=== PATIENT | female | born 1935 | race Caucasian/White ===

== ENCOUNTER → 2016-11-15 | Outpatient (CLI) | payer MEDICARE | END | disposition home or self-care (01) | LOC: LABWHC1 11:00 | PROVIDERS: ATTEND Family Medicine | DX: R19.4 Change in bowel habit (principal) | CPT/HCPCS: 36415; 82272 ==

== ENCOUNTER → 2016-11-16 | Outpatient (CLI) | payer MEDICARE | END | disposition home or self-care (01) | LOC: LABWHC1 11:00 | PROVIDERS: ATTEND Family Medicine | DX: R19.4 Change in bowel habit (principal) | CPT/HCPCS: 36415; 82272 ==

== ENCOUNTER → 2017-01-02 | Outpatient (CLI) | payer MEDICARE ==
--- NOTE | 2017-01-02 11:55 | MM ---
Reason for exam: additional evaluation requested from prior study. Last mammogram was performed 8 months ago. History: Patient is postmenopausal, has history of breast cancer at age 79, has history of colon cancer at age 48, and history of other cancer. Family history of breast cancer in 2 maternal cousins and breast cancer in sister at age 79. Malignant US breast localization RT of the right breast, July 21, 2015. Malignant US biopsy breast VAD RT of the right breast, June 22, 2015. Took estrogen for 20 years beginning at age 48. Taking antineoplastic beginning at age 79. Physical Findings: Nurse did not find any significant physical abnormalities on exam. MG 3D Diag Mammo W/Cad SILVA Bilateral CC and MLO view(s) were taken. Prior study comparison: May 06, 2016, bilateral MG 3d diag mammo w/cad SILVA. June 22, 2015, right breast MG diagnostic mammo RT wo CAD. There are scattered fibroglandular densities. No significant new findings when compared with previous films. These results were verbally communicated with the patient and result sheet given to the patient on 01/02/17. ASSESSMENT: Benign, BI-RAD 2 RECOMMENDATION: Follow-up diagnostic mammogram of both breasts in 1 year.
== END | disposition home or self-care (01) ==
LOC: RADMAMWWP 10:52
PROVIDERS: ATTEND Internal Medicine Hematology & Oncology
DX: R92.8 Other abnormal and inconclusive findings on diagnostic imaging of breast (principal); Z85.3 Personal history of malignant neoplasm of breast
CPT/HCPCS: G0204; G0279

== ENCOUNTER → 2017-02-17 | Outpatient (CLI) | payer MEDICARE ==
[2017-02-17 13:09] LABS: Basophils # (A) 0.1 k/uL (0-0.2); Basophils % (A) 1 %; CH 33.1; CHCM 34.2; Eosinophils # (A) 0.1 k/uL (0-0.7); Eosinophils % (A) 2 %; HCT 42.2 % (34.0-46.0); HDW 2.94; Luc # (Auto) 0.27; Luc % (Auto) 3; Lymphocytes # (A) 1.4 k/uL (1.0-4.8); Lymphocytes % (A) 18 %; MCH 32.3 pg (25.0-35.0); MCHC 33.2 g/dL (31.0-37.0); MCV 97.3 fL (80.0-100.0); Mean Platelet Volume 6.7; Monocytes # (A) 0.5 k/uL (0-1.0); Monocytes % (A) 6 %; Neutrophils # (A) 5.7 k/uL (1.3-7.7); Neutrophils % (A) 71 %; RBC 4.33 m/uL (3.80-5.40); RDW 13.5 % (11.5-15.5); WBC 8.1 k/uL (3.8-10.6); WBC (Perox) 8.04
[2017-02-17 15:18] LABS: Calcium 10.1 mg/dL (8.4-10.2); Magnesium 1.5 mg/dL (1.6-2.3); Potassium 3.9 mmol/L (3.5-5.1); Total Bilirubin 1.1 mg/dL (0.2-1.3); Total Protein 6.6 g/dL (6.3-8.2); Uric Acid 8.9 mg/dL (3.7-7.4)
[2017-02-18 01:08] LABS: Hemoglobin A1C 5.5 % (4.2-6.1)
== END | disposition home or self-care (01) ==
LOC: LABWHC1 11:53
PROVIDERS: ATTEND Family Medicine
DX: N18.3 Chronic kidney disease, stage 3 (moderate) (principal); E55.9 Vitamin D deficiency, unspecified; E53.8 Deficiency of other specified B group vitamins; E78.5 Hyperlipidemia, unspecified; E04.1 Nontoxic single thyroid nodule; Z86.39 Personal history of other endocrine, nutritional and metabolic disease
CPT/HCPCS: 36415; 80053; 80061; 82043; 82306; 82607; 83036; 83735; 83970; 84439; 84443; 84550; 85025

== ENCOUNTER → 2017-03-06 | Outpatient (CLI) | payer MEDICARE ==
--- NOTE | 2017-03-06 22:12 | US ---
EXAMINATION TYPE: US thyroid st tissue head/neck DATE OF EXAM: 03/06/2017 2:14 PM COMPARISON: 02/22/2014 CLINICAL HISTORY: 81-year-old female E04.1 Thyroid Nodule. TECHNIQUE: Multiple sonographic images of the thyroid gland are obtained. FINDINGS: GLAND SIZE: Right Lobe: 3.8 X 1.7 X 1.6 cm Overall Parenchyma: homogenous Left Lobe: 3.3 X 1.5 X 1.3 cm Overall Parenchyma: homogeneous Isthmus Thickness: 0.2 cm NODULES RIGHT: # of nodules measured on right: 2 1. 1.0 X 1.1 x 0.7 cm solid, mixed echogenicity nodule at the lower pole with well-defined margins; . This nodule is taller than wide and shows no intranodular vascularity. Prior size: 0.6 x 0.6 x 0.5 cm 2. 0.2 X 0.2 x 0.2 cm tiny cyst at the mid pole with well-defined margins; . This nodule shows no i ntranodular vascularity. Prior size: NO PRIOR 3. Nodule seen medially on 2013 study is not seen today. LEFT: # of nodules measured on left: 2 1. 0.9 X 0.8 x 0.7 cm echogenic solid nodule at the lower pole with well-defined margins; . This n odule is taller than wide and shows no intranodular vascularity. Prior size: 0.9 x 0.7 x 0.9 cm 2. 0.7 X 0.8 x 0.4 cm echogenic solid nodule at the upper pole with well-defined margins; . This no dule is taller than wide and shows no intranodular vascularity. Prior size: 0.8 x 0.7 x 0.9 cm ISTHMUS: # of nodules measured in the isthmus: 0 Bilateral neck scanned, no evidence of lymphadenopathy. IMPRESSION: 1. There are 2 nodules within each lobe. A solid nodule in the right lower pole has increased in size , now measuring 10 x 11 mm versus 6 x 6 mm, previously. The decision to biopsy should be made on a cl inical basis. 2. Additional nodules are largely stable.
== END | disposition home or self-care (01) ==
LOC: RADUSWWP 13:37
PROVIDERS: ATTEND Family Medicine
DX: E04.2 Nontoxic multinodular goiter (principal)
CPT/HCPCS: 76536

== ENCOUNTER → 2017-06-25 | Outpatient (CLI) | payer MEDICARE ==
[2017-06-25 10:40] LABS: CH 32.9; CHCM 34.5; HCT 39.8 % (34.0-46.0); HDW 2.93; HGB 13.7 gm/dL (11.4-16.0); MCH 32.9 pg (25.0-35.0); MCHC 34.3 g/dL (31.0-37.0); MCV 95.7 fL (80.0-100.0); Mean Platelet Volume 6.9; RBC 4.16 m/uL (3.80-5.40); RDW 13.6 % (11.5-15.5); WBC 7.1 k/uL (3.8-10.6)
[2017-06-25 10:53] LABS: Anion Gap 11 mmol/L; Blood Urea Nitrogen 20 mg/dL (7-17); Calcium 9.4 mg/dL (8.4-10.2); Carbon Dioxide 25 mmol/L (22-30); Chloride 102 mmol/L (98-107); Glucose 120 mg/dL (74-99); Non-African American GFR(MDRD) 50 (>60 ml/min/1.73 sqM); Potassium 3.5 mmol/L (3.5-5.1); Sodium 138 mmol/L (137-145)
== END | disposition home or self-care (01) ==
LOC: LABWHC1 09:47
PROVIDERS: ATTEND Internal Medicine Interventional Cardiology
DX: I10 Essential (primary) hypertension (principal); E11.9 Type 2 diabetes mellitus without complications
CPT/HCPCS: 36415; 80048; 85027

== ENCOUNTER → 2017-07-11 | Outpatient (CLI) | payer MEDICARE ==
--- NOTE | 2017-07-15 12:13 | BD ---
EXAMINATION TYPE: MG DEXA axial skeleton. DATE OF EXAM: 07/11/2017 COMPARISON: 09.27.2015 CLINICAL HISTORY: C50.111 BREAST CANCER, M85.8 OSTEOPENIA Height: 60.5 Weight: 193 FRAX RISK QUESTIONS: Alcohol (3 or more units per day): NO Family History (Parent hip fracture): YES, NO FX'S KNOWN Glucocorticoids (More than 3mos): YES (Ex: prednisone, prednisolone, methylprednisolone, dexamethasone, and hydrocortisone). History of Fracture in Adulthood: NO Secondary Osteoporosis: NO 1. Type 1 Diabetes: UNSURE WHERE SHE IS AT AT THIS TIME 2. Hyperthyroidism: NO 3. Menopause before 45: NO 4. Malnutrition: NO 5. Chronic liver disease: NO Rheumatoid Arthritis: NO Current Tobacco Use: NO RISK FACTORS HISTORY OF: Family History of Osteoporosis: YES SOME, BUT UNKNOWN WHO Active: NOT TOO MUCH Diet low in dairy products/other sources of calcium: NO Postmenopausal woman: 45 YRS OLD, HYST AT 49 YRS OLD Take estrogen and/or progesterone medications: TOOK HORMONES IN PAST FOR APROX 25 YRS OR MORE How lon+ YRS Lost more than 2 inches in height since high school: YES Hyperparathyroidism: NO Adrenal Insufficiency: NO MEDICATIONS: Prednisone or other steroids: FLOVENT, ASTHMA STEROIDS How Long: MANY YRS Thyroid Medications: YES, SYNTHROID How Long: MANY YRS...20 + Additional Medications: MAGNESIUM, VIT D, HX OF RADIATION THERAPY, BP MEDS, STATINS FOR CHOLESTEROL, REFLUX MEDS, POT. CHLORIDE , FUROSEMIDE Additional History: RENAL FAILURE, STAGE 3, RT BREAST CANCER, SPINAL STENOSIS, SCOLIOSIS, DIABETIC... DIET CONTROLLED EXAM MEASUREMENTS: Bone mineral densitometry was performed using the [employer] System. Bone mineral density as measured about the Lumbar spine is: ----- L1-L4(G/cm2): 1.143 T Score Values are as follows: ----- L1: -0.7 ----- L2: -0.9 ----- L3: 0.9 ----- L4: -0.8 ----- L1-L4: -0.3 Bone mineral density has: Decreased -4.3% since study of: 09.27.2015 Bone mineral density about the R hip (g/cm2): 0.781 Bone mineral density about the L hip (g/cm2): 0.746 T Score values are as follows: -----R Neck: -2.3 -----L Neck: -2.5 -----R Total: -1.8 -----L Total: -2.1 Bone mineral density has: Decreased -2.6% since study of: 09.27.2015 FRAX%'S: THERE IS A 25.6% CHANCE OF A MAJOR OSTEOPOROTIC FX AND 10.2% CHANCE FOR HIP FX.....PROBAB ILITY IN 10 YRS TIME IMPRESSION: Osteopenia NOTE: T-SCORE=SD OF THE YOUNG ADULT MEAN.
== END ==
LOC: RADBDWWP 10:34
PROVIDERS: ATTEND Internal Medicine Hematology & Oncology
DX: M85.80 Other specified disorders of bone density and structure, unspecified site (principal); C50.111 Malignant neoplasm of central portion of right female breast
CPT/HCPCS: 77080

== ENCOUNTER 2017-11-16 16:59 | Inpatient (IN) | payer MEDICARE ==
[2017-11-16] MEDS ORDERED: SODIUM CHLORIDE 0.9% 1,000 ML IV STA (17:33)
[2017-11-16] MEDS ORDERED: DILTIAZEM 125 MG in SODIUM CHLORIDE 0.9% 100 ML IV STA (17:40)
[2017-11-16] MEDS ORDERED: HEPARIN SODIUM,PORCINE 5,000 UNIT/ML 1 ML VIAL IV ONE (17:45)
[2017-11-16] MEDS ORDERED: HEPARIN SOD,PORK IN 0.45% NACL 25,000 UNIT in 0.45% NACL 1 500ML.BAG IV SCH (17:45)
--- NOTE | 2017-11-16 17:46 | ED ---
SOB HPI - General Chief Complaint: Shortness of Breath Stated Complaint: SOB Time Seen by Provider: 11/16/17 17:23 Source: patient, RN notes reviewed Mode of arrival: wheelchair Limitations: no limitations - History of Present Illness Initial Comments: This is a 82-year-old female presents with complaints of shortness of breath and some hot feeling anterior chest pain after but last 1 and days. No fevers chills or sweats just is very short of breath when she gets up walked he feels like she may pass out. She does state she has a hole in the top of her heart has no history of irregular heartbeats. She denies any palpitations fevers chills nausea vomiting sweats or other symptoms MD Complaint: shortness of breath - Related Data Home Medications Medication Instructions Recorded Confirmed Aspirin 81 mg PO DAILY 07/19/15 11/16/17 Ergocalciferol [Vitamin D2 50,000 unit PO [id number] 07/19/15 11/16/17 (DRISDOL)] Fluticasone Propionate [Flovent 2 puff INHALATION RT-BID 07/19/15 11/16/17 Hfa 110mcg] Furosemide [Furosemide] 20 mg PO Q48H 07/19/15 11/16/17 Levothyroxine Sodium [Synthroid] 50 mcg PO MOTUTHFRSA 07/19/15 11/16/17 Loratadine [Loratadine] 10 mg PO DAILY 07/19/15 11/16/17 Losartan Potassium [Losartan 50 mg PO DAILY 07/19/15 11/16/17 Potassium] Potassium Chloride [Klor-Con 10] 10 meq PO TID 07/19/15 11/16/17 Simvastatin [Simvastatin] 20 mg PO HS 07/19/15 11/16/17 Ubidecarenone [Co Q-10] 200 mg PO DAILY 07/19/15 11/16/17 Allopurinol [Zyloprim] 100 mg PO DAILY 11/16/17 11/16/17 Anastrozole [Arimidex] 1 mg PO DAILY 11/16/17 11/16/17 Atenolol [Tenormin] 25 mg PO DAILY 11/16/17 11/16/17 Levothyroxine Sodium [Synthroid] 75 mcg PO SUWE 11/16/17 11/16/17 Magnesium Oxide [Mag-Ox] 800 mg PO DAILY 11/16/17 11/16/17 Allergies Allergy/AdvReac Type Severity Reaction Status Date / Time iodine Allergy Unknown VERY LOW Verified 11/16/17 17:47 BLOOD PRESSURE,SHORTNESS OF BREATH adhesive tape Allergy Rash/Hives Verified 11/16/17 17:54 clarithromycin Allergy Unknown Verified 11/16/17 17:47 diphenhydramine Allergy Unknown Verified 11/16/17 17:47 metaxalone [From Skelaxin] Allergy Rash/Hives Verified 11/16/17 17:47 niacin Allergy Unknown Verified 11/16/17 17:47 [From Niaspan Extended-Release] pantoprazole Allergy ITCHING Verified 11/16/17 17:47 ,REDNESS OF SKIN Review of Systems ROS Statement: Those systems with pertinent positive or pertinent negative responses have been documented in the HPI. ROS Other: All systems not noted in ROS Statement are negative. Past Medical History Past Medical History: Asthma, Cancer, Diabetes Mellitus, GERD/Reflux, Hearing Disorder / Deafness, Hyperlipidemia, Hypertension, Osteoarthritis (OA), Renal Disease Additional Past Medical History / Comment(s): RENAL DISEASE STAGE 3, SPINAL STENOSIS,DIET CONTROLLED DIABETIC History of Any Multi-Drug Resistant Organisms: None Reported Past Surgical History: Breast Surgery, Cholecystectomy, Heart Catheterization, Hysterectomy, Orthopedic Surgery Additional Past Surgical History / Comment(s): RIGHT BREAST BIOPSY RIGHT . RIGHT SHOULDER X 3. Past Anesthesia/Blood Transfusion Reactions: Postoperative Nausea & Vomiting ( PONV) Additional Past Anesthesia/Blood Transfusion Reaction / Comment(s): DUE TO REFLUX /POST ANESTHESIA PNEUMONIA. Past Psychological History: No Psychological Hx Reported Smoking Status: Never smoker Past Alcohol Use History: None Reported Past Drug Use History: None Reported - Past Family History Mother Family Medical History: Pulmonary Embolus Sister(s) Family Medical History: Cancer General Exam - General Exam Comments Initial Comments: This is a well developed well-nourished awake alert oriented 3 female Limitations: no limitations General appearance: alert, in no apparent distress Head exam: Present: atraumatic, normocephalic, normal inspection Eye exam: Present: normal appearance, PERRL, EOMI. Absent: scleral icterus, conjunctival injection, periorbital swelling ENT exam: Present: normal exam, mucous membranes moist Neck exam: Present: normal inspection. Absent: tenderness, meningismus, lymphadenopathy Respiratory exam: Present: normal lung sounds bilaterally. Absent: respiratory distress, wheezes, rales, rhonchi, stridor Cardiovascular Exam: Present: tachycardia, irregular rhythm. Absent: systolic murmur, diastolic murmur, rubs, gallop, clicks GI/Abdominal exam: Present: soft, normal bowel sounds. Absent: distended, tenderness, guarding, rebound, rigid Extremities exam: Present: normal inspection, full ROM, normal capillary refill. Absent: tenderness, pedal edema, joint swelling, calf tenderness Back exam: Present: normal inspection Neurological exam: Present: alert, oriented X3, CN II-XII intact Psychiatric exam: Present: normal affect, normal mood Skin exam: Present: warm, dry, intact, normal color. Absent: rash Course Vital Signs 11/16/17 11/16/17 11/16/17 17:04 17:45 18:15 Temperature 97.2 F L Pulse Rate 153 H 154 H 102 H Respiratory 20 20 20 Rate Blood Pressure 120/57 119/58 97/58 O2 Sat by Pulse 100 99 98 Oximetry - Reevaluation(s) Reevaluation #1: 11/16/17 19:14 Reevaluation the patient status therapy reveals patient still somewhat improved no chest pain or shortness of breath at this time. Reevaluation #2: 11/16/17 19:16 Repeat EKG shows a rate of 77 atrial flutter with a 41 conduction noted. QRS 104 QT since QTC of 348/391 red bundle-branch block nonspecific T-wave configuration Medical Decision Making - Medical Decision Making Reevaluation patient reveals that she has improved heart rate no chest pain at this time shortness of breath is improved I did discuss the findings of her and her family members as well as with Dr. Christopher patient will be admitted for evaluation - Lab Data Result diagrams: 11/16/17 17:34 11/16/17 17:34 Lab Results 11/16/17 11/16/17 11/16/17 Range/Units 17:34 17:34 17:34 WBC 8.4 (3.8-10.6) k/uL RBC 4.75 (3.80-5.40) m/uL Hgb 15.0 (11.4-16.0) gm/dL Hct 46.1 H (34.0-46.0) % MCV 97.0 (80.0-100.0) fL MCH 31.5 (25.0-35.0) pg MCHC 32.5 (31.0-37.0) g/dL RDW 14.8 (11.5-15.5) % Plt Count 304 (150-450) k/uL Neutrophils % 58 % Lymphocytes % 25 % Monocytes % 8 % Eosinophils % 3 % Basophils % 1 % Neutrophils # 4.9 (1.3-7.7) k/uL Lymphocytes # 2.1 (1.0-4.8) k/uL Monocytes # 0.7 (0-1.0) k/uL Eosinophils # 0.3 (0-0.7) k/uL Basophils # 0.1 (0-0.2) k/uL PT (9.0-12.0) sec INR (<1.2) APTT (22.0-30.0) sec D-Dimer (<0.60) mg/L FEU Sodium 138 (137-145) mmol/L Potassium 4.4 (3.5-5.1) mmol/L Chloride 102 (98-107) mmol/L Carbon Dioxide 24 (22-30) mmol/L Anion Gap 12 mmol/L BUN 26 H (7-17) mg/dL Creatinine 1.38 H (0.52-1.04) mg/dL Est GFR (MDRD) Af Amer 44 (>60 ml/min/1.73 sqM) Est GFR (MDRD) Non-Af 36 (>60 ml/min/1.73 sqM) Glucose 102 H (74-99) mg/dL Calcium 10.2 (8.4-10.2) mg/dL Magnesium 1.8 (1.6-2.3) mg/dL Total Bilirubin 1.0 (0.2-1.3) mg/dL AST 22 (14-36) U/L ALT 28 (9-52) U/L Alkaline Phosphatase 87 (38-126) U/L Total Creatine Kinase 38 (30-135) U/L CK-MB (CK-2) 0.8 (0.0-2.4) ng/mL CK-MB (CK-2) Rel Index 2.1 Troponin I <0.012 (0.000-0.034) ng/mL Total Protein 6.5 (6.3-8.2) g/dL Albumin 3.8 (3.5-5.0) g/dL TSH 1.370 (0.465-4.680) mIU/L 11/16/17 Range/Units 17:34 WBC (3.8-10.6) k/uL RBC (3.80-5.40) m/uL Hgb (11.4-16.0) gm/dL Hct (34.0-46.0) % MCV (80.0-100.0) fL MCH (25.0-35.0) pg MCHC (31.0-37.0) g/dL RDW (11.5-15.5) % Plt Count (150-450) k/uL Neutrophils % % Lymphocytes % % Monocytes % % Eosinophils % % Basophils % % Neutrophils # (1.3-7.7) k/uL Lymphocytes # (1.0-4.8) k/uL Monocytes # (0-1.0) k/uL Eosinophils # (0-0.7) k/uL Basophils # (0-0.2) k/uL PT 10.7 (9.0-12.0) sec INR 1.1 (<1.2) APTT 22.7 (22.0-30.0) sec D-Dimer 0.61 H (<0.60) mg/L FEU Sodium (137-145) mmol/L Potassium (3.5-5.1) mmol/L Chloride (98-107) mmol/L Carbon Dioxide (22-30) mmol/L Anion Gap mmol/L BUN (7-17) mg/dL Creatinine (0.52-1.04) mg/dL Est GFR (MDRD) Af Amer (>60 ml/min/1.73 sqM) Est GFR (MDRD) Non-Af (>60 ml/min/1.73 sqM) Glucose (74-99) mg/dL Calcium (8.4-10.2) mg/dL Magnesium (1.6-2.3) mg/dL Total Bilirubin (0.2-1.3) mg/dL AST (14-36) U/L ALT (9-52) U/L Alkaline Phosphatase (38-126) U/L Total Creatine Kinase (30-135) U/L CK-MB (CK-2) (0.0-2.4) ng/mL CK-MB (CK-2) Rel Index Troponin I (0.000-0.034) ng/mL Total Protein (6.3-8.2) g/dL Albumin (3.5-5.0) g/dL TSH (0.465-4.680) mIU/L - EKG Data -: EKG Interpreted by Me (Rapid atrial flutter with an apparent 2-1 conduction rate was 156 QRS 82 QT) - Radiology Data Radiology results: report reviewed (X-ray showed no acute findings.), image reviewed Critical Care Time Critical Care Time: Yes Critical Care Time: 31 minutes of critical care time which includes initial presentation with history physical labs x-rays several reevaluation the patient discussed with the patient family members regarding findings discussed with the admitting physician initial orders and documentation of the above. Disposition Clinical Impression: Atrial flutter with rapid ventricular response, Renal insufficiency, Atypical chest pain Disposition: ADMITTED IP TO THIS [facility] Condition: Stable Referrals: Caron Orellana MD [Primary Care Provider] - 1-2 days
[2017-11-16 17:57] LABS: Basophils # (A) 0.1 k/uL (0-0.2); Basophils % (A) 1 %; Eosinophils # (A) 0.3 k/uL (0-0.7); Eosinophils % (A) 3 %; HCT 46.1 % (34.0-46.0); Lymphocytes # (A) 2.1 k/uL (1.0-4.8); Lymphocytes % (A) 25 %; MCH 31.5 pg (25.0-35.0); MCHC 32.5 g/dL (31.0-37.0); Mean Platelet Volume 7.6; Monocytes # (A) 0.7 k/uL (0-1.0); Monocytes % (A) 8 %; Neutrophils # (A) 4.9 k/uL (1.3-7.7); Neutrophils % (A) 58 %; Platelet Count 304 k/uL (150-450); RBC 4.75 m/uL (3.80-5.40); RDW 14.8 % (11.5-15.5); WBC 8.4 k/uL (3.8-10.6)
[2017-11-16 18:13] LABS: Albumin 3.8 g/dL (3.5-5.0); Calcium 10.2 mg/dL (8.4-10.2); Magnesium 1.8 mg/dL (1.6-2.3); Potassium 4.4 mmol/L (3.5-5.1); Total Protein 6.5 g/dL (6.3-8.2)
[2017-11-16 18:16] LABS: Creatine Kinase 38 U/L (30-135); D-Dimer 0.61 mg/L FEU (<0.60); INR 1.1 (<1.2); Partial Thromboplastin Time 22.7 sec (22.0-30.0); Prothrombin Time 10.7 sec (9.0-12.0)
--- NOTE | 2017-11-16 18:20 | XR ---
EXAMINATION TYPE: XR chest 2V DATE OF EXAM: 11/16/2017 COMPARISON: Chest x-ray 03/04/2014. Chest CT August 30, 2014. HISTORY: Dysrhythmia per order. Shortness of breath and chest burning per patient. TECHNIQUE: Frontal and lateral views of the chest are obtained. FINDINGS: There is chronic parenchymal change without suspicious focal air space opacity, pleural ef fusion, or pneumothorax seen. The cardiac silhouette size is enlarged. Bilateral hilar prominence is consistent with underlying pulmonary artery hypertension. The osseous structures remain demineraliz ed. Cholecystectomy clips are noted on lateral view. IMPRESSION: Chronic emphysematous change and cardiomegaly with underlying pulmonary artery hypertens ion but no acute pulmonary process.
[2017-11-16 18:28] LABS: Creatine Kinase MB 0.8 ng/mL (0.0-2.4); Troponin I <0.012 ng/mL (0.000-0.034)
[2017-11-16] MEDS ORDERED: NALOXONE 0.4 MG/ML 1 ML VIAL IV PRN (19:18)
[2017-11-16 20:17] LABS: Glucose,Whole Blood 108 mg/dL (75-99)
[2017-11-16 20:29] VITALS: BMI 35.5
[2017-11-16] MEDS: BUDESONIDE 0.5 MG/2 ML NEBU INHALATION SCH (20:59)
[2017-11-16] MEDS: ATORVASTATIN 10 MG TAB PO SCH (21:52)
[2017-11-16] MEDS: POTASSIUM CHLORIDE ER 10 MEQ TAB.ER.PRT PO SCH (21:52)
[2017-11-16] MEDS: SODIUM CHLORIDE 0.9% 1,000 ML IV SCH (21:52)
--- NOTE | 2017-11-16 22:20 | P.HPIM ---
History of Present Illness H&P Date: 11/16/17 Chief Complaint: shortness of breath 82 year old female presenting to the ER with 3 day history of shortness of breath. Patient describes having episodes of palpitations. Pounding headache that she couldn't feel her heart rate. And a burning sensation in her chest. Palpitations in the per her chest got better but patient was still short of breath. Denies any dizziness or loss of consciousness. Denies any fever, no chills, no congestion. Denies having any previous history of irregular rhythm in the past.but she was told that she has a hole in her heart for which she follows up with cardiology Dr. Askew. In the ER, patient was found to have atrial flutter with rapid ventricular response. Heart rate was over 150. Patient was disconnected patient was given Cardizem heart rate did improve. Now patient seems to be in atrial flutter with controlled rhythm. Review of Systems Constitutional: Denies fever, Denies sweats Eyes: denies blurred vision, denies pain Ears, nose, mouth and throat: Reports headache, Denies sore throat Cardiovascular: Reports chest pain, Denies shortness of breath Respiratory: Reports as per HPI, Denies cough, Denies hemoptysis Gastrointestinal: Denies abdominal pain, Denies diarrhea, Denies nausea, Denies vomiting Genitourinary: Denies dysuria, Denies hematuria Musculoskeletal: Denies myalgias Integumentary: Denies pruritus, Denies rash Neurological: Denies numbness, Denies weakness Psychiatric: Denies anxiety, Denies depression Past Medical History Past Medical History: Asthma, Cancer, Diabetes Mellitus, GERD/Reflux, Hearing Disorder / Deafness, Hyperlipidemia, Hypertension, Osteoarthritis (OA), Renal Disease, Thyroid Disorder Additional Past Medical History / Comment(s): RENAL DISEASE STAGE 3, SPINAL STENOSIS,DIET CONTROLLED DIABETIC; New onset Afib 11/16/16; diverticulosis; Colon cancer polyp removal,hole in the heart History of Any Multi-Drug Resistant Organisms: None Reported Past Surgical History: Breast Surgery, Cholecystectomy, Heart Catheterization, Hysterectomy, Orthopedic Surgery Additional Past Surgical History / Comment(s): RIGHT BREAST BIOPSY RIGHT . RIGHT SHOULDER X 3. Hx of colonoscopy Past Anesthesia/Blood Transfusion Reactions: Postoperative Nausea & Vomiting ( PONV) Additional Past Anesthesia/Blood Transfusion Reaction / Comment(s): DUE TO REFLUX /POST ANESTHESIA PNEUMONIA. Past Psychological History: No Psychological Hx Reported Smoking Status: Never smoker Past Alcohol Use History: None Reported Past Drug Use History: None Reported - Past Family History Mother Family Medical History: Pulmonary Embolus Additional Family Medical History / Comment(s): at 59 from PE Sister(s) Family Medical History: Cancer Additional Family Medical History / Comment(s): Breast Caancer Medications and Allergies Home Medications Medication Instructions Recorded Confirmed Type Aspirin 81 mg PO DAILY 07/19/15 11/16/17 History Ergocalciferol [Vitamin D2 50,000 unit PO [id number] 07/19/15 11/16/17 History (DRISDOL)] Fluticasone Propionate [Flovent 2 puff INHALATION RT-BID 07/19/15 11/16/17 History Hfa 110mcg] Furosemide [Furosemide] 20 mg PO Q48H 07/19/15 11/16/17 History Levothyroxine Sodium [Synthroid] 50 mcg PO MOTUTHFRSA 07/19/15 11/16/17 History Loratadine [Loratadine] 10 mg PO DAILY 07/19/15 11/16/17 History Losartan Potassium [Losartan 50 mg PO DAILY 07/19/15 11/16/17 History Potassium] Potassium Chloride [Klor-Con 10] 10 meq PO TID 07/19/15 11/16/17 History Simvastatin [Simvastatin] 20 mg PO HS 07/19/15 11/16/17 History Ubidecarenone [Co Q-10] 200 mg PO DAILY 07/19/15 11/16/17 History Allopurinol [Zyloprim] 100 mg PO DAILY 11/16/17 11/16/17 History Anastrozole [Arimidex] 1 mg PO DAILY 11/16/17 11/16/17 History Atenolol [Tenormin] 25 mg PO DAILY 11/16/17 11/16/17 History Levothyroxine Sodium [Synthroid] 75 mcg PO SUWE 11/16/17 11/16/17 History Magnesium Oxide [Mag-Ox] 800 mg PO DAILY 11/16/17 11/16/17 History Allergies Allergy/AdvReac Type Severity Reaction Status Date / Time iodine Allergy Unknown VERY LOW Verified 11/16/17 17:47 BLOOD PRESSURE,SHORTNESS OF BREATH adhesive tape Allergy Rash/Hives Verified 11/16/17 17:54 clarithromycin Allergy Unknown Verified 11/16/17 17:47 diphenhydramine Allergy Unknown Verified 11/16/17 17:47 Iodinated Contrast- Oral and Allergy Anaphylaxis Verified 11/16/17 20:44 IV Dye metaxalone [From Skelaxin] Allergy Rash/Hives Verified 11/16/17 17:47 niacin Allergy Unknown Verified 11/16/17 17:47 [From Niaspan Extended-Release] pantoprazole Allergy ITCHING Verified 11/16/17 17:47 ,REDNESS OF SKIN Physical Exam Vitals: Vital Signs Temp Pulse Pulse Resp BP BP Pulse Ox 11/16/17 21:00 76 11/16/17 20:00 97 F L 77 17 115/66 98 11/16/17 19:47 76 18 96/60 100 11/16/17 18:15 102 H 20 97/58 98 11/16/17 17:45 154 H 20 119/58 99 11/16/17 17:04 97.2 F L 153 H 20 120/57 100 Intake and Output 11/16/17 11/16/17 11/16/17 06:59 14:59 22:59 Other: Weight 88.1 kg Patient Weight 11/17/17 06:59 Weight 88.1 kg - Constitutional General appearance: no acute distress - EENT Eyes: EOMI, PERRLA - Neck Neck: no lymphadenopathy, no stridor - Respiratory Respiratory: bilateral: CTA, negative: rhonchi, wheezing - Cardiovascular Heart sounds: normal: S1, S2 Abnormal Heart Sounds: systolic murmur - Gastrointestinal General gastrointestinal: normal bowel sounds - Integumentary Integumentary: no pale, no rash - Neurologic Neurologic: CNII-XII intact - Musculoskeletal Musculoskeletal: strength equal bilaterally - Psychiatric Psychiatric: A&O x's 3, appropriate affect Results CBC & Chem 7: 11/16/17 17:34 11/16/17 17:34 Labs: Abnormal Lab Results - Last 24 Hours (Table) 11/16/17 11/16/17 11/16/17 Range/Units 17:34 17:34 17:34 Hct 46.1 H (34.0-46.0) % D-Dimer 0.61 H (<0.60) mg/L FEU BUN 26 H (7-17) mg/dL Creatinine 1.38 H (0.52-1.04) mg/dL Glucose 102 H (74-99) mg/dL POC Glucose (mg/dL) (75-99) mg/dL 11/16/17 Range/Units 20:15 Hct (34.0-46.0) % D-Dimer (<0.60) mg/L FEU BUN (7-17) mg/dL Creatinine (0.52-1.04) mg/dL Glucose (74-99) mg/dL POC Glucose (mg/dL) 108 H (75-99) mg/dL Thrombosis Risk Factor Assmnt - Choose All That Apply Any of the Below Risk Factors Present?: Yes Each Factor Represents 1 point: Swollen legs (current) Other Risk Factors: Yes Each Risk Factor Represents 3 Points: Age 75 years or older, Family history of DVT/PE Thrombosis Risk Factor Assessment Total Risk Factor Score: 7 Thrombosis Risk Factor Assessment Level: High Risk Assessment and Plan (1) Atrial flutter with rapid ventricular response Narrative/Plan: Currently on heparin drip Cardizem drip Rate controlled still in atrial flutter We'll check echo serial troponins Consult Dr. Askew Current Visit: Yes Status: Acute Code(s): I48.92 - UNSPECIFIED ATRIAL FLUTTER SNOMED Code(s): 1907294 (2) Hypothyroid Narrative/Plan: TSH normal Continue Synthroid Current Visit: Yes Status: Acute Code(s): E03.9 - HYPOTHYROIDISM, UNSPECIFIED SNOMED Code(s): 81718155 (3) Diabetes mellitus Narrative/Plan: Diet-controlled We'll monitor Accu-Cheks Current Visit: Yes Status: Acute Code(s): E11.9 - TYPE 2 DIABETES MELLITUS WITHOUT COMPLICATIONS SNOMED Code(s): 04890536 (4) Renal insufficiency Narrative/Plan: Stage III Current Visit: Yes Status: Acute Code(s): N28.9 - DISORDER OF KIDNEY AND URETER, UNSPECIFIED SNOMED Code(s): 769641771 (5) Hyperlipemia Narrative/Plan: Continue Lipitor Current Visit: Yes Status: Acute Code(s): E78.5 - HYPERLIPIDEMIA, UNSPECIFIED SNOMED Code(s): 33822695 (6) Hypertension Narrative/Plan: Continue atenolol and losartan Current Visit: Yes Status: Acute Code(s): I10 - ESSENTIAL (PRIMARY) HYPERTENSION SNOMED Code(s): 59923443
[2017-11-17 06:22] LABS: HCT 40.4 % (34.0-46.0); HGB 13.3 gm/dL (11.4-16.0); MCH 31.3 pg (25.0-35.0); MCHC 32.8 g/dL (31.0-37.0); MCV 95.3 fL (80.0-100.0); Mean Platelet Volume 7.5; Platelet Count 239 k/uL (150-450); RBC 4.23 m/uL (3.80-5.40); RDW 14.7 % (11.5-15.5); WBC 8.4 k/uL (3.8-10.6)
[2017-11-17] MEDS: LEVOTHYROXINE 50 MCG TAB PO SCH (06:27)
[2017-11-17 07:24] LABS: Calcium 9.3 mg/dL (8.4-10.2); Magnesium 1.8 mg/dL (1.6-2.3); Potassium 4.3 mmol/L (3.5-5.1)
[2017-11-17] MEDS ORDERED: LOSARTAN 50 MG TAB PO SCH (09:00)
[2017-11-17] MEDS ORDERED: NON-FORMULARY DRUG (Ubidecarenone [Co Q-10] 200 MG) PO SCH (09:00)
[2017-11-17] MEDS ORDERED: ASPIRIN 81 MG PO SCH (09:00)
[2017-11-17] MEDS: BUDESONIDE 0.5 MG/2 ML NEBU INHALATION SCH ×2 (09:00→20:23)
[2017-11-17] MEDS: ANASTROZOLE 1 MG TAB PO SCH (09:30)
[2017-11-17] MEDS: ALLOPURINOL 100 MG TAB PO SCH (09:30)
[2017-11-17] MEDS: MAGNESIUM OXIDE 400 MG TAB PO SCH (09:31)
[2017-11-17] MEDS: POTASSIUM CHLORIDE ER 10 MEQ TAB.ER.PRT PO SCH ×3 (09:31→20:41)
[2017-11-17] MEDS: ATENOLOL 25 MG TAB PO SCH (09:32)
[2017-11-17] MEDS: LORATADINE 10 MG TAB PO SCH (09:32)
--- NOTE | 2017-11-17 09:46 | P.PN ---
Subjective Progress Note Date: 11/17/17 Principal diagnosis: shortness of breath Patient is an 82-year-old female with a past medical history of diabetes mellitus, hypertension, dyslipidemia, chronic kidney disease stage III , and morbid obesity who presented to the ER with complaints of shortness of breath. In the ER she underwent an extensive evaluation. She was found to be in atrial flutter with rapid ventricular response. She was given IV Cardizem and started on a Cardizem drip with improvement in her rate. She was also started on heparin drip. Initial laboratory analysis was essentially unremarkable. She was admitted to the selective care unit for further monitoring and cardiology evaluation. Overnight on 11/16 her heart rate was controlled in the 70s on 5 of Cardizem. Patient seen and examined at bedside. She states she had some shortness of breath last night but it was resolved this morning. She has not had any more palpitations. Her chest heaviness has resolved as well. She follows with Dr. Orellana who she last saw several months ago. She follows with Dr. Askew for her heart but is unsure exactly why. She denies any history of atrial fibrillation in the past. A long discussion was had with her and her daughter regarding her fall risk. She has no history of falls. She does have intermittent episodes of lightheadedness which resolved quickly. She has not had any blood in her stools or dark tarry looking stools. She is familiar with Coumadin and would like to avoid this as her has taken it past, however she would be amenable to a newer anticoagulant. Objective - Vital Signs Vital signs: Vital Signs Temp 97 F L 11/17/17 04:00 Pulse 76 11/17/17 09:10 Resp 17 11/17/17 04:00 BP 102/58 11/17/17 04:00 Pulse Ox 95 11/17/17 04:00 Intake & Output 11/16/17 11/17/17 11/17/17 18:59 06:59 18:59 Intake Total 442.39 120 Balance 442.39 120 Weight 89.358 kg 88.1 kg Intake: Intake, IV Titration 322.39 Amount Heparin Sod,Pork in 0.45% 112.39 NaCl 25,000 unit In 0.45 % NaCl 1 500ml.bag @ 11.2 UNITS/KG/HR 20.01 mls/hr IV .Q24H NASIR Rx#: [id number] Sodium Chloride 0.9% 1, 160 000 ml @ 20 mls/hr IV . Q24H NASIR Rx#:[id number] Sodium Chloride 0.9% 1, 50 000 ml @ 50 mls/hr IV . Q20H STA Rx#:[id number] Oral 120 120 Other: # Voids 1 0 - Exam General: non toxic, no distress, appears at stated age, obesity Derm: warm, dry Head: atraumatic, normocephalic, symmetric Eyes: EOMI, no lid lag, anicteric sclera Mouth: no lip lesion, mucus membranes moist Cardiovascular: S1S2 irregular, no murmur, positive posterior tibial pulse bilateral, Lungs: CTA bilateral, no rhonchi, no rales , no accessory muscle use Abdominal: soft, nontender to palpation, no guarding, no appreciable organomegaly Ext: no gross muscle atrophy, no edema, no contractures Neuro: CN II-XI grossly intact, no focal neuro deficits Psych: Alert, oriented, appropriate affect - Labs CBC & Chem 7: 11/17/17 05:48 11/17/17 05:48 Labs: Abnormal Lab Results - Last 24 Hours (Table) 11/16/17 11/16/17 11/16/17 Range/Units 17:34 17:34 17:34 Hct 46.1 H (34.0-46.0) % APTT (22.0-30.0) sec D-Dimer 0.61 H (<0.60) mg/L FEU BUN 26 H (7-17) mg/dL Creatinine 1.38 H (0.52-1.04) mg/dL Glucose 102 H (74-99) mg/dL POC Glucose (mg/dL) (75-99) mg/dL 11/16/17 11/16/17 11/17/17 Range/Units 20:15 23:17 05:48 Hct (34.0-46.0) % APTT 73.5 H (22.0-30.0) sec D-Dimer (<0.60) mg/L FEU BUN 25 H (7-17) mg/dL Creatinine 1.30 H (0.52-1.04) mg/dL Glucose (74-99) mg/dL POC Glucose (mg/dL) 108 H (75-99) mg/dL 11/17/17 Range/Units 05:48 Hct (34.0-46.0) % APTT 68.8 H (22.0-30.0) sec D-Dimer (<0.60) mg/L FEU BUN (7-17) mg/dL Creatinine (0.52-1.04) mg/dL Glucose (74-99) mg/dL POC Glucose (mg/dL) (75-99) mg/dL Assessment and Plan Assessment: Atrial flutter with rapid ventricular response -Now rate controlled -Continue telemetry -Await echocardiogram -Attempt to discontinue Cardizem drip as she is currently rate controlled initiate oral Cardizem therapy. Could also consider coming off atenolol and starting metoprolol. - Await cardiology recommendations Hypertension, controlled - atenolol - hols cozaar - follow BP Hypothyroidism -TSH is normal -Continue Synthroid Diabetes mellitus type 2 -Diet controlled -Check hemoglobin A1c -Continue with echo Accu-Cheks Chronic kidney disease stage III Baseline creatinine of 1.1 - avoid additioabnl nephrotoxic agents - hold cozaar - follow BMP Dyslipidemia -Continue statin therapy Morbid obesity with BMI 35.5 -Structured outpatient weight loss DVT prophylaxis: Heparin gtt Discussed with: Patient, nursing, daughter Anticipated discharge: 24-[address]: home A total of 65 minutes was spent on the care of this complex patient more than 50 % of the time was spent in counseling and care coordination.
--- NOTE | 2017-11-17 10:25 | ECHOF ---
Referral Reason:new onset atrial flutter MEASUREMENTS -------- HEIGHT: 157.5 cm WEIGHT: 88.0 kg BP: 102/58 RVIDd: 2.4 cm (< 3.3) IVSd: 1.0 cm (0.6 - 1.1) LVIDd: 5.0 cm (3.9 - 5.3) LVPWd: 1.0 cm (0.6 - 1.1) IVSs: 1.5 cm LVIDs: 3.4 cm LVPWs: 1.2 cm LA Diam: 3.3 cm (2.7 - 3.8) LAESV Index (A-L): 26.28 ml/m Ao Diam: 3.3 cm (2.0 - 3.7) AV Cusp: 2.1 cm (1.5 - 2.6) MV EXCURSION: 10.629 mm (> 18.000) MV EF SLOPE: 58 mm/s (70 - 150) EPSS: 0.9 cm RAP: 5.00 mmHg RVSP: 28.84 mmHg FINDINGS -------- Atrial fibrillation. This was a technically difficult study with suboptimal apical views. The left ventricular size is normal. Left ventricular wall thickness is normal. Overall left vent ricular systolic function is normal with, an EF between 55 - 60 %. The right ventricle is normal in size and function. Normal LA size by volume 22+/-6 ml/m2. The right atrium is normal in size. 1.5mg of Definity was utilized for enhancement of images There is mild aortic valve sclerosis. There is mild aortic regurgitation. Mild mitral annular calcification present. Mild tricuspid regurgitation present. Right ventricular systolic pressure is normal at < 35 mmHg. Trace/mild (physiologic) pulmonic regurgitation. The aortic root size is normal. Normal inferior vena cava with normal inspiratory collapse consistent with estimated right atrial pre ssure of 5 mmHg. There is no pericardial effusion. CONCLUSIONS -------- 1. Atrial fibrillation. 2. This was a technically difficult study with suboptimal apical views. 3. The left ventricular size is normal. 4. Left ventricular wall thickness is normal. 5. Overall left ventricular systolic function is normal with, an EF between 55 - 60 %. 6. The right ventricle is normal in size and function. 7. Normal LA size by volume 22+/-6 ml/m2. 8. The right atrium is normal in size. 9. 1.5mg of Definity was utilized for enhancement of images 10. There is mild aortic valve sclerosis. 11. There is mild aortic regurgitation. 12. Mild mitral annular calcification present. 13. Mild tricuspid regurgitation present. 14. Right ventricular systolic pressure is normal at < 35 mmHg. 15. Trace/mild (physiologic) pulmonic regurgitation. 16. The aortic root size is normal. 17. Normal inferior vena cava with normal inspiratory collapse consistent with estimated right atrial pressure of 5 mmHg. 18. There is no pericardial effusion. HUSKER OPERATOR: Sujata Armando RDCS
[2017-11-17] MEDS: DILTIAZEM ORAL 30 MG TAB PO SCH ×3 (11:31→20:41)
[2017-11-17 12:10] LABS: Glucose,Whole Blood 148 mg/dL (75-99)
--- NOTE | 2017-11-17 12:12 | P.PN ---
Progress Note - Text this is an addendum to the dictated cardiology consultation. The patient has a history of hypertension, hyperlipidemia, stage III chronic kidney disease who presents with a 3 days symptoms of progressive dyspnea, dizziness and progressive fatigue. She has chronic dyspnea on exertion but much worse recently. On presentation she was noted to be in atrial flutter with a rapid ventricular rate, better now. She denies any significant chest discomfort. She has no clear PND nor orthopnea. She has mild chronic peripheral edema. She had a stress test in July 2016 that showed no evidence of inducible ischemia. In the past her systolic function was normal with [id number] pulmonary hypertension and mild mitral and aortic regurgitation. According to the patient she has what appears to be an ASD although I do not have documentations available to me at this time. She has been followed in the past by Dr. Askew. Her physical examination showed clear lungs and no significant edema. She has a systolic murmur but no S3. The patient presents with atrial flutter of unknown duration. Her ventricle response is stable at this time. I have discussed with her coagulation and she will be started on Eliquis 2.5 milligrams twice a day.she was started on oral Cardizem. Her activity level will be increased and depending on her ventricle response further adjustments will be made. If she stable she may be able to be discharged home tomorrow and if she continues to be in atrial flutter as an outpatient attempts to restore sinus mechanism can be made. Thank you for this consult we will follow with you.
--- NOTE | 2017-11-17 12:19 | P.CRDCN ---
History of Present Illness Consult date: 11/17/17 Requesting physician: Yolanda Christopher Consult reason: atrial fibrillation Chief complaint: Shortness of breath and near syncope History of present illness: This is a pleasant 82-year-old female who follows regularly with Dr. Solitario Askew in the office. She has a known history of hypertension, hyperlipidemia, diabetes, renal insufficiency, she presents to the hospital with symptoms of shortness of breath with associated feeling like she may pass out. She states that she did not feel dizzy, but felt as though if she didn't sit down that she may pass out. She does state that over the past week or so she has intermittent times where she feels her heart racing in her ears, she states that she notices some flip-flopping in her chest. Yesterday however she did not notice this. She has been complaining of some tachycardia cough as well as exertional dyspnea recently. EKG on admission here shows atrial flutter with rapid ventricular response. Chest x-ray reveals chronic emphysema change in cardiomegaly with underlying pulmonary hypertension. No acute pulmonary process. Laboratory data was reviewed, white blood cell count normal , hemoglobin 13.3, platelet count 239. D-dimer 0.61. Potassium 4.3, BUN 25, creatinine 1.3. Troponins are negative 3, TSH 1.3. At the time of my examination this morning, patient continues to be in atrial fibrillation/ flutter heart rate in the 80s, asymptomatic. 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 RIGHT SHOULDER X 3. Hx of colonoscopy Past Anesthesia/Blood Transfusion Reactions: Postoperative Nausea & Vomiting ( PONV) Additional Past Anesthesia/Blood Transfusion Reaction / Comment(s): DUE TO REFLUX /POST ANESTHESIA PNEUMONIA. Past Psychological History: No Psychological Hx Reported Smoking Status: Never smoker Past Alcohol Use History: None Reported Past Drug Use History: None Reported - Past Family History Mother Family Medical History: Pulmonary Embolus Additional Family Medical History / Comment(s): at 59 from PE Sister(s) Family Medical History: Cancer Additional Family Medical History / Comment(s): Breast Caancer Medications and Allergies Home Medications Medication Instructions Recorded Confirmed Type Aspirin 81 mg PO DAILY 07/19/15 11/16/17 History Ergocalciferol [Vitamin D2 50,000 unit PO [id number] 07/19/15 11/16/17 History (DRISDOL)] Fluticasone Propionate [Flovent 2 puff INHALATION RT-BID 07/19/15 11/16/17 History Hfa 110mcg] Furosemide [Furosemide] 20 mg PO Q48H 07/19/15 11/16/17 History Levothyroxine Sodium [Synthroid] 50 mcg PO MOTUTHFRSA 07/19/15 11/16/17 History Loratadine [Loratadine] 10 mg PO DAILY 07/19/15 11/16/17 History Losartan Potassium [Losartan 50 mg PO DAILY 07/19/15 11/16/17 History Potassium] Potassium Chloride [Klor-Con 10] 10 meq PO TID 07/19/15 11/16/17 History Simvastatin [Simvastatin] 20 mg PO HS 07/19/15 11/16/17 History Ubidecarenone [Co Q-10] 200 mg PO DAILY 07/19/15 11/16/17 History Allopurinol [Zyloprim] 100 mg PO DAILY 11/16/17 11/16/17 History Anastrozole [Arimidex] 1 mg PO DAILY 11/16/17 11/16/17 History Atenolol [Tenormin] 25 mg PO DAILY 11/16/17 11/16/17 History Levothyroxine Sodium [Synthroid] 75 mcg PO SUWE 11/16/17 11/16/17 History Magnesium Oxide [Mag-Ox] 800 mg PO DAILY 11/16/17 11/16/17 History Allergies Allergy/AdvReac Type Severity Reaction Status Date / Time iodine Allergy Unknown VERY LOW Verified 11/16/17 17:47 BLOOD PRESSURE,SHORTNESS OF BREATH adhesive tape Allergy Rash/Hives Verified 11/16/17 17:54 clarithromycin Allergy Unknown Verified 11/16/17 17:47 diphenhydramine Allergy Unknown Verified 11/16/17 17:47 Iodinated Contrast- Oral and Allergy Anaphylaxis Verified 11/16/17 20:44 IV Dye metaxalone [From Skelaxin] Allergy Rash/Hives Verified 11/16/17 17:47 niacin Allergy Unknown Verified 11/16/17 17:47 [From Niaspan Extended-Release] pantoprazole Allergy ITCHING Verified 11/16/17 17:47 ,REDNESS OF SKIN Physical Exam Vitals: Vital Signs Temp Pulse Pulse Resp BP BP Pulse Ox 11/17/17 09:10 76 11/17/17 09:01 76 11/17/17 09:00 98.1 F 79 18 116/62 95 11/17/17 04:00 97 F L 77 17 102/58 95 11/17/17 00:00 97 F L 77 17 100/59 97 11/16/17 21:00 76 11/16/17 20:00 97 F L 77 17 115/66 98 11/16/17 19:47 76 18 96/60 100 11/16/17 18:15 102 H 20 97/58 98 11/16/17 17:45 154 H 20 119/58 99 11/16/17 17:04 97.2 F L 153 H 20 120/57 100 Intake and Output 11/16/17 11/17/17 11/17/17 22:59 06:59 14:59 Intake Total 170 272.39 120 Balance 170 272.39 120 Intake: Intake, IV Titration 50 272.39 Amount Heparin Sod,Pork in 0.45% 112.39 NaCl 25,000 unit In 0.45 % NaCl 1 500ml.bag @ 11.2 UNITS/KG/HR 20.01 mls/hr IV .Q24H NASIR Rx#: [id number] Sodium Chloride 0.9% 1, 160 000 ml @ 20 mls/hr IV . Q24H NASIR Rx#:[id number] Sodium Chloride 0.9% 1, 50 000 ml @ 50 mls/hr IV . Q20H STA Rx#:[id number] Oral 120 120 Other: # Voids 1 1 1 # Bowel Movements 0 Weight 88.1 kg PHYSICAL EXAMINATION: HEENT: Head is atraumatic, normocephalic. Pupils equal, round. Neck is supple. There is no elevated jugular venous pressure. HEART EXAMINATION: Heart S1 and S2 irregularly irregular a systolic ejection murmur is heard. CHEST EXAMINATION: Lungs are clear to auscultation and precussion. No chest wall tenderness is noted on palpation or with deep breathing. ABDOMEN: Soft, nontender. Bowel sounds are heard. No organomegaly noted. EXTREMITIES: 2+ peripheral pulses with no evidence of peripheral edema and no calf tenderness noted. NEUROLOGIC patient is awake, alert and oriented -3. . Results 11/17/17 05:48 11/17/17 05:48 Cardiac Enzymes 11/16/17 11/16/17 11/16/17 Range/Units 17:34 17:34 23:17 AST 22 (14-36) U/L CK-MB (CK-2) 0.8 (0.0-2.4) ng/mL Troponin I <0.012 <0.012 (0.000-0.034) ng/mL 11/17/17 Range/Units 05:48 AST (14-36) U/L CK-MB (CK-2) (0.0-2.4) ng/mL Troponin I <0.012 (0.000-0.034) ng/mL Coagulation 11/16/17 11/16/17 11/17/17 Range/Units 17:34 23:17 05:48 PT 10.7 (9.0-12.0) sec APTT 22.7 73.5 H 68.8 H (22.0-30.0) sec CBC 11/16/17 11/17/17 Range/Units 17:34 05:48 WBC 8.4 8.4 (3.8-10.6) k/uL RBC 4.75 4.23 (3.80-5.40) m/uL Hgb 15.0 13.3 (11.4-16.0) gm/dL Hct 46.1 H 40.4 (34.0-46.0) % Plt Count 304 239 (150-450) k/uL Comprehensive Metabolic Panel 11/16/17 11/17/17 Range/Units 17:34 05:48 Sodium 138 139 (137-145) mmol/L Potassium 4.4 4.3 (3.5-5.1) mmol/L Chloride 102 106 (98-107) mmol/L Carbon Dioxide 24 23 (22-30) mmol/L BUN 26 H 25 H (7-17) mg/dL Creatinine 1.38 H 1.30 H (0.52-1.04) mg/dL Glucose 102 H 99 (74-99) mg/dL Calcium 10.2 9.3 (8.4-10.2) mg/dL AST 22 (14-36) U/L ALT 28 (9-52) U/L Alkaline Phosphatase 87 (38-126) U/L Total Protein 6.5 (6.3-8.2) g/dL Albumin 3.8 (3.5-5.0) g/dL Current Medications Generic Name Dose Route Start Last Admin Trade Name Freq PRN Reason Stop Dose Admin Allopurinol 100 mg 11/17/17 09:00 11/17/17 09:30 Zyloprim PO 100 mg DAILY NASIR Administration Anastrozole 1 mg 11/17/17 09:00 11/17/17 09:30 Arimidex PO 1 mg DAILY NASIR Administration Aspirin 81 mg 11/17/17 09:00 Aspirin PO DAILY NASIR Atenolol 25 mg 11/17/17 09:00 11/17/17 09:32 Tenormin PO 25 mg DAILY NASIR Administration Atorvastatin Calcium 10 mg 11/16/17 21:00 11/16/17 21:52 Lipitor PO 10 mg HS NASIR Administration Budesonide 0.5 mg 11/16/17 20:00 11/17/17 09:00 Pulmicort INHALATION 0.5 mg RT-BID NASIR Administration Diltiazem HCl 30 mg 11/17/17 10:00 11/17/17 11:31 Cardizem Oral PO 30 mg TID NASIR Administration Ergocalciferol 50,000 unit 11/24/17 12:00 Vitamin D2 PO Q14D NASIR Furosemide 20 mg 11/18/17 09:00 Lasix PO Q48H NASIR Sodium Chloride 1,000 mls @ 50 mls/hr 11/16/17 17:33 11/16/17 17:46 Saline 0.9% IV 11/17/17 13:32 50 mls/hr .Q20H STA Administration Heparin Sodium/Sodium Chloride 500 mls @ 20.01 mls/hr 11/16/17 17:45 23:41 25,000 unit/ Sodium Chloride IV 11.2 units/kg/hr .Q24H NASIR 20.01 mls/hr Protocol Titration 11.2 UNITS/KG/HR Sodium Chloride 1,000 mls @ 20 mls/hr 11/16/17 19:30 11/16/17 21:52 Saline 0.9% IV 20 mls/hr .Q24H NASIR Administration Levothyroxine Sodium 50 mcg 11/17/17 06:30 11/17/17 06:27 Synthroid PO 50 mcg MOTUTHFRSA NASIR Administration Levothyroxine Sodium 75 mcg 11/19/17 06:30 Synthroid PO SUWE NASIR Loratadine 10 mg 11/17/17 09:00 11/17/17 09:32 Claritin PO 10 mg DAILY NASIR Administration Magnesium Oxide 800 mg 11/17/17 09:00 11/17/17 09:31 Mag-Ox PO 800 mg DAILY NASIR Administration Naloxone HCl 0.2 mg 11/16/17 19:18 Narcan IV Q2M PRN Opioid Reversal Potassium Chloride 10 meq 11/16/17 22:00 11/17/17 09:34 K-Dur 10 PO 10 meq TID NASIR Administration Intake and Output 11/16/17 11/17/17 11/17/17 22:59 06:59 14:59 Intake Total 170 272.39 120 Balance 170 272.39 120 Intake: Intake, IV Titration 50 272.39 Amount Heparin Sod,Pork in 0.45% 112.39 NaCl 25,000 unit In 0.45 % NaCl 1 500ml.bag @ 11.2 UNITS/KG/HR 20.01 mls/hr IV .Q24H NASIR Rx#: [id number] Sodium Chloride 0.9% 1, 160 000 ml @ 20 mls/hr IV . Q24H NASIR Rx#:[id number] Sodium Chloride 0.9% 1, 50 000 ml @ 50 mls/hr IV . Q20H STA Rx#:[id number] Oral 120 120 Other: # Voids 1 1 1 # Bowel Movements 0 Weight 88.1 kg 11/17/17 05:48 11/17/17 05:48 EKG Interpretations (text) EKG shows atrial flutter with a rapid ventricular response. Assessment and Plan Plan: Assessment and plan #1 atrial flutter rapid ventricular response, new onset for the patient. Unsure of duration. Paroxysmal. #2 hypertension #3 hyperlipidemia #4 diabetes #5 hypothyroidism, TSH is normal Plan Echocardiogram with Doppler study was performed which revealed a normal left ventricular systolic function, normal RVSP. Did have a discussion with the patient regarding anticoagulation, she is traveling of the newer anticoagulants. We will check to see if the patient has coverage for Eliquis and start her on that. Discontinue IV heparin. Continue Cardizem and atenolol. DNP note has been reviewed, I agree with a documented findings and plan of care. Patient was seen and examined.
[2017-11-17] MEDS: APIXABAN 2.5 MG TABLET PO SCH ×2 (13:07→20:41)
[2017-11-17 15:36] LABS: Hemoglobin A1C 5.7 % (4.0-6.0)
[2017-11-17] MEDS: SODIUM CHLORIDE 0.9% 1,000 ML IV SCH (17:23)
[2017-11-17 17:24] LABS: Glucose,Whole Blood 143 mg/dL (75-99)
[2017-11-17] MEDS: ATORVASTATIN 10 MG TAB PO SCH (20:41)
[2017-11-17 21:03] LABS: Glucose,Whole Blood 138 mg/dL (75-99)
[2017-11-18 02:00] VITALS: TEMP 97.5
[2017-11-18] MEDS: LEVOTHYROXINE 50 MCG TAB PO SCH (06:23)
[2017-11-18 06:30] LABS: Glucose,Whole Blood 112 mg/dL (75-99)
[2017-11-18 06:38] LABS: HCT 36.5 % (34.0-46.0); HGB 12.1 gm/dL (11.4-16.0); MCHC 33.1 g/dL (31.0-37.0); MCV 96.7 fL (80.0-100.0); Mean Platelet Volume 7.5; Platelet Count 239 k/uL (150-450); RBC 3.78 m/uL (3.80-5.40); RDW 14.4 % (11.5-15.5); WBC 7.6 k/uL (3.8-10.6)
[2017-11-18 06:53] LABS: Albumin 2.9 g/dL (3.5-5.0); Calcium 9.5 mg/dL (8.4-10.2); Potassium 4.7 mmol/L (3.5-5.1); Total Bilirubin 0.4 mg/dL (0.2-1.3); Total Protein 5.3 g/dL (6.3-8.2)
[2017-11-18] MEDS: APIXABAN 2.5 MG TABLET PO SCH (08:02)
[2017-11-18] MEDS: ALLOPURINOL 100 MG TAB PO SCH (08:02)
[2017-11-18] MEDS: ATENOLOL 25 MG TAB PO SCH (08:02)
[2017-11-18] MEDS: DILTIAZEM ORAL 30 MG TAB PO SCH (08:02)
[2017-11-18] MEDS: ANASTROZOLE 1 MG TAB PO SCH (08:02)
[2017-11-18] MEDS: LORATADINE 10 MG TAB PO SCH (08:03)
[2017-11-18] MEDS: MAGNESIUM OXIDE 400 MG TAB PO SCH (08:03)
[2017-11-18] MEDS: POTASSIUM CHLORIDE ER 10 MEQ TAB.ER.PRT PO SCH (08:03)
--- NOTE | 2017-11-18 08:04 | P.PN ---
Progress Note - Text Progress Note Date: 11/18/17 Hospitalist interval note: Patient converted to normal sinus rhythm yesterday. Pt s/e at bedside. No chest pain, palpitations, or SOB. Feeling much better. After thinking back she has had the same symptoms that brought her in multiple times, but they didn't last as long. She thinks that she may have been going into this rhythm at home for some time. 1. A flutter with RVR- converted to SNR. Plan to sent home today on cardizem CR 120mg daily and eliquis. Will have nursing walk patient prior to ensure that she is stable and HR does not increase. Will d/c cardiology Piper Jacobo, DO
[2017-11-18 08:11] VITALS: BP 124/58; PULSE 62; RESP 16
[2017-11-18] MEDS ORDERED: FUROSEMIDE 20 MG TAB PO SCH (09:00)
--- NOTE | 2017-11-18 09:43 | P.DS ---
Providers Date of admission: 11/16/17 19:18 Expected date of discharge: 11/18/17 Attending physician: Yolanda Christopher MD Consults: 11/16/17 22:22 Consult Physician Routine Consulting Provider: Justo Askew Consult Reason/Comments: atrial flutter Do you want consulting provider notified?: Yes Primary care physician: Caron Orellana MD - Discharge Diagnosis(es) (1) Atrial flutter with rapid ventricular response Status: Acute (2) AF (paroxysmal atrial fibrillation) Status: Acute (3) Diabetes mellitus Status: Acute (4) CKD (chronic kidney disease), stage III Status: Acute (5) Hyperlipemia Status: Acute (6) Hypertension Status: Acute (7) Hypothyroid Status: Acute (8) Obesity (BMI 35.0-39.9 without comorbidity) Status: Acute Hospital Course: Patient is an 82-year-old female with a past medical history of diabetes mellitus, hypertension, dyslipidemia, chronic kidney disease stage III , and morbid obesity who presented to the ER with complaints of shortness of breath. In the ER she underwent an extensive evaluation. She was found to be in atrial flutter with rapid ventricular response. She was given IV Cardizem and started on a Cardizem drip with improvement in her rate. She was also started on heparin drip. Initial laboratory analysis was essentially unremarkable. She was admitted to the selective care unit for further monitoring and cardiology evaluation. Overnight on 11/16 her heart rate was controlled in the 70s but still in [place] flutter on a Cardizem drip at 5 mg. She underwent an echocardiogram which was unremarkable. On the afternoon of 11/16 she converted to normal sinus rhythm. She maintained this up until discharge. Both myself and cardiology had a long discussion with her about risks versus benefits of anticoagulation. She was started on eliquis. With maintenance of normal sinus rhythm was determined that she was stable for discharge home. Her hemoglobin A1c was checked here which was 5.7. She had a negative initial troponin. She had been having intermittent episodes of this odd feeling for several months and it was determined she would benefit from stay on Cardizem 120 mg oral daily. She was given prescriptions for 30 days worth of all of this and Cardizem. She will also follow with Dr. Askew in the cardiology office on 11/25. She will follow with Dr. Orellana on 11/24. Of note patient had a improvement faster than expected and she converted to normal sinus rhythm. Patient seen and examined at bedside. Vital signs reviewed and stable. General: non toxic, no distress, appears at stated age Derm: warm, dry Head: atraumatic, normocephalic, symmetric Eyes: EOMI, no lid lag, anicteric sclera Mouth: no lip lesion, mucus membranes moist Cardiovascular: S1S2 reg, no murmur, positive posterior tibial pulse bilateral, Lungs: CTA bilateral, no rhonchi, no rales , no accessory muscle use Abdominal: soft, nontender to palpation, no guarding, no appreciable organomegaly Ext: no gross muscle atrophy, no edema, no contractures Neuro: CN II-XI grossly intact, no focal neuro deficits Psych: Alert, oriented, appropriate affect A total of 40 minutes of time were spent preparing this complex discharge summary . Pertinent Studies: echocardiogram: Ejection fraction 55-60% Procedures: None Patient Condition at Discharge: Stable Plan - Discharge Summary New Discharge Prescriptions: New Apixaban [Eliquis] 2.5 mg PO BID #60 tablet Diltiazem Cd [Cardizem Cd] 120 mg PO Q24HR #30 cap Losartan [Cozaar] 25 mg PO DAILY #30 tab Continue Fluticasone Propionate [Flovent Hfa 110mcg] 2 puff INHALATION RT-BID Potassium Chloride [Klor-Con 10] 20 meq PO BID Furosemide 60 mg PO DAILY Loratadine 10 mg PO DAILY Levothyroxine Sodium [Synthroid] 50 mcg PO MOTUTHFRSA Simvastatin 20 mg PO HS Ubidecarenone [Co Q-10] 200 mg PO DAILY Ergocalciferol [Vitamin D2 (DRISDOL)] 50,000 unit PO [id number] Magnesium Oxide [Mag-Ox] 800 mg PO DAILY Levothyroxine Sodium [Synthroid] 75 mcg PO SUWE Atenolol [Tenormin] 25 mg PO DAILY Anastrozole [Arimidex] 1 mg PO DAILY Allopurinol [Zyloprim] 100 mg PO DAILY Discontinued Aspirin 81 mg PO DAILY Losartan Potassium [Losartan Potassium] 50 mg PO DAILY Discharge Medication List Ergocalciferol [Vitamin D2 (DRISDOL)] 50,000 unit PO [id number] 07/19/15 [History] Fluticasone Propionate [Flovent Hfa 110mcg] 2 puff INHALATION RT-BID 07/19/15 [ History] Furosemide 60 mg PO DAILY 07/19/15 [History] Levothyroxine Sodium [Synthroid] 50 mcg PO MOTUTHFRSA 07/19/15 [History] Loratadine 10 mg PO DAILY 07/19/15 [History] Potassium Chloride [Klor-Con 10] 20 meq PO BID 07/19/15 [History] Simvastatin 20 mg PO HS 07/19/15 [History] Ubidecarenone [Co Q-10] 200 mg PO DAILY 07/19/15 [History] Allopurinol [Zyloprim] 100 mg PO DAILY 11/16/17 [History] Anastrozole [Arimidex] 1 mg PO DAILY 11/16/17 [History] Atenolol [Tenormin] 25 mg PO DAILY 11/16/17 [History] Levothyroxine Sodium [Synthroid] 75 mcg PO SUWE 11/16/17 [History] Magnesium Oxide [Mag-Ox] 800 mg PO DAILY 11/16/17 [History] Apixaban [Eliquis] 2.5 mg PO BID #60 tablet 11/18/17 [Rx] Diltiazem Cd [Cardizem Cd] 120 mg PO Q24HR #30 cap 11/18/17 [Rx] Losartan [Cozaar] 25 mg PO DAILY #30 tab 11/18/17 [Rx] Follow up Appointment(s)/Referral(s): Justo Askew MD [STAFF PHYSICIAN] - 11/25/17 9:00 am Caron Orellana MD [Primary Care Provider] - 11/24/17 6:00 pm [facility], [NON-STAFF] - Patient Instructions/Handouts: A-fib (Atrial Fibrillation) (DC), Heart Healthy Diet (DC), Safe Use of Anticoagulants (DC) Activity/Diet/Wound Care/Special Instructions: pt has a 30 day free supply of Eliquis filled in [facility] pharmacy, copay is $30 for following refills. Your cozaar dose has been decreased by 1/2. I have sent in a new prescription for the correct dose. You could also use the pills you already have but break them in 1/2. Start first dose of diltiazem (cardizem) on November 19, 2017. heart health carb consistent diet Activity as tolerated. Discharge Disposition: HOME WITH HOME HEALTH SERVICES
--- NOTE | 2017-11-18 10:18 | CDI ---
Last Revision, October 2017 Documentation Clarification Form Date: 11/18/2017 10:11:00 AM From: Susan KelleyPERICO, CCDS Admit Date: 11/16/2017 7:18:00 PM Patient Name: Farnaz Ziegler Visit Number: [id number] Discharge Date: ATTENTION: The Clinical Documentation Specialists (CDI) and [facility] Coding Staff appreciate your assistance in clarifying documentation. Please respond to the clarification below the line at the bottom and electronically sign. The CDI & [facility] Coding staff will review the response and follow-up if needed. Please note: Queries are made part of the Legal Health Record. If you have any questions, please contact the author of this message via ITS. Dr. Chino Caldwell: Atrial Flutter is documented in the ED note, the H/P, Cardiology Consult and progress note. History/Risk factors: Atrial Fibrillation nos, Asthma, Breast CA, DM diet controlled, GERD, Hyperlipidemia & Hypertension Clinical Indicators: Per the ED note, the patient presented with palpitations. EKG #1: R 156 Atrial flutter w/2:1 AV conduction. EKG #2: R 77 Atrial flutter w/ 4:1 AV conduction, Inc RBBB. Treatment: IV Heparin, IV Cardizem, Pulmicort INH, IV fl rate 50. Telemetry. Discharging home on new med: Eliquis. In your professional opinion, in order to capture the severity of condition; can you please clarify the type of atrial flutter if known? Typical/Type I X Atypical/Type II Other, please specify Unable to determine Please continue to document in your progress notes and discharge summary in order to capture severity of illness and risk of mortality. Include clinical findings that support your diagnosis. MTDD
--- NOTE | 2017-11-18 10:40 | CDI ---
Last Revision, October 2017 Documentation Clarification Form Date: 11/18/2017 10:11:00 AM From: Susan KelleyPERICO, CCDS Admit Date: 11/16/2017 7:18:00 PM Patient Name: Farnaz Ziegler Visit Number: [id number] Discharge Date: ATTENTION: The Clinical Documentation Specialists (CDI) and [facility] Coding Staff appreciate your assistance in clarifying documentation. Please respond to the clarification below the line at the bottom and electronically sign. The CDI & [facility] Coding staff will review the response and follow-up if needed. Please note: Queries are made part of the Legal Health Record. If you have any questions, please contact the author of this message via ITS. Dr. Chino Caldwell: Cardiology was consulted for patient's atrial fibrillation/atrial flutter. ECHO: Atrial Fibrillation History/Risk factors: Atrial Fibrillation nos, Asthma, Breast CA, DM diet controlled, GERD, Hyperlipidemia & Hypertension Clinical Indicators: Per the ED note, the patient presented with palpitations. Heart rates: 77 - 52 - 62 EKG #1: R 156 Atrial flutter w/2:1 AV conduction. EKG #2: R 77 Atrial flutter w/ 4:1 AV conduction, Inc RBBB. Treatment: IV Heparin, IV Cardizem, Pulmicort INH, IV fl rate 50. Telemetry. Discharging home on new med: Eliquis. In your professional opinion, can you please clarify the type of atrial fibrillation, if known? Chronic/Permanent Paroxysmal Persistent Other, please specify Unable to determine Please continue to document in your progress notes and discharge summary in order to capture severity of illness and risk of mortality. Include clinical findings that support your diagnosis. MTDD
[2017-11-18] MEDS: BUDESONIDE 0.5 MG/2 ML NEBU INHALATION SCH (12:13)
--- NOTE | 2017-11-18 12:30 | P.PN ---
Subjective Progress Note Date: 11/11/17 Principal diagnosis: Atrial fibrillation This is a pleasant 82-year-old female who follows regularly with Dr. Solitario Askew in the office. She has a known history of hypertension, hyperlipidemia, diabetes, renal insufficiency, she presents to the hospital with symptoms of shortness of breath with associated feeling like she may pass out. She states that she did not feel dizzy, but felt as though if she didn't sit down that she may pass out. She does state that over the past week or so she has intermittent times where she feels her heart racing in her ears, she states that she notices some flip-flopping in her chest. Yesterday however she did not notice this. She has been complaining of some tachycardia cough as well as exertional dyspnea recently. EKG on admission here shows atrial flutter with rapid ventricular response. Chest x-ray reveals chronic emphysema change in cardiomegaly with underlying pulmonary hypertension. No acute pulmonary process. Laboratory data was reviewed, white blood cell count normal , hemoglobin 13.3, platelet count 239. D-dimer 0.61. Potassium 4.3, BUN 25, creatinine 1.3. Troponins are negative 3, TSH 1.3. At the time of my examination this morning, patient continues to be in atrial fibrillation/ flutter heart rate in the 80s, asymptomatic. 11/18/2017 Patient seen and examined this morning, currently in a normal sinus rhythm on Eliquis for anticoagulation. Echocardiogram with Doppler study was performed which revealed an ejection fraction of 55-60%. Blood pressure 124/58, heart rate in the 60s. Objective - Vital Signs Vital signs: Vital Signs Temp 97.5 F L 11/18/17 08:00 Pulse 62 11/18/17 08:00 Resp 16 11/18/17 08:00 BP 124/58 11/18/17 08:00 Pulse Ox 97 11/18/17 08:00 Intake & Output 11/17/17 11/18/17 11/18/17 18:59 06:59 18:59 Intake Total 600 Output Total 300 Balance 300 Weight 89.7 kg Intake: Oral 600 Output: Urine 300 Other: Voiding Method Toilet # Voids 1 1 # Bowel Movements 0 - Exam PHYSICAL EXAMINATION: HEENT: Head is atraumatic, normocephalic. Pupils equal, round. Neck is supple. There is no elevated jugular venous pressure. HEART EXAMINATION: Heart S1 S2 1 systolic ejection murmur is heard. CHEST EXAMINATION: Lungs are clear to auscultation and precussion. No chest wall tenderness is noted on palpation or with deep breathing. ABDOMEN: Soft, nontender. Bowel sounds are heard. No organomegaly noted. EXTREMITIES: 2+ peripheral pulses with no evidence of peripheral edema and no calf tenderness noted. NEUROLOGIC patient is awake, alert and oriented -3. . - Labs CBC & Chem 7: 11/18/17 06:18 11/18/17 06:18 Labs: Abnormal Lab Results - Last 24 Hours (Table) 11/17/17 11/17/17 11/18/17 Range/Units 16:55 21:01 06:18 RBC 3.78 L (3.80-5.40) m/uL BUN (7-17) mg/dL Creatinine (0.52-1.04) mg/dL Glucose (74-99) mg/dL POC Glucose (mg/dL) 143 H 138 H (75-99) mg/dL Total Protein (6.3-8.2) g/dL Albumin (3.5-5.0) g/dL 11/18/17 11/18/17 Range/Units 06:18 06:28 RBC (3.80-5.40) m/uL BUN 26 H (7-17) mg/dL Creatinine 1.30 H (0.52-1.04) mg/dL Glucose 110 H (74-99) mg/dL POC Glucose (mg/dL) 112 H (75-99) mg/dL Total Protein 5.3 L (6.3-8.2) g/dL Albumin 2.9 L (3.5-5.0) g/dL Assessment and Plan Plan: Assessment and plan #1 Typical atrial flutter w rapid ventricular response, new onset for the patient. Unsure of duration. Paroxysmal. #2 hypertension #3 hyperlipidemia #4 diabetes #5 hypothyroidism, TSH is normal Plan Echocardiogram with Doppler study was performed which revealed a normal left ventricular systolic function, normal RVSP. She has been initiated on Eliquis milligrams one tablet by mouth twice a day which we will continue. May be able to be discharged home from cardiology standpoint and follow-up with Dr. Solitario Askew in the office post discharge. DNP note has been reviewed, I agree with a documented findings and plan of care. Patient was seen and examined.
[2017-11-19] MEDS ORDERED: LEVOTHYROXINE 75 MCG TAB PO SCH (06:30)
[2017-11-24] MEDS ORDERED: ERGOCALCIFEROL 50,000 UNIT CAP PO SCH (12:00)
== END 2017-11-18 12:12 | disposition home health service (06) | DRG 310 ==
LOC: EC 16:59 → 6SEL 19:18
PROVIDERS: ADMIT Internal Medicine; ATTEND Internal Medicine
DX: I48.3 Typical atrial flutter (principal); E11.22 Type 2 diabetes mellitus with diabetic chronic kidney disease; I27.20 Pulmonary hypertension, unspecified; E66.01 Morbid (severe) obesity due to excess calories; J43.9 Emphysema, unspecified; E03.9 Hypothyroidism, unspecified; E78.5 Hyperlipidemia, unspecified; H91.90 Unspecified hearing loss, unspecified ear; I08.0 Rheumatic disorders of both mitral and aortic valves; I12.9 Hypertensive chronic kidney disease with stage 1 through stage 4 chronic kidney disease, or unspecified chronic kidney disease; I48.0 Paroxysmal atrial fibrillation; J45.909 Unspecified asthma, uncomplicated; K21.9 Gastro-esophageal reflux disease without esophagitis; N18.3 Chronic kidney disease, stage 3 (moderate); K57.90 Diverticulosis of intestine, part unspecified, without perforation or abscess without bleeding; M19.90 Unspecified osteoarthritis, unspecified site; M48.00 Spinal stenosis, site unspecified; R01.1 Cardiac murmur, unspecified; Z68.35 Body mass index [BMI] 35.0-35.9, adult; Z79.51 Long term (current) use of inhaled steroids; Z79.811 Long term (current) use of aromatase inhibitors; Z79.82 Long term (current) use of aspirin; Z79.899 Other long term (current) drug therapy; Z85.038 Personal history of other malignant neoplasm of large intestine; Z90.710 Acquired absence of both cervix and uterus; Z88.1 Allergy status to other antibiotic agents; Z91.041 Radiographic dye allergy status; Z88.8 Allergy status to other drugs, medicaments and biological substances; Z91.048 Other nonmedicinal substance allergy status
CPT/HCPCS: 36415; 71046; 80048; 80053; 82550; 82553; 83036; 83735; 84443; 84484; 85025; 85027; 85379; 85610; 85730; 93005; 93306; 94640; 94760; 96365; 96366; 96368; 96376; 99291

== ENCOUNTER → 2017-12-22 | Outpatient (CLI) | payer MEDICARE ==
[2017-12-22 11:09] LABS: Basophils # (A) 0.1 k/uL (0-0.2); Basophils % (A) 1 %; Eosinophils # (A) 0.3 k/uL (0-0.7); Eosinophils % (A) 4 %; HGB 13.7 gm/dL (11.4-16.0); Lymphocytes # (A) 1.3 k/uL (1.0-4.8); Lymphocytes % (A) 19 %; MCH 31.8 pg (25.0-35.0); MCHC 32.6 g/dL (31.0-37.0); MCV 97.4 fL (80.0-100.0); Mean Platelet Volume 7.1; Monocytes # (A) 0.5 k/uL (0-1.0); Monocytes % (A) 6 %; Neutrophils # (A) 4.9 k/uL (1.3-7.7); Neutrophils % (A) 68 %; Platelet Count 259 k/uL (150-450); RBC 4.31 m/uL (3.80-5.40); RDW 13.7 % (11.5-15.5); WBC 7.2 k/uL (3.8-10.6)
[2017-12-22 11:10] LABS: Albumin 3.4 g/dL (3.5-5.0); Calcium 9.7 mg/dL (8.4-10.2); Magnesium 1.9 mg/dL (1.6-2.3); Phosphorus 3.6 mg/dL (2.5-4.5); Total Bilirubin 0.6 mg/dL (0.2-1.3); Total Protein 6.2 g/dL (6.3-8.2); Uric Acid 7.6 mg/dL (3.7-7.4)
[2017-12-22 15:25] LABS: Vitamin D 25 Hydroxy 46.8 ng/mL (30.0-100.0)
[2017-12-22 17:55] LABS: Parathyroid Hormone Intact 49.2 pg/mL (14.0-72.0)
== END | disposition home or self-care (01) ==
LOC: LABWHC1 10:10
PROVIDERS: ATTEND Family Medicine
DX: N25.81 Secondary hyperparathyroidism of renal origin (principal); E55.9 Vitamin D deficiency, unspecified; N18.3 Chronic kidney disease, stage 3 (moderate); E79.0 Hyperuricemia without signs of inflammatory arthritis and tophaceous disease; E78.5 Hyperlipidemia, unspecified; E11.9 Type 2 diabetes mellitus without complications
CPT/HCPCS: 36415; 80053; 80061; 82306; 83735; 83970; 84100; 84550; 85025

== ENCOUNTER → 2018-01-05 | Outpatient (CLI) | payer MEDICARE ==
--- NOTE | 2018-01-05 10:24 | MM ---
Reason for exam: additional evaluation requested from prior study. Last mammogram was performed 1 year ago. History: Patient is postmenopausal, has history of breast cancer at age 79, has history of colon cancer at age 48, and history of other cancer. Family history of breast cancer in 2 maternal cousins and breast cancer in sister at age 79. Malignant US breast localization RT of the right breast, July 21, 2015. Malignant US biopsy breast VAD RT of the right breast, June 22, 2015. Took estrogen for 20 years beginning at age 48. Taking antineoplastic beginning at age 79. Physical Findings: Nurse did not find any significant physical abnormalities on exam. MG 3D Diag Mammo W/Cad SILVA Bilateral CC and MLO view(s) were taken. Prior study comparison: January 02, 2017, bilateral MG 3d diag mammo w/cad SILVA. May 06, 2016, bilateral MG 3d diag mammo w/cad SILVA. There are scattered fibroglandular densities. Finding: There are typically benign diffuse/scattered calcifications in both breasts. Post therapy change on the right breast. These results were verbally communicated with the patient and result sheet given to the patient on 01/05/18. ASSESSMENT: Benign, BI-RAD 2 RECOMMENDATION: Follow-up diagnostic mammogram of both breasts in 1 year.
== END | disposition home or self-care (01) ==
LOC: RADMAMWWP 09:38
PROVIDERS: ATTEND Internal Medicine Hematology & Oncology
DX: Z08 Encounter for follow-up examination after completed treatment for malignant neoplasm (principal); Z85.3 Personal history of malignant neoplasm of breast
CPT/HCPCS: 77066; G0279

== ENCOUNTER 2018-01-23 10:42 | Observation (INO) | payer MEDICARE ==
[2018-01-23] MEDS ORDERED: SODIUM CHLORIDE 0.9% 1,000 ML IV STA (11:23)
[2018-01-23] MEDS ORDERED: ESMOLOL IN SODIUM CHLORIDE PMX 2.5 GM in SALINE 1 250ML.BAG IV ONE (11:24)
--- NOTE | 2018-01-23 11:29 | ED ---
General Adult HPI - General Chief complaint: Arrhythmia/Palpitations Stated complaint: AFIB Time Seen by Provider: 01/23/18 11:01 Source: patient, family, RN notes reviewed Mode of arrival: wheelchair Limitations: no limitations - History of Present Illness Initial comments: Patient is a pleasant 82-year-old female presenting to the emergency department complaining of palpitations. Onset was this morning. Symptoms are similar to previous atrial fibrillation. Patient has had some mild associated ache in her chest today. Patient has exertional dyspnea however that has been present for close to one year. Heart rate at home was around 120. - Related Data Home Medications Medication Instructions Recorded Confirmed Ergocalciferol [Vitamin D2 50,000 unit PO [id number] 07/19/15 01/23/18 (DRISDOL)] Fluticasone Propionate [Flovent 2 puff INHALATION RT-BID 07/19/15 01/23/18 Hfa 110mcg] Furosemide 60 mg PO Q48H 07/19/15 01/23/18 Levothyroxine Sodium [Synthroid] 50 mcg PO MOTUTHFRSA 07/19/15 01/23/18 Potassium Chloride [Klor-Con 10] 10 meq PO QID 07/19/15 01/23/18 Ubidecarenone [Co Q-10] 200 mg PO DAILY 07/19/15 01/23/18 Allopurinol [Zyloprim] 100 mg PO DAILY 11/16/17 01/23/18 Anastrozole [Arimidex] 1 mg PO DAILY 11/16/17 01/23/18 Atenolol [Tenormin] 25 mg PO DAILY 11/16/17 01/23/18 Levothyroxine Sodium [Synthroid] 75 mcg PO SUWE 11/16/17 01/23/18 Magnesium Oxide [Mag-Ox] 800 mg PO DAILY 11/16/17 01/23/18 Docusate Sodium [Dok] 100 mg PO DAILY PRN 01/23/18 01/23/18 Rosuvastatin [Crestor] 10 mg PO HS 01/23/18 01/23/18 Previous Rx's Medication Instructions Recorded Apixaban [Eliquis] 2.5 mg PO BID #60 tablet 11/18/17 Diltiazem Cd [Cardizem Cd] 120 mg PO Q24HR #30 cap 01/09/18 Losartan [Cozaar] 25 mg PO DAILY #30 tab 11/18/17 Allergies Allergy/AdvReac Type Severity Reaction Status Date / Time iodine Allergy Unknown VERY LOW Verified 01/23/18 11:34 BLOOD PRESSURE,SHORTNESS OF BREATH adhesive tape Allergy Rash/Hives Verified 01/23/18 11:34 clarithromycin Allergy Unknown Verified 01/23/18 11:34 diphenhydramine Allergy Unknown Verified 01/23/18 11:34 Iodinated Contrast- Oral and Allergy Anaphylaxis Verified 01/23/18 11:34 IV Dye metaxalone [From Skelaxin] Allergy Rash/Hives Verified 01/23/18 11:34 niacin Allergy Unknown Verified 01/23/18 11:34 [From Niaspan Extended-Release] pantoprazole Allergy ITCHING Verified 01/23/18 11:34 ,REDNESS OF SKIN Review of Systems ROS Statement: Those systems with pertinent positive or pertinent negative responses have been documented in the HPI. ROS Other: All systems not noted in ROS Statement are negative. Constitutional: Denies: fever Eyes: Denies: eye pain ENT: Denies: ear pain Respiratory: Reports: dyspnea. Denies: cough Cardiovascular: Reports: chest pain, palpitations Endocrine: Denies: fatigue Gastrointestinal: Denies: abdominal pain Genitourinary: Denies: dysuria Musculoskeletal: Denies: back pain Skin: Denies: rash Neurological: Denies: weakness Past Medical History Past Medical History: Atrial Fibrillation, Asthma, Cancer, Diabetes Mellitus, GERD/Reflux, Hearing Disorder / Deafness, Hyperlipidemia, Hypertension, Osteoarthritis (OA), Renal Disease, Thyroid Disorder Additional Past Medical History / Comment(s): RENAL DISEASE STAGE 3, SPINAL STENOSIS,DIET CONTROLLED DIABETIC; New onset Afib 11/16/16; diverticulosis; Colon cancer polyp removal,hole in the heart History of Any Multi-Drug Resistant Organisms: None Reported Past Surgical History: Breast Surgery, Cholecystectomy, Heart Catheterization, Hysterectomy, Orthopedic Surgery Additional Past Surgical History / Comment(s): RIGHT BREAST BIOPSY RIGHT . RIGHT SHOULDER X 3. Hx of colonoscopy Past Anesthesia/Blood Transfusion Reactions: Postoperative Nausea & Vomiting ( PONV) Additional Past Anesthesia/Blood Transfusion Reaction / Comment(s): DUE TO REFLUX /POST ANESTHESIA PNEUMONIA. Past Psychological History: No Psychological Hx Reported Smoking Status: Never smoker Past Alcohol Use History: None Reported Past Drug Use History: None Reported - Past Family History Mother Family Medical History: Pulmonary Embolus Additional Family Medical History / Comment(s): at 59 from PE Sister(s) Family Medical History: Cancer Additional Family Medical History / Comment(s): Breast Caancer General Exam Limitations: no limitations General appearance: alert, in no apparent distress Head exam: Present: atraumatic Eye exam: Present: normal appearance, PERRL ENT exam: Present: normal oropharynx Neck exam: Present: normal inspection Respiratory exam: Present: normal lung sounds bilaterally Cardiovascular Exam: Present: tachycardia, irregular rhythm GI/Abdominal exam: Present: soft. Absent: tenderness Extremities exam: Present: normal inspection Neurological exam: Present: alert Psychiatric exam: Present: normal affect, normal mood Skin exam: Present: normal color Course Vital Signs 01/23/18 01/23/18 10:44 11:58 Temperature 97.8 F Pulse Rate 120 H 123 H Respiratory 18 18 Rate Blood Pressure 132/70 134/81 O2 Sat by Pulse 97 98 Oximetry EKG Findings - EKG Comments: EKG Findings:: A flutter with a rate of 103. QRS 84. QT 362. QTC 474. Left axis. Normal QRS. Nonspecific T waves. Medical Decision Making - Medical Decision Making Patient reevaluated and resting comfortably in bed. Heart rate remains varied between 80 and 125. Patient and family updated on results and plan. Case was discussed with Dr. Sebastian, who will admit for Dr. Orellana. Patient is currently on eliquis. - Lab Data Result diagrams: 01/23/18 11:06 01/23/18 11:06 Lab Results 01/23/18 01/23/18 01/23/18 Range/Units 11:06 11:06 11:06 WBC 7.0 (3.8-10.6) k/uL RBC 4.40 (3.80-5.40) m/uL Hgb 14.3 (11.4-16.0) gm/dL Hct 41.6 (34.0-46.0) % MCV 94.6 (80.0-100.0) fL MCH 32.4 (25.0-35.0) pg MCHC 34.3 (31.0-37.0) g/dL RDW 13.8 (11.5-15.5) % Plt Count 234 (150-450) k/uL Neutrophils % 66 % Lymphocytes % 21 % Monocytes % 7 % Eosinophils % 2 % Basophils % 1 % Neutrophils # 4.7 (1.3-7.7) k/uL Lymphocytes # 1.4 (1.0-4.8) k/uL Monocytes # 0.5 (0-1.0) k/uL Eosinophils # 0.2 (0-0.7) k/uL Basophils # 0.1 (0-0.2) k/uL PT (9.0-12.0) sec INR (<1.2) APTT (22.0-30.0) sec Sodium 141 (137-145) mmol/L Potassium 4.0 (3.5-5.1) mmol/L Chloride 106 (98-107) mmol/L Carbon Dioxide 24 (22-30) mmol/L Anion Gap 11 mmol/L BUN 15 (7-17) mg/dL Creatinine 1.00 (0.52-1.04) mg/dL Est GFR (CKD-EPI)AfAm 60 (>60 ml/min/1.73 sqM) Est GFR (CKD-EPI)NonAf 52 (>60 ml/min/1.73 sqM) Glucose 123 H (74-99) mg/dL Calcium 9.6 (8.4-10.2) mg/dL Magnesium 2.0 (1.6-2.3) mg/dL Total Bilirubin 0.8 (0.2-1.3) mg/dL AST 24 (14-36) U/L ALT 17 (9-52) U/L Alkaline Phosphatase 100 (38-126) U/L Total Creatine Kinase 59 (30-135) U/L CK-MB (CK-2) 0.9 (0.0-2.4) ng/mL CK-MB (CK-2) Rel Index 1.5 Troponin I <0.012 (0.000-0.034) ng/mL Total Protein 6.4 (6.3-8.2) g/dL Albumin 3.5 (3.5-5.0) g/dL TSH 1.140 (0.465-4.680) mIU/L Free T4 1.45 (0.78-2.19) ng/dL Free T3 pg/mL 3.9 (2.8-5.3) pg/ml 01/23/18 Range/Units 11:06 WBC (3.8-10.6) k/uL RBC (3.80-5.40) m/uL Hgb (11.4-16.0) gm/dL Hct (34.0-46.0) % MCV (80.0-100.0) fL MCH (25.0-35.0) pg MCHC (31.0-37.0) g/dL RDW (11.5-15.5) % Plt Count (150-450) k/uL Neutrophils % % Lymphocytes % % Monocytes % % Eosinophils % % Basophils % % Neutrophils # (1.3-7.7) k/uL Lymphocytes # (1.0-4.8) k/uL Monocytes # (0-1.0) k/uL Eosinophils # (0-0.7) k/uL Basophils # (0-0.2) k/uL PT 10.5 (9.0-12.0) sec INR 1.1 (<1.2) APTT 24.8 (22.0-30.0) sec Sodium (137-145) mmol/L Potassium (3.5-5.1) mmol/L Chloride (98-107) mmol/L Carbon Dioxide (22-30) mmol/L Anion Gap mmol/L BUN (7-17) mg/dL Creatinine (0.52-1.04) mg/dL Est GFR (CKD-EPI)AfAm (>60 ml/min/1.73 sqM) Est GFR (CKD-EPI)NonAf (>60 ml/min/1.73 sqM) Glucose (74-99) mg/dL Calcium (8.4-10.2) mg/dL Magnesium (1.6-2.3) mg/dL Total Bilirubin (0.2-1.3) mg/dL AST (14-36) U/L ALT (9-52) U/L Alkaline Phosphatase (38-126) U/L Total Creatine Kinase (30-135) U/L CK-MB (CK-2) (0.0-2.4) ng/mL CK-MB (CK-2) Rel Index Troponin I (0.000-0.034) ng/mL Total Protein (6.3-8.2) g/dL Albumin (3.5-5.0) g/dL TSH (0.465-4.680) mIU/L Free T4 (0.78-2.19) ng/dL Free T3 pg/mL (2.8-5.3) pg/ml - Radiology Data Radiology results: image reviewed (Chest x-ray reveals no acute process) Critical Care Time Critical Care Time: Yes Total Critical Care Time: 32 Disposition Clinical Impression: Atrial flutter with rapid ventricular response Disposition: ADMITTED IP TO THIS [facility] Referrals: Caron Orellana MD [Primary Care Provider] - 1-2 days Decision Time: 12:59
[2018-01-23 11:33] LABS: Basophils # (A) 0.1 k/uL (0-0.2); Basophils % (A) 1 %; Eosinophils # (A) 0.2 k/uL (0-0.7); Eosinophils % (A) 2 %; HCT 41.6 % (34.0-46.0); HGB 14.3 gm/dL (11.4-16.0); Lymphocytes # (A) 1.4 k/uL (1.0-4.8); Lymphocytes % (A) 21 %; MCH 32.4 pg (25.0-35.0); MCHC 34.3 g/dL (31.0-37.0); MCV 94.6 fL (80.0-100.0); Mean Platelet Volume 7.3; Monocytes # (A) 0.5 k/uL (0-1.0); Monocytes % (A) 7 %; Neutrophils # (A) 4.7 k/uL (1.3-7.7); Neutrophils % (A) 66 %; Platelet Count 234 k/uL (150-450); RDW 13.8 % (11.5-15.5)
[2018-01-23 11:40] LABS: INR 1.1 (<1.2); Partial Thromboplastin Time 24.8 sec (22.0-30.0); Prothrombin Time 10.5 sec (9.0-12.0)
[2018-01-23 11:41] LABS: Albumin 3.5 g/dL (3.5-5.0); Calcium 9.6 mg/dL (8.4-10.2); Total Bilirubin 0.8 mg/dL (0.2-1.3); Total Protein 6.4 g/dL (6.3-8.2)
[2018-01-23 11:52] LABS: Creatine Kinase 59 U/L (30-135)
[2018-01-23 11:58] LABS: T4, Free (Free Thyroxine) 1.45 ng/dL (0.78-2.19)
[2018-01-23 12:05] LABS: Creatine Kinase MB 0.9 ng/mL (0.0-2.4); Troponin I <0.012 ng/mL (0.000-0.034)
--- NOTE | 2018-01-23 12:15 | XR ---
EXAMINATION TYPE: XR chest 2V DATE OF EXAM: 01/23/2018 COMPARISON: 11/16/2017 HISTORY: Shortness of breath TECHNIQUE: Frontal and lateral views of the chest are obtained. FINDINGS: Scattered senescent parenchymal changes noted. Hyperinflation compatible with COPD. No evidence for infiltrate. No evidence for atelectasis. Heart size is stable. Mediastinal structures are stable and grossly unremarkable. No evidence for hilar prominence. Degenerative changes dorsal spine. IMPRESSION: 1. No evidence for acute pulmonary disease.
[2018-01-23] MEDS ORDERED: ACETAMINOPHEN TAB 325 MG TAB PO PRN (12:52)
[2018-01-23] MEDS ORDERED: NALOXONE 0.4 MG/ML 1 ML VIAL IV PRN (13:00)
--- NOTE | 2018-01-23 15:27 | P.HPIM ---
History of Present Illness H&P Date: 01/23/18 Chief Complaint: Palpitations 82-year-old female presenting to the emergency department complaining of palpitations. Associated symptoms include exertional dyspnea and some left- sided chest aching below her left breast. When she is at rest she is okay but when she gets up and move around she usually starts having trouble. She also has dizziness and weakness on exertion. These symptoms have been ongoing for months, last November she was admitted to the hospital for new onset atrial fibrillation, was started on Cardizem, atenolol as well as eliquis. She has been compliant with all of these medications and did not skip any doses. She denied any recent flulike symptoms, cough, nausea or vomiting, abdominal pain, urinary symptoms, focal weakness or numbness, slurred speech, blurry or double vision. Review of Systems 12 point review of system was performed, negative except for HPI Past Medical History Past Medical History: Atrial Fibrillation, Atrial Flutter, Asthma, Cancer, Diabetes Mellitus, GERD/Reflux, Hearing Disorder / Deafness, Hyperlipidemia, Hypertension, Osteoarthritis (OA), Pneumonia, Renal Disease, Skin Disorder, Thyroid Disorder, Vascular Disorder Additional Past Medical History / Comment(s): Pt admitted to [facility] 11/16/17 with Aflutter with RVR, Afib. Other hx: Mitral valve prolapse, "hole in my heart" , exertional dyspnea, chronic renal disease stage III, NIDDM type II-diet controlled, numbness and tingling bilateral hands, carpal tunnel bilaterally, osteoporosis, chronic low back pain, spinal stenosis, scoliosis, DJD, gout, varicose veins, R breast cancer with surgery/radiation, skin cancer removals, cancerous colon polyp removal, diverticular dx, hiatal hernia, IBS, ulcerative colitis, UTIs, R renal cyst, rosacia, shingelles bilateral groins and legs with difficulty urinating d/t swelling in the past. History of Any Multi-Drug Resistant Organisms: None Reported Past Surgical History: Breast Surgery, Cholecystectomy, Heart Catheterization, Hysterectomy, Orthopedic Surgery Additional Past Surgical History / Comment(s): R breast lumpectomy x 2, R breast bx, skin cancer removals, total hysterectomy, open cholecystectomy, R arm spur removals 3 times, R shoulder rotator cuff repair, R foot 2nd toe surgery, pilonidal cystectomy, colonoscopy with cancerous polypectomy, bilateral cataract removal/lens implants and surgery for astigmatism. Past Anesthesia/Blood Transfusion Reactions: Postoperative Nausea & Vomiting ( PONV) Additional Past Anesthesia/Blood Transfusion Reaction / Comment(s): DUE TO REFLUX /POST ANESTHESIA PNEUMONIA. Smoking Status: Never smoker - Past Family History Father Additional Family Medical History / Comment(s): Father was an alcoholic and pt thinks he from complications of that. Mother Family Medical History: Pulmonary Embolus Additional Family Medical History / Comment(s): at 59 from PE Sister(s) Family Medical History: Cancer Additional Family Medical History / Comment(s): Breast Cancer Medications and Allergies Home Medications Medication Instructions Recorded Confirmed Type Ergocalciferol [Vitamin D2 50,000 unit PO [id number] 07/19/15 01/23/18 History (DRISDOL)] Fluticasone Propionate [Flovent 2 puff INHALATION RT-BID 07/19/15 01/23/18 History Hfa 110mcg] Furosemide 60 mg PO Q48H 07/19/15 01/23/18 History Levothyroxine Sodium [Synthroid] 50 mcg PO MOTUTHFRSA 07/19/15 01/23/18 History Potassium Chloride [Klor-Con 10] 10 meq PO QID 07/19/15 01/23/18 History Ubidecarenone [Co Q-10] 200 mg PO DAILY 07/19/15 01/23/18 History Allopurinol [Zyloprim] 100 mg PO DAILY 11/16/17 01/23/18 History Anastrozole [Arimidex] 1 mg PO DAILY 11/16/17 01/23/18 History Atenolol [Tenormin] 25 mg PO DAILY 11/16/17 01/23/18 History Levothyroxine Sodium [Synthroid] 75 mcg PO SUWE 11/16/17 01/23/18 History Magnesium Oxide [Mag-Ox] 800 mg PO DAILY 11/16/17 01/23/18 History Apixaban [Eliquis] 2.5 mg PO BID #60 tablet 11/18/17 01/23/18 Rx Diltiazem Cd [Cardizem Cd] 120 mg PO Q24HR #30 cap 11/18/17 01/23/18 Rx Losartan [Cozaar] 25 mg PO DAILY #30 tab 11/18/17 01/23/18 Rx Docusate Sodium [Dok] 100 mg PO DAILY PRN 01/23/18 01/23/18 History Rosuvastatin [Crestor] 10 mg PO HS 01/23/18 01/23/18 History Allergies Allergy/AdvReac Type Severity Reaction Status Date / Time iodine Allergy Unknown VERY LOW Verified 01/23/18 11:34 BLOOD PRESSURE,SHORTNESS OF BREATH adhesive tape Allergy Rash/Hives Verified 01/23/18 11:34 clarithromycin Allergy Unknown Verified 01/23/18 11:34 diphenhydramine Allergy Unknown Verified 01/23/18 11:34 Iodinated Contrast- Oral and Allergy Anaphylaxis Verified 01/23/18 11:34 IV Dye metaxalone [From Skelaxin] Allergy Rash/Hives Verified 01/23/18 11:34 niacin Allergy Unknown Verified 01/23/18 11:34 [From Niaspan Extended-Release] pantoprazole Allergy ITCHING Verified 01/23/18 11:34 ,REDNESS OF SKIN Physical Exam Vitals: Vital Signs Temp Pulse Resp BP Pulse Ox 01/23/18 14:00 79 16 113/72 98 01/23/18 11:58 123 H 18 134/81 98 01/23/18 10:44 97.8 F 120 H 18 132/70 97 Intake and Output 01/23/18 01/23/18 01/23/18 06:59 14:59 22:59 Other: Weight 89.358 kg Constitutional: No acute distress, conversant, pleasant Eyes:Anicteric sclerae, moist conjunctiva, no lid-lag, PERRLA, ENMT: Oropharynx clear, no erythema, exudates Neck: Supple, FROM, no masses, or JVD, No carotid bruits, No thyromegaly Lungs: Clear to auscultation, Clear to percussion, Normal respiratory effort, no accessory muscle use Cardiovascular: Irregularly irregular, tachycardic, No murmurs, gallops, or rubs , 1+ peripheral edema Abdominal: Soft, Nontender, no guarding, rebound or rigidity, Normoactive bowel sounds, No hepatomegaly, No splenomegaly, No palpable mass Skin: Normal temperature, tone, texture, turgor, no induration, No subcutaneous nodules, No rash, lesions, No ulcers Extremities: No digital cyanosis, No clubbing, Pedal pulses intact and symmetrical, Radial pulses intact and symmetrical, No calf tenderness Psychiatric: Alert and oriented to person, place and time, appropriate affect, intact judgement Neuro: Muscles Strength 5/5 in all 4 extremities, Sensation to light touch grossly present throughout, Cranial nerves II-XII grossly intact, no focal sensory deficits Results CBC & Chem 7: 01/23/18 11:06 01/23/18 11:06 Labs: Abnormal Lab Results - Last 24 Hours (Table) 01/23/18 Range/Units 11:06 Glucose 123 H (74-99) mg/dL Thrombosis Risk Factor Assmnt - Choose All That Apply Any of the Below Risk Factors Present?: Yes Each Factor Represents 1 point: Obesity (BMI >25), Varicose veins Other Risk Factors: Yes Each Risk Factor Represents 2 Points: Malignancy Each Risk Factor Represents 3 Points: Age 75 years or older, Family history of DVT/PE Other congenital or acquired thrombophilia - If yes, enter type in comment: No Thrombosis Risk Factor Assessment Total Risk Factor Score: 10 Thrombosis Risk Factor Assessment Level: High Risk Assessment and Plan Plan: #1 Atrial flutter: Patient has recurrent symptoms of atrial flutter despite being on Cardizem and atenolol. Started on esmolol drip in the emergency department, will continue Admit to selective care on telemetry Cardiology consult Echocardiogram done last admission, 2 months ago, reviewed Labs, EKG and chest x-ray reviewed Increase Cardizem dose from 120 to 240 mg daily and increase atenolol to from 25 to 50 mg daily. Continue eliquis #2 Hypothyroidism: TSH checked, within normal limits Continue levothyroxine #3 Asthma, type II Diabetes Mellitus, GERD/Reflux, Hearing Disorder / Deafness, Hyperlipidemia, essential hypertension, Osteoarthritis (OA), Pneumonia, chronic kidney disease stage III, STABLE, continue home medications
[2018-01-23 17:12] LABS: Creatine Kinase 52 U/L (30-135)
[2018-01-23 17:17] VITALS: RESP 18
[2018-01-23 17:26] LABS: Creatine Kinase MB 1.1 ng/mL (0.0-2.4); Troponin I <0.012 ng/mL (0.000-0.034)
[2018-01-23] MEDS: DILTIAZEM CD 240 MG CAP.ER.24H PO SCH (18:15)
[2018-01-23] MEDS: ATENOLOL 50 MG TAB PO SCH (18:15)
[2018-01-23] MEDS: POTASSIUM CHLORIDE ER 10 MEQ TAB.ER.PRT PO SCH ×2 (18:15→21:11)
[2018-01-23] MEDS ORDERED: ATORVASTATIN 20 MG TAB PO SCH (21:00)
[2018-01-23] MEDS: APIXABAN 2.5 MG TABLET PO SCH (21:11)
[2018-01-23] MEDS: BUDESONIDE 0.5 MG/2 ML NEBU INHALATION SCH (21:50)
[2018-01-24 00:14] LABS: Creatine Kinase 50 U/L (30-135)
[2018-01-24 00:27] LABS: Creatine Kinase MB 0.9 ng/mL (0.0-2.4); Troponin I <0.012 ng/mL (0.000-0.034)
[2018-01-24] MEDS ORDERED: TEMAZEPAM 7.5 MG CAP PO PRN (01:57)
[2018-01-24] MEDS ORDERED: LEVOTHYROXINE 50 MCG TAB PO SCH (06:30)
[2018-01-24 06:41] LABS: Basophils % (A) 1 %; Eosinophils # (A) 0.2 k/uL (0-0.7); Eosinophils % (A) 3 %; HCT 36.6 % (34.0-46.0); HGB 12.5 gm/dL (11.4-16.0); Lymphocytes # (A) 1.7 k/uL (1.0-4.8); Lymphocytes % (A) 23 %; MCH 32.5 pg (25.0-35.0); MCHC 34.1 g/dL (31.0-37.0); MCV 95.3 fL (80.0-100.0); Mean Platelet Volume 6.7; Monocytes # (A) 0.5 k/uL (0-1.0); Monocytes % (A) 7 %; Neutrophils # (A) 4.6 k/uL (1.3-7.7); Neutrophils % (A) 63 %; Platelet Count 216 k/uL (150-450); RBC 3.84 m/uL (3.80-5.40); RDW 13.8 % (11.5-15.5); WBC 7.2 k/uL (3.8-10.6)
[2018-01-24 06:49] LABS: Albumin 2.8 g/dL (3.5-5.0); Calcium 8.6 mg/dL (8.4-10.2); Phosphorus 3.1 mg/dL (2.5-4.5); Potassium 4.3 mmol/L (3.5-5.1); Total Bilirubin 0.7 mg/dL (0.2-1.3); Total Protein 5.2 g/dL (6.3-8.2)
[2018-01-24] MEDS: BUDESONIDE 0.5 MG/2 ML NEBU INHALATION SCH (07:54)
--- NOTE | 2018-01-24 08:25 | P.PN ---
Progress Note - Text Progress Note Date: 11/16/17 To the cardiology consultation of 11/16/2017. Patient has atypical atrial flutter, paroxysmal. DNP note has been reviewed, I agree with a documented findings and plan of care. Patient was seen and examined.
[2018-01-24] MEDS: POTASSIUM CHLORIDE ER 10 MEQ TAB.ER.PRT PO SCH (08:55)
[2018-01-24] MEDS: DILTIAZEM CD 240 MG CAP.ER.24H PO SCH (08:55)
[2018-01-24] MEDS: ATENOLOL 50 MG TAB PO SCH (08:56)
[2018-01-24] MEDS: APIXABAN 2.5 MG TABLET PO SCH (08:56)
[2018-01-24] MEDS ORDERED: ATENOLOL 25 MG TAB PO SCH (09:00)
[2018-01-24] MEDS ORDERED: DILTIAZEM CD 120 MG CAP.ER.24H PO SCH (09:00)
[2018-01-24] MEDS ORDERED: ALLOPURINOL 100 MG TAB PO SCH (09:00)
[2018-01-24] MEDS ORDERED: FUROSEMIDE 20 MG TAB PO SCH (09:00)
[2018-01-24] MEDS ORDERED: ANASTROZOLE 1 MG TAB PO SCH (09:00)
[2018-01-24] MEDS ORDERED: LOSARTAN 25 MG TAB PO SCH (09:00)
[2018-01-24] MEDS ORDERED: AMIODARONE 200 MG TAB PO SCH (10:30)
--- NOTE | 2018-01-24 11:11 | CONS ---
CONSULTATION CHIEF COMPLAINT: Sustained palpitations. Farnaz is an 82-year-old lady with history of paroxysmal atrial fibrillation, hypertension, diabetes, dyslipidemia, chronic renal failure, who presented to hospital with sustained palpitations and not feeling well. She was found to be in atrial fibrillation with rapid ventricular rate and subsequently converted back to sinus rhythm and she is doing well since. She actually came in with symptoms of atrial fibrillation back in November of 2017 also. She has history of chronic emphysema and pulmonary hypertension. She has chronic shortness of breath that has been going on for more than 1-1/2 years and seems somewhat frustrated that she does not have any answers as to why she is short of breath. There is a daughter at bedside who also said that she really likes to know what is causing her shortness of breath. I looked at her recent testing. She had an echo on that admission and that showed normal LV function. We do not have a recent stress test on her. The ejection fraction was 55% to 60%. RV systolic pressure was normal. Did not have any significant valvular heart disease other than mild aortic regurgitation. The patient wishes to go home. I am going to start her on amiodarone so that we can prevent her from going into atrial fibrillation. She is already anticoagulated with Eliquis. We may be able to discharge her home and arrange outpatient followup with Dr. Venus Askew where we may consider doing a stress test to look into her shortness of breath further. PAST MEDICAL HISTORY: Past medical history is significant for asthma, diabetes, hypertension, dyslipidemia, chronic renal insufficiency, and paroxysmal atrial fibrillation. PAST SURGICAL HISTORY: Past surgical history is significant for cholecystectomy, hysterectomy, breast surgery, history of colon polyp removal. MEDICATIONS: Medications at home include aspirin, Flovent, Lasix, Synthroid, losartan, K-Dur, simvastatin, Zyloprim, Tenormin. ALLERGIES: Allergic to IV DYE, CLARITHROMYCIN, DIPHENHYDRAMINE, and PROTONIX. FAMILY HISTORY: Family history is negative for premature coronary artery. SOCIAL HISTORY: Negative for smoking, EtOH abuse, or drug abuse. REVIEW OF SYSTEMS: HEENT is unremarkable. CARDIAC: As described above. RESPIRATORY: As described above. GI: Negative. GENITOURINARY: Negative: ALLERGIES/IMMUNOLOGY: Negative. SKIN: Negative. MUSCULOSKELETAL: Significant for arthritis. PSYCHOSOCIAL: Negative, ENDOCRINE: Negative. HEMATOLOGICAL: Negative. DERM: Negative. CONSTITUTIONAL: Negative. ONCOLOGICAL: Negative. Rest of the system review is not relevant. PHYSICAL EXAMINATION: On exam, the patient appears comfortable at rest. Afebrile. Vital signs are stable. There is no jugular venous distention. Carotid upstroke is diminished. There is no bruit. Chest exam reveals diminished air entry bilaterally. Heart exam reveals first and second heart sounds. Has a systolic murmur over the left lower sternal border. Abdomen is soft. Exam of the extremities did not reveal edema. Peripheral pulses are felt. LABS: Labs show a hemoglobin of 12.5, platelet count is 216. Potassium is 4.3. Three sets of troponins are negative. ASSESSMENT: 1. Paroxysmal atrial fibrillation with poorly controlled ventricular rate. 2. Hypertension. 3. Hypothyroidism. 4. Dyslipidemia. 5. Chronic shortness of breath. PLAN: I will start the patient on amiodarone with the expectation that she may remain in sinus rhythm. The patient will undergo an outpatient stress test and follow up with Dr. Askew. MMERINL / CINTHIAN: [id number] /
[2018-01-24 11:36] VITALS: BP 116/58; PULSE 60; TEMP 98.1
[2018-01-24] MEDS ORDERED: MAGNESIUM OXIDE 400 MG TAB PO SCH (12:00)
--- NOTE | 2018-01-24 14:30 | P.DS ---
Providers Date of admission: 01/23/18 12:52 Expected date of discharge: 01/24/18 Attending physician: Yolanda Christopher MD Consults: 01/23/18 13:26 Consult Physician Urgent Consulting Provider: Chino Caldwell Consult Reason/Comments: a fib Do you want consulting provider notified?: Yes Primary care physician: Caron Orellana MD Hospital Course: 82-year-old female presenting to the emergency department complaining of palpitations. Associated symptoms include exertional dyspnea and some left- sided chest aching below her left breast. When she is at rest she is okay but when she gets up and move around she usually starts having trouble. She also has dizziness and weakness on exertion. These symptoms have been ongoing for months, last November she was admitted to the hospital for new onset atrial fibrillation, was started on Cardizem, atenolol as well as eliquis. She has been compliant with all of these medications and did not skip any doses. She denied any recent flulike symptoms, cough, nausea or vomiting, abdominal pain, urinary symptoms, focal weakness or numbness, slurred speech, blurry or double vision. In the emergency department patient was found to be in atrial flutter, with a heart rate of 120-130. She was started on esmolol drip and admitted to [facility] care for evaluation and cardiology consultation. Upon admission I doubled the dosages of the atenolol and Cardizem that she was taking at home. Subsequently patient was seen by Dr. Caldwell who advised starting amiodarone by mouth. After the amiodarone was started patient converted back to normal sinus rhythm. Her heart rate dropped down to the 40s and 50s. Amiodarone was subsequently discontinued by cardiology. Because of the slow heart rate I will only keep her on the double dose of Cardizem 240 mg daily and cut the atenolol back to her usual dose of [address] Caldwell recommended doing a stress test in the outpatient setting. 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 Patient is currently feeling better but she still has some shortness of breath with ambulation. I encouraged her to exercise and lose weight in order to feel better overall. She was discharged in stable condition. Time for discharge 35 minutes. Plan - Discharge Summary Discharge Rx Participant: No New Discharge Prescriptions: New Acetaminophen Tab [Tylenol] 650 mg PO Q6HR PRN tab PRN Reason: Mild Pain Or Fever > 100.5 Diltiazem Cd [Cardizem CD] 240 mg PO DAILY 30 Days #30 cap.er.24h Continue Fluticasone Propionate [Flovent Hfa 110mcg] 2 puff INHALATION RT-BID Potassium Chloride [Klor-Con 10] 10 meq PO QID Furosemide 60 mg PO Q48H Levothyroxine Sodium [Synthroid] 50 mcg PO MOTUTHFRSA Ubidecarenone [Co Q-10] 200 mg PO DAILY Ergocalciferol [Vitamin D2 (DRISDOL)] 50,000 unit PO [id number] Magnesium Oxide [Mag-Ox] 800 mg PO DAILY Levothyroxine Sodium [Synthroid] 75 mcg PO SUWE Atenolol [Tenormin] 25 mg PO DAILY Anastrozole [Arimidex] 1 mg PO DAILY Allopurinol [Zyloprim] 100 mg PO DAILY Apixaban [Eliquis] 2.5 mg PO BID #60 tablet Losartan [Cozaar] 25 mg PO DAILY #30 tab Rosuvastatin [Crestor] 10 mg PO HS Docusate Sodium [Dok] 100 mg PO DAILY PRN PRN Reason: Constipation Discontinued Diltiazem Cd [Cardizem Cd] 120 mg PO Q24HR #30 cap Discharge Medication List Ergocalciferol [Vitamin D2 (DRISDOL)] 50,000 unit PO [id number] 07/19/15 [History] Fluticasone Propionate [Flovent Hfa 110mcg] 2 puff INHALATION RT-BID 07/19/15 [ History] Furosemide 60 mg PO Q48H 07/19/15 [History] Levothyroxine Sodium [Synthroid] 50 mcg PO MOTUTHFRSA 07/19/15 [History] Potassium Chloride [Klor-Con 10] 10 meq PO QID 07/19/15 [History] Ubidecarenone [Co Q-10] 200 mg PO DAILY 07/19/15 [History] Allopurinol [Zyloprim] 100 mg PO DAILY 11/16/17 [History] Anastrozole [Arimidex] 1 mg PO DAILY 11/16/17 [History] Atenolol [Tenormin] 25 mg PO DAILY 11/16/17 [History] Levothyroxine Sodium [Synthroid] 75 mcg PO SUWE 11/16/17 [History] Magnesium Oxide [Mag-Ox] 800 mg PO DAILY 11/16/17 [History] Apixaban [Eliquis] 2.5 mg PO BID #60 tablet 11/18/17 [Rx] Losartan [Cozaar] 25 mg PO DAILY #30 tab 11/18/17 [Rx] Docusate Sodium [Dok] 100 mg PO DAILY PRN 01/23/18 [History] Rosuvastatin [Crestor] 10 mg PO HS 01/23/18 [History] Acetaminophen Tab [Tylenol] 650 mg PO Q6HR PRN tab 01/24/18 [Rx] Diltiazem Cd [Cardizem CD] 240 mg PO DAILY 30 Days #30 cap.er.24h 01/24/18 [Rx] Follow up Appointment(s)/Referral(s): Justo Askew MD [STAFF PHYSICIAN] - 1 Week Caron Orellana MD [Primary Care Provider] - 1-2 days
[2018-01-25] MEDS ORDERED: LEVOTHYROXINE 75 MCG TAB PO SCH (06:30)
== END 2018-01-24 15:15 | disposition home or self-care (01) ==
LOC: EC 10:42 → 6SEL 12:52
PROVIDERS: ADMIT Internal Medicine; ATTEND Internal Medicine
DX: I48.4 Atypical atrial flutter (principal); I48.0 Paroxysmal atrial fibrillation; J45.909 Unspecified asthma, uncomplicated; K21.9 Gastro-esophageal reflux disease without esophagitis; E78.5 Hyperlipidemia, unspecified; M19.90 Unspecified osteoarthritis, unspecified site; H91.90 Unspecified hearing loss, unspecified ear; Z87.01 Personal history of pneumonia (recurrent); I34.1 Nonrheumatic mitral (valve) prolapse; E11.22 Type 2 diabetes mellitus with diabetic chronic kidney disease; I12.9 Hypertensive chronic kidney disease with stage 1 through stage 4 chronic kidney disease, or unspecified chronic kidney disease; N18.3 Chronic kidney disease, stage 3 (moderate); M81.0 Age-related osteoporosis without current pathological fracture; M54.5 Low back pain; G89.29 Other chronic pain; M10.9 Gout, unspecified; M48.00 Spinal stenosis, site unspecified; K57.90 Diverticulosis of intestine, part unspecified, without perforation or abscess without bleeding; E66.9 Obesity, unspecified; Z68.37 Body mass index [BMI] 37.0-37.9, adult; E03.9 Hypothyroidism, unspecified; J43.9 Emphysema, unspecified; I83.90 Asymptomatic varicose veins of unspecified lower extremity; I27.20 Pulmonary hypertension, unspecified; Z79.51 Long term (current) use of inhaled steroids; Z79.01 Long term (current) use of anticoagulants; Z79.811 Long term (current) use of aromatase inhibitors; Z79.899 Other long term (current) drug therapy; Z88.1 Allergy status to other antibiotic agents; Z91.041 Radiographic dye allergy status; Z88.8 Allergy status to other drugs, medicaments and biological substances; Z91.048 Other nonmedicinal substance allergy status; Z85.3 Personal history of malignant neoplasm of breast; Z85.038 Personal history of other malignant neoplasm of large intestine; Z84.89 Family history of other specified conditions; Z80.3 Family history of malignant neoplasm of breast; Z81.1 Family history of alcohol abuse and dependence
CPT/HCPCS: 99291 ×2; 96365 ×2; 96366 ×5; 96361 ×2; 36415; 94640 ×2; 94760; 93005; 84439; 84481; 80053 ×2; 82550; 82553; 83735 ×2; 84100; 84443; 84484; 85025 ×2; 85610; 85730; 71046; G0378 ×2; S0170

== ENCOUNTER → 2018-06-09 | Outpatient (CLI) | payer MEDICARE ==
[2018-06-09 11:32] LABS: Albumin 3.5 g/dL (3.5-5.0); Total Bilirubin 0.6 mg/dL (0.2-1.3)
== END | disposition home or self-care (01) ==
LOC: LABWHC1 10:09
PROVIDERS: ATTEND Internal Medicine Interventional Cardiology
DX: E11.22 Type 2 diabetes mellitus with diabetic chronic kidney disease (principal); N18.3 Chronic kidney disease, stage 3 (moderate); E53.8 Deficiency of other specified B group vitamins; E55.9 Vitamin D deficiency, unspecified; E78.5 Hyperlipidemia, unspecified; N25.81 Secondary hyperparathyroidism of renal origin; E78.2 Mixed hyperlipidemia
CPT/HCPCS: 36415; 80053; 80061; 83970

== ENCOUNTER 2018-07-16 18:22 | Inpatient (IN) | payer MEDICARE ==
[2018-07-16] MEDS ORDERED: ASPIRIN 81 MG PO STA (18:56)
[2018-07-16] MEDS ORDERED: DILTIAZEM DRIP BOLUS FROM BAG 1 MG SOLN IV ONE (18:56)
--- NOTE | 2018-07-16 18:56 | ED ---
General Adult HPI - General Chief complaint: Arrhythmia/Palpitations Stated complaint: AFIB Source: patient Mode of arrival: ambulatory Limitations: no limitations - History of Present Illness Initial comments: Dictation was produced using [employer] dictation software. please excuse any grammatical, word or spelling errors. Chief Complaint: 83-year-old female past medical history of atrial fibrillation , atrial flutter, asthma presents with palpitations. History of Present Illness: Patient states she's been having palpitations for the past 2 or 3 days. She called her sample stitcher today and was instructed to take a repeat dose of atenolol. They called the sample stitcher again saying that patient's persistent palpitations. she does however have a mild ache to her left chest that she reports she gets every time she has palpitations. She is on a request for anticoagulation secondary to A. fib. The ROS documented in this emergency department record has been reviewed and confirmed by me. Those systems with pertinent positive or negative responses have been documented in the HPI. All other systems are other negative and/or noncontributory. - Related Data Home Medications Medication Instructions Recorded Confirmed Ergocalciferol [Vitamin D2 50,000 unit PO [id number] 07/19/15 07/16/18 (DRISDOL)] Fluticasone Propionate [Flovent 2 puff INHALATION RT-BID 07/19/15 07/16/18 Hfa 110mcg] Furosemide 20 mg PO DAILY 07/19/15 07/16/18 Levothyroxine Sodium [Synthroid] 50 mcg PO MOTUTHFRSA 07/19/15 07/16/18 Potassium Chloride [Klor-Con 10] 10 meq PO DAILY 07/19/15 07/16/18 Ubidecarenone [Co Q-10] 200 mg PO DAILY 07/19/15 07/16/18 Allopurinol [Zyloprim] 100 mg PO DAILY 11/16/17 07/16/18 Anastrozole [Arimidex] 1 mg PO DAILY 11/16/17 07/16/18 Atenolol [Tenormin] 25 mg PO DAILY 11/16/17 07/16/18 Levothyroxine Sodium [Synthroid] 75 mcg PO SUWE 11/16/17 07/16/18 Magnesium Oxide [Mag-Ox] 800 mg PO DAILY 11/16/17 07/16/18 Docusate Sodium [Dok] 100 mg PO DAILY PRN 01/23/18 07/16/18 Rosuvastatin [Crestor] 5 mg PO HS 01/23/18 07/16/18 Diltiazem Cd [Cardizem Cd] 120 mg PO DAILY 07/16/18 07/16/18 Furosemide [Lasix] 40 mg PO HS 07/16/18 07/16/18 Potassium Chloride ER [K-Dur 10] 30 meq PO HS 07/16/18 07/16/18 Previous Rx's Medication Instructions Recorded Apixaban [Eliquis] 2.5 mg PO BID #60 tablet 11/18/17 Losartan [Cozaar] 25 mg PO DAILY #30 tab 11/18/17 Acetaminophen Tab [Tylenol] 650 mg PO Q6HR PRN tab 01/24/18 Allergies Allergy/AdvReac Type Severity Reaction Status Date / Time iodine Allergy Unknown VERY LOW Verified 07/16/18 19:19 BLOOD PRESSURE,SHORTNESS OF BREATH adhesive tape Allergy Rash/Hives Verified 07/16/18 19:19 clarithromycin Allergy Unknown Verified 07/16/18 19:19 diphenhydramine Allergy Unknown Verified 07/16/18 19:19 Iodinated Contrast- Oral and Allergy Anaphylaxis Verified 07/16/18 19:19 IV Dye metaxalone [From Skelaxin] Allergy Rash/Hives Verified 07/16/18 19:19 niacin Allergy Unknown Verified 07/16/18 19:19 [From Niaspan Extended-Release] pantoprazole Allergy ITCHING Verified 07/16/18 19:19 ,REDNESS OF SKIN Review of Systems ROS Statement: Those systems with pertinent positive or pertinent negative responses have been documented in the HPI. ROS Other: All systems not noted in ROS Statement are negative. Past Medical History Past Medical History: Atrial Fibrillation, Atrial Flutter, Asthma, Cancer, Diabetes Mellitus, GERD/Reflux, Hearing Disorder / Deafness, Hyperlipidemia, Hypertension, Osteoarthritis (OA), Pneumonia, Renal Disease, Skin Disorder, Thyroid Disorder, Vascular Disorder Additional Past Medical History / Comment(s): Pt admitted to [facility] 11/16/17 with Aflutter with RVR, Afib. Other hx: Mitral valve prolapse, "hole in my heart" , exertional dyspnea, chronic renal disease stage III, NIDDM type II-diet controlled, numbness and tingling bilateral hands, carpal tunnel bilaterally, osteoporosis, chronic low back pain, spinal stenosis, scoliosis, DJD, gout, varicose veins, R breast cancer with surgery/radiation, skin cancer removals, cancerous colon polyp removal, diverticular dx, hiatal hernia, IBS, ulcerative colitis, UTIs, R renal cyst, rosacia, shingelles bilateral groins and legs with difficulty urinating d/t swelling in the past. History of Any Multi-Drug Resistant Organisms: None Reported Past Surgical History: Breast Surgery, Cholecystectomy, Heart Catheterization, Hysterectomy, Orthopedic Surgery Additional Past Surgical History / Comment(s): R breast lumpectomy x 2, R breast bx, skin cancer removals, total hysterectomy, open cholecystectomy, R arm spur removals 3 times, R shoulder rotator cuff repair, R foot 2nd toe surgery, pilonidal cystectomy, colonoscopy with cancerous polypectomy, bilateral cataract removal/lens implants and surgery for astigmatism. Past Anesthesia/Blood Transfusion Reactions: Postoperative Nausea & Vomiting ( PONV) Additional Past Anesthesia/Blood Transfusion Reaction / Comment(s): DUE TO REFLUX /POST ANESTHESIA PNEUMONIA. Past Psychological History: No Psychological Hx Reported Smoking Status: Never smoker Past Alcohol Use History: None Reported Past Drug Use History: None Reported - Past Family History Father Additional Family Medical History / Comment(s): Father was an alcoholic and pt thinks he from complications of that. Mother Family Medical History: Pulmonary Embolus Additional Family Medical History / Comment(s): at 59 from PE Sister(s) Family Medical History: Cancer Additional Family Medical History / Comment(s): Breast Cancer General Exam - General Exam Comments Initial Comments: PHYSICAL EXAM: General Impression: Alert and oriented x3, not in acute distress HEENT: Normocephalic atraumatic, extra-ocular movements intact, pupils equal and reactive to light bilaterally, mucous membranes moist. Cardiovascular: Irregularly irregular rhythm Chest: Lungs clear to auscultation bilaterally, no rhonchi, no wheeze, no rales Abdomen: Bowel sounds present, abdomen soft, non-tender, non-distended, no organomegaly Musculoskeletal: Pulses present and equal in all extremities, no peripheral edema Motor: Power 5/5 bilaterally, no focal deficits noted Neurological: CN II-XII grossly intact, no focal motor or sensory deficits noted Skin: Intact with no visualized rashes Psych: Normal affect and mood Limitations: no limitations Course Vital Signs 07/16/18 18:24 Temperature 97.9 F Pulse Rate 125 H Respiratory 18 Rate Blood Pressure 119/79 O2 Sat by Pulse 96 Oximetry Medical Decision Making - Medical Decision Making ED course: 83-year-old female clinical presentation consistent with atrial flutter with rapid ventricular rate. Vital signs upon arrival shows heart rate of 125. At bedside patient's rate will jump between 120s to 140s. Patient does not have any other complaints. At this point I believe it safe to proceed with a rate controlling medications.Laboratory evaluation obtained CBC unremarkable. Coag panel unremarkable. Metabolic panel is negative. Cardiac enzymes are negative. Chest x-ray shows no acute processes. Patient was on Cardizem drip. She is reevaluated after several minutes and found to be rate controlled. Patient be admitted to internal medicine. Cardiology to be on consult. EKG Interpretation: A 12 lead EKG was obtained. It was interpreted by myself and attending physician. There is a P wave before every QRS complex. Rate is 120. Rhythm is atrial flutter, QRS 82, QTC 480. QT is not prolonged. No ST segment depression or elevation. - Lab Data Result diagrams: 07/16/18 19:12 07/16/18 19:12 Lab Results 07/16/18 07/16/18 07/16/18 Range/Units 19:12 19:12 19:12 WBC 9.6 (3.8-10.6) k/uL RBC 4.36 (3.80-5.40) m/uL Hgb 13.8 (11.4-16.0) gm/dL Hct 41.5 (34.0-46.0) % MCV 95.0 (80.0-100.0) fL MCH 31.5 (25.0-35.0) pg MCHC 33.2 (31.0-37.0) g/dL RDW 14.0 (11.5-15.5) % Plt Count 307 (150-450) k/uL Neutrophils % 67 % Lymphocytes % 21 % Monocytes % 6 % Eosinophils % 3 % Basophils % 1 % Neutrophils # 6.4 (1.3-7.7) k/uL Lymphocytes # 2.0 (1.0-4.8) k/uL Monocytes # 0.6 (0-1.0) k/uL Eosinophils # 0.3 (0-0.7) k/uL Basophils # 0.0 (0-0.2) k/uL PT (9.0-12.0) sec INR (<1.2) APTT (22.0-30.0) sec Sodium 136 L (137-145) mmol/L Potassium 3.9 (3.5-5.1) mmol/L Chloride 105 (98-107) mmol/L Carbon Dioxide 19 L (22-30) mmol/L Anion Gap 12 mmol/L BUN 19 H (7-17) mg/dL Creatinine 1.10 H (0.52-1.04) mg/dL Est GFR (CKD-EPI)AfAm 53 (>60 ml/min/1.73 sqM) Est GFR (CKD-EPI)NonAf 46 (>60 ml/min/1.73 sqM) Glucose 99 (74-99) mg/dL Calcium 9.3 (8.4-10.2) mg/dL Magnesium 1.7 (1.6-2.3) mg/dL Total Bilirubin 0.8 (0.2-1.3) mg/dL AST 22 (14-36) U/L ALT 24 (9-52) U/L Alkaline Phosphatase 84 (38-126) U/L Total Creatine Kinase 77 (30-135) U/L CK-MB (CK-2) 1.2 (0.0-2.4) ng/mL CK-MB (CK-2) Rel Index 1.6 Troponin I <0.012 (0.000-0.034) ng/mL Total Protein 6.5 (6.3-8.2) g/dL Albumin 3.6 (3.5-5.0) g/dL 07/16/18 Range/Units 19:12 WBC (3.8-10.6) k/uL RBC (3.80-5.40) m/uL Hgb (11.4-16.0) gm/dL Hct (34.0-46.0) % MCV (80.0-100.0) fL MCH (25.0-35.0) pg MCHC (31.0-37.0) g/dL RDW (11.5-15.5) % Plt Count (150-450) k/uL Neutrophils % % Lymphocytes % % Monocytes % % Eosinophils % % Basophils % % Neutrophils # (1.3-7.7) k/uL Lymphocytes # (1.0-4.8) k/uL Monocytes # (0-1.0) k/uL Eosinophils # (0-0.7) k/uL Basophils # (0-0.2) k/uL PT 10.9 (9.0-12.0) sec INR 1.1 (<1.2) APTT 25.2 (22.0-30.0) sec Sodium (137-145) mmol/L Potassium (3.5-5.1) mmol/L Chloride (98-107) mmol/L Carbon Dioxide (22-30) mmol/L Anion Gap mmol/L BUN (7-17) mg/dL Creatinine (0.52-1.04) mg/dL Est GFR (CKD-EPI)AfAm (>60 ml/min/1.73 sqM) Est GFR (CKD-EPI)NonAf (>60 ml/min/1.73 sqM) Glucose (74-99) mg/dL Calcium (8.4-10.2) mg/dL Magnesium (1.6-2.3) mg/dL Total Bilirubin (0.2-1.3) mg/dL AST (14-36) U/L ALT (9-52) U/L Alkaline Phosphatase (38-126) U/L Total Creatine Kinase (30-135) U/L CK-MB (CK-2) (0.0-2.4) ng/mL CK-MB (CK-2) Rel Index Troponin I (0.000-0.034) ng/mL Total Protein (6.3-8.2) g/dL Albumin (3.5-5.0) g/dL Disposition Clinical Impression: Atrial flutter Disposition: ADMITTED IP TO THIS HOSP Condition: Good Referrals: Caron Orellana MD [Primary Care Provider] - 1-2 days Decision Time: 19:52
[2018-07-16] MEDS: DILTIAZEM 50 MG in SODIUM CHLORIDE 0.9% 40 ML IV SCH (19:15)
[2018-07-16 19:20] LABS: Basophils % (A) 1 %; Eosinophils # (A) 0.3 k/uL (0-0.7); Eosinophils % (A) 3 %; HCT 41.5 % (34.0-46.0); HGB 13.8 gm/dL (11.4-16.0); Lymphocytes % (A) 21 %; MCH 31.5 pg (25.0-35.0); MCHC 33.2 g/dL (31.0-37.0); Mean Platelet Volume 6.6; Monocytes # (A) 0.6 k/uL (0-1.0); Monocytes % (A) 6 %; Neutrophils # (A) 6.4 k/uL (1.3-7.7); Neutrophils % (A) 67 %; Platelet Count 307 k/uL (150-450); RBC 4.36 m/uL (3.80-5.40); WBC 9.6 k/uL (3.8-10.6)
[2018-07-16 19:32] LABS: Albumin 3.6 g/dL (3.5-5.0); Calcium 9.3 mg/dL (8.4-10.2); Magnesium 1.7 mg/dL (1.6-2.3); Potassium 3.9 mmol/L (3.5-5.1); Total Bilirubin 0.8 mg/dL (0.2-1.3); Total Protein 6.5 g/dL (6.3-8.2)
[2018-07-16 19:36] LABS: INR 1.1 (<1.2); Partial Thromboplastin Time 25.2 sec (22.0-30.0); Prothrombin Time 10.9 sec (9.0-12.0)
[2018-07-16 19:37] LABS: Creatine Kinase 77 U/L (30-135)
--- NOTE | 2018-07-16 19:44 | XR ---
EXAMINATION: XR chest 2V DATE AND TIME: 07/16/2018 7:25 PM CLINICAL INDICATION: dysrhythmia. History right breast carcinoma and asthma. TECHNIQUE: PA and lateral COMPARISON: 01/23/2018 FINDINGS: The lungs are clear. The pleural spaces are negative. The cardiac silhouette is moderately enlarged, unchanged. The remainder of the mediastinal silhouette is unremarkable. The skeletal structures and soft tissues are negative for acute findings. Right breast surgical clips are noted. IMPRESSION: NO ACUTE PROCESS.
[2018-07-16 19:49] LABS: Creatine Kinase MB 1.2 ng/mL (0.0-2.4); Troponin I <0.012 ng/mL (0.000-0.034)
[2018-07-16] MEDS ORDERED: SODIUM CHLORIDE 0.9% 500 ML IV STA (19:49)
[2018-07-16] MEDS ORDERED: NALOXONE 0.4 MG/ML 1 ML VIAL IV PRN (19:52)
[2018-07-16] MEDS ORDERED: DOCUSATE 100 MG CAP PO PRN (21:30)
[2018-07-16] MEDS ORDERED: ATORVASTATIN 10 MG TAB PO ONE (22:00)
[2018-07-16] MEDS ORDERED: APIXABAN 2.5 MG TABLET PO ONE (22:00)
--- NOTE | 2018-07-16 22:56 | P.HPIM ---
History of Present Illness H&P Date: 07/16/18 Chief Complaint: Palpitations 83-year-old female with history of a flutter and hypothyroidism. Patient presents to the hospital with a complaint of palpitations. She reports that since the diagnosis back in November of this year she always had these attacks of palpitations sometimes they are short-lived however over the past 2 days she was limited in her daily activity due to palpitations and some chest discomfort. She claims to be compliant with her medications. Last admission was around 5 months ago for the same problem, she followed up outpatient with cardiology who was suggesting left heart cath but was never done. Currently patient seen on the medical floor she feels comfortable again however she's worried that once she starts moving again she will get another attack of palpitations. In the emergency department she was found to have a flutter with rapid ventricular response cardiac enzymes were unremarkable she was started on Cardizem drip and heartrate was controlled. Patient otherwise denies any trouble breathing dizziness lightheadedness fevers or chills. However she is complaining of feeling generalized fatigue and limited with her daily activity due to palpitations. Patient also reports some possible dark stools but never seen fresh blood with bowel movements. Patient also reported that she called her horse exerciser today who suggested taking extra dose of atenolol without any benefit Review of Systems Pertinent positives as noted in HPI. All other systems were reviewed and are negative Past Medical History Past Medical History: Atrial Fibrillation, Atrial Flutter, Asthma, Cancer, Diabetes Mellitus, GERD/Reflux, Hearing Disorder / Deafness, Hyperlipidemia, Hypertension, Osteoarthritis (OA), Pneumonia, Renal Disease, Skin Disorder, Thyroid Disorder, Vascular Disorder Additional Past Medical History / Comment(s): Pt admitted to [facility] 11/16/17 with Aflutter with RVR, Afib. Other hx: Mitral valve prolapse, "hole in my heart" , exertional dyspnea, chronic renal disease stage III, NIDDM type II-diet controlled, numbness and tingling bilateral hands, carpal tunnel bilaterally, osteoporosis, chronic low back pain, spinal stenosis, scoliosis, DJD, gout, varicose veins, R breast cancer with surgery/radiation, skin cancer removals, cancerous colon polyp removal, diverticular dx, hiatal hernia, IBS, ulcerative colitis, UTIs, R renal cyst, rosacia, shingelles bilateral groins and legs with difficulty urinating d/t swelling in the past. History of Any Multi-Drug Resistant Organisms: None Reported Past Surgical History: Breast Surgery, Cholecystectomy, Heart Catheterization, Hysterectomy, Orthopedic Surgery Additional Past Surgical History / Comment(s): R breast lumpectomy x 2, R breast bx, skin cancer removals, total hysterectomy, open cholecystectomy, R arm spur removals 3 times, R shoulder rotator cuff repair, R foot 2nd toe surgery, pilonidal cystectomy, colonoscopy with cancerous polypectomy, bilateral cataract removal/lens implants and surgery for astigmatism. Past Anesthesia/Blood Transfusion Reactions: Postoperative Nausea & Vomiting ( PONV) Additional Past Anesthesia/Blood Transfusion Reaction / Comment(s): DUE TO REFLUX /POST ANESTHESIA PNEUMONIA. Smoking Status: Never smoker - Past Family History Father Additional Family Medical History / Comment(s): Father was an alcoholic and pt thinks he from complications of that. Mother Family Medical History: Pulmonary Embolus Additional Family Medical History / Comment(s): at 59 from PE Sister(s) Family Medical History: Cancer Additional Family Medical History / Comment(s): Breast Cancer Medications and Allergies Home Medications Medication Instructions Recorded Confirmed Type Ergocalciferol [Vitamin D2 50,000 unit PO [id number] 07/19/15 07/16/18 History (DRISDOL)] Fluticasone Propionate [Flovent 2 puff INHALATION RT-BID 07/19/15 07/16/18 History Hfa 110mcg] Furosemide 20 mg PO DAILY 07/19/15 07/16/18 History Levothyroxine Sodium [Synthroid] 50 mcg PO MOTUTHFRSA 07/19/15 07/16/18 History Potassium Chloride [Klor-Con 10] 10 meq PO DAILY 07/19/15 07/16/18 History Ubidecarenone [Co Q-10] 200 mg PO DAILY 07/19/15 07/16/18 History Allopurinol [Zyloprim] 100 mg PO DAILY 11/16/17 07/16/18 History Anastrozole [Arimidex] 1 mg PO DAILY 11/16/17 07/16/18 History Atenolol [Tenormin] 25 mg PO DAILY 11/16/17 07/16/18 History Levothyroxine Sodium [Synthroid] 75 mcg PO SUWE 11/16/17 07/16/18 History Magnesium Oxide [Mag-Ox] 800 mg PO DAILY 11/16/17 07/16/18 History Apixaban [Eliquis] 2.5 mg PO BID #60 tablet 11/18/17 07/16/18 Rx Losartan [Cozaar] 25 mg PO DAILY #30 tab 11/18/17 07/16/18 Rx Docusate Sodium [Dok] 100 mg PO DAILY PRN 01/23/18 07/16/18 History Rosuvastatin [Crestor] 5 mg PO HS 01/23/18 07/16/18 History Acetaminophen Tab [Tylenol] 650 mg PO Q6HR PRN tab 01/24/18 07/16/18 Rx Diltiazem Cd [Cardizem Cd] 120 mg PO DAILY 07/16/18 07/16/18 History Furosemide [Lasix] 40 mg PO DAILY 07/16/18 07/16/18 History Potassium Chloride ER [K-Dur 10] 30 meq PO HS 07/16/18 07/16/18 History Allergies Allergy/AdvReac Type Severity Reaction Status Date / Time iodine Allergy Unknown VERY LOW Verified 07/16/18 19:19 BLOOD PRESSURE,SHORTNESS OF BREATH adhesive tape Allergy Rash/Hives Verified 07/16/18 19:19 clarithromycin Allergy Unknown Verified 07/16/18 19:19 diphenhydramine Allergy Unknown Verified 07/16/18 19:19 Iodinated Contrast- Oral and Allergy Anaphylaxis Verified 07/16/18 19:19 IV Dye metaxalone [From Skelaxin] Allergy Rash/Hives Verified 07/16/18 19:19 niacin Allergy Unknown Verified 07/16/18 19:19 [From Niaspan Extended-Release] pantoprazole Allergy ITCHING Verified 07/16/18 19:19 ,REDNESS OF SKIN Physical Exam Vitals: Vital Signs Temp Pulse Resp BP Pulse Ox 07/16/18 20:40 77 16 117/59 100 07/16/18 19:35 76 15 113/57 95 07/16/18 19:15 140 H 16 118/80 96 07/16/18 18:24 97.9 F 125 H 18 119/79 96 Intake and Output 07/16/18 07/16/18 07/16/18 06:59 14:59 22:59 Other: Weight 88.451 kg Constitutional: No acute distress, conversant, pleasant, well-developed Eyes: Anicteric sclerae, moist conjunctiva, no lid-lag Pupils equal round reactive to light ENMT: NC/AT Oropharynx clear, no erythema, exudates Neck: Supple, FROM, no masses, or JVD No carotid bruits No thyromegaly Lungs: Clear to auscultation Clear to percussion Normal respiratory effort, no accessory muscle use Cardiovascular: Heart regular in rate and rhythm, Systolic murmur, no gallops, or rubs No peripheral edema Abdominal: Soft Nontender, no guarding, rebound or rigidity Abdomen moving with respiration Normoactive bowel sounds No hepatomegaly, No splenomegaly No palpable mass No abdominal wall hernia noted Skin: Normal temperature, tone, texture, turgor No induration No subcutaneous nodules No rash, lesions No ulcers Extremities: No digital cyanosis No clubbing Pedal pulses intact and symmetrical Radial pulses intact and symmetrical No calf tenderness Psychiatric: Alert and oriented to person, place and time Appropriate affect fair judgment Neuro Muscles Strength 5/5 in all 4 extremities Sensation to light touch grossly present throughout Cranial nerves II-XII grossly intact No focal sensory deficits Lymphatics: no palpable cervical or supraclavicular , or inguinal lymph nodes Results CBC & Chem 7: 07/16/18 19:12 07/16/18 19:12 Labs: Abnormal Lab Results - Last 24 Hours (Table) 07/16/18 Range/Units 19:12 Sodium 136 L (137-145) mmol/L Carbon Dioxide 19 L (22-30) mmol/L BUN 19 H (7-17) mg/dL Creatinine 1.10 H (0.52-1.04) mg/dL Assessment and Plan Assessment: 83-year-old female with history of a flutter. Patient admitted to the hospital as an inpatient with anticipated length same more than 2 days due to atrial flutter with rapid ventricular response, patient also claims that her daily activity is limited by palpitations and chest discomfort. She was started on Cardizem drip for heart rate control and cardiology was consulted, patient will be continued on cardiac monitoring and trending her cardiac profile. Patient with possibly benefit from maybe ablation and pacemaker insertion this will be discussed with cardiology Plan: A flutter with RVR Rate control with Cardizem Continue with Eliquis Continue with home medications Cardiac monitoring Trend cardiac enzymes Cardiology consult Discussed with cardiology possible option of ablation and pacemaker insertion due to recurrent palpitations at home Follow-up electrolytes magnesium and potassium Chronic conditions currently stable asthma, hypothyroid, GERD, hyperlipidemia, hypertension, CK D3 DVT prophylaxis currently on Eliquis Preformed a thorough record review from recent hospitalization over the past 6 months as summarized in HPI were patient was diagnosed with a flutter November 2017 and then had presented with palpitations couple times. Surrogate decision-maker: Patient daughter Erin CODE STATUS: Full code* Discussed with: Patient, ER, RN Anticipated discharge: 48-[address]: Home A total of 60 minutes was spent on the care of this complex patient more than 50 % of the time was spent in counseling and care coordination.
[2018-07-17] MEDS: LEVOTHYROXINE 50 MCG TAB PO SCH (06:01)
[2018-07-17] MEDS: DILTIAZEM 50 MG in SODIUM CHLORIDE 0.9% 40 ML IV SCH (06:01)
[2018-07-17 06:47] LABS: Basophils % (A) 1 %; Eosinophils # (A) 0.2 k/uL (0-0.7); Eosinophils % (A) 2 %; HCT 38.3 % (34.0-46.0); HGB 12.5 gm/dL (11.4-16.0); Lymphocytes # (A) 1.7 k/uL (1.0-4.8); Lymphocytes % (A) 24 %; MCH 31.1 pg (25.0-35.0); MCHC 32.8 g/dL (31.0-37.0); Mean Platelet Volume 6.7; Monocytes # (A) 0.5 k/uL (0-1.0); Monocytes % (A) 7 %; Neutrophils # (A) 4.6 k/uL (1.3-7.7); Neutrophils % (A) 64 %; Platelet Count 224 k/uL (150-450); RBC 4.03 m/uL (3.80-5.40); RDW 13.7 % (11.5-15.5); WBC 7.2 k/uL (3.8-10.6)
[2018-07-17 07:10] LABS: Calcium 9.2 mg/dL (8.4-10.2); Magnesium 1.7 mg/dL (1.6-2.3); Potassium 3.6 mmol/L (3.5-5.1)
[2018-07-17] MEDS: FLUTICASONE 110 MCG INHALER INHALATION SCH ×2 (07:50→21:30)
[2018-07-17] MEDS ORDERED: ATENOLOL 25 MG TAB PO SCH (09:00)
[2018-07-17] MEDS ORDERED: NON-FORMULARY DRUG (Ubidecarenone [Co Q-10] 200 MG) PO SCH (09:00)
[2018-07-17] MEDS: ALLOPURINOL 100 MG TAB PO SCH (09:36)
[2018-07-17] MEDS: ANASTROZOLE 1 MG TAB PO SCH (09:36)
[2018-07-17] MEDS: APIXABAN 2.5 MG TABLET PO SCH ×2 (09:37→22:10)
[2018-07-17] MEDS: MAGNESIUM OXIDE 400 MG TAB PO SCH (09:38)
[2018-07-17] MEDS: LOSARTAN 25 MG TAB PO SCH (09:38)
[2018-07-17] MEDS: DILTIAZEM CD 120 MG CAP.ER.24H PO SCH (09:38)
[2018-07-17] MEDS: POTASSIUM CHLORIDE ER 10 MEQ TAB.ER.PRT PO SCH (09:38)
[2018-07-17] MEDS: METOPROLOL TARTRATE 50 MG TAB PO SCH ×2 (11:03→22:12)
--- NOTE | 2018-07-17 14:49 | P.PN ---
Subjective Progress Note Date: 07/17/18 Principal diagnosis: chest pain Patient is an 83-year-old female with a past medical history of atrial flutter, diabetes, CKD 3, GERD, hypertension, and dyslipidemia who presented with heart trouble with complaints of palpitations and chest discomfort. In the ER she was found have atrial flutter with rapid ventricular response. Her heart rate was 140. Her lab analysis was at her baseline. EKG showed A fib with RVR at a rate of 120. CXR with unremarkable. She was started on a cardizem gtt and cardio was consulted. Her heart rate became controlled on Cardizem drip and she was converted to oral Cardizem. Patient seen and examined at bedside. Chest discomfort and shortness of breath resolved. Not having any palpitations. No nausea, vomiting, diarrhea, or constipation. Reports frequent palpitations with exertion at home. Objective - Vital Signs Vital signs: Vital Signs Temp 98.2 F 07/17/18 12:33 Pulse 73 07/17/18 12:33 Resp 18 07/17/18 12:33 BP 123/67 07/17/18 12:33 Pulse Ox 99 07/17/18 12:33 Intake & Output 07/16/18 07/17/18 07/17/18 18:59 06:59 18:59 Intake Total 60 222 Balance 60 222 Weight 88.451 kg 87.5 kg Intake: IV 10 Diltiazem 50 mg In Sodium 10 Chloride 0.9% 40 ml @ 5 MG/HR 5 mls/hr IV .Q10H NASIR Rx#:[id number] Intake, IV Titration 50 Amount Diltiazem 50 mg In Sodium 50 Chloride 0.9% 40 ml @ 5 MG/HR 5 mls/hr IV .Q10H NASIR Rx#:[id number] Oral 222 Other: Voiding Method Toilet Toilet # Voids 2 0 # Bowel Movements 0 - Exam General: non toxic, no distress, obese Derm: warm, dry Head: atraumatic, normocephalic, symmetric Eyes: EOMI, no lid lag, anicteric sclera Mouth: no lip lesion, mucus membranes moist Cardiovascular: S1-S2 irregular, no murmur, positive posterior tibial pulse bilateral, Lungs: CTA bilateral, no rhonchi, no rales , no accessory muscle use Abdominal: soft, nontender to palpation, no guarding, no appreciable organomegaly Ext: no gross muscle atrophy, no edema, no contractures Neuro: CN II-XI grossly intact, no focal neuro deficits Psych: Alert, oriented, appropriate affect - Labs CBC & Chem 7: 07/17/18 06:17 07/17/18 06:17 Labs: Abnormal Lab Results - Last 24 Hours (Table) 07/16/18 07/17/18 Range/Units 19:12 06:17 Sodium 136 L (137-145) mmol/L Carbon Dioxide 19 L (22-30) mmol/L BUN 19 H 18 H (7-17) mg/dL Creatinine 1.10 H 1.05 H (0.52-1.04) mg/dL Glucose 106 H (74-99) mg/dL Assessment and Plan Assessment: Chronic atrial flutter with rapid ventricular response -DC IV Cardizem -Oral metoprolol ordered per cardiology -Continue home eloquent -Continue home Cardizem -Check TSH Hypertension, controlled -Continue with Cozaar, Cardizem, and now metoprolol -Follow blood pressures Diabetes mellitus type 2 -Adequately controlled at home with A1c 5.7 in May -No indication for sliding scale -Repeat fasting blood sugar with morning blood work Hypothyroidism -Check TSH -Levothyroxine Dyslipidemia -Statin CKD stage III -Creatinine at baseline -Renal dose medications DVT prophylaxis: On eliquis Discussed with: Patient, nursing Anticipated discharge: 24-[address]: home A total of 35 minutes was spent on the care of this complex patient more than 50 % of the time was spent in counseling and care coordination.
--- NOTE | 2018-07-17 15:52 | CONS ---
CONSULTATION This is an 83-year-old lady with a known history of paroxysmal atrial fibrillation, type 2 diabetes, hypercholesterolemia and mild renal dysfunction. She came into the hospital with complaints of having palpitations for 2-3 hours, called, and after arrival she was found to be in atrial flutter with a rapid rate. Subsequently the rate has slowed down. She also complained of feeling short-winded and also had some discomfort in the left lateral chest. At the time of my evaluation, her heart rate is better. She feels better but still remains in atrial flutter. The rate has improved. PAST MEDICAL HISTORY: 1. Type 2 diabetes mellitus with mild renal dysfunction, probably stage I or stage II CKD. 2. History of paroxysmal atrial flutter, symptomatic; presented with the same problem at this time. 3. Hypercholesterolemia. 4. History of paroxysmal atrial fibrillation as well. 5. Hypertension. 6. Hyperlipidemia. MEDICATIONS AT HOME: 1. Losartan 50 mg daily. 2. Rosuvastatin 5 mg daily. 3. Synthroid 50 mcg daily. 4. Potassium supplements 10 mEq daily. 5. Lasix 40 mg daily. 6. Eliquis 2.5 mg b.i.d. 7. Cardizem CD 120 mg daily. 8. Atenolol 25 mg daily. 9. Allopurinol 100 mg daily. ALLERGIES: 1. IODINE DYE. 2. BENADRYL. 3. ZITHROMAX. 4. NIASPAN. She is status post breast cancer surgery and has had a history of irritable bowel syndrome as well. She is status post cholecystectomy and hysterectomy as well. Her last stress test was in 2018. This was a Lexiscan stress test which revealed mostly soft tissue attenuation, but no ischemia. Ejection fraction was normal. EKG revealed atrial flutter with a moderate ventricular rate and variable block. PHYSICAL EXAMINATION: Blood pressure is 128/70. Pulse rate is about 80 per minute. HEENT: Unremarkable. Fundus was not examined by me. NECK: Supple. There is JVD of 1 cm. No carotid bruit. Heart exam reveals S1, S2 with a short systolic murmur. Lungs reveal decent air entry. Abdomen is soft, nontender. Lower extremities reveal palpable pulses. No edema. Central nervous system is normal. IMPRESSION: 1. Paroxysmal symptomatic atrial flutter in a patient who is known to have this condition and is well anticoagulated. 2. History of diet-controlled diabetes with renal failure of a mild degree with mild chronic kidney disease of stage I or so. 3. Hypertension. 4. Hyperlipidemia. 5. History of breast cancer, status post surgery. RECOMMENDATIONS: I am recommending that we will switch her to metoprolol 50 mg b.i.d. and discontinue atenolol, continue Cardizem. I will seek input from Dr. Higgins to see if he can perform a flutter ablation for this lady who seems to be symptomatic from this condition. Discussed my thoughts in detail with the patient and daughter. Thank you very much for the consult. MMODL / IJN: [id number] /
[2018-07-17] MEDS: ATORVASTATIN 10 MG TAB PO SCH (22:10)
[2018-07-18 06:19] LABS: HCT 38.5 % (34.0-46.0); HGB 12.4 gm/dL (11.4-16.0); MCH 30.3 pg (25.0-35.0); MCHC 32.1 g/dL (31.0-37.0); MCV 94.4 fL (80.0-100.0); Mean Platelet Volume 6.9; Platelet Count 238 k/uL (150-450); RBC 4.08 m/uL (3.80-5.40); RDW 13.6 % (11.5-15.5); WBC 6.5 k/uL (3.8-10.6)
[2018-07-18] MEDS: LEVOTHYROXINE 75 MCG TAB PO SCH (06:20)
[2018-07-18 06:31] LABS: Calcium 9.5 mg/dL (8.4-10.2); Potassium 4.1 mmol/L (3.5-5.1)
[2018-07-18] MEDS: LEVOTHYROXINE 50 MCG TAB PO SCH (06:47)
[2018-07-18] MEDS: FLUTICASONE 110 MCG INHALER INHALATION SCH ×2 (08:44→20:26)
[2018-07-18] MEDS: APIXABAN 2.5 MG TABLET PO SCH (08:49)
[2018-07-18] MEDS: ALLOPURINOL 100 MG TAB PO SCH (08:49)
[2018-07-18] MEDS: ANASTROZOLE 1 MG TAB PO SCH (08:49)
[2018-07-18] MEDS: METOPROLOL TARTRATE 50 MG TAB PO SCH ×2 (08:50→20:02)
[2018-07-18] MEDS: LOSARTAN 25 MG TAB PO SCH (08:50)
[2018-07-18] MEDS: MAGNESIUM OXIDE 400 MG TAB PO SCH (08:50)
[2018-07-18] MEDS: DILTIAZEM CD 120 MG CAP.ER.24H PO SCH (08:50)
[2018-07-18] MEDS: POTASSIUM CHLORIDE ER 10 MEQ TAB.ER.PRT PO SCH (08:51)
--- NOTE | 2018-07-18 10:37 | P.PN ---
Subjective Progress Note Date: 07/18/18 Principal diagnosis: chest pain Patient is an 83-year-old female with a past medical history of atrial flutter, diabetes, CKD 3, GERD, hypertension, and dyslipidemia who presented with heart trouble with complaints of palpitations and chest discomfort. In the ER she was found have atrial flutter with rapid ventricular response. Her heart rate was 140. Her lab analysis was at her baseline. EKG showed A fib with RVR at a rate of 120. CXR with unremarkable. She was started on a cardizem gtt and cardio was consulted. Her heart rate became controlled on Cardizem drip and she was converted to oral Cardizem and metorpolol. She continued to have elevated HR on standing and walking. EP was consulted and is recommending ablation. Patient seen and examined at bedside. Still with presyncrope, chest tightness, and SOB when ambulating. HR is also increased with standing. Symptoms resolve at rest. Objective - Vital Signs Vital signs: Vital Signs Temp 98 F 07/18/18 04:00 Pulse 75 07/18/18 04:00 Resp 17 07/18/18 04:00 BP 120/60 07/18/18 04:00 Pulse Ox 98 07/18/18 04:00 Intake & Output 07/17/18 07/18/18 07/18/18 18:59 06:59 18:59 Intake Total 462 500 Balance 462 500 Weight 88.1 kg Intake: Oral 462 500 Other: Voiding Method Toilet Toilet # Voids 3 2 # Bowel Movements 3 - Exam General: non toxic, no distress, obese Derm: warm, dry Head: atraumatic, normocephalic, symmetric Eyes: EOMI, no lid lag, anicteric sclera Mouth: no lip lesion, mucus membranes moist Cardiovascular: S1-S2 irregular, no murmur, positive posterior tibial pulse bilateral, Lungs: Decreased bs b/l bases, no rhonchi, no rales , no accessory muscle use Abdominal: soft, nontender to palpation, no guarding, no appreciable organomegaly Ext: no gross muscle atrophy, no edema, no contractures Neuro: CN II-XI grossly intact, no focal neuro deficits Psych: Alert, oriented, appropriate affect - Labs CBC & Chem 7: 07/18/18 05:41 07/18/18 05:41 Labs: Abnormal Lab Results - Last 24 Hours (Table) 07/18/18 Range/Units 05:41 Sodium 136 L (137-145) mmol/L Glucose 105 H (74-99) mg/dL Assessment and Plan Assessment: Chronic atrial flutter with rapid ventricular response, hx of atrial fib -s/p IV Cardizem -Oral metoprolol ordered per cardiology -Continue home eliquest -Continue home Cardizem -TSH normal - EP recs appreciated: in patient vs outpatient ablation. Hypertension, controlled -Continue with Cozaar, Cardizem, metoprolol -Follow blood pressures Diabetes mellitus type 2 -Adequately controlled at home with A1c 5.7 in May -No indication for sliding scale -Repeat fasting blood sugar with morning blood work Hypothyroidism -TSH normal -Levothyroxine Dyslipidemia -Statin CKD stage III -Creatinine at baseline -Renal dose medications DVT prophylaxis: On eliquis Discussed with: Patient, nursing Anticipated discharge: 24-[address]: home A total of 35 minutes was spent on the care of this complex patient more than 50 % of the time was spent in counseling and care coordination.
[2018-07-18] MEDS ORDERED: APIXABAN 2.5 MG TABLET PO STA (11:05)
--- NOTE | 2018-07-18 12:38 | PN ---
PROGRESS NOTE Mrs Ziegler came in with what seems to be in atrial flutter and also has evidence of atrial fibrillation. I believe she has both paroxysmal atrial flutter from which she is symptomatic and also atrial fibrillation. I am recommending radiofrequency ablation. I requested Dr. Higgins to see the patient. He has evaluated the patient and will probably try and do this on Friday and I will in the meantime, increase the Eliquis to 5 mg b.i.d. Rate is fairly well controlled. She is hemodynamically stable. Vital signs are stable. S1-S2 heard normally. Irregularity noted, short systolic murmur noted. Lungs are clear. Abdomen and lower extremity exam unchanged. Same medical regimen, increase Eliquis. Going for an ablation on Friday for atrial flutter and if necessary down the road for atrial fibrillation, pulmonary vein isolation as well. MMODL / IJN: [id number] /
[2018-07-18] MEDS: SODIUM CHLORIDE 0.9% 1,000 ML IV SCH (13:09)
[2018-07-18] MEDS: ATORVASTATIN 10 MG TAB PO SCH (20:03)
[2018-07-18] MEDS: APIXABAN 5 MG TAB PO SCH (20:04)
[2018-07-19] MEDS: LEVOTHYROXINE 75 MCG TAB PO SCH (06:30)
[2018-07-19 07:57] LABS: Basophils % (A) 0 %; Eosinophils # (A) 0.1 k/uL (0-0.7); Eosinophils % (A) 2 %; HCT 36.9 % (34.0-46.0); HGB 12.7 gm/dL (11.4-16.0); Lymphocytes # (A) 1.4 k/uL (1.0-4.8); Lymphocytes % (A) 24 %; MCH 32.3 pg (25.0-35.0); MCHC 34.4 g/dL (31.0-37.0); MCV 93.7 fL (80.0-100.0); Mean Platelet Volume 6.7; Monocytes # (A) 0.4 k/uL (0-1.0); Monocytes % (A) 6 %; Neutrophils # (A) 3.9 k/uL (1.3-7.7); Neutrophils % (A) 65 %; Platelet Count 221 k/uL (150-450); RBC 3.93 m/uL (3.80-5.40); RDW 13.6 % (11.5-15.5)
[2018-07-19 08:08] LABS: Calcium 9.4 mg/dL (8.4-10.2); Potassium 4.3 mmol/L (3.5-5.1)
--- NOTE | 2018-07-19 08:53 | P.PN ---
Subjective Progress Note Date: 07/19/18 Principal diagnosis: chest pain Patient is an 83-year-old female with a past medical history of atrial flutter, diabetes, CKD 3, GERD, hypertension, and dyslipidemia who presented with heart trouble with complaints of palpitations and chest discomfort. In the ER she was found have atrial flutter with rapid ventricular response. Her heart rate was 140. Her lab analysis was at her baseline. EKG showed A fib with RVR at a rate of 120. CXR with unremarkable. She was started on a cardizem gtt and cardio was consulted. Her heart rate became controlled on Cardizem drip and she was converted to oral Cardizem and metorpolol. She continued to have elevated HR on standing and walking. EP was consulted and is recommending ablation likely in AM. Patient seen and examined at bedside. She complains of shortness of breath yesterday when laying flat due to herbeing blocked. She reports postnasal drip. She also has been having increased urination. She denies dysuria, malodorous urine, but does have darker urine than normal. She denies any diarrhea. No chest tightness or palpitations last night. No presyncopal episodes. Objective - Vital Signs Vital signs: Vital Signs Temp 98.2 F 07/19/18 03:36 Pulse 74 07/19/18 03:38 Resp 17 07/19/18 03:38 BP 118/58 07/19/18 03:36 Pulse Ox 94 L 07/19/18 03:36 Intake & Output 07/18/18 07/19/18 07/19/18 18:59 06:59 18:59 Intake Total 502 450 Balance 502 450 Weight 89.1 kg Intake: Oral 502 450 Other: Voiding Method Toilet Toilet # Voids 3 2 - Exam General: non toxic, no distress, obese Derm: warm, dry Head: atraumatic, normocephalic, symmetric Eyes: EOMI, no lid lag, anicteric sclera Mouth: no lip lesion, mucus membranes moist Cardiovascular: S1-S2 irregular, no murmur, positive posterior tibial pulse bilateral, Lungs: Clear auscultation bilaterally, no rhonchi, no rales , no accessory muscle use Abdominal: soft, nontender to palpation, no guarding, no appreciable organomegaly Ext: no gross muscle atrophy, no edema, no contractures Neuro: CN II-XI grossly intact, no focal neuro deficits Psych: Alert, oriented, appropriate affect - Labs CBC & Chem 7: 07/19/18 07:29 07/19/18 07:29 Labs: Abnormal Lab Results - Last 24 Hours (Table) 07/19/18 Range/Units 07:29 Sodium 135 L (137-145) mmol/L Glucose 103 H (74-99) mg/dL Assessment and Plan Assessment: Chronic atrial flutter with rapid ventricular response, hx of atrial fib -s/p IV Cardizem -On metoprolol, Cardizem by mouth, and eliquis -Plan is for atrial flutter ablation in a.m. -TSH normal allergic rhinitis -Flonase -Claritin Frequent urination -Check urinalysis Hypertension, controlled -Continue with Cozaar, Cardizem, metoprolol -Follow blood pressures Diabetes mellitus type 2 -Adequately controlled at home with A1c 5.7 in May -No indication for sliding scale -Repeat fasting blood sugar in AM Hypothyroidism -TSH normal -Levothyroxine Dyslipidemia -Statin CKD stage III -Creatinine at baseline -Renal dose medications DVT prophylaxis: On eliquis Discussed with: Patient, nursing Anticipated discharge: 24-[address]: home A total of 35 minutes was spent on the care of this complex patient more than 50 % of the time was spent in counseling and care coordination.
[2018-07-19] MEDS: FLUTICASONE 110 MCG INHALER INHALATION SCH ×2 (09:19→20:24)
[2018-07-19] MEDS: POTASSIUM CHLORIDE ER 10 MEQ TAB.ER.PRT PO SCH (10:21)
[2018-07-19] MEDS: MAGNESIUM OXIDE 400 MG TAB PO SCH (10:21)
[2018-07-19] MEDS: DILTIAZEM CD 120 MG CAP.ER.24H PO SCH (10:21)
[2018-07-19] MEDS: ALLOPURINOL 100 MG TAB PO SCH (10:22)
[2018-07-19] MEDS: METOPROLOL TARTRATE 50 MG TAB PO SCH ×2 (10:22→21:42)
[2018-07-19] MEDS: ANASTROZOLE 1 MG TAB PO SCH (10:23)
[2018-07-19] MEDS: APIXABAN 5 MG TAB PO SCH ×2 (10:23→21:42)
[2018-07-19] MEDS: LOSARTAN 25 MG TAB PO SCH (10:23)
[2018-07-19] MEDS: LEVOTHYROXINE 50 MCG TAB PO SCH (10:24)
[2018-07-19 12:13] LABS: Appearance,Urine Cloudy (Clear); Bacteria,Urine Rare /hpf; Bilirubin,Urine Negative (Negative); Blood,Urine Small (Negative); Color,Urine Light Yellow; Glucose,Urine (UA) Negative (Negative); Ketones,Urine Negative (Negative); Leukocyte Esterase,Urine Large (Negative); Mucus,Urine Rare /hpf; Nitrite,Urine Negative (Negative); Protein,Urine Negative (Negative); RBC,Urine 5 /hpf (0-5); Specific Gravity,Urine 1.004 (1.001-1.035); Squamous Epithelial Cell,Urine <1 /hpf (0-4); Urobilinogen,Urine <2.0 mg/dL (<2.0)
[2018-07-19] MEDS: LORATADINE 10 MG TAB PO SCH (12:49)
[2018-07-19] MEDS: FLUTICASONE 50MCG/SPRAY NASAL 16GM EA NOSTRIL SCH (12:49)
[2018-07-19] MEDS ORDERED: LEVOTHYROXINE 25 MCG TAB PO ONE (13:00)
[2018-07-19] MEDS ORDERED: LEVOTHYROXINE 50 MCG TAB PO ONE (13:00)
--- NOTE | 2018-07-19 17:52 | PN ---
PROGRESS NOTE Mrs. Ziegler is in atrial flutter, controlled rate. Doing better today. Denies chest pain. S1-S2 heard normally, short systolic murmur noted. Lungs are clear. Abdomen and lower extremities unchanged. She is going to have a flutter ablation tomorrow by Dr. Higgins and she is on Eliquis 5 mg b.i.d. MMODL / IJN: [id number] /
[2018-07-19] MEDS ORDERED: MELATONIN 5 MG TABLET PO PRN (21:00)
[2018-07-19] MEDS: ATORVASTATIN 10 MG TAB PO SCH (21:42)
[2018-07-20] MEDS: LORATADINE 10 MG TAB PO SCH (06:25)
[2018-07-20] MEDS: SODIUM CHLORIDE 0.9% 1,000 ML IV SCH (06:25)
[2018-07-20] MEDS: POTASSIUM CHLORIDE ER 10 MEQ TAB.ER.PRT PO SCH (06:26)
[2018-07-20] MEDS: APIXABAN 5 MG TAB PO SCH ×2 (06:26→21:13)
[2018-07-20] MEDS: MAGNESIUM OXIDE 400 MG TAB PO SCH (06:26)
[2018-07-20] MEDS: DILTIAZEM CD 120 MG CAP.ER.24H PO SCH (06:26)
[2018-07-20] MEDS: ALLOPURINOL 100 MG TAB PO SCH (06:26)
[2018-07-20] MEDS: LOSARTAN 25 MG TAB PO SCH (06:27)
[2018-07-20] MEDS: ANASTROZOLE 1 MG TAB PO SCH (06:27)
[2018-07-20] MEDS: FLUTICASONE 110 MCG INHALER INHALATION SCH ×2 (06:54→21:11)
[2018-07-20] MEDS: FLUTICASONE 50MCG/SPRAY NASAL 16GM EA NOSTRIL SCH (07:57)
--- NOTE | 2018-07-20 08:23 | P.PN ---
Subjective Progress Note Date: 07/20/18 Principal diagnosis: chest pain Patient is an 83-year-old female with a past medical history of atrial flutter, diabetes, CKD 3, GERD, hypertension, and dyslipidemia who presented with heart trouble with complaints of palpitations and chest discomfort. In the ER she was found have atrial flutter with rapid ventricular response. Her heart rate was 140. Her lab analysis was at her baseline. EKG showed A fib with RVR at a rate of 120. CXR with unremarkable. She was started on a cardizem gtt and cardio was consulted. Her heart rate became controlled on Cardizem drip and she was converted to oral Cardizem and metorpolol. She continued to have elevated HR on standing and walking. EP was consulted and is recommending ablation for A flutter on 07/20 and may need to have further otupatient procedure for A fib. Patient seen and examined at bedside. No chest pain, shortness of breath, nausea, or vomiting. Still with frequent urination. Stools are not dark and tarry. Objective - Vital Signs Vital signs: Vital Signs Temp 97.2 F L 07/20/18 06:15 Pulse 71 07/20/18 07:58 Resp 16 07/20/18 07:58 BP 146/70 07/20/18 07:58 Pulse Ox 93 L 07/20/18 07:58 Intake & Output 07/19/18 07/20/18 07/20/18 18:59 06:59 18:59 Weight 88.4 kg Other: Voiding Method Toilet # Voids 1 - Exam General: non toxic, no distress, obese Derm: warm, dry Head: atraumatic, normocephalic, symmetric Eyes: EOMI, no lid lag, anicteric sclera Mouth: no lip lesion, mucus membranes moist Cardiovascular: S1-S2 irregular, positive posterior tibial pulse bilateral, Lungs: Clear auscultation bilaterally, no rhonchi, no rales , no accessory muscle use Abdominal: soft, nontender to palpation, no guarding, no appreciable organomegaly Ext: no gross muscle atrophy, no edema, no contractures Neuro: CN II-XI grossly intact, no focal neuro deficits Psych: Alert, oriented, appropriate affect - Labs CBC & Chem 7: 07/19/18 07:29 07/19/18 07:29 Labs: Abnormal Lab Results - Last 24 Hours (Table) 07/19/18 Range/Units 11:48 Urine Appearance Cloudy H (Clear) Urine Blood Small H (Negative) Ur Leukocyte Esterase Large H (Negative) Urine WBC 100 H (0-5) /hpf Urine WBC Clumps Few H (None) /hpf Urine Bacteria Rare H (None) /hpf Urine Mucus Rare H (None) /hpf Microbiology - Last 24 Hours (Table) 07/19/18 11:48 Urine Culture - Preliminary Urine,Voided Assessment and Plan Assessment: Chronic atrial flutter with rapid ventricular response, hx of atrial fib -s/p IV Cardizem -On metoprolol, Cardizem by mouth, and eliquis -Plan is for atrial flutter ablation today. -TSH normal allergic rhinitis -Flonase (RX sent for home use) -Claritin Probable UTI - await culture - Rocephin IVP Intermittent Melena - Occult blood this admission negative but not currently having dark stools, recommended repeat testing with Dr. Orellana as an outpatient. (Will call ovidio today) - HgB normal Hypertension, controlled -Continue with Cozaar, Cardizem, metoprolol -Follow blood pressures Diabetes mellitus type 2 -Adequately controlled at home with A1c 5.7 in May -No indication for sliding scale -Repeat fasting blood sugar in AM Hypothyroidism -TSH normal -Levothyroxine Dyslipidemia -Statin CKD stage III -Creatinine at baseline -Renal dose medications DVT prophylaxis: On eliquis Discussed with: Patient, nursing Anticipated discharge: [address]: home A total of 25 minutes was spent on the care of this complex patient more than 50 % of the time was spent in counseling and care coordination.
[2018-07-20] MEDS: cefTRIAXone IN SWFI 1,000 MG/10 ML SYRINGE IVP SCH (12:19)
[2018-07-20] MEDS ORDERED: HEPARIN SODIUM,PORCINE 5,000 UNIT/ML 1 ML VIAL ONE (14:33)
[2018-07-20] MEDS ORDERED: ROCURONIUM BROMIDE 10 MG/ML 10 ML VIAL IV ONE (14:33)
[2018-07-20] MEDS ORDERED: PROTAMINE SULFATE 10 MG/ML 5 ML VIAL IV ONE (14:33)
[2018-07-20] MEDS ORDERED: IV FLUID CONTINUATION 600 ML IV ONE (14:33)
[2018-07-20] MEDS ORDERED: NEOSTIGMINE 1 MG/ML 10 ML VIAL ONE (14:33)
[2018-07-20] MEDS ORDERED: PROPOFOL 10 MG/ML 20 ML VIAL IV ONE (14:33)
[2018-07-20] MEDS ORDERED: SUCCINYLCHOLINE CHLORIDE 100 MG/5 ML SYR IV ONE (14:33)
[2018-07-20] MEDS ORDERED: fentaNYL (PF) 50 MCG/ML 2 ML AMP ONE (14:33)
[2018-07-20] MEDS ORDERED: LIDOCAINE 1% INJ 10MG/ML (20 ML MDV) ONE ×2 (14:33→14:50)
[2018-07-20] MEDS ORDERED: PHENYLEPHRINE-0.9% NACL SYG 1 MG/10 ML SYRINGE ONE (14:33)
[2018-07-20] MEDS ORDERED: GLYCOPYRROLATE 0.2 MG/ML 2 ML VIAL ONE (14:33)
[2018-07-20] MEDS ORDERED: HEPARIN SODIUM,PORCINE 30 ML 30 ML ONE (14:50)
[2018-07-20] MEDS ORDERED: LIDOCAINE 1% INJ 10MG/ML (20 ML MDV) SQ ONE (15:14)
[2018-07-20] MEDS ORDERED: HEPARIN SODIUM (1,000 UNIT/ML) 1,000 UNIT in SODIUM CHLORIDE 0.9% 1,000 ML IRRIGATION ONE (15:29)
--- NOTE | 2018-07-20 15:44 | PN ---
PROGRESS NOTE Mrs. Ziegler is in atrial flutter, controlled rate. She is going for a flutter ablation to be performed by Dr. Higgins today. She has hypertension and diet-controlled diabetes with mild CKD. S1, S2 heard normally. Short systolic murmur noted. Lungs are clear. Abdomen and lower extremity exam unchanged. Plan is to continue current medications. Her Eliquis is at 5 mg b.i.d. MMODL / IJN: [id number] /
[2018-07-20] MEDS ORDERED: HEPARIN SOD,PORK IN 0.45% NACL 25,000 UNIT in 0.45% NACL 1 500ML.BAG IV ONE (15:49)
[2018-07-20] MEDS ORDERED: DEXTROSE 5% IN WATER 100 ML with AMIODARONE 150 MG IV ONE ×2 (16:37→16:44)
[2018-07-20] MEDS ORDERED: DEXTROSE 5% IN WATER 100 ML BAG IV ONE (16:44)
[2018-07-20] MEDS ORDERED: AMIODARONE 50 MG/ML 3 ML VIAL IV ONE (16:44)
--- NOTE | 2018-07-20 16:47 | P.PN ---
Progress Note - Text Diagnosis Atrial fibrillation, paroxysmal symptomatic, refractory to therapy with flecainide Result Successful pulmonary vein isolation of all veins using cryo-ablation Complete entrance block as well as exit block in all 4 veins confirmed Time to effect in the left superior, left inferior and right superior veins less than 40-50 seconds No evidence for phrenic nerve injury Right-sided esophagus Esophageal deflection NO. Esophageal temperature monitoring performed Procedure details Patient was brought to the EP lab in a fasting state. Written informed consent was obtained prior to the procedure. Procedure performed under general anesthesia After initial muscle relaxant use, muscle relaxants were not given thereafter in order to assess phrenic nerve during procedure Dual-chamber pacemaker interrogated and reprogrammed the for the procedure. Pacemaker interrogated and reprogrammed once again at the very end of the procedure Patient prepped and draped as per protocol Full cryo-set up with standard preparation of the cryoablation tools done Femoral Venous access obtained on the right and left groins Venous and arterial Sheaths placed Diagnostic catheters for the high right atrium, phrenic nerve stimulation and pacing, His bundle, RV and coronary sinus placed Intracardiac echo catheter placed Long sheath placed in the right atrium Left and right transseptal catheterization performed under intracardiac echo guidance Intravenous heparin with aCT above 300 Later, catheter positioning and balloon positioning in the left atrium, under intracardiac echo guidance Comprehensive diagnostic EP study Drug infusion Coronary sinus pacing and recording Baseline measurements Sinus cycle length 691 ms, WI 131, QRS 88, QT 384 AH 75, HV 54 Sinus node recovery times at 600 ms were 899 ms. AV node Wenckebach block from the high right atrium 430 ms VA Wenckebach block greater than 600 ms at baseline On Isuprel infusion, AV node Wenckebach block improved to 260 ms when pacing from the coronary sinus Atrial pacing performed from the high right atrium and the coronary sinus RV pacing performed Transseptal catheterization performed RA pressure 16/6/11 LA pressure 19/8/14 Transseptal catheterization performed with standard sheath. The cryoablation sheath was then placed with an over the wire exchange without any acute complications. All 4 pulmonary veins were isolated in the following sequence: Left superior followed by left inferior followed by right superior followed by right inferior The cryo-ablation balloon was placed at the os of each vein 1.5 mL of IV dye was injected to confirm an occluded vein Goal during cryoablation was to achieve complete occlusion of the pulmonary vein , achieve -30C at 30 seconds and achieve -40C at 60 seconds and a time to affect of less than 60-90 seconds, . If not the balloon was repositioned to obtain this result After completion of Cryoblation with durations from 180-240 seconds, entrance block was confirmed with the Attain circular catheter in a roving fashion around the antrum of the pulmonary veins Phrenic nerve pacing was performed from the SVC, right innominate vein area and diaphragm voltage was monitored. Diaphragmatic contractions were also monitored manually for strength of contraction. Parameter goals for each cryo freeze -30C by 30 seconds -40C by 60 seconds Mediated between minus 40-55C Thaw time greater than 10 seconds Balloon visualized by intracardiac echo to ensure that the proximal one third was within the left atrium/antrum The esophagus was intubated. Esophageal Temperature monitoring with a CIRCA catheter formed. Esophageal deflection for hypothermia of the esophagus below 32C Left superior pulmonary vein Single 3 minute cryoablation. Time to effect in less than 40 seconds Left inferior pulmonary vein Single 3 minute cryoablation, time to effect in less than 40 seconds Right superior pulmonary vein, during phrenic nerve pacing 2 cryo lesions 3 minute cryoablation with a time to effect of less than 50 seconds Later a small PVP area. Upon reexamination Second 2 minute cryoablation performed complete isolation Right inferior pulmonary vein, during phrenic nerve pacing Single 3 minute cryoablation At the end of the procedure the Achieve catheter was once again used to check for entrance block as well as exit block Phrenic nerve stimulation was performed to confirm diaphragmatic stimulation the end of the procedure Cine fluoroscopy was performed at the very end of the procedure to confirm movement of both diaphragms with inspiration and expiration At the end of the procedure the patient was extubated Heparin was reversed Venous sheaths were removed and hemostasis assured Procedures performed (PVI - CRYO Ablation) Pacemaker, dual, interrogation with reprogramming before starting the procedure Invasive hemodynamic monitoring while general anesthesia, right femoral arterial line for monitoring and sampling Comprehensive diagnostic EP study CS pacing and recording Catheter the mapping of the tachycardia (NOT 3D mapping) Intracardiac echocardiography Pulmonary vein isolation with transseptal and comprehensive EPS, [id number] Drug Infusion [id number] Pacemaker, dual, interrogation with reprogramming after completion of the procedure Pacemaker interrogated. Impedances in the 500s for atrial and ventricular leads. Reprogrammed to DDD at 50 PPM. AV delay programmed longer At the end of the procedure pacemaker re-interrogated. Impedances stable as compared to the preprocedure impedances. Rate responsiveness turned on. Long AV delay programmed Summary of EP procedure Atrial tachycardia with RVR upon minimal exertion and upon standing, very symptomatic. 12-lead ECG resembles atrial flutter but cycle length of short Diagnostic EP study and mapping confirmed that this was not typical atrial flutter but a left atrial tachycardia Left atrium was mapped and during the mapping procedure her tachycardia change activation patterns. At least 4-5 different atrial tachycardias were documented RF ablation was performed near the roof outside the right. Pulmonary vein for one arrhythmia and along the anterior septal aspect of the left atrium for another atrial tachycardia with slowing of the atrial tachycardia cycle length but no termination Her atrial tachycardia is for not pulmonary vein dependent and therefore PVI alone would be completely inadequate Typical atrial flutter ablation in the right atrium was not performed since all her atrial arrhythmias were left atrial in origin Intracardiac echo demonstrated normal LV and RV size and function Dilated left and right atria. Left atrial diameter is greater than 5.5 cm Atrial smoke was noted Very large left atrial appendage Electrical cardioversion was performed Suggest Stop Cardizem, hold metoprolol and start oral amiodarone 200 mg by mouth twice a day for one month then 20 mg daily for one month and then 100 mg by mouth daily thereafter Treat with low-dose oral amiodarone and low-dose metoprolol 25 mg twice daily If she has breakthrough atrial fibrillation, a biventricular pacemaker followed by AV node ablation should be performed ELIQUIS 5 mg twice daily to continue
[2018-07-20] MEDS ORDERED: ACETAMINOPHEN IV (For NPO) 1,000 MG in EMPTY BAG 1 BAG IVPB ONE (17:17)
[2018-07-20] MEDS ORDERED: HYDROcodone/APAP 5-325MG 1 EACH TAB PO PRN (17:17)
[2018-07-20] MEDS ORDERED: ACETAMINOPHEN TAB 325 MG TAB PO PRN (17:17)
--- NOTE | 2018-07-20 17:34 | P.PCN ---
Preoperative Diagnosis: Indication for the procedure Organized atrial tachycardia with RVR with minimal exertion, failed AV yang blocking drugs, very symptomatic 12-lead ECG has the appearance of atrial flutter Result 1. Multiple left atrial tachycardias. No evidence for typical atrial flutter. With RF energy as well as during mapping one tachycardia would change to another and a total of at least 5 different left atrial tachycardias were noted 2. RF ablation for 2 tachycardias performed with slowing of atrial cycle length but they changed to a different atrial arrhythmia 3. She has atrial fibrillation with multiple different morphologies, her atrial arrhythmias are NOT pulmonary vein dependent and hence pulmonary vein isolation by itself would be inadequate 4. Dilated left atrium > 5.5 cm with preserved LV and RV size and function, large left atrial appendage 5. Smoking the left atrium and the right atrium Diagnostic EP study Patient was brought to the EP lab in a fasting state. Written informed consent was obtained prior to the procedure. The procedure was performed under general anesthesia. Dennison catheter was placed Venous sheaths were placed in the right left femoral veins and via these diagnostic catheters, mapping catheters ablation catheters and intracardiac echo catheter as well as transseptal puncture was performed. Coronary sinus catheter in the CS. Initially and eccentric activation was noted, distal to proximal cycle length of about 227 ms She was in an atrial tachycardia with a cycle length of about 227 ms QRS 91 QT 470 IV heparin was administered through the procedure Left and right transseptal catheterization was performed. Right atrial pressure 22/10/16 Left atrial pressure 27/8/18 Mapping and ablation Entrainment mapping from the right atrial isthmus resulted in change in the activation pattern with a faster cycle length of about 210 ms Mapping of the right atrium, 3-D was performed for this arrhythmia since deeply negative P waves are noted on lead V1 Left and right transseptal catheterization was performed since these appear to be left atrial tachycardias So far 2 different atrial tachycardias were noted 3-D mapping of the left atrium was performed and during mapping and ablation 3 other atrial tachycardias were noted either with mechanical stimulation or during application of deficiency energy the tachycardia with change to a different one with a different activation pattern and cycle length RF ablation was performed outside the right superior pulmonary vein on the roof. This resulted in a change in the atrial tachycardia Repeat mapping with early activation along the anterior septum for another atrial tachycardia drug resulted in slowing of atrial tachycardia cycle length without termination All these tachycardias were not dependent on the pulmonary veins. The pulmonary veins were quiescent and these were atrial tachycardias involving the left atrium At this point electrical cardioversion was performed with 360 J in the AP configuration to sinus rhythm. WI interval 200 ms, heart rate 60s Venous sheaths were removed heparin was reversed with protamine Procedures performed Comprehensive diagnostic EP study with attempted arrhythmia induction, 49509 Coronary sinus pacing and recording, +[id number] 3-D mapping, +[id number] Atrial ablation, 54440 Intracardiac echo, +19040 Transseptal catheterization, +[id number] Electrical cardioversion, 64041 Anesthesia: GETA Condition: stable Disposition: floor
--- NOTE | 2018-07-20 17:38 | P.CRDCN ---
History of Present Illness Consult reason: atrial flutter History of present illness: This is Dr. Higgins dictating a consult on this patient The patient was interviewed and examined by me IMPRESSION / ASSESSMENT: Symptomatic atrial tachycardia with rate control at rest while sitting with poor rate control upon standing, up to 118 beats a minute Ventricular rates increased 140 beats a minute with minimal exertion Despite a combination of beta blockers and calcium channel blockers Symptoms of dizziness, presyncope and shortness of breath History of atrial fibrillation, paroxysmal Twelve-lead ECG has the appearance of Atrial flutter, typical Type 2 diabetes Hypertension essential Chronic kidney disease, stage III, BUN 19, creatinine 1.1 GFR between 45 and 55 Iodine dye ALLERGY TSH normal Normal cardiac enzyme PLAN: I would increase her ELIQUIS to 5 mg twice daily since her creatinine is less than 1.5 and her weight is greater than 60 kg Consideration for atrial flutter ablation/atrial tachycardia ablation Consideration for antiarrhythmic drug therapy Consideration for PACE & AV Node ablation strategy in the future with biventricular pacing for durable symptomatic relief Discussed with patient and her daughter Final plan will be recommended after mapping of the atrial tachycardia HPI Patient presented with dizziness weakness and poor quality of life inability to stand without being dizzy or feeling presyncopal and the need to sit down quickly Palpitations Shortness of breath with minimal exertion Very poor quality of life and inability to function ROS: No fever chills or rigors, no cough, phlegm or expectoration, no nausea, vomiting or diarrhea, no hematuria, dysuria, no musculoskeletal complaints, no strokes or seizures, no skin lesions. Her main complaint is palpitations, dizziness and presyncope like symptoms and shortness of breath and inability to function EXAMINATION Blood pressure 120/60 mmHg respirations 17, resting heart rate 75, afebrile Upon standing heart rate 118 beats a minute With a casual martin walk of bili 20-30 feet, heart rate up to 140 beats a minute despite a combination of beta blockers and calcium channel blockers REVIEW OF LABS, ECG Normal TSH, normal troponins, GFR between 45 and 55 Twelve-lead ECG shows an organized atrial tachycardia with a cycle length of about 200-220 ms with upright atrial deflections in lead V1 and negative deflections in the inferior leads that resembles atrial flutter. However this could well be an organized left atrial tachycardia/atrial fibrillation RVR noted on telemetry upon standing as well as with a casual martin walk Past Medical History Past Medical History: Atrial Fibrillation, Atrial Flutter, Asthma, Cancer, Diabetes Mellitus, GERD/Reflux, Hearing Disorder / Deafness, Hyperlipidemia, Hypertension, Osteoarthritis (OA), Pneumonia, Renal Disease, Skin Disorder, Thyroid Disorder, Vascular Disorder Additional Past Medical History / Comment(s): Pt admitted to [facility] 11/16/17 with Aflutter with RVR, Afib. Other hx: Mitral valve prolapse, "hole in my heart" , exertional dyspnea, chronic renal disease stage III, NIDDM type II-diet controlled, numbness and tingling bilateral hands, carpal tunnel bilaterally, osteoporosis, chronic low back pain, spinal stenosis, scoliosis, DJD, gout, varicose veins, R breast cancer with surgery/radiation, skin cancer removals, cancerous colon polyp removal, diverticular dx, hiatal hernia, IBS, ulcerative colitis, UTIs, R renal cyst, rosacia, shingelles bilateral groins and legs with difficulty urinating d/t swelling in the past. History of Any Multi-Drug Resistant Organisms: None Reported Past Surgical History: Breast Surgery, Cholecystectomy, Heart Catheterization, Hysterectomy, Orthopedic Surgery Additional Past Surgical History / Comment(s): R breast lumpectomy x 2, R breast bx, skin cancer removals, total hysterectomy, open cholecystectomy, R arm spur removals 3 times, R shoulder rotator cuff repair, R foot 2nd toe surgery, pilonidal cystectomy, colonoscopy with cancerous polypectomy, bilateral cataract removal/lens implants and surgery for astigmatism. Past Anesthesia/Blood Transfusion Reactions: Postoperative Nausea & Vomiting ( PONV) Additional Past Anesthesia/Blood Transfusion Reaction / Comment(s): DUE TO REFLUX /POST ANESTHESIA PNEUMONIA. Smoking Status: Never smoker - Past Family History Father Additional Family Medical History / Comment(s): Father was an alcoholic and pt thinks he from complications of that. Mother Family Medical History: Pulmonary Embolus Additional Family Medical History / Comment(s): at 59 from PE Sister(s) Family Medical History: Cancer Additional Family Medical History / Comment(s): Breast Cancer Medications and Allergies Home Medications Medication Instructions Recorded Confirmed Type Ergocalciferol [Vitamin D2 50,000 unit PO [id number] 07/19/15 07/16/18 History (DRISDOL)] Fluticasone Propionate [Flovent 2 puff INHALATION RT-BID 07/19/15 07/16/18 History Hfa 110mcg] Furosemide 20 mg PO DAILY 07/19/15 07/16/18 History Levothyroxine Sodium [Synthroid] 50 mcg PO MOTUTHFRSA 07/19/15 07/16/18 History Potassium Chloride [Klor-Con 10] 10 meq PO DAILY 07/19/15 07/16/18 History Ubidecarenone [Co Q-10] 200 mg PO DAILY 07/19/15 07/16/18 History Allopurinol [Zyloprim] 100 mg PO DAILY 11/16/17 07/16/18 History Anastrozole [Arimidex] 1 mg PO DAILY 11/16/17 07/16/18 History Atenolol [Tenormin] 25 mg PO DAILY 11/16/17 07/16/18 History Levothyroxine Sodium [Synthroid] 75 mcg PO SUWE 11/16/17 07/16/18 History Magnesium Oxide [Mag-Ox] 800 mg PO DAILY 11/16/17 07/16/18 History Apixaban [Eliquis] 2.5 mg PO BID #60 tablet 11/18/17 07/16/18 Rx Losartan [Cozaar] 25 mg PO DAILY #30 tab 11/18/17 07/16/18 Rx Docusate Sodium [Dok] 100 mg PO DAILY PRN 01/23/18 07/16/18 History Rosuvastatin [Crestor] 5 mg PO HS 01/23/18 07/16/18 History Acetaminophen Tab [Tylenol] 650 mg PO Q6HR PRN tab 01/24/18 07/16/18 Rx Diltiazem Cd [Cardizem Cd] 120 mg PO DAILY 07/16/18 07/16/18 History Furosemide [Lasix] 40 mg PO DAILY 07/16/18 07/16/18 History Potassium Chloride ER [K-Dur 10] 30 meq PO HS 07/16/18 07/16/18 History Fluticasone Nasal [place] [Flonase 2 spray EA NOSTRIL DAILY #1 bottle 07/20/18 Rx Nasal [place]] Allergies Allergy/AdvReac Type Severity Reaction Status Date / Time iodine Allergy Unknown VERY LOW Verified 07/16/18 19:19 BLOOD PRESSURE,SHORTNESS OF BREATH adhesive tape Allergy Rash/Hives Verified 07/16/18 19:19 clarithromycin Allergy Unknown Verified 07/16/18 19:19 diphenhydramine Allergy Unknown Verified 07/16/18 19:19 Iodinated Contrast- Oral and Allergy Anaphylaxis Verified 07/16/18 19:19 IV Dye metaxalone [From Skelaxin] Allergy Rash/Hives Verified 07/16/18 19:19 niacin Allergy Unknown Verified 07/16/18 19:19 [From Niaspan Extended-Release] pantoprazole Allergy ITCHING Verified 07/16/18 19:19 ,REDNESS OF SKIN Physical Exam Vitals: Vital Signs Temp Pulse Resp BP Pulse Ox 07/18/18 04:00 98 F 75 17 120/60 98 07/18/18 00:00 98 F 73 17 129/60 99 07/17/18 20:00 98.4 F 74 17 129/60 97 07/17/18 16:00 97.0 F L 85 18 118/72 98 07/17/18 14:30 97.2 F L 70 18 120/62 99 07/17/18 12:33 98.2 F 73 18 123/67 99 07/17/18 12:00 70 18 Intake and Output 07/17/18 07/18/18 07/18/18 22:59 06:59 14:59 Intake Total 240 500 Balance 240 500 Intake: Oral 240 500 Other: Voiding Method Toilet Toilet # Voids 1 2 Weight 88.1 kg Results 07/19/18 07:29 07/19/18 07:29 CBC 07/18/18 Range/Units 05:41 WBC 6.5 (3.8-10.6) k/uL RBC 4.08 (3.80-5.40) m/uL Hgb 12.4 (11.4-16.0) gm/dL Hct 38.5 (34.0-46.0) % Plt Count 238 (150-450) k/uL Comprehensive Metabolic Panel 07/18/18 Range/Units 05:41 Sodium 136 L (137-145) mmol/L Potassium 4.1 (3.5-5.1) mmol/L Chloride 105 (98-107) mmol/L Carbon Dioxide 24 (22-30) mmol/L BUN 14 (7-17) mg/dL Creatinine 0.94 (0.52-1.04) mg/dL Glucose 105 H (74-99) mg/dL Calcium 9.5 (8.4-10.2) mg/dL Current Medications Generic Name Dose Route Start Last Admin Trade Name Freq PRN Reason Stop Dose Admin Allopurinol 100 mg 07/17/18 09:00 07/18/18 08:49 Zyloprim PO 100 mg DAILY NASIR Administration Anastrozole 1 mg 07/17/18 09:00 07/18/18 08:49 Arimidex PO 1 mg DAILY NASIR Administration Apixaban 2.5 mg 07/17/18 09:00 07/18/18 08:49 Eliquis PO 2.5 mg BID NASIR Administration Atorvastatin Calcium 10 mg 07/17/18 21:00 07/17/18 22:10 Lipitor PO 10 mg HS NASIR Administration Diltiazem HCl 120 mg 07/17/18 09:00 07/18/18 08:50 Cardizem Cd PO 120 mg DAILY NASIR Administration Docusate Sodium 100 mg 07/16/18 21:30 Colace PO DAILY PRN Constipation Fluticasone Propionate 2 puff 07/17/18 08:00 07/18/18 08:44 Flovent 110 Mcg Inhaler INHALATION 2 puff RT-BID NASIR Administration Levothyroxine Sodium 50 mcg 07/17/18 06:30 07/18/18 06:47 Synthroid PO 50 mcg MOTUTHFRSA NAISR Administration Levothyroxine Sodium 75 mcg 07/19/18 06:30 Synthroid PO SUWE [facility] Losartan Potassium 25 mg 07/17/18 09:00 07/18/18 08:50 Cozaar PO 25 mg DAILY NASIR Administration Magnesium Oxide 800 mg 07/17/18 09:00 07/18/18 08:50 Mag-Ox PO 800 mg DAILY NASIR Administration Metoprolol Tartrate 50 mg 07/17/18 11:00 07/18/18 08:50 Lopressor PO 50 mg BID NASIR Administration Naloxone HCl 0.2 mg 07/16/18 19:52 Narcan IV Q2M PRN Opioid Reversal Potassium Chloride 10 meq 07/17/18 09:00 07/18/18 08:51 K-Dur 10 PO 10 meq DAILY NASIR Administration Intake and Output 07/17/18 07/18/18 07/18/18 22:59 06:59 14:59 Intake Total 240 500 Balance 240 500 Intake: Oral 240 500 Other: Voiding Method Toilet Toilet # Voids 1 2 Weight 88.1 kg 07/18/18 05:41 07/18/18 05:41
[2018-07-20] MEDS: AMIODARONE 200 MG TAB PO SCH (21:13)
[2018-07-20] MEDS: ATORVASTATIN 10 MG TAB PO SCH (21:13)
[2018-07-21] MEDS: SODIUM CHLORIDE 0.9% 1,000 ML IV SCH ×2 (06:31→20:02)
[2018-07-21] MEDS: LEVOTHYROXINE 50 MCG TAB PO SCH (06:56)
[2018-07-21] MEDS: FLUTICASONE 110 MCG INHALER INHALATION SCH ×2 (07:42→21:41)
[2018-07-21] MEDS: APIXABAN 5 MG TAB PO SCH ×2 (09:25→20:01)
[2018-07-21] MEDS: ALLOPURINOL 100 MG TAB PO SCH (09:25)
[2018-07-21] MEDS: MAGNESIUM OXIDE 400 MG TAB PO SCH (09:25)
[2018-07-21] MEDS: LORATADINE 10 MG TAB PO SCH (09:25)
[2018-07-21] MEDS: POTASSIUM CHLORIDE ER 10 MEQ TAB.ER.PRT PO SCH (09:25)
[2018-07-21] MEDS: AMIODARONE 200 MG TAB PO SCH ×2 (09:25→20:01)
[2018-07-21] MEDS: LOSARTAN 25 MG TAB PO SCH (09:26)
[2018-07-21] MEDS: cefTRIAXone IN SWFI 1,000 MG/10 ML SYRINGE IVP SCH (09:27)
[2018-07-21] MEDS: FLUTICASONE 50MCG/SPRAY NASAL 16GM EA NOSTRIL SCH (09:28)
[2018-07-21] MEDS ORDERED: METOPROLOL TARTRATE 25 MG TAB PO SCH (11:30)
[2018-07-21] MEDS: ANASTROZOLE 1 MG TAB PO SCH (11:53)
--- NOTE | 2018-07-21 15:04 | P.PN ---
Subjective Progress Note Date: 07/21/18 Patient is doing fairly well today. There is no acute events overnight. She was up walking with her daughter earlier. Objective - Vital Signs Vital signs: Vital Signs Temp 98.1 F 07/21/18 12:07 Pulse 74 07/21/18 12:07 Resp 16 07/21/18 12:07 BP 143/64 07/21/18 12:07 Pulse Ox 98 07/21/18 12:07 Intake & Output 07/20/18 07/21/18 07/21/18 18:59 06:59 18:59 Intake Total 989.3 100 Output Total 400 Balance 989.3 -400 100 Weight 87.5 kg Intake: IV 989.3 Oral 100 Output: Urine 400 Other: Voiding Method Toilet Indwelling Catheter Indwelling Catheter # Voids 2 1 - Exam General: The patient is awake and alert, in no distress Eye: there is normal conjunctiva bilaterally. Neck: The neck is supple, there is no JVD. Cardiovascular: Normal S1-S2, no S3-S4, no murmurs. Respiratory: Lungs clear to auscultation bilaterally Gastrointestinal: Abdomen is soft, nontender Musculoskeletal: There is no pedal edema. Neurological:. Speech is normal. Skin: Skin is warm and dry - Labs CBC & Chem 7: 07/19/18 07:29 07/19/18 07:29 Labs: Microbiology - Last 24 Hours (Table) 07/19/18 11:48 Urine Culture - Final Urine,Voided Assessment and Plan Assessment: Chronic atrial flutter with rapid ventricular response, hx of atrial fib -Status post atrial ablation 07/20 -Regimen adjusted by cardiology currently on amiodarone -TSH normal allergic rhinitis -Flonase (RX sent for home use) Probable UTI - Culture negative - Rocephin IVP will be switched to Keflex to finish 3 days course Intermittent Melena - Occult blood this admission negative but not currently having dark stools, recommended repeat testing with Dr. Orellana as an outpatient. (Will call ovidio today) - HgB normal Hypertension, controlled -Continue with Cozaar -Follow blood pressures Diabetes mellitus type 2 -Adequately controlled at home with A1c 5.7 in May -No indication for sliding scale -Repeat fasting blood sugar in AM Hypothyroidism -TSH normal -Levothyroxine Dyslipidemia -Statin CKD stage III -Creatinine at baseline -Renal dose medications DVT prophylaxis: On eliquis Discussed with: Patient, nursing Anticipated discharge: 24 hours Patient told me that she does not feel well enough to go home today. Her daughter is not ready to take care of her today. We will plan for discharge home tomorrow.
[2018-07-21] MEDS: CEPHALEXIN 500 MG CAP PO SCH ×2 (16:45→20:01)
--- NOTE | 2018-07-21 16:57 | PN ---
PROGRESS NOTE Mrs. Ziegler underwent an attempted flutter ablation by Dr. Higgins. Patient apparently did not have flutter. She had atrial tachycardia, but he did do an ablation and patient was slightly bradycardic, but this morning she is doing well. I am recommending that she can be discharged later today or tomorrow depending on how she feels. I would recommend, as per Dr. Higgins's advice, amiodarone and low-dose beta cielo and see how she does. Vital signs are stable. S1-S2 heard normally. Regular rhythm noted. Short systolic murmur noted. Lungs are clear. Abdomen and lower extremity exam is unremarkable. Both groins are clean and dry with a good pulse. MMODL / IJN: [id number] /
[2018-07-21] MEDS: ATORVASTATIN 10 MG TAB PO SCH (20:01)
[2018-07-22 05:47] VITALS: RESP 18
[2018-07-22] MEDS: LEVOTHYROXINE 75 MCG TAB PO SCH (05:48)
[2018-07-22 06:06] LABS: Basophils # (A) 0.1 k/uL (0-0.2); Basophils % (A) 1 %; Eosinophils # (A) 0.2 k/uL (0-0.7); Eosinophils % (A) 2 %; HCT 37.5 % (34.0-46.0); HGB 11.9 gm/dL (11.4-16.0); Lymphocytes # (A) 0.9 k/uL (1.0-4.8); Lymphocytes % (A) 13 %; MCH 31.3 pg (25.0-35.0); MCHC 31.7 g/dL (31.0-37.0); Mean Platelet Volume 6.6; Monocytes # (A) 0.6 k/uL (0-1.0); Monocytes % (A) 8 %; Neutrophils # (A) 5.5 k/uL (1.3-7.7); Neutrophils % (A) 75 %; Platelet Count 190 k/uL (150-450); RDW 14.2 % (11.5-15.5); WBC 7.4 k/uL (3.8-10.6)
[2018-07-22 06:17] LABS: Calcium 9.1 mg/dL (8.4-10.2); Potassium 4.6 mmol/L (3.5-5.1)
[2018-07-22 06:44] LABS: MCV 98.7 fL (80.0-100.0)
[2018-07-22] MEDS: FLUTICASONE 110 MCG INHALER INHALATION SCH (08:06)
[2018-07-22] MEDS ORDERED: METOPROLOL TARTRATE 12.5 MG TAB PO SCH (09:30)
[2018-07-22] MEDS: AMIODARONE 200 MG TAB PO SCH (09:34)
[2018-07-22] MEDS: CEPHALEXIN 500 MG CAP PO SCH (09:34)
[2018-07-22] MEDS: APIXABAN 5 MG TAB PO SCH (09:34)
[2018-07-22] MEDS: POTASSIUM CHLORIDE ER 10 MEQ TAB.ER.PRT PO SCH (09:34)
[2018-07-22] MEDS: ANASTROZOLE 1 MG TAB PO SCH (09:34)
[2018-07-22] MEDS: MAGNESIUM OXIDE 400 MG TAB PO SCH (09:35)
[2018-07-22] MEDS: ALLOPURINOL 100 MG TAB PO SCH (09:35)
[2018-07-22] MEDS: FLUTICASONE 50MCG/SPRAY NASAL 16GM EA NOSTRIL SCH (09:35)
[2018-07-22] MEDS: LORATADINE 10 MG TAB PO SCH (09:35)
[2018-07-22] MEDS: SODIUM CHLORIDE 0.9% 1,000 ML IV SCH (09:40)
[2018-07-22] MEDS: LOSARTAN 25 MG TAB PO SCH (09:48)
--- NOTE | 2018-07-22 10:45 | P.DS ---
Providers Date of admission: 07/16/18 19:52 Expected date of discharge: 07/22/18 Attending physician: Boby Pimentel MD Consults: 07/16/18 22:46 Consult Physician Routine Consulting Provider: Chino Caldwell Consult Reason/Comments: aflutter Do you want consulting provider notified?: Yes 07/17/18 10:54 Consult Physician Routine Consulting Provider: Kevin Higgins Consult Reason/Comments: symptomatic atach/aflutter Do you want consulting provider notified?: Already Contacted Primary care physician: Caron Orellana MD Hospital Course: This is a 83-year-old female who presented originally to the emergency room with worsening palpitation and was found to have atrial flutter with rapid ventricular response. Patient was admitted to the hospital. Below his abuse of her medical problems addressed during this hospitalization. Chronic atrial flutter with rapid ventricular response, hx of atrial fib -Patient was seen and evaluated by cardiology and EP. -Attempted flutter ablation by Dr. Higgins but reports that the patient did not actually have atrial flutter but atrial tachycardia. Patient done on 07/20. -Regimen adjusted by cardiology currently on amiodarone and metoprolol -TSH normal allergic rhinitis -Flonase (RX sent for home use) Probable UTI - Culture negative - Rocephin IVP will be switched to Keflex to finish 3 days course Intermittent Melena - Occult blood this admission negative but not currently having dark stools, recommended repeat testing with Dr. Orellana as an outpatient. (Will call ovidio today) - HgB normal Hypertension, controlled -Continue with Cozaar -Follow blood pressures Diabetes mellitus type 2 -Adequately controlled at home with A1c 5.7 in May -No indication for sliding scale -Repeat fasting blood sugar in AM Hypothyroidism -TSH normal -Levothyroxine Dyslipidemia -Statin CKD stage III -Creatinine at baseline -Renal dose medications Patient will be discharged home in a stable condition. All of her questions answered to her satisfaction. Patient Condition at Discharge: Fair Plan - Discharge Summary New Discharge Prescriptions: New Fluticasone Nasal [place] [Flonase Nasal [place]] 2 spray EA NOSTRIL DAILY #1 bottle Amiodarone [Cordarone] 200 mg PO BID #180 tab Apixaban [Eliquis] 5 mg PO BID #180 tab Cephalexin [Keflex] 500 mg PO BID #4 cap Metoprolol Tartrate [Lopressor] 12.5 mg PO BID #60 tab Continue Fluticasone Propionate [Flovent Hfa 110mcg] 2 puff INHALATION RT-BID Furosemide 20 mg PO DAILY Levothyroxine Sodium [Synthroid] 50 mcg PO MOTUTHFRSA Ubidecarenone [Co Q-10] 200 mg PO DAILY Ergocalciferol [Vitamin D2 (DRISDOL)] 50,000 unit PO [id number] Magnesium Oxide [Mag-Ox] 800 mg PO DAILY Levothyroxine Sodium [Synthroid] 75 mcg PO SUWE Anastrozole [Arimidex] 1 mg PO DAILY Allopurinol [Zyloprim] 100 mg PO DAILY Losartan [Cozaar] 25 mg PO DAILY #30 tab Rosuvastatin [Crestor] 5 mg PO HS Docusate Sodium [Dok] 100 mg PO DAILY PRN PRN Reason: Constipation Acetaminophen Tab [Tylenol] 650 mg PO Q6HR PRN tab PRN Reason: Mild Pain Or Fever > 100.5 Potassium Chloride ER [K-Dur 10] 30 meq PO HS Furosemide [Lasix] 40 mg PO DAILY Discontinued Potassium Chloride [Klor-Con 10] 10 meq PO DAILY Atenolol [Tenormin] 25 mg PO DAILY Apixaban [Eliquis] 2.5 mg PO BID #60 tablet Diltiazem Cd [Cardizem Cd] 120 mg PO DAILY Discharge Medication List Ergocalciferol [Vitamin D2 (DRISDOL)] 50,000 unit PO [id number] 07/19/15 [History] Fluticasone Propionate [Flovent Hfa 110mcg] 2 puff INHALATION RT-BID 07/19/15 [ History] Furosemide 20 mg PO DAILY 07/19/15 [History] Levothyroxine Sodium [Synthroid] 50 mcg PO MOTUTHFRSA 07/19/15 [History] Ubidecarenone [Co Q-10] 200 mg PO DAILY 07/19/15 [History] Allopurinol [Zyloprim] 100 mg PO DAILY 11/16/17 [History] Anastrozole [Arimidex] 1 mg PO DAILY 11/16/17 [History] Levothyroxine Sodium [Synthroid] 75 mcg PO SUWE 11/16/17 [History] Magnesium Oxide [Mag-Ox] 800 mg PO DAILY 11/16/17 [History] Losartan [Cozaar] 25 mg PO DAILY #30 tab 11/18/17 [Rx] Docusate Sodium [Dok] 100 mg PO DAILY PRN 01/23/18 [History] Rosuvastatin [Crestor] 5 mg PO HS 01/23/18 [History] Acetaminophen Tab [Tylenol] 650 mg PO Q6HR PRN tab 01/24/18 [Rx] Furosemide [Lasix] 40 mg PO DAILY 07/16/18 [History] Potassium Chloride ER [K-Dur 10] 30 meq PO HS 07/16/18 [History] Amiodarone [Cordarone] 200 mg PO BID #180 tab 07/20/18 [Rx] Apixaban [Eliquis] 5 mg PO BID #180 tab 07/20/18 [Rx] Fluticasone Nasal [place] [Flonase Nasal [place]] 2 spray EA NOSTRIL DAILY #1 bottle 07/20/18 [Rx] Cephalexin [Keflex] 500 mg PO BID #4 cap 07/22/18 [Rx] Metoprolol Tartrate [Lopressor] 12.5 mg PO BID #60 tab 07/22/18 [Rx] Follow up Appointment(s)/Referral(s): Chino Caldwell MD [STAFF PHYSICIAN] - 07/28/18 2:00 pm (Friday) Caron Orellana MD [Primary Care Provider] - As Needed () Patient Instructions/Handouts: Cardiac Ablation (DC) Activity/Diet/Wound Care/Special Instructions: Post EP study - Ablation instructions 1. Keep access sites dry for 2 days. 2. No heavy lifting or straining for 2 days. 3. Avoid bending the hips repeatedly for 2 days. 4. You may go up and down stairs slowly Call if the following is noted 1. Bleeding, increasing swelling or pain at the access sites. 2. Increasing chest discomfort, especially upon taking a deep breath. 3. Increasing shortness of breath, at rest or with exertion. 4. Undue cough / phlegm 5. Difficulty or pain while swallowing. 6. Pain or change in color in the extremities. 7. Fever, chills, rigors. 8. Increasing headache or neurologic symptoms. 9. Dizziness, fainting, palpitations Stop diltiazem did stop metoprolol Continue atenolol 25 g by mouth daily Amiodarone 200 mg twice daily for 4 weeks then 100 mg once daily for 4 weeks, then 100 mg by mouth daily thereafter Increase the dose of ELIQUIS to 5mg twice daily Discharge Disposition: HOME SELF-CARE
[2018-07-22 11:30] VITALS: BP 114/60; PULSE 78; TEMP 98.7
[2018-07-22] MEDS ORDERED: GLYCOPYRROLATE 0.2 MG/ML 2 ML VIAL ONE (14:33)
[2018-07-22] MEDS ORDERED: SUCCINYLCHOLINE CHLORIDE 100 MG/5 ML SYR IV ONE (14:33)
[2018-07-22] MEDS ORDERED: ROCURONIUM BROMIDE 10 MG/ML 10 ML VIAL IV ONE (14:33)
[2018-07-22] MEDS ORDERED: PROTAMINE SULFATE 10 MG/ML 25 ML VIAL IV ONE (14:33)
[2018-07-22] MEDS ORDERED: PHENYLEPHRINE-0.9% NACL SYG 1 MG/10 ML SYRINGE ONE (14:33)
[2018-07-22] MEDS ORDERED: PROPOFOL 10 MG/ML 20 ML VIAL IV ONE (14:33)
[2018-07-22] MEDS ORDERED: LIDOCAINE 1% INJ 10MG/ML (20 ML MDV) ONE (14:33)
[2018-07-22] MEDS ORDERED: HEPARIN SODIUM,PORCINE 5,000 UNIT/ML 1 ML VIAL ONE (14:33)
[2018-07-22] MEDS ORDERED: NEOSTIGMINE 1 MG/ML 10 ML VIAL ONE (14:33)
[2018-07-22] MEDS ORDERED: fentaNYL (PF) 50 MCG/ML 2 ML AMP ONE (14:33)
--- NOTE | 2018-07-22 19:49 | PN ---
PROGRESS NOTE Mrs. Ziegler is in sinus rhythm. Her heart rate has improved. It is about 78 beats per minute. Hemodynamically stable. Doing well today. I am recommending that we resume beta cielo at 12.5 mg b.i.d. of metoprolol. Continue amiodarone. Vital signs are stable. S1-S2 heard normally. Short systolic murmur noted. Lungs are clear. Abdomen and lower extremity exam unchanged. Plan is to discharge her and she will see Dr. Caldwell in 2 weeks. This patient had attempted atrial flutter ablation and ended up having some ablation for atrial tachycardia and Dr. Higgins advised amiodarone and metoprolol combination. Hopefully she will do with this and at this time she is in sinus rhythm and doing better. MMODL / IJN: [id number] /
== END 2018-07-22 13:00 | disposition home or self-care (01) | DRG 274 ==
LOC: EC 18:22 → 6SEL 19:52
PROVIDERS: ADMIT Internal Medicine; ATTEND Internal Medicine
PROC: 4A023FZ Measurement of Cardiac Rhythm, Percutaneous Approach (ICD-10-PCS; principal; 2018-07-20 14:30)
PROC: 02583ZZ Destruction of Conduction Mechanism, Percutaneous Approach (ICD-10-PCS; principal; 2018-07-20 14:30)
PROC: 4A0234Z Measurement of Cardiac Electrical Activity, Percutaneous Approach (ICD-10-PCS; principal; 2018-07-20 14:30)
PROC: 02K83ZZ Map Conduction Mechanism, Percutaneous Approach (ICD-10-PCS; principal; 2018-07-20 14:30)
DX: I48.0 Paroxysmal atrial fibrillation (principal); K92.1 Melena; N39.0 Urinary tract infection, site not specified; I47.1 Supraventricular tachycardia; E03.9 Hypothyroidism, unspecified; E11.22 Type 2 diabetes mellitus with diabetic chronic kidney disease; E78.00 Pure hypercholesterolemia, unspecified; E78.5 Hyperlipidemia, unspecified; H91.90 Unspecified hearing loss, unspecified ear; I12.9 Hypertensive chronic kidney disease with stage 1 through stage 4 chronic kidney disease, or unspecified chronic kidney disease; I34.1 Nonrheumatic mitral (valve) prolapse; I48.3 Typical atrial flutter; J45.909 Unspecified asthma, uncomplicated; K21.9 Gastro-esophageal reflux disease without esophagitis; M41.9 Scoliosis, unspecified; M81.0 Age-related osteoporosis without current pathological fracture; N18.3 Chronic kidney disease, stage 3 (moderate); Z79.01 Long term (current) use of anticoagulants; Z79.51 Long term (current) use of inhaled steroids; Z79.811 Long term (current) use of aromatase inhibitors; Z79.899 Other long term (current) drug therapy; Z80.3 Family history of malignant neoplasm of breast; Z81.1 Family history of alcohol abuse and dependence; Z85.038 Personal history of other malignant neoplasm of large intestine; Z85.3 Personal history of malignant neoplasm of breast; Z85.828 Personal history of other malignant neoplasm of skin; Z90.710 Acquired absence of both cervix and uterus; Z91.041 Radiographic dye allergy status; Z98.42 Cataract extraction status, left eye; Z98.41 Cataract extraction status, right eye; Z96.1 Presence of intraocular lens; Z79.890 Hormone replacement therapy
CPT/HCPCS: 36415; 71046; 80048; 80053; 81001; 82272; 82550; 82553; 83735; 84443; 84484; 85025; 85027; 85610; 85730; 87086; 92960; 93621; 94640; 94760; 96365; 96376; 99285

== ENCOUNTER → 2018-09-02 | Outpatient (CLI) | payer MEDICARE ==
--- NOTE | 2018-09-02 13:24 | CT ---
EXAMINATION TYPE: CT abdomen pelvis wo con DATE OF EXAM: 09/02/2018 COMPARISON: 09/11/2012 HISTORY: Right lower quadrant pain x 8-10 months. History of diverticulitis and malignant right colon polyp. CT DLP: 793.7 mGycm Automated exposure control for dose reduction was used. TECHNIQUE: Helical acquisition of images was performed from the lung bases through the pelvis. Lack of IV contrast limits assessment. FINDINGS: LUNG BASES: Punctate nodule in the right. Linear changes involving the lungs are more millimeter righ t lower lobe characterize.. LIVER/GB: Previous cholecystectomy changes noted. Subcentimeter hypodensity within the dome of the li ning is stable from the prior exam. Likely related to a cyst. PANCREAS: No significant abnormality is seen. SPLEEN: No significant abnormality is seen. ADRENALS: No significant abnormality is seen. KIDNEYS: Multiple hypodense structures involving the right kidney are indeterminate by noncontrast te [place]. No hydronephrosis or nephrolithiasis. Correlation with ultrasound could be obtained for furt her evaluation. ADENOPATHY: None visualized. OSSEOUS STRUCTURES: Hypertrophic and degenerative changes of the vertebral column. Canal stenosis at L4-L5 within grade 1 anterolisthesis suspected with bilateral foraminal encroachment. BOWEL: Transverse colon is decompressed. There does appear to be localized thickening of the wall of the hepatic flexure. Additionally there is thickening of the wall of the cecum. Appendix normal. [place] el gas pattern nonspecific without obstruction. Diverticulosis of the sigmoid colon noted. OTHER: Aorta of normal caliber. Atherosclerotic change of the vasculature. Fat-containing anterior ab dominal wall hernia noted. IMPRESSION: 1. There are areas of localized wall thickening near the hepatic flexure and within the cecum. Mucosa l lesion or polypoid lesion in the differential diagnosis. Remaining portion of the colon is decompre ssed and limited in assessment. Correlate clinically to exclude a mild colitis. Consider direct visua lization to assess the right colon. 2. Diverticulosis with no CT evidence of diverticulitis 3. Indeterminate right renal lesions 4. There are 5 mm or less pulmonary nodules as discussed above to small to characterize 6 month follo w-up could be obtained to assess for stability. 5. Probable tiny hepatic cyst stable from prior exam.
== END | disposition home or self-care (01) ==
LOC: RADCTMAIN 11:04
PROVIDERS: ATTEND Family Medicine
DX: K57.90 Diverticulosis of intestine, part unspecified, without perforation or abscess without bleeding (principal); L98.9 Disorder of the skin and subcutaneous tissue, unspecified
CPT/HCPCS: 74176

== ENCOUNTER → 2018-09-16 | Outpatient (CLI) | payer MEDICARE ==
[2018-09-16 19:07] LABS: Albumin 3.7 g/dL (3.80-4.90); Albumin/Globulin Ratio 1.85 (1.20-2.10); Anion Gap 7.2 mmol/L (4.00-12.00); Calcium 9.3 mg/dL (8.7-10.3); Carbon Dioxide 26.8 mmol/L (21.6-31.8); LDL Cholesterol,Calculated 43.8 mg/dL (0.0-131.0); Potassium 3.8 mmol/L (3.5-5.5); Total Bilirubin 1.2 mg/dL (0.2-1.2); Total Protein 5.7 g/dL (6.2-8.2); VLDL Calculation 19.2 mg/dL (5.00-40.00)
== END | disposition home or self-care (01) ==
LOC: LABWHC1 13:28
PROVIDERS: ATTEND Internal Medicine Interventional Cardiology
DX: E78.2 Mixed hyperlipidemia (principal); I48.92 Unspecified atrial flutter
CPT/HCPCS: 36415; 80053; 80061; 84443

== ENCOUNTER → 2018-09-16 | Outpatient (CLI) | payer MEDICARE ==
--- NOTE | 2018-09-16 13:39 | US ---
EXAMINATION TYPE: US kidneys/renal and bladder DATE OF EXAM: 09/16/2018 COMPARISON: 05/23/2015 CLINICAL HISTORY: R93.41 Abnormal Findings on DX imaging. Abnormal CT EXAM MEASUREMENTS: Right Kidney: 8.8 x 4.6 x 4.0 cm Left Kidney: 8.1 x 3.8 x 4.3 cm Right Kidney: Multiple cystic appearing lesions seen. 1- mid lateral = 1.9 x 2.1 x 1.8 cm. 2- lower pole = 2.1 x 1.7 x 1.7 cm. Medial anechoic lesion seen = 4.6 x 1.7 cm Left Kidney: wnl Bladder: distended, wnl Bilateral Jets seen There is no evidence for hydronephrosis at this point in time. No nephrolithiasis is seen. No solid masses are identified. The urinary bladder is anechoic. Bilateral ureteral jets are seen. IMPRESSION: Renal cystic changes as noted above.
== END | disposition home or self-care (01) ==
LOC: RADUSWWP 12:52
PROVIDERS: ATTEND Family Medicine
DX: N18.3 Chronic kidney disease, stage 3 (moderate) (principal); R93.41 Abnormal radiologic findings on diagnostic imaging of renal pelvis, ureter, or bladder
CPT/HCPCS: 76770

== ENCOUNTER 2018-12-10 15:53 | Inpatient (IN) | payer MEDICARE ==
--- NOTE | 2018-12-10 16:20 | ED ---
Arrhythmia/Palpitations HPI - General Chief Complaint: Arrhythmia/Palpitations Stated Complaint: arrhythmia Time Seen by Provider: 12/10/18 16:00 Source: patient, family, RN notes reviewed, old records reviewed Mode of arrival: wheelchair Limitations: no limitations - History of Present Illness Initial Comments: This 83-year-old female history of atrial fibrillation among other problems who states she went back into what she believes his atrial fibrillation upon waking this morning. She denies any overt shortness breath so she does have some 1/10- 2/10 chest tightness. No fevers chills nausea vomiting sweats or other symptoms she has had several episodes where she has gone back into atrial fibrillation in spite of medication. He voices no other complaints at this time MD Complaint: "heart racing", palpitations, irregular heart beat - Related Data Home Medications Medication Instructions Recorded Confirmed Ergocalciferol [Vitamin D2 50,000 unit PO [id number] 07/19/15 12/10/18 (DRISDOL)] Fluticasone Propionate [Flovent 2 puff INHALATION RT-BID 07/19/15 12/10/18 Hfa 110mcg] Levothyroxine Sodium [Synthroid] 50 mcg PO MOTUTHFRSA 07/19/15 12/10/18 Ubidecarenone [Co Q-10] 200 mg PO DAILY 07/19/15 12/10/18 Allopurinol [Zyloprim] 100 mg PO DAILY 11/16/17 12/10/18 Anastrozole [Arimidex] 1 mg PO DAILY 11/16/17 12/10/18 Levothyroxine Sodium [Synthroid] 75 mcg PO SUWE 11/16/17 12/10/18 Magnesium Oxide [Mag-Ox] 800 mg PO DAILY 11/16/17 12/10/18 Docusate Sodium [Dok] 100 mg PO DAILY 01/23/18 12/10/18 Rosuvastatin [Crestor] 5 mg PO HS 01/23/18 12/10/18 Furosemide [Lasix] 60 mg PO DAILY 07/16/18 12/10/18 Potassium Chloride ER [K-Dur 10] 10 meq PO QAM 07/16/18 12/10/18 Losartan [Cozaar] 12.5 mg PO DAILY 10/06/18 12/10/18 Potassium Chloride ER [K-Dur 20] 20 meq PO HS 12/10/18 12/10/18 Previous Rx's Medication Instructions Recorded Acetaminophen Tab [Tylenol] 650 mg PO Q6HR PRN tab 01/24/18 Amiodarone [Cordarone] 200 mg PO BID #180 tab 07/20/18 Apixaban [Eliquis] 5 mg PO BID #180 tab 07/20/18 Metoprolol Tartrate [Lopressor] 12.5 mg PO BID #60 tab 07/22/18 Allergies Allergy/AdvReac Type Severity Reaction Status Date / Time iodine Allergy Unknown VERY LOW Verified 12/10/18 16:42 BLOOD PRESSURE,SHORTNESS OF BREATH adhesive tape Allergy Rash/Hives Verified 12/10/18 16:42 clarithromycin Allergy Unknown Verified 12/10/18 16:42 diphenhydramine Allergy Unknown Verified 12/10/18 16:42 Iodinated Contrast- Oral and Allergy Anaphylaxis Verified 12/10/18 16:42 IV Dye metaxalone [From Skelaxin] Allergy Rash/Hives Verified 12/10/18 16:42 niacin Allergy Unknown Verified 12/10/18 16:42 [From Niaspan Extended-Release] pantoprazole Allergy ITCHING Verified 12/10/18 16:42 ,REDNESS OF SKIN Review of Systems ROS Statement: Those systems with pertinent positive or pertinent negative responses have been documented in the HPI. ROS Other: All systems not noted in ROS Statement are negative. Past Medical History Past Medical History: Atrial Fibrillation, Atrial Flutter, Asthma, Cancer, Diabetes Mellitus, GERD/Reflux, Hearing Disorder / Deafness, Hyperlipidemia, Hypertension, Musculoskeletal Disorder, Osteoarthritis (OA), Pneumonia, Renal Disease, Skin Disorder, Thyroid Disorder, Vascular Disorder Additional Past Medical History / Comment(s): Mitral valve prolapse, "hole in my heart", exertional dyspnea, chronic renal disease stage III, NIDDM type II- diet controlled,carpal tunnel bilaterally, osteoporosis, chronic low back pain, spinal stenosis, scoliosis, DJD, gout, varicose veins, R breast cancer with surgery/radiation, skin cancer removals, cancerous colon polyp removal, diverticular dx, hiatal hernia, IBS, ulcerative colitis, rosacia, History of Any Multi-Drug Resistant Organisms: None Reported Past Surgical History: Breast Surgery, Cholecystectomy, Heart Catheterization, Hysterectomy, Orthopedic Surgery Additional Past Surgical History / Comment(s): R breast lumpectomy x 2, R breast bx, skin cancer removals, total hysterectomy, open cholecystectomy, R arm spur removals 3 times, R shoulder rotator cuff repair, R foot 2nd toe surgery, pilonidal cystectomy, colonoscopy with cancerous polypectomy, bilateral cataract removal/lens implants and surgery for astigmatism. Past Anesthesia/Blood Transfusion Reactions: Postoperative Nausea & Vomiting ( PONV) Additional Past Anesthesia/Blood Transfusion Reaction / Comment(s): DUE TO REFLUX /POST ANESTHESIA PNEUMONIA. Past Psychological History: No Psychological Hx Reported Smoking Status: Never smoker - Past Family History Father Additional Family Medical History / Comment(s): Father was an alcoholic and pt thinks he from complications of that. Mother Family Medical History: Pulmonary Embolus Additional Family Medical History / Comment(s): at 59 from PE Sister(s) Family Medical History: Cancer Additional Family Medical History / Comment(s): Breast Cancer General Exam - General Exam Comments Initial Comments: This is a well developed well-nourished awake alert oriented 3 female Limitations: no limitations General appearance: alert, anxious Head exam: Present: atraumatic, normocephalic, normal inspection Eye exam: Present: normal appearance, PERRL, EOMI. Absent: scleral icterus, conjunctival injection, periorbital swelling ENT exam: Present: normal exam, mucous membranes moist Neck exam: Present: normal inspection, full ROM (No stridor JVD or bruits). Absent: tenderness, meningismus, lymphadenopathy Respiratory exam: Present: normal lung sounds bilaterally. Absent: respiratory distress, wheezes, rales, rhonchi, stridor Cardiovascular Exam: Present: tachycardia, irregular rhythm. Absent: systolic murmur, diastolic murmur, rubs, gallop, clicks GI/Abdominal exam: Present: soft, normal bowel sounds. Absent: distended, tenderness, guarding, rebound, rigid Extremities exam: Present: normal inspection, full ROM, normal capillary refill. Absent: tenderness, pedal edema, joint swelling, calf tenderness Back exam: Present: normal inspection Neurological exam: Present: alert, oriented X3, CN II-XII intact Psychiatric exam: Present: normal affect, normal mood Skin exam: Present: warm, dry, intact, normal color. Absent: rash Course Vital Signs 12/10/18 15:57 Temperature 97.7 F Pulse Rate 118 H Respiratory 20 Rate Blood Pressure 120/75 O2 Sat by Pulse 96 Oximetry - Reevaluation(s) Reevaluation #1: 12/10/18 18:29 Age was finally feeling somewhat improved with improvement in her rate she still has evidence of A. fib however. Additionally she did demonstrate marginal potassium and magnesium levels. Supplementation was ordered. Reevaluation #2: 12/10/18 18:29 I did discuss findings with patient family. Family member state that Dr. Caldwell had planned on Lasix and pacer and the patient if she persisted in having recurrent atrial abnormalities such as this. EKG Findings - EKG Results: EKG: interpreted by ERMD (Tachycardia apparent A. fib it was 111 QRS 88 QT since QTC 360/[address] configuration this is compared with EKG dated which showed at that time evidence of atrial flutter with a 41 block) Medical Decision Making - Medical Decision Making I did discuss the findings with the patient family as well as with Dr. Maxwell. Patient will be admitted with consultation to cardiology. She is on a Cardizem drip. He currently is not on any anticoagulants. - Lab Data Result diagrams: 12/10/18 16:15 12/10/18 16:15 Lab Results 12/10/18 12/10/18 12/10/18 Range/Units 16:15 16:15 16:15 WBC 7.7 (3.8-10.6) k/uL RBC 4.67 (3.80-5.40) m/uL Hgb 14.1 (11.4-16.0) gm/dL Hct 44.2 (34.0-46.0) % MCV 94.6 (80.0-100.0) fL MCH 30.2 (25.0-35.0) pg MCHC 32.0 (31.0-37.0) g/dL RDW 14.0 (11.5-15.5) % Plt Count 275 (150-450) k/uL Neutrophils % 70 % Lymphocytes % 16 % Monocytes % 8 % Eosinophils % 2 % Basophils % 1 % Neutrophils # 5.4 (1.3-7.7) k/uL Lymphocytes # 1.2 (1.0-4.8) k/uL Monocytes # 0.6 (0-1.0) k/uL Eosinophils # 0.2 (0-0.7) k/uL Basophils # 0.1 (0-0.2) k/uL PT (9.0-12.0) sec INR (<1.2) APTT (22.0-30.0) sec Sodium 137 (137-145) mmol/L Potassium 3.5 (3.5-5.1) mmol/L Chloride 105 (98-107) mmol/L Carbon Dioxide 24 (22-30) mmol/L Anion Gap 8 mmol/L BUN 15 (7-17) mg/dL Creatinine 1.13 H (0.52-1.04) mg/dL Est GFR (CKD-EPI)AfAm 51 (>60 ml/min/1.73 sqM) Est GFR (CKD-EPI)NonAf 45 (>60 ml/min/1.73 sqM) Glucose 170 H (74-99) mg/dL Calcium 9.3 (8.4-10.2) mg/dL Magnesium 1.8 (1.6-2.3) mg/dL Total Bilirubin 0.8 (0.2-1.3) mg/dL AST 36 (14-36) U/L ALT 27 (9-52) U/L Alkaline Phosphatase 129 H (38-126) U/L Total Creatine Kinase 58 (30-135) U/L CK-MB (CK-2) 1.1 (0.0-2.4) ng/mL CK-MB (CK-2) Rel Index 1.9 Troponin I <0.012 (0.000-0.034) ng/mL Total Protein 6.9 (6.3-8.2) g/dL Albumin 3.8 (3.5-5.0) g/dL 12/10/18 Range/Units 16:15 WBC (3.8-10.6) k/uL RBC (3.80-5.40) m/uL Hgb (11.4-16.0) gm/dL Hct (34.0-46.0) % MCV (80.0-100.0) fL MCH (25.0-35.0) pg MCHC (31.0-37.0) g/dL RDW (11.5-15.5) % Plt Count (150-450) k/uL Neutrophils % % Lymphocytes % % Monocytes % % Eosinophils % % Basophils % % Neutrophils # (1.3-7.7) k/uL Lymphocytes # (1.0-4.8) k/uL Monocytes # (0-1.0) k/uL Eosinophils # (0-0.7) k/uL Basophils # (0-0.2) k/uL PT 10.9 (9.0-12.0) sec INR 1.0 (<1.2) APTT 25.9 (22.0-30.0) sec Sodium (137-145) mmol/L Potassium (3.5-5.1) mmol/L Chloride (98-107) mmol/L Carbon Dioxide (22-30) mmol/L Anion Gap mmol/L BUN (7-17) mg/dL Creatinine (0.52-1.04) mg/dL Est GFR (CKD-EPI)AfAm (>60 ml/min/1.73 sqM) Est GFR (CKD-EPI)NonAf (>60 ml/min/1.73 sqM) Glucose (74-99) mg/dL Calcium (8.4-10.2) mg/dL Magnesium (1.6-2.3) mg/dL Total Bilirubin (0.2-1.3) mg/dL AST (14-36) U/L ALT (9-52) U/L Alkaline Phosphatase (38-126) U/L Total Creatine Kinase (30-135) U/L CK-MB (CK-2) (0.0-2.4) ng/mL CK-MB (CK-2) Rel Index Troponin I (0.000-0.034) ng/mL Total Protein (6.3-8.2) g/dL Albumin (3.5-5.0) g/dL - Radiology Data Radiology results: report reviewed (Imaging was reviewed no acute findings.), image reviewed Critical Care Time Critical Care Time: Yes Critical Care Time: 31 minutes of critical care time which includes initial presentation with history physical labs x-rays review of old charting that was available several reevaluation patient responsive therapy discuss with patient family regarding findings discussed with the main physician admission orders and documentation of the above. Disposition Clinical Impression: Rapid atrial fibrillation Disposition: ADMITTED IP TO THIS [facility] Condition: Stable Referrals: Caron Orellana MD [Primary Care Provider] - 1-2 days
[2018-12-10 16:33] LABS: Basophils # (A) 0.1 k/uL (0-0.2); Basophils % (A) 1 %; Eosinophils # (A) 0.2 k/uL (0-0.7); Eosinophils % (A) 2 %; HCT 44.2 % (34.0-46.0); HGB 14.1 gm/dL (11.4-16.0); Lymphocytes # (A) 1.2 k/uL (1.0-4.8); Lymphocytes % (A) 16 %; MCH 30.2 pg (25.0-35.0); MCV 94.6 fL (80.0-100.0); Mean Platelet Volume 6.7; Monocytes # (A) 0.6 k/uL (0-1.0); Monocytes % (A) 8 %; Neutrophils # (A) 5.4 k/uL (1.3-7.7); Neutrophils % (A) 70 %; Platelet Count 275 k/uL (150-450); RBC 4.67 m/uL (3.80-5.40); WBC 7.7 k/uL (3.8-10.6)
--- NOTE | 2018-12-10 16:38 | XR ---
EXAMINATION TYPE: XR chest 2V DATE OF EXAM: 12/10/2018 COMPARISON: 07/16/2018 HISTORY: Dysrhythmia TECHNIQUE: Frontal and lateral views of the chest are obtained. FINDINGS: There is no heart failure nor confluent pneumonic infiltrate. Costophrenic angles are gonzalo r. There are chest leads. IMPRESSION: No active cardiopulmonary disease. No change.
[2018-12-10] MEDS: DILTIAZEM 50 MG in SODIUM CHLORIDE 0.9% 40 ML IV SCH ×2 (16:44→22:32)
[2018-12-10 16:49] LABS: Albumin 3.8 g/dL (3.5-5.0); Calcium 9.3 mg/dL (8.4-10.2); Magnesium 1.8 mg/dL (1.6-2.3); Potassium 3.5 mmol/L (3.5-5.1); Total Bilirubin 0.8 mg/dL (0.2-1.3); Total Protein 6.9 g/dL (6.3-8.2)
[2018-12-10 16:52] LABS: Creatine Kinase 58 U/L (30-135); Partial Thromboplastin Time 25.9 sec (22.0-30.0); Prothrombin Time 10.9 sec (9.0-12.0)
[2018-12-10 17:05] LABS: Creatine Kinase MB 1.1 ng/mL (0.0-2.4); Troponin I <0.012 ng/mL (0.000-0.034)
[2018-12-10] MEDS ORDERED: POTASSIUM CHLORIDE ER 20 MEQ TAB.ER PO STA (17:16)
[2018-12-10] MEDS ORDERED: MAGNESIUM SULFATE-D5W PMX 1 GM in DEXTROSE/WATER 1 100ML.BAG IVPB ONE (17:17)
[2018-12-10] MEDS ORDERED: NALOXONE 0.4 MG/ML 1 ML VIAL IV PRN (18:32)
[2018-12-10] MEDS: SODIUM CHLORIDE 0.9% 1,000 ML IV SCH (18:46)
[2018-12-10] MEDS ORDERED: METOPROLOL TARTRATE 12.5 MG TAB PO SCH (21:00)
[2018-12-10] MEDS: FLUTICASONE 110 MCG INHALER INHALATION SCH (22:00)
--- NOTE | 2018-12-10 22:24 | P.HPIM ---
History of Present Illness H&P Date: 12/10/18 Chief Complaint: palpitation 83 year old female with history of A flutter/afib on eliquis. recently diagnosed about 1 year ago patient was at her baseline status of health, she last saw her PCP a week ago and was doing well,. She had sudden onset palpitations today associated with chest tightness and difficulty breathing. she used her home pulse monitor and was reading low oxygen saturation and tachycardia at 160. she claims to be compliant with all her medications. she has similar issues in the past, and had ablation at one point her cardiology was considering left heart cath and possible pace maker if this problem reoccur . she was brought in to the hospital for further evaluation. patient denies any falls, dizziness, nausea or vomiting. she reports recent stress test of which she is not aware of results. otherwise denies any fever, chills, coughinig , abd pain, changes in her bowel or urinary habits. denies any focal neuro deficits. Review of Systems Pertinent positives as noted in HPI. All other systems were reviewed and are negative Past Medical History Past Medical History: Atrial Fibrillation, Atrial Flutter, Asthma, Cancer, Diabetes Mellitus, GERD/Reflux, Hearing Disorder / Deafness, Hyperlipidemia, Hypertension, Musculoskeletal Disorder, Osteoarthritis (OA), Pneumonia, Renal Disease, Skin Disorder, Thyroid Disorder, Vascular Disorder Additional Past Medical History / Comment(s): Mitral valve prolapse, "hole in my heart", exertional dyspnea, chronic renal disease stage III, NIDDM type II- diet controlled,carpal tunnel bilaterally, osteoporosis, chronic low back pain, spinal stenosis, scoliosis, DJD, gout, varicose veins, R breast cancer with surgery/radiation, skin cancer removals, cancerous colon polyp removal, diverticular dx, hiatal hernia, IBS, ulcerative colitis, rosacia, History of Any Multi-Drug Resistant Organisms: None Reported Past Surgical History: Breast Surgery, Cholecystectomy, Heart Catheterization, Hysterectomy, Orthopedic Surgery Additional Past Surgical History / Comment(s): R breast lumpectomy x 2, R breast bx, skin cancer removals, total hysterectomy, open cholecystectomy, R arm spur removals 3 times, R shoulder rotator cuff repair, R foot 2nd toe surgery, pilonidal cystectomy, colonoscopy with cancerous polypectomy, bilateral cataract removal/lens implants and surgery for astigmatism. Past Anesthesia/Blood Transfusion Reactions: Postoperative Nausea & Vomiting ( PONV) Additional Past Anesthesia/Blood Transfusion Reaction / Comment(s): DUE TO REFLUX /POST ANESTHESIA PNEUMONIA. Past Psychological History: No Psychological Hx Reported Smoking Status: Never smoker - Past Family History Father Additional Family Medical History / Comment(s): Father was an alcoholic and pt thinks he from complications of that. Mother Family Medical History: Pulmonary Embolus Additional Family Medical History / Comment(s): at 59 from PE Sister(s) Family Medical History: Cancer Additional Family Medical History / Comment(s): Breast Cancer Medications and Allergies Home Medications Medication Instructions Recorded Confirmed Type Ergocalciferol [Vitamin D2 50,000 unit PO [id number] 07/19/15 12/10/18 History (DRISDOL)] Fluticasone Propionate [Flovent 2 puff INHALATION RT-BID 07/19/15 12/10/18 History Hfa 110mcg] Levothyroxine Sodium [Synthroid] 50 mcg PO MOTUTHFRSA 07/19/15 12/10/18 History Ubidecarenone [Co Q-10] 200 mg PO DAILY 07/19/15 12/10/18 History Allopurinol [Zyloprim] 100 mg PO DAILY 11/16/17 12/10/18 History Anastrozole [Arimidex] 1 mg PO DAILY 11/16/17 12/10/18 History Levothyroxine Sodium [Synthroid] 75 mcg PO SUWE 11/16/17 12/10/18 History Magnesium Oxide [Mag-Ox] 800 mg PO DAILY 11/16/17 12/10/18 History Docusate Sodium [Dok] 100 mg PO DAILY 01/23/18 12/10/18 History Rosuvastatin [Crestor] 5 mg PO HS 01/23/18 12/10/18 History Acetaminophen Tab [Tylenol] 650 mg PO Q6HR PRN tab 01/24/18 12/10/18 Rx Furosemide [Lasix] 60 mg PO DAILY 07/16/18 12/10/18 History Potassium Chloride ER [K-Dur 10] 10 meq PO QAM 07/16/18 12/10/18 History Amiodarone [Cordarone] 200 mg PO BID #180 tab 07/20/18 12/10/18 Rx Apixaban [Eliquis] 5 mg PO BID #180 tab 07/20/18 12/10/18 Rx Metoprolol Tartrate [Lopressor] 12.5 mg PO BID #60 tab 07/22/18 12/10/18 Rx Losartan [Cozaar] 12.5 mg PO DAILY 10/06/18 12/10/18 History Potassium Chloride ER [K-Dur 20] 20 meq PO HS 12/10/18 12/10/18 History Allergies Allergy/AdvReac Type Severity Reaction Status Date / Time iodine Allergy Unknown VERY LOW Verified 12/10/18 16:42 BLOOD PRESSURE,SHORTNESS OF BREATH adhesive tape Allergy Rash/Hives Verified 12/10/18 16:42 clarithromycin Allergy Unknown Verified 12/10/18 16:42 diphenhydramine Allergy Unknown Verified 12/10/18 16:42 Iodinated Contrast- Oral and Allergy Anaphylaxis Verified 12/10/18 16:42 IV Dye metaxalone [From Skelaxin] Allergy Rash/Hives Verified 12/10/18 16:42 niacin Allergy Unknown Verified 12/10/18 16:42 [From Niaspan Extended-Release] pantoprazole Allergy ITCHING Verified 12/10/18 16:42 ,REDNESS OF SKIN Physical Exam Vitals: Vital Signs Temp Pulse Resp BP Pulse Ox 12/10/18 20:00 97.6 F 77 20 118/80 97 12/10/18 19:00 75 18 139/71 97 12/10/18 18:48 93 18 139/71 99 12/10/18 15:57 97.7 F 118 H 20 120/75 96 Intake and Output 12/10/18 12/10/18 12/10/18 06:59 14:59 22:59 Other: Weight 87.09 kg Constitutional: No acute distress, conversant, pleasant Eyes: Anicteric sclerae, moist conjunctiva, no lid-lag Pupils equal round reactive to light ENMT: NC/AT Oropharynx clear, no erythema, exudates Neck: Supple, FROM, no masses, or JVD No carotid bruits No thyromegaly Lungs: Clear to auscultation Clear to percussion Normal respiratory effort, no accessory muscle use Cardiovascular: Heart tachycardic, irregular beats systolic murmurs, No gallops, or rubs No peripheral edema Abdominal: Soft Nontender, no guarding, rebound or rigidity Abdomen moving with respiration Normoactive bowel sounds No hepatomegaly, No splenomegaly No palpable mass No abdominal wall hernia noted Skin: Normal temperature, tone, texture, turgor No induration No subcutaneous nodules No rash, lesions No ulcers Extremities: No digital cyanosis No clubbing Pedal pulses intact and symmetrical Radial pulses intact and symmetrical No calf tenderness Psychiatric: Alert and oriented to person, place and time Appropriate affect fair judgment Neuro Muscles Strength 4/5 in all 4 extremities Sensation to light touch grossly present throughout Cranial nerves II-XII grossly intact No focal sensory deficits Lymphatics: no palpable cervical or supraclavicular , or inguinal lymph nodes Results CBC & Chem 7: 12/10/18 16:15 12/10/18 16:15 Labs: Abnormal Lab Results - Last 24 Hours (Table) 12/10/18 Range/Units 16:15 Creatinine 1.13 H (0.52-1.04) mg/dL Glucose 170 H (74-99) mg/dL Alkaline Phosphatase 129 H (38-126) U/L Assessment and Plan Assessment: 83-year-old female with history of atrial flutter status post ablation. Admitted as an inpatient with anticipated length of stay more than 48 hours due to a flutter with rapid ventricular response she was symptomatic with shortness of breath and chest tightness. Plan: atrial flutter with rapid ventricular response, on eliquis cardizem drip cardiology consult optimize electrolytes supplemental oxygen as needed chronic conditions DM , controlled hypertension controlled CKD III, stable hypothyroidism histroy of breast and colon cancer continue home meds insulin sliding scale DVT PPx , patient on eliquis Surrogate decision-maker: patient daughter CODE STATUS:full code Discussed with: Patient, ER, RN Anticipated discharge: 48-[address]: home A total of 55 minutes was spent on the care of this complex patient more than 50 % of the time was spent in counseling and care coordination.
[2018-12-10 22:28] VITALS: BMI 36.2
[2018-12-10 23:45] LABS: Creatine Kinase 54 U/L (30-135)
[2018-12-10 23:59] LABS: Creatine Kinase MB 0.9 ng/mL (0.0-2.4); Troponin I <0.012 ng/mL (0.000-0.034)
[2018-12-11] MEDS: POTASSIUM CHLORIDE ER 20 MEQ TAB.ER PO SCH ×2 (02:19→20:27)
[2018-12-11] MEDS: FAMOTIDINE 20 MG TAB PO SCH ×3 (02:19→20:27)
[2018-12-11] MEDS: APIXABAN 5 MG TAB PO SCH ×3 (02:19→20:27)
[2018-12-11] MEDS: AMIODARONE 200 MG TAB PO SCH ×2 (02:19→09:46)
[2018-12-11] MEDS: ATORVASTATIN 10 MG TAB PO SCH ×2 (02:19→20:27)
[2018-12-11 04:42] LABS: Creatine Kinase 44 U/L (30-135)
[2018-12-11 04:55] LABS: Creatine Kinase MB 0.9 ng/mL (0.0-2.4); Troponin I <0.012 ng/mL (0.000-0.034)
[2018-12-11] MEDS: LEVOTHYROXINE 50 MCG TAB PO SCH (06:56)
[2018-12-11] MEDS ORDERED: NON-FORMULARY DRUG (Ubidecarenone [Co Q-10] 200 MG) PO SCH (09:00)
--- NOTE | 2018-12-11 09:05 | P.CRDCN ---
History of Present Illness Consult date: 12/11/18 Requesting physician: Billy Israel Consult reason: atrial fibrillation Chief complaint: Short of breath, lightheaded History of present illness: This is a pleasant 82-year-old female who follows regularly with Dr. Caldwell in the office. She has a known history of hypertension, hyperlipidemia, diabetes, renal insufficiency, paroxysmal atrial fibrillation for which she takes Coumadin for anticoagulation. Patient also has atrial tachycardia and has been seen in consultation by Dr. Higgins in July of last year at which time anterior neck of drug therapy was recommended, also consideration for possible pace and AV node ablation strategy in the future with biventricular pacing for durable symptomatic relief. She presents to the hospital on this occasion with symptoms of shortness of breath with associated feeling that she may pass out. According to the patient, she always knows when she is in atrial fibrillation because she feels the same symptoms. She denies any overt palpitations. Chest x-ray on arrival here did not reveal any active cardiopulmonary disease. EKG on arrival here shows atrial flutter. Patient was initiated on IV Cardizem in the emergency room. She continues to be in what appears to be in atrial flutter this morning heart rate under better control on 5 mg of Cardizem. Blood pressure this morning 130/60 with a heart rate in the 70s. White blood cell count 7.7, hemoglobin 14.1, platelet count 275. Sodium 137, potassium 3.5, BUN 15 and creatinine 1.1. Troponins are negative 3. At the time of my examination this morning, patient feels well, no complaints. Past Medical History Past Medical History: Atrial Fibrillation, Atrial Flutter, Asthma, Cancer, Diabetes Mellitus, GERD/Reflux, Hearing Disorder / Deafness, Hyperlipidemia, Hypertension, Musculoskeletal Disorder, Osteoarthritis (OA), Pneumonia, Renal Disease, Skin Disorder, Thyroid Disorder, Vascular Disorder Additional Past Medical History / Comment(s): Mitral valve prolapse, "hole in my heart", exertional dyspnea, chronic renal disease stage III, NIDDM type II- diet controlled,carpal tunnel bilaterally, osteoporosis, chronic low back pain, spinal stenosis, scoliosis, DJD, gout, varicose veins, R breast cancer with surgery/radiation, skin cancer removals, cancerous colon polyp removal, diverticular dx, hiatal hernia, IBS, ulcerative colitis, rosacia, History of Any Multi-Drug Resistant Organisms: None Reported Past Surgical History: Breast Surgery, Cholecystectomy, Heart Catheterization, Hysterectomy, Orthopedic Surgery Additional Past Surgical History / Comment(s): R breast lumpectomy x 2, R breast bx, skin cancer removals, total hysterectomy, open cholecystectomy, R arm spur removals 3 times, R shoulder rotator cuff repair, R foot 2nd toe surgery, pilonidal cystectomy, colonoscopy with cancerous polypectomy, bilateral cataract removal/lens implants and surgery for astigmatism. Past Anesthesia/Blood Transfusion Reactions: Postoperative Nausea & Vomiting ( PONV) Additional Past Anesthesia/Blood Transfusion Reaction / Comment(s): DUE TO REFLUX /POST ANESTHESIA PNEUMONIA. Past Psychological History: No Psychological Hx Reported Smoking Status: Never smoker - Past Family History Father Additional Family Medical History / Comment(s): Father was an alcoholic and pt thinks he from complications of that. Mother Family Medical History: Pulmonary Embolus Additional Family Medical History / Comment(s): at 59 from PE Sister(s) Family Medical History: Cancer Additional Family Medical History / Comment(s): Breast Cancer Medications and Allergies Home Medications Medication Instructions Recorded Confirmed Type Ergocalciferol [Vitamin D2 50,000 unit PO [id number] 07/19/15 12/10/18 History (DRISDOL)] Fluticasone Propionate [Flovent 2 puff INHALATION RT-BID 07/19/15 12/10/18 History Hfa 110mcg] Levothyroxine Sodium [Synthroid] 50 mcg PO MOTUTHFRSA 07/19/15 12/10/18 History Ubidecarenone [Co Q-10] 200 mg PO DAILY 07/19/15 12/10/18 History Allopurinol [Zyloprim] 100 mg PO DAILY 11/16/17 12/10/18 History Anastrozole [Arimidex] 1 mg PO DAILY 11/16/17 12/10/18 History Levothyroxine Sodium [Synthroid] 75 mcg PO SUWE 11/16/17 12/10/18 History Magnesium Oxide [Mag-Ox] 800 mg PO DAILY 11/16/17 12/10/18 History Docusate Sodium [Dok] 100 mg PO DAILY 01/23/18 12/10/18 History Rosuvastatin [Crestor] 5 mg PO HS 01/23/18 12/10/18 History Acetaminophen Tab [Tylenol] 650 mg PO Q6HR PRN tab 01/24/18 12/10/18 Rx Furosemide [Lasix] 60 mg PO DAILY 07/16/18 12/10/18 History Potassium Chloride ER [K-Dur 10] 10 meq PO QAM 07/16/18 12/10/18 History Amiodarone [Cordarone] 200 mg PO BID #180 tab 07/20/18 12/10/18 Rx Apixaban [Eliquis] 5 mg PO BID #180 tab 07/20/18 12/10/18 Rx Metoprolol Tartrate [Lopressor] 12.5 mg PO BID #60 tab 07/22/18 12/10/18 Rx Losartan [Cozaar] 12.5 mg PO DAILY 10/06/18 12/10/18 History Potassium Chloride ER [K-Dur 20] 20 meq PO HS 12/10/18 12/10/18 History Allergies Allergy/AdvReac Type Severity Reaction Status Date / Time iodine Allergy Unknown VERY LOW Verified 12/10/18 16:42 BLOOD PRESSURE,SHORTNESS OF BREATH adhesive tape Allergy Rash/Hives Verified 12/10/18 16:42 clarithromycin Allergy Unknown Verified 12/10/18 16:42 diphenhydramine Allergy Unknown Verified 12/10/18 16:42 Iodinated Contrast- Oral and Allergy Anaphylaxis Verified 12/10/18 16:42 IV Dye metaxalone [From Skelaxin] Allergy Rash/Hives Verified 12/10/18 16:42 niacin Allergy Unknown Verified 12/10/18 16:42 [From Niaspan Extended-Release] pantoprazole Allergy ITCHING Verified 12/10/18 16:42 ,REDNESS OF SKIN Physical Exam Vitals: Vital Signs Temp Pulse Pulse Pulse Resp BP BP 12/11/18 08:00 98.1 F 81 14 131/59 12/11/18 04:00 97.0 F L 76 120 H 16 111/59 12/11/18 00:00 96.8 F L 120 H 120 H 20 129/77 12/10/18 20:00 97.9 F 77 77 78 20 118/80 120/79 12/10/18 19:00 75 18 139/71 12/10/18 18:48 93 18 139/71 12/10/18 15:57 97.7 F 118 H 20 120/75 Pulse Ox 12/11/18 08:00 96 12/11/18 04:00 97 12/11/18 00:00 96 12/10/18 20:00 98 12/10/18 19:00 97 12/10/18 18:48 99 12/10/18 15:57 96 Intake and Output 12/10/18 12/11/18 12/11/18 22:59 06:59 14:59 Intake Total 29 Output Total 200 200 Balance -171 -200 Intake: Intake, IV Titration 29 Amount Diltiazem 50 mg In Sodium 29 Chloride 0.9% 40 ml @ 5 MG/HR 5 mls/hr IV .Q10H [facility] Rx#:[id number] Output: Urine 200 200 Other: Voiding Method Toilet Toilet # Voids 1 Weight 87.09 kg 87.9 kg PHYSICAL EXAMINATION: GENERAL: 83-year-old female in no acute distress at the time of my examination HEENT: Head is atraumatic, normocephalic. Pupils equal, round. Sclera anicteric. Conjunctiva are clear. Mucous membranes of the mouth are moist. Neck is supple. There is no elevated jugular venous pressure. No carotid bruit is heard. HEART EXAMINATION: Heart S1 and S2 irregularly irregular a systolic ejection murmur is heard. CHEST EXAMINATION: Lungs are clear to auscultation and precussion. No chest wall tenderness is noted on palpation or with deep breathing. ABDOMEN: Soft, nontender. Bowel sounds are heard. No organomegaly noted. EXTREMITIES: 2+ peripheral pulses with no evidence of peripheral edema and no calf tenderness noted. NEUROLOGIC patient is awake, alert and oriented 3 . . Results 12/10/18 16:15 12/10/18 16:15 Cardiac Enzymes 12/10/18 12/10/18 12/10/18 Range/Units 16:15 16:15 22:42 AST 36 (14-36) U/L CK-MB (CK-2) 1.1 0.9 (0.0-2.4) ng/mL Troponin I <0.012 <0.012 (0.000-0.034) ng/mL 12/11/18 Range/Units 04:07 AST (14-36) U/L CK-MB (CK-2) 0.9 (0.0-2.4) ng/mL Troponin I <0.012 (0.000-0.034) ng/mL Coagulation 12/10/18 Range/Units 16:15 PT 10.9 (9.0-12.0) sec APTT 25.9 (22.0-30.0) sec CBC 12/10/18 Range/Units 16:15 WBC 7.7 (3.8-10.6) k/uL RBC 4.67 (3.80-5.40) m/uL Hgb 14.1 (11.4-16.0) gm/dL Hct 44.2 (34.0-46.0) % Plt Count 275 (150-450) k/uL Comprehensive Metabolic Panel 12/10/18 Range/Units 16:15 Sodium 137 (137-145) mmol/L Potassium 3.5 (3.5-5.1) mmol/L Chloride 105 (98-107) mmol/L Carbon Dioxide 24 (22-30) mmol/L BUN 15 (7-17) mg/dL Creatinine 1.13 H (0.52-1.04) mg/dL Glucose 170 H (74-99) mg/dL Calcium 9.3 (8.4-10.2) mg/dL AST 36 (14-36) U/L ALT 27 (9-52) U/L Alkaline Phosphatase 129 H (38-126) U/L Total Protein 6.9 (6.3-8.2) g/dL Albumin 3.8 (3.5-5.0) g/dL Current Medications Generic Name Dose Route Start Last Admin Trade Name Freq PRN Reason Stop Dose Admin Amiodarone HCl 200 mg 12/10/18 21:00 12/11/18 02:19 Cordarone PO 200 mg BID [facility] Administration Anastrozole 1 mg 12/11/18 09:00 Arimidex PO DAILY [facility] Apixaban 5 mg 12/10/18 21:00 12/11/18 02:19 Eliquis PO 5 mg BID [facility] Administration Atorvastatin Calcium 10 mg 12/10/18 21:00 12/11/18 02:19 Lipitor PO 10 mg HS [facility] Administration Docusate Sodium 100 mg 12/11/18 09:00 Colace PO DAILY [facility] Ergocalciferol 50,000 unit 12/24/18 09:00 Vitamin D2 PO [id number] [facility] Famotidine 20 mg 12/10/18 21:00 12/11/18 02:19 Pepcid PO 20 mg BID [facility] Administration Fluticasone Propionate 2 puff 12/10/18 20:00 12/10/18 22:00 Flovent 110 Mcg Inhaler INHALATION 2 puff RT-BID [facility] Administration Furosemide 60 mg 12/11/18 09:00 Lasix PO DAILY [facility] Diltiazem HCl 50 mg/ Sodium 50 mls @ 5 mls/hr 12/10/18 16:30 12/10/18 22:32 Chloride IV 5 mg/hr .Q10H [facility] 5 mls/hr Administration 5 MG/HR Sodium Chloride 1,000 mls @ 20 mls/hr 12/10/18 18:45 12/10/18 18:46 Saline 0.9% IV 20 mls/hr .Q24H [facility] Administration Levothyroxine Sodium 75 mcg 12/13/18 06:30 Synthroid PO SUWE [facility] Levothyroxine Sodium 50 mcg 12/11/18 06:30 12/11/18 06:56 Synthroid PO 50 mcg MOTUTHFRSA [facility] Administration Losartan Potassium 12.5 mg 12/11/18 09:00 Cozaar PO DAILY [facility] Magnesium Oxide 800 mg 12/11/18 09:00 Mag-Ox PO DAILY [facility] Metoprolol Tartrate 12.5 mg 12/10/18 21:00 12/11/18 02:19 Lopressor PO 12.5 mg BID [facility] Administration Naloxone HCl 0.2 mg 12/10/18 18:32 Narcan IV Q2M PRN Opioid Reversal Potassium Chloride 20 meq 12/10/18 21:00 12/11/18 02:19 K-Dur 20 PO 20 meq HS [facility] Administration Potassium Chloride 10 meq 12/11/18 09:00 K-Dur 10 PO QAM [facility] Intake and Output 12/10/18 12/11/18 12/11/18 22:59 06:59 14:59 Intake Total 29 Output Total 200 200 Balance -171 -200 Intake: Intake, IV Titration 29 Amount Diltiazem 50 mg In Sodium 29 Chloride 0.9% 40 ml @ 5 MG/HR 5 mls/hr IV .Q10H [facility] Rx#:[id number] Output: Urine 200 200 Other: Voiding Method Toilet Toilet # Voids 1 Weight 87.09 kg 87.9 kg 12/10/18 16:15 12/10/18 16:15 EKG Interpretations (text) EKG on admission here shows an atrial tachycardia with rapid ventricular response Assessment and Plan Plan: Assessment and plan #1 atrial flutter, typical, variable rate. #2 paroxysmal atrial fibrillation on Eliquis for anticoagulation #3 hypertension #4 hyperlipidemia #5 diabetes #6 hypothyroidism #7 hypokalemia Plan Patient did have an echocardiogram with Doppler study performed in November 2017 which revealed a normal left ventricular systolic function we will repeat an echo on this admission. We will discontinue the IV Cardizem and increase dose of beta cielo. Continue amiodarone 200 mg one tablet by mouth twice a day, Eliquis 5 twice a day, Lipitor, Lasix 60 mg daily, Synthroid, losartan. DNP note has been reviewed, I agree with a documented findings and plan of care. Patient was seen and examined.
[2018-12-11] MEDS: FLUTICASONE 110 MCG INHALER INHALATION SCH ×2 (09:35→20:23)
[2018-12-11] MEDS: POTASSIUM CHLORIDE ER 10 MEQ TAB.ER.PRT PO SCH (09:46)
[2018-12-11] MEDS: FUROSEMIDE 20 MG TAB PO SCH (09:46)
[2018-12-11] MEDS: DOCUSATE 100 MG CAP PO SCH (09:46)
[2018-12-11] MEDS: MAGNESIUM OXIDE 400 MG TAB PO SCH (09:48)
[2018-12-11] MEDS: LOSARTAN 25 MG TAB PO SCH (09:48)
[2018-12-11] MEDS: ANASTROZOLE 1 MG TAB PO SCH (09:59)
--- NOTE | 2018-12-11 14:58 | P.PN ---
Subjective Progress Note Date: 12/11/18 Principal diagnosis: Atrial fibrillation Patient seen and examined. No acute events overnight. Patient has no complaints today. She denies chest pain, shortness of breath or palpitations. HR currently in the low 100s. Objective - Vital Signs Vital signs: Vital Signs Temp 98.2 F 12/11/18 11:41 Pulse 94 12/11/18 11:41 Resp 17 12/11/18 11:41 BP 114/65 12/11/18 11:41 Pulse Ox 94 L 12/11/18 11:41 Intake & Output 12/10/18 12/11/18 12/11/18 18:59 06:59 18:59 Intake Total 29 360 Output Total 400 Balance -371 360 Weight 87.09 kg 87.9 kg Intake: Intake, IV Titration 29 Amount Diltiazem 50 mg In Sodium 29 Chloride 0.9% 40 ml @ 5 MG/HR 5 mls/hr IV .Q10H [facility] Rx#:[id number] Oral 360 Output: Urine 400 Other: Voiding Method Toilet Toilet # Voids 1 1 - Exam General: [non toxic], [no distress], [appears at stated age] Derm: [warm], [dry] Head: [atraumatic], [normocephalic], [symmetric] Eyes: [EOMI], [no lid lag], [anicteric sclera] Mouth: [no lip lesion], [mucus membranes moist] Cardiovascular: [S1S2 reg], [irregularly irregular], [positive posterior tibial pulse bilateral], Lungs: [CTA bilateral], [no rhonchi, no rales] , [no accessory muscle use] Abdominal: [soft], [ nontender to palpation], [no guarding], [no appreciable organomegaly] Ext: [no gross muscle atrophy], [no edema], [no contractures] Neuro: [ CN II-XI grossly intact], [no focal neuro deficits] Psych: [Alert], [oriented], [appropriate affect] - Labs CBC & Chem 7: 12/10/18 16:15 12/10/18 16:15 Labs: Abnormal Lab Results - Last 24 Hours (Table) 12/10/18 Range/Units 16:15 Creatinine 1.13 H (0.52-1.04) mg/dL Glucose 170 H (74-99) mg/dL Alkaline Phosphatase 129 H (38-126) U/L Assessment and Plan Assessment: Assessment and Plan 1. Atrial fibrillation with RVR 2. Asthma 3. Diabetes mellitus 4. Hyperlipidemia 5. Hypertension 6. Hypothyroidism 1. Heart rate in the 100s. Cardiology consulted, started on amiodarone 200 mg by mouth daily and metoprolol 25 mg by mouth twice a day. Troponin is less than 0.0123, acute coronary syndrome was ruled out. Anticoagulation with apixaban 5 mg by mouth twice a day. Telemetry monitoring. Keep potassium greater than 4 and magnesium greater than 2. Will follow cardiology recommendations. 2. Stable. Continue Flovent. 3. Insulin sliding scale. Hypoglycemic precautions. Relaxers. 4. Continue Lipitor 10 mg by mouth at bedtime. 5. Continue losartan and metoprolol. Monitor vitals, adjust medications as necessary. 6. Stable. Continue Synthroid 75 g every Friday,Friday and 50 g milligrams by mouth every Friday, Friday, and Friday. 7. Continue anastrozole 1 mg by mouth daily. Patient being treated for atrial fibrillation with RVR. Neurology is on consult. Medications being adjusted.
[2018-12-11] MEDS: METOPROLOL TARTRATE 25 MG TAB PO SCH ×2 (17:24→20:27)
[2018-12-11] MEDS: INSULIN ASPART 100 UNIT/ML 1 ML 10 ML VIAL SQ SCH (18:20)
[2018-12-11 20:45] LABS: Glucose,Whole Blood 132 mg/dL (75-99)
[2018-12-11] MEDS ORDERED: METOPROLOL TARTRATE 25 MG TAB PO SCH (21:00)
[2018-12-12] MEDS: SODIUM CHLORIDE 0.9% 1,000 ML IV SCH (05:40)
[2018-12-12 06:27] LABS: Glucose,Whole Blood 114 mg/dL (75-99)
[2018-12-12] MEDS: LEVOTHYROXINE 50 MCG TAB PO SCH (07:10)
[2018-12-12] MEDS: FLUTICASONE 110 MCG INHALER INHALATION SCH ×2 (08:24→19:26)
[2018-12-12] MEDS: AMIODARONE 200 MG TAB PO SCH (08:47)
[2018-12-12] MEDS: FUROSEMIDE 20 MG TAB PO SCH (08:47)
[2018-12-12] MEDS: APIXABAN 5 MG TAB PO SCH ×2 (08:47→20:03)
[2018-12-12] MEDS: LOSARTAN 25 MG TAB PO SCH (08:48)
[2018-12-12] MEDS: POTASSIUM CHLORIDE ER 10 MEQ TAB.ER.PRT PO SCH (08:48)
[2018-12-12] MEDS: DOCUSATE 100 MG CAP PO SCH (08:48)
[2018-12-12] MEDS: MAGNESIUM OXIDE 400 MG TAB PO SCH (08:48)
[2018-12-12] MEDS: METOPROLOL TARTRATE 25 MG TAB PO SCH ×2 (08:48→20:02)
[2018-12-12] MEDS: ANASTROZOLE 1 MG TAB PO SCH (08:48)
[2018-12-12] MEDS: FAMOTIDINE 20 MG TAB PO SCH (08:48)
[2018-12-12] MEDS: INSULIN ASPART 100 UNIT/ML 1 ML 10 ML VIAL SQ SCH ×3 (08:49→17:38)
[2018-12-12 11:31] LABS: Glucose,Whole Blood 88 mg/dL (75-99)
--- NOTE | 2018-12-12 14:10 | P.PN ---
Subjective Progress Note Date: 12/12/18 This is a pleasant 82-year-old female who follows regularly with Dr. Caldwell in the office. She has a known history of hypertension, hyperlipidemia, diabetes, renal insufficiency, paroxysmal atrial fibrillation for which she takes Coumadin for anticoagulation. Patient also has atrial tachycardia and has been seen in consultation by Dr. Higgins in July of last year at which time anterior neck of drug therapy was recommended, also consideration for possible pace and AV node ablation strategy in the future with biventricular pacing for durable symptomatic relief. She presents to the hospital on this occasion with symptoms of shortness of breath with associated feeling that she may pass out. According to the patient, she always knows when she is in atrial fibrillation because she feels the same symptoms. She denies any overt palpitations. Chest x-ray on arrival here did not reveal any active cardiopulmonary disease. EKG on arrival here shows atrial flutter. Patient was initiated on IV Cardizem in the emergency room. She continues to be in what appears to be in atrial flutter this morning heart rate under better control on 5 mg of Cardizem. Blood pressure this morning 130/60 with a heart rate in the 70s. White blood cell count 7.7, hemoglobin 14.1, platelet count 275. Sodium 137, potassium 3.5, BUN 15 and creatinine 1.1. Troponins are negative 3. At the time of my examination this morning, patient feels well, no complaints. 12/12/2018 Patient was seen and examined this morning, sitting up in her chair at bedside. She did have an episode earlier where she had some mild dizziness. From our perspective she may be able to be discharged home today. Dr. Caldwell we'll see her in the office on Friday at 3:30. We will discontinue her losartan. Objective - Vital Signs Vital signs: Vital Signs Temp 97.8 F 12/12/18 08:46 Pulse 87 12/12/18 11:45 Resp 16 12/12/18 11:45 BP 120/61 12/12/18 11:45 Pulse Ox 93 L 12/12/18 11:45 Intake & Output 12/11/18 12/12/18 12/12/18 18:59 06:59 18:59 Intake Total 360 240 Output Total 401 Balance 360 -401 240 Weight 85.2 kg Intake: Oral 360 240 Output: Urine 401 Other: Voiding Method Toilet Toilet Toilet # Voids 1 1 1 - Exam PHYSICAL EXAMINATION: GENERAL: 83-year-old female in no acute distress at the time of my examination HEENT: Head is atraumatic, normocephalic. Pupils equal, round. Sclera anicteric. Conjunctiva are clear. Mucous membranes of the mouth are moist. Neck is supple. There is no elevated jugular venous pressure. No carotid bruit is heard. HEART EXAMINATION: Heart S1 and S2 irregularly irregular a systolic ejection murmur is heard. CHEST EXAMINATION: Lungs are clear to auscultation and precussion. No chest wall tenderness is noted on palpation or with deep breathing. ABDOMEN: Soft, nontender. Bowel sounds are heard. No organomegaly noted. EXTREMITIES: 2+ peripheral pulses with no evidence of peripheral edema and no calf tenderness noted. NEUROLOGIC patient is awake, alert and oriented 3 . - Labs CBC & Chem 7: 12/10/18 16:15 12/10/18 16:15 Labs: Abnormal Lab Results - Last 24 Hours (Table) 12/11/18 12/12/18 Range/Units 20:41 06:15 POC Glucose (mg/dL) 132 H 114 H (75-99) mg/dL Assessment and Plan Plan: Assessment and plan #1 atrial flutter, typical, variable rate. #2 paroxysmal atrial fibrillation on Eliquis for anticoagulation #3 hypertension #4 hyperlipidemia #5 diabetes #6 hypothyroidism #7 hypokalemia Plan From cardiology's perspective, patient may be able to be discharged home today. We will make her a follow-up appointment to see Dr. Caldwell in the office on Friday at 3:30. DNP note has been reviewed, I agree with a documented findings and plan of care. Patient was seen and examined.
--- NOTE | 2018-12-12 14:32 | P.DS ---
Providers Date of admission: 12/10/18 18:32 Expected date of discharge: 12/12/18 Attending physician: Billy Israel MD Consults: 12/10/18 18:33 Consult Physician Routine Consulting Provider: Chino Caldwell Consult Reason/Comments: Rapid atrial fibrillation Do you want consulting provider notified?: Yes Primary care physician: Caron Orellana MD Hospital Course: 83 year old female with history of A flutter/afib on eliquis. recently diagnosed about 1 year ago Patient was at her baseline status of health, she last saw her PCP a week ago and was doing well. She had sudden onset palpitations today associated with chest tightness and difficulty breathing. Her heart rate was noted to be in the 160s at home. Patient is admitted for atrial fibrillation with RVR, cardiology on consult. Cardiology was consulted and recommended starting the patient on amiodarone 200 mg by mouth daily and metoprolol 25 mg by mouth twice a day. Troponin was less than 0.0123, acute coronary syndrome was ruled out. We continued anticoagulation with Apixaban 5 mg by mouth twice a day. Patient was placed on telemetry monitoring throughout her admission. Otherwise, her home medications were resumed for asthma, diabetes mellitus, hyperlipidemia, hypertension and hypothyroidism. Patient was seen and examined prior to discharge. No acute events overnight. Patient complains of dizziness, lightheadedness especially when going from a sitting to standing position. She is fearful of falling or passing out, states that she has no one at home. She denies any chest pain. General: [non toxic], [no distress], [appears at stated age] Derm: [warm], [dry] Head: [atraumatic], [normocephalic], [symmetric] Eyes: [EOMI], [no lid lag], [anicteric sclera] Mouth: [no lip lesion], [mucus membranes moist] Cardiovascular: [S1S2 reg], [irregularly irregular], [positive posterior tibial pulse bilateral], Lungs: [CTA bilateral], [no rhonchi, no rales] , [no accessory muscle use] Abdominal: [soft], [ nontender to palpation], [no guarding], [no appreciable organomegaly] Ext: [no gross muscle atrophy], [no edema], [no contractures] Neuro: [ CN II-XI grossly intact], [no focal neuro deficits] Psych: [Alert], [oriented], [appropriate affect] Assessment and Plan 1. Atrial fibrillation with RVR 2. Asthma 3. Diabetes mellitus 4. Hyperlipidemia 5. Hypertension 6. Hypothyroidism 1. Heart rate in the 100s. Cardiology consulted, started on amiodarone 200 mg by mouth daily and metoprolol 25 mg by mouth twice a day. Troponin is less than 0.0123, acute coronary syndrome was ruled out. Anticoagulation with apixaban 5 mg by mouth twice a day. Telemetry monitoring. Keep potassium greater than 4 and magnesium greater than 2. patient is cleared from a cardiology perspective. 2. Stable. Continue Flovent. 3. Insulin sliding scale. Hypoglycemic precautions. Relaxers. 4. Continue Lipitor 10 mg by mouth at bedtime. 5. Continue losartan and metoprolol. Monitor vitals, adjust medications as necessary. 6. Stable. Continue Synthroid 75 g every Friday,Friday and 50 g milligrams by mouth every Friday, Friday, and Friday. 7. Continue anastrozole 1 mg by mouth daily. We'll continue to monitor the patient overnight. I will check orthostats. Likely discharge tomorrow, follow-up cardiology on Friday. Pertinent Studies: chest x-ray Patient Condition at Discharge: Stable Plan - Discharge Summary New Discharge Prescriptions: New Amiodarone [Cordarone] 200 mg PO DAILY #30 tab Metoprolol Tartrate [Lopressor] 25 mg PO BID #60 tab Continue Fluticasone Propionate [Flovent Hfa 110mcg] 2 puff INHALATION RT-BID Levothyroxine Sodium [Synthroid] 50 mcg PO MOTUTHFRSA Ubidecarenone [Co Q-10] 200 mg PO DAILY Ergocalciferol [Vitamin D2 (DRISDOL)] 50,000 unit PO [id number] Magnesium Oxide [Mag-Ox] 800 mg PO DAILY Levothyroxine Sodium [Synthroid] 75 mcg PO SUWE Anastrozole [Arimidex] 1 mg PO DAILY Allopurinol [Zyloprim] 100 mg PO DAILY Rosuvastatin [Crestor] 5 mg PO HS Docusate Sodium [Dok] 100 mg PO DAILY Acetaminophen Tab [Tylenol] 650 mg PO Q6HR PRN tab PRN Reason: Mild Pain Or Fever > 100.5 Potassium Chloride ER [K-Dur 10] 10 meq PO QAM Furosemide [Lasix] 60 mg PO DAILY Apixaban [Eliquis] 5 mg PO BID #180 tab Losartan [Cozaar] 12.5 mg PO DAILY Potassium Chloride ER [K-Dur 20] 20 meq PO HS Discontinued Amiodarone [Cordarone] 200 mg PO BID #180 tab Metoprolol Tartrate [Lopressor] 12.5 mg PO BID #60 tab Discharge Medication List Ergocalciferol [Vitamin D2 (DRISDOL)] 50,000 unit PO [id number] 07/19/15 [History] Fluticasone Propionate [Flovent Hfa 110mcg] 2 puff INHALATION RT-BID 07/19/15 [ History] Levothyroxine Sodium [Synthroid] 50 mcg PO MOTUTHFRSA 07/19/15 [History] Ubidecarenone [Co Q-10] 200 mg PO DAILY 07/19/15 [History] Allopurinol [Zyloprim] 100 mg PO DAILY 11/16/17 [History] Anastrozole [Arimidex] 1 mg PO DAILY 11/16/17 [History] Levothyroxine Sodium [Synthroid] 75 mcg PO SUWE 11/16/17 [History] Magnesium Oxide [Mag-Ox] 800 mg PO DAILY 11/16/17 [History] Docusate Sodium [Dok] 100 mg PO DAILY 01/23/18 [History] Rosuvastatin [Crestor] 5 mg PO HS 01/23/18 [History] Acetaminophen Tab [Tylenol] 650 mg PO Q6HR PRN tab 01/24/18 [Rx] Furosemide [Lasix] 60 mg PO DAILY 07/16/18 [History] Potassium Chloride ER [K-Dur 10] 10 meq PO QAM 07/16/18 [History] Apixaban [Eliquis] 5 mg PO BID #180 tab 07/20/18 [Rx] Losartan [Cozaar] 12.5 mg PO DAILY 10/06/18 [History] Potassium Chloride ER [K-Dur 20] 20 meq PO HS 12/10/18 [History] Amiodarone [Cordarone] 200 mg PO DAILY #30 tab 12/12/18 [Rx] Metoprolol Tartrate [Lopressor] 25 mg PO BID #60 tab 12/12/18 [Rx] Follow up Appointment(s)/Referral(s): Chino Caldwell MD [STAFF PHYSICIAN] - 1 Week Caron Orellana MD [Primary Care Provider] - 1-2 days Activity/Diet/Wound Care/Special Instructions: Dr Caldwell would like to see you in office on Friday at 3:30 pm, please call first thing Friday morning to schedule appointment. Discharge Disposition: HOME SELF-CARE
[2018-12-12 16:20] LABS: Glucose,Whole Blood 88 mg/dL (75-99)
[2018-12-12] MEDS: ATORVASTATIN 10 MG TAB PO SCH (20:02)
[2018-12-12] MEDS: POTASSIUM CHLORIDE ER 20 MEQ TAB.ER PO SCH (20:03)
[2018-12-12] MEDS ORDERED: DOCUSATE 100 MG CAP PO SCH (21:00)
[2018-12-12 21:05] LABS: Glucose,Whole Blood 124 mg/dL (75-99)
[2018-12-13 06:26] LABS: Glucose,Whole Blood 98 mg/dL (75-99)
[2018-12-13] MEDS ORDERED: LEVOTHYROXINE 75 MCG TAB PO SCH (06:30)
[2018-12-13] MEDS: INSULIN ASPART 100 UNIT/ML 1 ML 10 ML VIAL SQ SCH ×2 (06:53→12:23)
[2018-12-13] MEDS: SODIUM CHLORIDE 0.9% 1,000 ML IV SCH (06:53)
[2018-12-13 08:48] VITALS: RESP 16; TEMP 98.1
[2018-12-13] MEDS ORDERED: FAMOTIDINE 20 MG TAB PO SCH (09:00)
[2018-12-13] MEDS: FLUTICASONE 110 MCG INHALER INHALATION SCH (09:05)
[2018-12-13] MEDS: POTASSIUM CHLORIDE ER 10 MEQ TAB.ER.PRT PO SCH (09:06)
[2018-12-13] MEDS: FUROSEMIDE 20 MG TAB PO SCH (09:06)
[2018-12-13] MEDS: MAGNESIUM OXIDE 400 MG TAB PO SCH (09:06)
[2018-12-13] MEDS: AMIODARONE 200 MG TAB PO SCH (09:06)
[2018-12-13] MEDS: APIXABAN 5 MG TAB PO SCH (09:06)
[2018-12-13] MEDS: METOPROLOL TARTRATE 25 MG TAB PO SCH (09:06)
[2018-12-13] MEDS: ANASTROZOLE 1 MG TAB PO SCH (09:06)
--- NOTE | 2018-12-13 11:08 | P.PN ---
Subjective Progress Note Date: 12/13/18 Principal diagnosis: atrial fibrillation Patient was seen and examined. No acute events overnight. Heart rate is well- controlled overnight from 80-90. Patient reports that her daughter can pick her up this morning around 12 PM. Patient complaining of shortness of breath yesterday with ambulation but states that this is a chronic problem. She has been evaluated by her primary care provider, has a CT chest pending and has previously underwent PFTs. She has a history of secondhand smoke exposure. She denies any chest pain, shortness of breath or palpitations. Objective - Vital Signs Vital signs: Vital Signs Temp 98.1 F 12/13/18 08:30 Pulse 84 12/13/18 08:30 Resp 16 12/13/18 08:30 BP 101/54 12/13/18 08:30 Pulse Ox 94 L 12/13/18 08:30 Intake & Output 12/12/18 12/13/18 12/13/18 18:59 06:59 18:59 Intake Total 480 360 Balance 480 360 Weight 85.3 kg Intake: Oral 480 360 Other: Voiding Method Toilet Toilet Toilet # Voids 1 1 - Exam General: [non toxic], [no distress], [appears at stated age] Derm: [warm], [dry] Head: [atraumatic], [normocephalic], [symmetric] Eyes: [EOMI], [no lid lag], [anicteric sclera] Mouth: [no lip lesion], [mucus membranes moist] Cardiovascular: [S1S2 reg], [irregularly irregular], [positive posterior tibial pulse bilateral], Lungs: [CTA bilateral], [no rhonchi, no rales] , [no accessory muscle use] Abdominal: [soft], [ nontender to palpation], [no guarding], [no appreciable organomegaly] Ext: [no gross muscle atrophy], [no edema], [no contractures] Neuro: [ CN II-XI grossly intact], [no focal neuro deficits] Psych: [Alert], [oriented], [appropriate affect] - Labs CBC & Chem 7: 12/10/18 16:15 12/10/18 16:15 Labs: Abnormal Lab Results - Last 24 Hours (Table) 12/12/18 Range/Units 21:03 POC Glucose (mg/dL) 124 H (75-99) mg/dL Assessment and Plan Assessment: Assessment and Plan 1. Atrial fibrillation with RVR 2. Asthma 3. Diabetes mellitus 4. Hyperlipidemia 5. Hypertension 6. Hypothyroidism 1. Heart rate well-controlled in the 80s. Cardiology consulted, started on amiodarone 200 mg by mouth daily and metoprolol 25 mg by mouth twice a day. Troponin is less than 0.0123, acute coronary syndrome was ruled out. Anticoagulation with apixaban 5 mg by mouth twice a day. Telemetry monitoring. Keep potassium greater than 4 and magnesium greater than 2. Patient is cleared from a cardiology perspective. 2. Stable. Continue Flovent. 3. Insulin sliding scale. Hypoglycemic precautions. regular Accu-Cheks. 4. Continue Lipitor 10 mg by mouth at bedtime. 5. Continue losartan and metoprolol. Monitor vitals, adjust medications as necessary. 6. Stable. Continue Synthroid 75 g every Friday,Friday and 50 g milligrams by mouth every Friday, Friday, and Friday. 7. Continue anastrozole 1 mg by mouth daily. Cleared by cardiology. Will follow-up with Dr. Caldwell on Friday. Discharge today.
[2018-12-13 11:50] LABS: Glucose,Whole Blood 67 mg/dL (75-99)
--- NOTE | 2018-12-13 11:53 | PN ---
PROGRESS NOTE Mrs. Ziegler is an 83-year-old female who has been complaining of symptoms of progressive fatigue and lack of energy. She was noted to be in atrial fibrillation. She continues to be fatigued at times although overall stable. She denies any chest pain. She feels tired. Mildly dizzy after standing up. She denies any palpitation. She continues to be at this time on amiodarone 200 mg daily, Eliquis 5 mg twice a day, Lipitor 10 mg daily, furosemide 60 mg daily, levothyroxine, metoprolol tartrate 25 mg twice a day. PHYSICAL EXAMINATION: Blood pressure 101/60 with a heart rate in the 80s. LUNGS: Clear. Heart irregularly irregular, S1, S2. No S3. No rub. ABDOMEN: Soft, nontender. EXTREMITIES: No edema. IMPRESSION: 1. Atrial fibrillation paroxysmal. 2. Symptoms of dizziness with episode of orthostatic hypotension, stable. 3. Hyperlipidemia. 4. Diabetes. RECOMMENDATION: I will expect she should be able to be discharged home today and follow up as an outpatient next week to see if further workup will be needed. MMODL / IJN: [id number] /
[2018-12-13 11:55] LABS: Glucose,Whole Blood 125 mg/dL (75-99)
[2018-12-13 12:24] VITALS: BP 115/66; PULSE 80
[2018-12-24] MEDS ORDERED: ERGOCALCIFEROL 50,000 UNIT CAP PO SCH (09:00)
== END 2018-12-13 13:47 | disposition home or self-care (01) | DRG 309 ==
LOC: EC 15:53 → 3SCARD 18:32
PROVIDERS: ADMIT Family Medicine; ATTEND Family Medicine
DX: I48.0 Paroxysmal atrial fibrillation (principal); K51.90 Ulcerative colitis, unspecified, without complications; I12.9 Hypertensive chronic kidney disease with stage 1 through stage 4 chronic kidney disease, or unspecified chronic kidney disease; E11.22 Type 2 diabetes mellitus with diabetic chronic kidney disease; N18.3 Chronic kidney disease, stage 3 (moderate); M81.0 Age-related osteoporosis without current pathological fracture; J45.909 Unspecified asthma, uncomplicated; M10.9 Gout, unspecified; I34.1 Nonrheumatic mitral (valve) prolapse; K58.9 Irritable bowel syndrome, unspecified; M41.9 Scoliosis, unspecified; E03.9 Hypothyroidism, unspecified; E78.5 Hyperlipidemia, unspecified; E87.6 Hypokalemia; H91.90 Unspecified hearing loss, unspecified ear; I48.3 Typical atrial flutter; K21.9 Gastro-esophageal reflux disease without esophagitis; Z96.1 Presence of intraocular lens; I95.1 Orthostatic hypotension; Z85.3 Personal history of malignant neoplasm of breast; Z79.01 Long term (current) use of anticoagulants; Z90.710 Acquired absence of both cervix and uterus; Z85.828 Personal history of other malignant neoplasm of skin; Z80.3 Family history of malignant neoplasm of breast; Z81.1 Family history of alcohol abuse and dependence; Z79.899 Other long term (current) drug therapy; Z79.890 Hormone replacement therapy; Z79.811 Long term (current) use of aromatase inhibitors; Z79.51 Long term (current) use of inhaled steroids; Z85.038 Personal history of other malignant neoplasm of large intestine
CPT/HCPCS: 36415; 71046; 80053; 82550; 82553; 83735; 84484; 85025; 85610; 85730; 93005; 94640; 96365; 99291

== ENCOUNTER → 2019-01-06 | Outpatient (CLI) | payer MEDICARE ==
[2019-01-06 13:36] LABS: Basophils # (A) 0.1 k/uL (0-0.2); Basophils % (A) 1 %; Eosinophils # (A) 0.1 k/uL (0-0.7); Eosinophils % (A) 2 %; HCT 41.9 % (34.0-46.0); HGB 13.4 gm/dL (11.4-16.0); Lymphocytes # (A) 1.3 k/uL (1.0-4.8); Lymphocytes % (A) 17 %; MCH 30.4 pg (25.0-35.0); MCHC 31.9 g/dL (31.0-37.0); MCV 95.3 fL (80.0-100.0); Mean Platelet Volume 6.4; Monocytes # (A) 0.5 k/uL (0-1.0); Monocytes % (A) 6 %; Neutrophils # (A) 5.4 k/uL (1.3-7.7); Neutrophils % (A) 72 %; Platelet Count 380 k/uL (150-450); RDW 14.3 % (11.5-15.5); WBC 7.6 k/uL (3.8-10.6)
--- NOTE | 2019-01-06 14:19 | CT ---
EXAMINATION TYPE: CT chest wo con DATE OF EXAM: 01/06/2019 COMPARISON: Prior CT 08/30/2014, chest x-ray 12/10/2017 HISTORY: New onset hemoptysis, history of nodules CT DLP: 623 mGycm. Automated Exposure Control for Dose Reduction was Utilized. TECHNIQUE: CT scan of the thorax is performed without IV contrast. FINDINGS: Lack of intravenous contrast may compromise sensitivity. LUNGS: The lungs are remarkable for scattered areas of groundglass opacity, thickening of interlobula r septal bands. There are subpleural lines present. There is no pleural effusion or pneumothorax seen . The tracheobronchial tree is patent. MEDIASTINUM: Lack of IV contrast is noted to limit evaluation for mediastinal and especially hilar ad enopathy. There are no definitive greater than 1 cm hilar or mediastinal lymph nodes. No cardiomega ly or pericardial effusion is seen. Pulmonary artery is again dilated, correlate for pulmonary artery hypertension. There is a small hiatal hernia noted as on prior exam. Ascending aorta is borderline a neurysmal at 4.2 cm as on prior exam. OTHER: Patient is post cholecystectomy. Cystic focus is associated with the right kidney. Suspect the re may be an extrarenal pelvis or possibly exophytic cyst or combination involving the lower pole the right kidney. Calcifications are associated with the pancreas, correlate for possible chronic pancre atitis. High dense material is present within the proximal small bowel, there may be duodenal diverti culum present. Cystic focus present within the left lobe of the liver. IMPRESSION: Consider a drug induced lung disease, mixed connective tissue disease with pulmonary fibr osis, idiopathic pulmonary fibrosis and desquamative interstitial pneumonia. Consider pulmonary consu lt. Consider pulmonary artery hypertension, stable ascending aortic aneurysm. Additional findings abo ve.
[2019-01-06 15:04] LABS: Albumin 3.4 g/dL (3.5-5.0); Calcium 9.5 mg/dL (8.4-10.2); Total Bilirubin 0.9 mg/dL (0.2-1.3); Total Protein 6.7 g/dL (6.3-8.2); Uric Acid 6.5 mg/dL (3.7-7.4)
[2019-01-06 15:20] LABS: T4, Free (Free Thyroxine) 2.61 ng/dL (0.78-2.19)
[2019-01-06 20:12] LABS: Parathyroid Hormone Intact 52.3 pg/mL (14.0-72.0)
[2019-01-06 21:45] LABS: Hemoglobin A1C 5.4 % (4.0-6.0)
== END | disposition home or self-care (01) ==
LOC: RADCTMAIN 12:21
PROVIDERS: ATTEND Family Medicine
DX: R59.0 Localized enlarged lymph nodes (principal); J98.4 Other disorders of lung; I28.1 Aneurysm of pulmonary artery; K44.9 Diaphragmatic hernia without obstruction or gangrene; I71.2 Thoracic aortic aneurysm, without rupture; R04.2 Hemoptysis; E03.9 Hypothyroidism, unspecified; N25.81 Secondary hyperparathyroidism of renal origin; E06.3 Autoimmune thyroiditis; E78.2 Mixed hyperlipidemia; E53.8 Deficiency of other specified B group vitamins; E55.9 Vitamin D deficiency, unspecified; E11.65 Type 2 diabetes mellitus with hyperglycemia; E11.22 Type 2 diabetes mellitus with diabetic chronic kidney disease; N18.3 Chronic kidney disease, stage 3 (moderate)
CPT/HCPCS: 71250; 80053; 80061; 82043; 82306; 82570; 82607; 83036; 83735; 83970; 84439; 84443; 84550; 85025

== ENCOUNTER → 2019-01-06 | Outpatient (CLI) | payer MEDICARE ==
--- NOTE | 2019-01-06 14:38 | MM ---
Reason for exam: additional evaluation requested from prior study. Last mammogram was performed 1 year ago. History: Patient is postmenopausal, has history of breast cancer at age 79, has history of colon cancer at age 48, and history of other cancer. Family history of breast cancer in 2 maternal cousins and breast cancer in sister at age 79. Malignant US breast localization RT of the right breast, July 21, 2015. Malignant US biopsy breast VAD RT of the right breast, June 22, 2015. Took estrogen for 20 years beginning at age 48. Taking antineoplastic beginning at age 79. Physical Findings: Nurse did not find any significant physical abnormalities on exam. MG 3D Diag Mammo W/Cad SILVA Bilateral CC and MLO view(s) were taken. Prior study comparison: January 05, 2018, bilateral MG 3d diag mammo w/cad SILVA. January 02, 2017, bilateral MG 3d diag mammo w/cad SILVA. There are scattered fibroglandular densities. Finding: Architectural distortion in the upper outer quadrant of the right breast consistent with previous biopsy. There are benign appearing calcifications. These results were verbally communicated with the patient and result sheet given to the patient on 01/06/19. ASSESSMENT: Benign, BI-RAD 2 RECOMMENDATION: Follow-up diagnostic mammogram of both breasts in 1 year.
--- NOTE | 2019-01-07 07:49 | BD ---
EXAMINATION TYPE: Axial Bone Density DATE OF EXAM: 01/06/2019 COMPARISON: 07/11/2017 CLINICAL HISTORY: Postmenopausal female Height: 60.5 IN Weight: 187 LBS RISK FACTORS HISTORY OF: Family History of Osteoporosis: YES MOTHER Active: Diet low in dairy products/other sources of calcium: Postmenopausal woman: AGE 48 TOTAL HYST Take estrogen and/or progesterone medications: NOT NOW How lon YEARS MEDICATIONS: Thyroid Medications: YES Which medication: Synthroid How Lon + YEARS Osteoporosis Medications: YES Which medication: Prolia How Lon YEAR Additional Medications: VIT D, PROLIA, SYNTHROID, HEART MEDS, AFIB MEDS, POTASSIUM, MAGNESIUM, BLOOD THINNER, Additional History: BREAST CANCER WITH RADIATION EXAM MEASUREMENTS: Bone mineral densitometry was performed using the [employer] [place] System. Bone mineral density as measured about the Lumbar spine is: ----- L1-L4(G/cm2): 1.188 T Score Values are as follows: ----- L2: -0.2 ----- L3: 0.3 ----- L4: -0.2 ----- L1-L4: 0.1 Bone mineral density has: Increased 2.3% since study of: 07/11/2017 Bone mineral density about the R hip (g/cm2): 0.713 Bone mineral density about the L hip (g/cm2): 0.679 T Score values are as follows: -----R Neck: -2.3 -----L Neck: -2.6 -----R Total: -1.9 -----L Total: -2.0 Bone mineral density has: Decreased -1.0% since study of: 07/11/2017 IMPRESSION: Osteoporosis (T Score less than -2.5) femoral neck level in the left hip is now present. There is increased fracture risk and therapy is usually indicated based on age. Re-Screen 1-2 years. NOTE: T-SCORE=SD OF THE YOUNG ADULT MEAN.
== END | disposition home or self-care (01) ==
LOC: RADMAMWWP 13:26
PROVIDERS: ATTEND Internal Medicine Hematology & Oncology
DX: Z08 Encounter for follow-up examination after completed treatment for malignant neoplasm (principal); Z85.3 Personal history of malignant neoplasm of breast; M81.0 Age-related osteoporosis without current pathological fracture
CPT/HCPCS: 77080; 77066; G0279; 77062

== ENCOUNTER → 2019-01-28 | Day surgery (SDC) | payer MEDICARE ==
[2019-01-22 15:10] VITALS: BMI 34.9
[~2019-01-28] MED LIST: ACETAMINOPHEN TAB 325 MG TAB PO PRN; ALLOPURINOL 100 MG TAB PO SCH; ALPRAZolam 0.25 MG TAB PO PRN; ALPRAZolam 0.5 MG TAB PO PRN; AMIODARONE 200 MG TAB PO SCH; ASPIRIN 325 MG TAB PO ONE; ATORVASTATIN 80 MG TAB PO ONE; DOCUSATE 100 MG CAP PO SCH; ERGOCALCIFEROL 50,000 UNIT CAP PO SCH; FLUTICASONE 110 MCG INHALER INHALATION SCH; HEPARIN SODIUM 1,000 UN/ML (10ML VL) IV ONE; HEPARIN SODIUM 1,000 UN/ML (10ML VL) ONE; IOPAMIDOL-370 150ML BTL INJ ONE; LEVOTHYROXINE 50 MCG TAB PO SCH; LIDOCAINE 1% INJ 10MG/ML (20 ML MDV) ONE; LIDOCAINE 1% INJ 10MG/ML (20 ML MDV) SQ ONE; MAGNESIUM OXIDE 400 MG TAB PO SCH; METOPROLOL TARTRATE 25 MG TAB PO SCH; MIDAZOLAM 2 MG/2 ML VIAL IVP ONE; NITROGLYCERIN SL TABS 0.4 MG TAB SUBLINGUAL PRN; NON-FORMULARY DRUG (Rosuvastatin 10 MG) PO SCH; NON-FORMULARY DRUG (Ubidecarenone [Co Q-10] 200 MG) PO SCH; RX INFO: IV CONTRAST WAS GIVEN 1 EACH MISC MISCELLANE PRN; SODIUM CHLORIDE 0.9% 1,000 ML IV SCH; VERAPAMIL 2.5 MG/ML 2 ML AMP ONE; VERAPAMIL SYRINGE (5 MG/10 ML) INTRAARTER ONE; fentaNYL (PF) 50 MCG/ML 2 ML AMP IV ONE; fentaNYL (PF) 50 MCG/ML 2 ML AMP ONE
[2019-01-28] MEDS: SODIUM CHLORIDE 0.9% 1,000 ML in EMPTY BAG 1 BAG IV ONE ×2 (08:25→08:47)
[2019-01-28 08:55] LABS: Glucose,Whole Blood 129 mg/dL (75-99)
[2019-01-28 10:50] VITALS: RESP 18; TEMP 98.4
--- NOTE | 2019-01-28 15:31 | CC ---
CARDIAC CATHETERIZATION REPORT Mrs. Ziegler is an 83-year-old female with known history of hypertension, hyperlipidemia, diabetes mellitus, history of atrial fibrillation, who presented with symptoms of progressive dyspnea and chest discomfort on and off. She has underwent a myocardial perfusion imaging that raised the possibility of anterior wall ischemia versus soft tissue attenuation. The plan initially was to manage the patient conservatively, but then she continued to have the symptoms and she wanted to proceed with coronary angiography to further assess her status, because of her progressive dyspnea. In view of that, recommendation made regarding cardiac catheterization. The procedures, risks, and complication were discussed with the patient who is in full understanding and agreement. PROCEDURE: Patient was brought to [employer] lab[facility] in a fasting semi-sedated state after receiving fentanyl and Benadryl and achieving moderate conscious sedated state. Using Xylocaine anesthesia and Seldinger technique, a 6-Romanian sheath was introduced in the right radial artery. Selective right and left coronary angiography was performed using 5- Romanian 3.5 bend right and left Estefany catheter. Multiple views of the coronary artery including hemiaxial views obtained. Following that, a 5-Romanian tight pigtail catheter was introduced in the left ventricle and the pressures were calculated. Following that, catheter and sheath were removed. Hemostasis was obtained with deployment of a TR band. There was no immediate complication. Patient is returned to her room in stable condition. Of note, the patient received a total of 4500 units of intravenous heparin as well as intra-arterial verapamil. FINDINGS: LEFT MAIN: This is a short-size vessel bifurcating into left circumflex, left anterior descending artery, left main coronary artery has no evidence of high-grade stenosis. LEFT ANTERIOR DESCENDING ARTERY: This is a large-sized vessel, tapers down in distal third, gives rise to a large proximal diagonal branch. The left anterior descending artery as well as branches have no evidence of obstructive coronary artery disease. LEFT CIRCUMFLEX: This is a dominant vessel, large in caliber, giving rise to a large obtuse marginal branch in the mid segment, distally bifurcating into PDA and posterolateral segment and branches. The left circumflex as well as branches have no evidence of obstructive coronary artery disease. RIGHT CORONARY ARTERY: This is a small nondominant vessel that has no evidence of high- grade stenosis. LEFT VENTRICULOGRAM: Left ventriculogram was not performed. HEMODYNAMICS: There was no gradient across the aortic valve. The left ventricular end- diastolic pressure was 16 mmHg. CONCLUSION: 1. Normal coronary arteries. 2. Left dominant system. RECOMMENDATION: In view of finding anatomy, recommend continue medical therapy with aggressive coronary risk modifications being initiated. Those findings and recommendation were discussed with the patient and her family and they are in full understanding and agreement. DURATION OF PROCEDURE: 16 minutes. TARA / CANDY: [id number] /
--- NOTE | 2019-01-28 15:37 | LTR ---
DATE OF SERVICE: 01/28/2019 RE: Jatinder Zieglerna Dear Dr. Orellana; I had the pleasure to perform cardiac catheterization on Mrs. Ziegler at [facility] on January 28, 2019 and a full copy of the procedure note will be forwarded to you. In brief, she was found to have no evidence of obstructive coronary artery disease and based on those findings, I would recommend continue present medical regimen and depending on her progress, further recommendation will be made. Thank you again for allowing me to participate in your patient's care. Please feel free to call for any questions. Sincerely yours, MD TARA Colunga / CINTHIAN: [id number] /
[2019-01-28 16:19] VITALS: BP 134/61; PULSE 46
== END | disposition home or self-care (01) ==
LOC: CATHCVL 07:57
PROVIDERS: ATTEND Internal Medicine Interventional Cardiology
DX: R94.39 Abnormal result of other cardiovascular function study (principal); R07.89 Other chest pain; R06.00 Dyspnea, unspecified; I48.91 Unspecified atrial fibrillation; I48.92 Unspecified atrial flutter; E78.2 Mixed hyperlipidemia; E11.9 Type 2 diabetes mellitus without complications; E78.00 Pure hypercholesterolemia, unspecified; I10 Essential (primary) hypertension; Z79.01 Long term (current) use of anticoagulants; Z79.811 Long term (current) use of aromatase inhibitors; Z79.890 Hormone replacement therapy; Z79.51 Long term (current) use of inhaled steroids; Z79.899 Other long term (current) drug therapy; Z88.6 Allergy status to analgesic agent; Z88.1 Allergy status to other antibiotic agents; Z88.5 Allergy status to narcotic agent; Z88.8 Allergy status to other drugs, medicaments and biological substances
CPT/HCPCS: 93458; C1894; C1769; J2250; J2001; J3010; J1644; Q9967

== ENCOUNTER → 2019-02-12 | Outpatient (CLI) | payer MEDICARE ==
[2019-02-12 23:36] LABS: Anion Gap 10.9 mmol/L (4.00-12.00); Carbon Dioxide 30.1 mmol/L (21.6-31.8); Potassium 3.5 mmol/L (3.5-5.5)
== END | disposition home or self-care (01) ==
LOC: LABWHC1 15:46
PROVIDERS: ATTEND Internal Medicine Interventional Cardiology
DX: I10 Essential (primary) hypertension (principal)
CPT/HCPCS: 36415; 80051; 82565; 84520

== ENCOUNTER → 2019-03-19 | Outpatient (CLI) | payer MEDICARE ==
[2019-03-19 19:56] LABS: Anion Gap 10.3 mmol/L (4.00-12.00); Calcium 8.8 mg/dL (8.7-10.3); Carbon Dioxide 30.7 mmol/L (21.6-31.8); Potassium 3.1 mmol/L (3.5-5.5)
== END ==
LOC: LABWHC1 11:40
PROVIDERS: ATTEND Internal Medicine Interventional Cardiology
DX: I10 Essential (primary) hypertension (principal)
CPT/HCPCS: 36415; 80048

== ENCOUNTER 2019-06-02 10:41 | Emergency (ER) | payer MEDICARE ==
[2019-06-02 11:06] VITALS: RESP 18; TEMP 98
[2019-06-02] MEDS ORDERED: SODIUM CHLORIDE 0.9% 500 ML 500 ML IV STA (11:25)
[2019-06-02] MEDS ORDERED: KETOROLAC 30 MG/ML 1 ML VIAL IVP STA (11:25)
--- NOTE | 2019-06-02 11:44 | ED ---
General Adult HPI - General Chief complaint: Abdominal Pain Stated complaint: poss kidney stone Time Seen by Provider: 06/02/19 11:00 Source: patient, RN notes reviewed Mode of arrival: wheelchair Limitations: physical limitation - History of Present Illness Initial comments: This is an 83-year-old female who presents emergency Department complaining of right mid back pain. Patient states it started on Friday and continues today. Patient states anytime she twists or turns it seems to increase the pain. Palpating the area does not appear to hurt the area. Patient denies any injury that she knows of. Patient denies any dysuria hematuria urinary frequency. Patient denies any abdominal pain. Patient denies any nausea or vomiting. Patient denies any chest pain. Patient denies any difficulty breathing or shortness of breath. Patient denies any recent fever chills. - Related Data Home Medications Medication Instructions Recorded Confirmed Ergocalciferol [Vitamin D2 50,000 unit PO [id number] 07/19/15 06/02/19 (DRISDOL)] Levothyroxine Sodium [Synthroid] 50 mcg PO DAILY 07/19/15 06/02/19 Ubidecarenone [Co Q-10] 200 mg PO DAILY 07/19/15 06/02/19 Allopurinol [Zyloprim] 100 mg PO DAILY 11/16/17 06/02/19 Magnesium Oxide [Mag-Ox] 400 mg PO BID 11/16/17 06/02/19 Docusate Sodium [Dok] 100 mg PO HS PRN 01/23/18 06/02/19 Metoprolol Tartrate [Lopressor] 25 mg PO BID 12/18/18 06/02/19 Cyanocobalamin [Vitamin B-12] 500 mcg PO DAILY 06/02/19 06/02/19 Furosemide [Lasix] 20 mg PO HS 06/02/19 06/02/19 Furosemide [Lasix] 40 mg PO DAILY 06/02/19 06/02/19 Potassium Chloride ER [K-Dur 10] 10 meq PO BID 06/02/19 06/02/19 Previous Rx's Medication Instructions Recorded Acetaminophen Tab [Tylenol] 650 mg PO Q6HR PRN tab 01/24/18 Apixaban [Eliquis] 5 mg PO BID #180 tab 07/20/18 Cyclobenzaprine [Flexeril] 5 mg PO BID #10 tablet 06/02/19 Ibuprofen [Motrin] 400 mg PO Q8HR PRN #20 tab 06/02/19 Allergies Allergy/AdvReac Type Severity Reaction Status Date / Time iodine Allergy Unknown VERY LOW Verified 06/02/19 11:21 BLOOD PRESSURE,SHORTNESS OF BREATH adhesive tape Allergy Rash/Hives Verified 06/02/19 11:21 clarithromycin Allergy Unknown Verified 06/02/19 11:21 Iodinated Contrast- Oral and Allergy Anaphylaxis Verified 06/02/19 11:21 IV Dye metaxalone [From Skelaxin] Allergy Anaphylaxis Verified 06/02/19 11:21 niacin Allergy Unknown Verified 06/02/19 11:21 [From Niaspan Extended-Release] pantoprazole Allergy ITCHING Verified 06/02/19 11:21 ,REDNESS OF SKIN Review of Systems ROS Statement: Those systems with pertinent positive or pertinent negative responses have been documented in the HPI. ROS Other: All systems not noted in ROS Statement are negative. Past Medical History Past Medical History: Atrial Fibrillation, Atrial Flutter, Asthma, Cancer, GERD/Reflux, Hearing Disorder / Deafness, Hyperlipidemia, Hypertension, Muscul oskeletal Disorder, Osteoarthritis (OA), Pneumonia, Renal Disease, Thyroid Disorder, Vascular Disorder Additional Past Medical History / Comment(s): pulmonary fibrosis, Mitral valve prolapse, "hole in my heart", exertional dyspnea, chronic renal disease stage III, carpal tunnel bilaterally, osteoporosis, chronic low back pain, spinal stenosis, scoliosis, gout, varicose veins, R breast cancer with surgery/radiation, skin cancer removals, cancerous colon polyp removal, div erticular dx, hiatal hernia, IBS, ulcerative colitis, History of Any Multi-Drug Resistant Organisms: None Reported Past Surgical History: Breast Surgery, Cardiac Ablation, Cholecystectomy, Heart Catheterization, Hysterectomy, Orthopedic Surgery Additional Past Surgical History / Comment(s): R breast lumpectomy x 2, R breast bx, skin cancer removals, total hysterectomy, open cholecystectomy, R arm spur removals 3 times, R shoulder rotator cuff repair, R foot 2nd toe surgery, pilonidal cystectomy, colonoscopy with cancerous polypectomy, bilateral cataract removal/lens implants and surgery for astigmatism. Past Anesthesia/Blood Transfusion Reactions: Postoperative Nausea & Vomiting (PONV) Additional Past Anesthesia/Blood Transfusion Reaction / Comment(s): DUE TO REFLU X /POST ANESTHESIA PNEUMONIA. Past Psychological History: No Psychological Hx Reported Smoking Status: Never smoker Past Alcohol Use History: None Reported Past Drug Use History: None Reported - Past Family History Father Additional Family Medical History / Comment(s): Father was an alcoholic and pt thinks he from complications of that. Mother Family Medical History: Pulmonary Embolus Additional Family Medical History / Comment(s): at 59 from PE Sister(s) Family Medical History: Cancer Additional Family Medical History / Comment(s): Breast Cancer General Exam - General Exam Comments Initial Comments: GENERAL: Patient is well-developed and well-nourished. Patient is nontoxic and well- hydrated and is in mild distress. ENT: Neck is soft and supple. No significant lymphadenopathy is noted. Oropharynx is clear. Moist mucous membranes. Neck has full range of motion without eliciting any pain. EYES: The sclera were anicteric and conjunctiva were pink and moist. Extraocular movements were intact and pupils were equal round and reactive to light. Eyelids were unremarkable. PULMONARY: Unlabored respirations. Good breath sounds bilaterally. No audible rales rhonchi or wheezing was noted. CARDIOVASCULAR: There is a regular rate and rhythm without any murmurs gallops or rubs. ABDOMEN: Soft and nontender with normal bowel sounds. SKIN: Skin is clear with no lesions or rashes and otherwise unremarkable. NEUROLOGIC: Patient is alert and oriented x3. Cranial nerves II through XII are grossly intact. Motor and sensory are also intact. Normal speech, volume and content. Symmetrical smile. MUSCULOSKELETAL: Normal extremities with adequate strength and full range of motion. Patient has no CVA tenderness. Patient does have pain when she twists or bends. LYMPHATICS: No significant lymphadenopathy is noted PSYCHIATRIC: Normal psychiatric evaluation. Limitations: physical limitation Course Vital Signs 06/02/19 11:03 Temperature 98.0 F Pulse Rate 55 L Respiratory 18 Rate Blood Pressure 137/50 O2 Sat by Pulse 99 Oximetry Medical Decision Making - Medical Decision Making CAT scan shows no acute abnormality. Patient states the Toradol did help a little bit but has not resolved the pain. - Lab Data Result diagrams: 06/02/19 11:38 06/02/19 11:38 Lab Results 06/02/19 06/02/19 06/02/19 Range/Units 11:38 11:38 11:38 WBC 5.6 (3.8-10.6) k/uL RBC 4.01 (3.80-5.40) m/uL Hgb 11.1 L (11.4-16.0) gm/dL Hct 35.6 (34.0-46.0) % MCV 88.9 (80.0-100.0) fL MCH 27.7 (25.0-35.0) pg MCHC 31.1 (31.0-37.0) g/dL RDW 15.9 H (11.5-15.5) % Plt Count 284 (150-450) k/uL Neutrophils % 68 % Lymphocytes % 18 % Monocytes % 8 % Eosinophils % 2 % Basophils % 1 % Neutrophils # 3.8 (1.3-7.7) k/uL Lymphocytes # 1.0 (1.0-4.8) k/uL Monocytes # 0.4 (0-1.0) k/uL Eosinophils # 0.1 (0-0.7) k/uL Basophils # 0.0 (0-0.2) k/uL Hypochromasia Slight Sodium 138 (137-145) mmol/L Potassium 4.1 (3.5-5.1) mmol/L Chloride 100 (98-107) mmol/L Carbon Dioxide 29 (22-30) mmol/L Anion Gap 9 mmol/L BUN 17 (7-17) mg/dL Creatinine 1.23 H (0.52-1.04) mg/dL Est GFR (CKD-EPI)AfAm 46 (>60 ml/min/1.73 sqM) Est GFR (CKD-EPI)NonAf 40 (>60 ml/min/1.73 sqM) Glucose 105 H (74-99) mg/dL Calcium 9.8 (8.4-10.2) mg/dL Total Bilirubin 0.8 (0.2-1.3) mg/dL AST 35 (14-36) U/L ALT 24 (9-52) U/L Alkaline Phosphatase 121 (38-126) U/L Total Protein 7.0 (6.3-8.2) g/dL Albumin 3.8 (3.5-5.0) g/dL Amylase 78 (30-110) U/L Lipase 110 (23-300) U/L Urine Color Light Yellow Urine Appearance Clear (Clear) Urine pH 7.0 (5.0-8.0) Ur Specific [place] 1.005 (1.001-1.035) Urine Protein Negative (Negative) Urine Glucose (UA) Negative (Negative) Urine Ketones Negative (Negative) Urine Blood Negative (Negative) Urine Nitrite Negative (Negative) Urine Bilirubin Negative (Negative) Urine Urobilinogen <2.0 (<2.0) mg/dL Ur Leukocyte Esterase Small H (Negative) Urine RBC 1 (0-5) /hpf Urine WBC 5 (0-5) /hpf Ur Squamous Epith Cells 7 H (0-4) /hpf Urine Bacteria Moderate H (None) /hpf Urine Mucus Rare H (None) /hpf Disposition Clinical Impression: Thoracic myofascial strain Disposition: HOME SELF-CARE Condition: Good Instructions (If sedation given, give patient instructions): Thoracic Back Strain (ED) Prescriptions: Cyclobenzaprine [Flexeril] 5 mg PO BID #10 tablet Ibuprofen [Motrin] 400 mg PO Q8HR PRN #20 tab PRN Reason: Pain Is patient prescribed a controlled substance at d/c from ED?: No Referrals: Caron Orellana MD [Primary Care Provider] - 1-2 days
[2019-06-02 12:08] LABS: Albumin 3.8 g/dL (3.5-5.0); Calcium 9.8 mg/dL (8.4-10.2); Potassium 4.1 mmol/L (3.5-5.1); Total Bilirubin 0.8 mg/dL (0.2-1.3)
[2019-06-02 12:19] LABS: Appearance,Urine Clear (Clear); Bacteria,Urine Moderate /hpf; Bilirubin,Urine Negative (Negative); Blood,Urine Negative (Negative); Color,Urine Light Yellow; Glucose,Urine (UA) Negative (Negative); Ketones,Urine Negative (Negative); Leukocyte Esterase,Urine Small (Negative); Mucus,Urine Rare /hpf; Nitrite,Urine Negative (Negative); Protein,Urine Negative (Negative); RBC,Urine 1 /hpf (0-5); Specific Gravity,Urine 1.005 (1.001-1.035); Squamous Epithelial Cell,Urine 7 /hpf (0-4); Urobilinogen,Urine <2.0 mg/dL (<2.0); WBC,Urine 5 /hpf (0-5)
[2019-06-02 12:25] LABS: Basophils % (A) 1 %; Eosinophils # (A) 0.1 k/uL (0-0.7); Eosinophils % (A) 2 %; HCT 35.6 % (34.0-46.0); HGB 11.1 gm/dL (11.4-16.0); Hypochromasia Slight; Lymphocytes % (A) 18 %; MCH 27.7 pg (25.0-35.0); MCHC 31.1 g/dL (31.0-37.0); MCV 88.9 fL (80.0-100.0); Mean Platelet Volume 6.8; Monocytes # (A) 0.4 k/uL (0-1.0); Monocytes % (A) 8 %; Neutrophils # (A) 3.8 k/uL (1.3-7.7); Neutrophils % (A) 68 %; Platelet Count 284 k/uL (150-450); RBC 4.01 m/uL (3.80-5.40); RDW 15.9 % (11.5-15.5); WBC 5.6 k/uL (3.8-10.6)
--- NOTE | 2019-06-02 13:29 | CT ---
EXAMINATION TYPE: CT abdomen pelvis wo con DATE OF EXAM: 06/02/2019 COMPARISON: 09/02/2018 HISTORY: Right sided flank pain CT DLP: 724.2 mGycm Examination of the solid and hollow viscera is limited given the lack of contrast. FINDINGS: LUNG BASES: No evidence for infiltrate. Cardiomegaly with small effusions noted. Suspect pulmonary v enous congestion. Pulmonary nodule right lower lobe measures 8 mm. LIVER/GB: The gallbladder is unremarkable. No space-occupying hepatic lesion. PANCREAS: No pancreatic mass identified. No inflammatory process seen. SPLEEN: No evidence for splenomegaly. No intrasplenic lesions seen. ADRENALS: No adrenal nodules identified. No evidence for thickening. KIDNEYS: No evidence for renal mass. No nephrolithiasis. No hydronephrosis. Renal cystic changes note d. BOWEL: Appendix has a normal appearance. Sigmoid diverticulosis without diverticulitis. No evidence o f bowel obstruction. No inflammatory process. Lymph nodes: No evidence for adenopathy greater than 1 cm. Abdominal aorta: Atheromatous changes seen. No evidence for aneurysm. Genital organs: No significant abnormality. Other: Severe multilevel degenerative disc disease and endplate sclerosis. Posterior disc bulge. IMPRESSION: 1. No acute process to account for the patient's symptoms. See above.
[2019-06-02] MEDS ORDERED: ORPHENADRINE 30 MG/ML 2 ML VIAL IVP STA (13:46)
[2019-06-02 14:17] VITALS: BP 155/69; PULSE 53
== END 2019-06-02 14:19 | disposition home or self-care (01) ==
LOC: EC 10:41
DX: S29.012A Strain of muscle and tendon of back wall of thorax, initial encounter (principal); I48.91 Unspecified atrial fibrillation; I48.92 Unspecified atrial flutter; I12.9 Hypertensive chronic kidney disease with stage 1 through stage 4 chronic kidney disease, or unspecified chronic kidney disease; N18.3 Chronic kidney disease, stage 3 (moderate); E07.9 Disorder of thyroid, unspecified; Z79.890 Hormone replacement therapy; Z79.899 Other long term (current) drug therapy; Z91.040 Latex allergy status; Z91.048 Other nonmedicinal substance allergy status; Z88.1 Allergy status to other antibiotic agents; Z88.8 Allergy status to other drugs, medicaments and biological substances; Z95.5 Presence of coronary angioplasty implant and graft; Z85.828 Personal history of other malignant neoplasm of skin; Z85.841 Personal history of malignant neoplasm of brain; X58.XXXA Exposure to other specified factors, initial encounter
CPT/HCPCS: 36415; 80053; 82150; 83690; 85025; 81001; 74176; 99284; 96374; 96375; J2360; J1885

== ENCOUNTER → 2019-06-17 | Outpatient (CLI) | payer MEDICARE ==
--- NOTE | 2019-06-17 21:52 | CT ---
EXAMINATION TYPE: CT chest wo con DATE OF EXAM: 06/17/2019 COMPARISON: CT chest January 06, 2019 HISTORY: SOB CT DLP: 1661.1 mGycm. Automated Exposure Control for Dose Reduction was Utilized. TECHNIQUE: CT scan of the thorax is performed without IV contrast. High-resolution protocol with 1 m m cuts are obtained in 10 mm intervals in supine and prone position FINDINGS: LUNGS: Areas of mosaic attenuation bilaterally are redemonstrated. There is peripheral reticulation a nd fibrosis seen bilaterally more prominent in the bases near diaphragm but also more prominent in th e right lung versus left lung. No pleural effusion or pneumothorax is seen bilaterally. No suspicious masses. No significant bronchiectasis. Interval improvement in areas of focal consolidation from marcio or. Subtle nodularity or nodular consolidation in both bases is noted.. MEDIASTINUM: Lack of IV contrast is noted to limit evaluation for mediastinal and especially hilar ad enopathy. There are no definitive greater than 1 cm hilar or mediastinal lymph nodes. No significan t pericardial effusion is seen. Cardiomegaly is present. Moderate biatrial dilatation. Enlarged pulmo nary arteries redemonstrated, CT findings consistent with underlying pulmonary hypertension. OTHER: Subcentimeter lesion left hepatic lobe axial image 23 series 24. 2 small small to further guilherme acterize presumed benign. Cholecystectomy clips noted on localizer. IMPRESSION: Persistent mosaic attenuation bilaterally and diffusely with interval improvement in area s of multifocal consolidation. Reticulation and fibrosis more prominent in right lung and more promin ent and bases where there are areas of nodularity or nodular consolidation noted.
== END | disposition home or self-care (01) ==
LOC: RADCTMAIN 15:34
DX: J84.9 Interstitial pulmonary disease, unspecified (principal); Z88.1 Allergy status to other antibiotic agents; Z88.3 Allergy status to other anti-infective agents; Z88.8 Allergy status to other drugs, medicaments and biological substances
CPT/HCPCS: 71250

== ENCOUNTER → 2019-09-15 | Outpatient (CLI) | payer MEDICARE ==
--- NOTE | 2019-09-15 14:22 | NM ---
EXAMINATION TYPE: NM pul vent and perfuse DATE OF EXAM: 09/15/2019 COMPARISON: CT chest dated 06/17/2019 and chest x-ray of the same date HISTORY: Shortness of breath TECHNIQUE: Utilizing inhalation of 66.7 mCi Tc 99m DTPA aerosol and intravenous injection of 5 mCi o f Tc 99m MAA, ventilation and perfusion images are acquired post injection in multiple projections. FINDINGS: There is a reticulated pattern throughout the lungs in this patient with known underlying pulmonary f ibrosis. No ventilation/perfusion mismatch defects. Mild cardiomegaly seen. No central radiotracer cl umping. IMPRESSION: Low probability for pulmonary embolus. Reticular pattern throughout the lungs least of the patient's known fibrosis.
--- NOTE | 2019-09-15 14:38 | XR ---
EXAMINATION TYPE: XR chest 2V DATE OF EXAM: 09/15/2019 COMPARISON: 02/03/2019 HISTORY: Dyspnea TECHNIQUE: Frontal and lateral views of the chest are obtained. FINDINGS: Although there is improved aeration of the lungs in comparison the prior of 02/03/2019 vijay ins diffuse interstitial prominence in this patient with known component of fibrosis on prior x-rays. Right-sided surgical clips are seen within the chest soft tissues and right upper quadrant. Cardia m ediastinal silhouette is enlarged. There is diffuse osseous demineralization seen. No sizable pneumot horax or pleural effusion. No focal consolidation. IMPRESSION: Diffuse interstitial prominence partially relates to underlying fibrosis and could also relate to int erstitial edema. Given cardiomegaly superimposed congestive heart failure could be considered.
== END | disposition home or self-care (01) ==
LOC: RADNMMAIN 12:56
DX: J84.10 Pulmonary fibrosis, unspecified (principal); I51.7 Cardiomegaly
CPT/HCPCS: 71046; 78582; A9540; A9567

== ENCOUNTER → 2019-11-22 | Outpatient (CLI) | payer MEDICARE ==
[2019-11-22 19:29] LABS: African American GFR (CKD) 52.6 (60.0-200.0); Albumin 3.9 g/dL (3.80-4.90); Albumin/Globulin Ratio 1.77 (1.60-3.17); BUN/Creat Ratio 19.09 Ratio (12.00-20.00); Calcium 9.4 mg/dL (8.7-10.3); Globulin 2.2 g/dL (1.6-3.3); Non-African American GFR(CKD) 45.4 (60.0-200.0); Potassium 4.2 mmol/L (3.5-5.5); Total Bilirubin 0.6 mg/dL (0.2-1.2); Total Protein 6.1 g/dL (6.2-8.2)
== END | disposition home or self-care (01) ==
LOC: LABWHC1 12:12
PROVIDERS: ATTEND Internal Medicine Interventional Cardiology
DX: I27.20 Pulmonary hypertension, unspecified (principal)
CPT/HCPCS: 36415; 80053; 83880

== ENCOUNTER → 2019-12-07 | Outpatient (CLI) | payer MEDICARE ==
[2019-12-07 19:09] LABS: African American GFR (CKD) 52.6 (60.0-200.0); Anion Gap 10.7 mmol/L (4.00-12.00); BUN/Creat Ratio 19.09 Ratio (12.00-20.00); Calcium 9.5 mg/dL (8.7-10.3); Carbon Dioxide 28.3 mmol/L (21.6-31.8); Non-African American GFR(CKD) 45.4 (60.0-200.0); Potassium 3.5 mmol/L (3.5-5.5)
== END | disposition home or self-care (01) ==
LOC: LABWHC1 12:22
PROVIDERS: ATTEND Nurse Practitioner Adult Health
DX: N18.9 Chronic kidney disease, unspecified (principal); I27.20 Pulmonary hypertension, unspecified; E03.9 Hypothyroidism, unspecified
CPT/HCPCS: 36415; 80048; 83880; 84443

== ENCOUNTER → 2020-01-12 | Outpatient (CLI) | payer MEDICARE ==
--- NOTE | 2020-01-13 08:29 | MM ---
Reason for exam: additional evaluation requested from prior study. Last mammogram was performed 1 year ago. History: Patient is postmenopausal, has history of breast cancer at age 79, has history of colon cancer at age 48, and history of other cancer. Family history of breast cancer in 2 maternal cousins at age 30 and breast cancer in sister at age 79. Malignant US breast localization RT of the right breast, July 21, 2015. Malignant US biopsy breast VAD RT of the right breast, June 22, 2015. Lumpectomy of the right breast, 2014. Radiation therapy of the right breast, 2014. Took estrogen for 20 years beginning at age 48. Taking antineoplastic beginning at age 79. Physical Findings: Nurse did not find any significant physical abnormalities on exam. MG 3D Diag Mammo W/Cad SILVA Bilateral CC and MLO view(s) were taken. Prior study comparison: January 06, 2019, bilateral MG 3d diag mammo w/cad SILVA. January 05, 2018, bilateral MG 3d diag mammo w/cad SILVA. The breast tissue is heterogeneously dense. This may lower the sensitivity of mammography. There is a new 6mm spiculated mass in the upper outer quadrant 9cm from nipple with associated calcifications. Benign appearing bilateral calcifications in addition to suspicious calcifications on the right associated with the new mass. Right 6mm mass in the retroareolar right breast. Right post therapy change. These results were verbally communicated with the patient and result sheet given to the patient on 01/12/20. ASSESSMENT: Incomplete: need additional imaging evaluation, BI-RAD 0 RECOMMENDATION: Ultrasound of the right breast. (upper outer quadrant)
--- NOTE | 2020-01-13 08:46 | USB ---
Reason for exam: additional evaluation requested from abnormal screening. History: Patient is postmenopausal, has history of breast cancer at age 79, has history of colon cancer at age 48, and history of other cancer. Family history of breast cancer in 2 maternal cousins at age 30 and breast cancer in sister at age 79. Malignant US breast localization RT of the right breast, July 21, 2015. Malignant US biopsy breast VAD RT of the right breast, June 22, 2015. Lumpectomy of the right breast, 2014. Radiation therapy of the right breast, 2015. Took estrogen for 20 years beginning at age 48. Taking antineoplastic beginning at age 79. US Breast Limited RT Right limited breast ultrasound including focal area of concern, retroareolar and axilla demonstrates a 0.6 x 0.5 x 0.6cm irregular, mixed lesion at 10 o'clock, this may be from scar, dystrophic calcifications or the mammographic mass and a 0.7 x 0.5 x 0.6cm irregular, mixed, vascular lesion at 2 o'clock posterior nipple, biopsy recommended. No definite correlate to the right upper outer quadrant mass. Stereotactic biopsy recommended. These results were verbally communicated with the patient and result sheet given to the patient on 01/12/20. ASSESSMENT: Suspicious, BI-RAD 4 RECOMMENDATION: Ultrasound core biopsy of the right breast. (2 o'clock) Stereotactic core biopsy of the right breast. (upper outer quadrant) Called Dr. Yañez's office with mammographic findings. Patient has an upcoming appointment with Dr. Yañez and would like to discuss recommendation prior to setting up biopsy. PRELIMINARY REPORT CALLED AND FAXED TO DR. YAÑEZ ON 01/13/20.
== END | disposition home or self-care (01) ==
LOC: RADMAMWWP 13:42
PROVIDERS: ATTEND Internal Medicine Hematology & Oncology
DX: R92.8 Other abnormal and inconclusive findings on diagnostic imaging of breast (principal); Z85.3 Personal history of malignant neoplasm of breast
CPT/HCPCS: 77066; 76642; G0279; 77062

== ENCOUNTER → 2020-06-16 | Outpatient (CLI) | payer MEDICARE ==
--- NOTE | 2020-06-20 13:40 | MM ---
Reason for exam: follow-up at short interval from prior study. Last mammogram was performed 5 months ago. History: Patient is postmenopausal, has history of breast cancer at age 79, has history of colon cancer at age 48, and history of other cancer. Family history of breast cancer in 2 maternal cousins at age 30 and breast cancer in sister at age 79. Malignant US breast localization RT of the right breast, July 21, 2015. Malignant US biopsy breast VAD RT of the right breast, June 22, 2015. Lumpectomy of the right breast, 2014. Radiation therapy of the right breast, 2014. Took estrogen for 20 years beginning at age 48. Taking antineoplastic beginning at age 79. Physical Findings: Nurse did not find any significant physical abnormalities on exam. MG 3D Diag Mammo W/Cad RT CC and MLO view(s) were taken of the right breast. Prior study comparison: January 12, 2020, bilateral MG 3d diag mammo w/cad SILVA. January 06, 2019, bilateral MG 3d diag mammo w/cad SILVA. The breast tissue is heterogeneously dense. This may lower the sensitivity of mammography. Finding #1: There is a 7 mm equal density (isodense) mass in the upper outer quadrant of the right breast. Finding #2: There are intermediate concern, suspicious grouped/clustered calcifications in the right breast. There is a chronic nodularity in the right breast. Post operative changes stable. There is a 6mm retroareolar mass. These results were verbally communicated with the patient and result sheet given to the patient on 06/16/20. ASSESSMENT: Suspicious, BI-RAD 4 RECOMMENDATION: Stereotactic core biopsy of the right breast. (Biopsy both masses and calcifications) Called office with mammographic findings and has scheduled an appointment for the patient for 06/20/20 at 3:[address] Yañez. PRELIMINARY REPORT CALLED AND FAXED TO DR. YAÑEZ ON 06/20/20.
--- NOTE | 2020-06-20 13:43 | USB ---
Reason for exam: follow-up at short interval from prior study. History: Patient is postmenopausal, has history of breast cancer at age 79, has history of colon cancer at age 48, and history of other cancer. Family history of breast cancer in 2 maternal cousins at age 30 and breast cancer in sister at age 79. Malignant US breast localization RT of the right breast, July 21, 2015. Malignant US biopsy breast VAD RT of the right breast, June 22, 2015. Lumpectomy of the right breast, 2014. Radiation therapy of the right breast, 2014. Took estrogen for 20 years beginning at age 48. Taking antineoplastic beginning at age 79. US Breast RT Right complete breast ultrasound includes all four quadrants, the retroareolar region and axilla. Finding demonstrates a 0.7 x 0.6 x 0.9cm irregular, taller than wide, hypoechoic, vascular lesion at 2 o'clock, a 0.5 x 0.5 x 0.7cm clip area at 10 o'clock, a 0.7 x 0.5 x 0.2cm irregular, hypoechoic lesion, questionable fluid at 10 o'clock and a 0.3 x 0.3 x 0.3cm round, solid lesion at 11 o'clock. These results were verbally communicated with the patient and result sheet given to the patient on 06/16/20. ASSESSMENT: Suspicious, BI-RAD 4 RECOMMENDATION: Stereotactic core biopsy and ultrasound core biopsy of the right breast. (Biopsy both masses and calcifications) Called office with mammographic findings and has scheduled an appointment for the patient for 06/20/20 at 3:[address] Yañez. PRELIMINARY REPORT CALLED AND FAXED TO DR. YAÑEZ ON 06/20/20.
== END | disposition home or self-care (01) ==
LOC: RADMAMWWP 13:24
PROVIDERS: ATTEND Internal Medicine Hematology & Oncology
DX: R92.8 Other abnormal and inconclusive findings on diagnostic imaging of breast (principal)
CPT/HCPCS: 77065; 76641; G0279; 77061

== ENCOUNTER → 2020-07-24 | Day surgery (SDC) | payer MEDICARE ==
[2020-07-24 07:28] VITALS: RESP 18
[2020-07-24 11:00] VITALS: BP 133/70; PULSE 61; TEMP 97.9
--- NOTE | 2020-07-24 11:19 | USB ---
EXAMINATION TYPE: US biopsy breast VAD RT DATE OF EXAM: 07/24/2020 CLINICAL HISTORY: R92.8 ABNORMAL MAMMOGRAM. Abnormal ultrasound. History of right-sided breast cancer diagnosed 5 years ago. TECHNIQUE: Ultrasound guided core biopsy of right breast with clip placement. COMPARISON: Prior right breast ultrasound June 16, 2020 and older ultrasound January 12, 2020 FINDINGS: The procedure of ultrasound guided core biopsy was explained to the patient. Benefits, alternatives, and risks were discussed. An informed consent was then obtained. Case is reviewed. Due to patient's current medical condition, most suspicious lesion 2:00 position is targeted for sampling. The 10:00 lesion has prior biopsy clip thus is deferred. The possible smaller 3 mm lesion 11:00 level is deep in position, due to tiny size and the deep position this is also deferred. Patient has limited mobility, on blood thinners, and requires full-time oxygen or is oxygen dependent. Patient and daughter were agreeable to sampling most suspicious lesion. The patient was placed in supine positioning for imaging and for the procedure. Preprocedure ultrasound redemonstrates vascular hypoechoic more superficial 7 mm lesion poorly marginated lesion 2:00 position right breast. The overlying skin was prepped and draped in usual sterile fashion. Lidocaine is used as anesthetic into the skin and subcutaneous tissue up to area of concern in the right breast. Under ultrasound guidance, a 12-gauge vacuum assisted biopsy gun device was used to obtain 2 core samples. Following this, a biopsy clip was left in lesion. The patient tolerated the procedure well without any immediate complication. The patient was then taken to mammotome room for stereotactic guided core biopsy. This report will be dictated separately. IMPRESSION: Successful, uncomplicated ultrasound guided core biopsy of area of concern in the right breast, full pathology results to follow. Intermediate to high index of suspicion noted at time of procedure. Pathology Results: Benign A. RIGHT BREAST, STEREOTACTIC CORE BIOPSY: Scar with fat necrosis, inflammation and calcifications. Negative for malignancy. See note. B. RIGHT BREAST, ULTRASOUND GUIDED CORE BIOPSY: Scar with fat necrosis and inflammation, negative for malignancy. See note. Recommendation Follow up mammogram and ultrasound of the right breast in 6 months. NIKKID
--- NOTE | 2020-07-24 11:47 | MM ---
EXAMINATION TYPE: MG stereo VAD BX RT DATE OF EXAM: 07/24/2020 COMPARISON: Prior mammogram June 16, 2020 and older mammograms. CLINICAL HISTORY: Abnormal mammogram. History of right-sided breast cancer 2015. TECHNIQUE: Stereotactic guided core biopsy of right breast with clip placement and follow-up two-view mammogram.. FINDINGS: The procedure of stereotactic guided core biopsy was explained to the patient. Benefits, alternatives, and risks were discussed. An informed consent was then obtained. Case is reviewed prior to procedure. Patient has significant underlying comorbidities with limited mobility and poor hearing, patient is oxygen dependent. Case is reviewed. The 7 mm equal density isodense mass upper outer aspect right breast is most suspicious. Indeterminate calcifications in the right breast are felt to reflect dystrophic calcifications in retrospect and due to deeper location and patient underlying comorbidities, this area is deferred. Patient and daughter are agreeable to one site sampling. The safest pathway for biopsy was chosen. Safest pathway was lateral approach. I performed the localization, then performed the remainder of the procedure. A vacuum assisted biopsy gun was used to obtain multiple core samples. The patient tolerated the procedure well without any immediate complication. The patient was kept in the radiology department for short stay after the procedure and then discharged home in stable condition. Specimen mammogram deferred due to density not calcifications sampled. Post biopsy mammogram shows the clips to appear in satisfactory position relative to the targeted area of concern on the preprocedure images. Ultrasound biopsy clip also identified. Small to moderate amount surrounding hematoma of the more anterior lesion noted on mammogram. IMPRESSION: SUCCESSFUL, UNCOMPLICATED STEREOTACTIC GUIDED CORE BIOPSY OF AREA OF CONCERN IN THE RIGHT BREAST, FULL PATHOLOGY RESULTS TO FOLLOW. Intermediate index of suspicion for stereotactic guided core biopsy right breast lesion. Higher index of suspicion for ultrasound-guided core biopsy right breast lesion. Pathology Results: Benign A. RIGHT BREAST, STEREOTACTIC CORE BIOPSY: Scar with fat necrosis, inflammation and calcifications. Negative for malignancy. See note. B. RIGHT BREAST, ULTRASOUND GUIDED CORE BIOPSY: Scar with fat necrosis and inflammation, negative for malignancy. See note. Recommendation Follow up mammogram and ultrasound of the right breast in 6 months. MTDD
== END ==
LOC: RADMAMWWP 06:58
PROVIDERS: ATTEND Internal Medicine Hematology & Oncology
DX: N64.1 Fat necrosis of breast (principal); L90.5 Scar conditions and fibrosis of skin; R92.1 Mammographic calcification found on diagnostic imaging of breast; R92.8 Other abnormal and inconclusive findings on diagnostic imaging of breast; Z85.3 Personal history of malignant neoplasm of breast; Z88.1 Allergy status to other antibiotic agents; Z91.041 Radiographic dye allergy status; Z88.8 Allergy status to other drugs, medicaments and biological substances; Z91.048 Other nonmedicinal substance allergy status; Z91.09 Other allergy status, other than to drugs and biological substances
CPT/HCPCS: 88305; 88342; 88341; 19081; 19083; A4648 ×2; J2001

== ENCOUNTER → 2020-09-04 | Outpatient (CLI) | payer MEDICARE ==
[2020-09-05 03:22] LABS: African American GFR (CKD) 47.1 (60.0-200.0); Albumin 3.9 g/dL (3.80-4.90); Albumin/Globulin Ratio 1.63 (1.60-3.17); Anion Gap 8.4 mmol/L (4.00-12.00); BUN/Creat Ratio 17.5 Ratio (12.00-20.00); Calcium 9.4 mg/dL (8.7-10.3); Carbon Dioxide 27.6 mmol/L (21.6-31.8); Globulin 2.4 g/dL (1.6-3.3); Non-African American GFR(CKD) 40.6 (60.0-200.0); Potassium 4.3 mmol/L (3.5-5.5); Total Bilirubin 0.6 mg/dL (0.3-1.2); Total Protein 6.3 g/dL (6.2-8.2)
== END | disposition home or self-care (01) ==
LOC: LABWHC1 15:38
PROVIDERS: ATTEND Internal Medicine Interventional Cardiology
DX: I48.21 Permanent atrial fibrillation (principal)
CPT/HCPCS: 36415; 80053

== ENCOUNTER 2020-12-19 20:25 | Inpatient (IN) | payer MEDICARE ==
[2020-12-19] MEDS ORDERED: ACETAMINOPHEN TAB 500 MG TAB PO STA (20:57)
--- NOTE | 2020-12-19 21:07 | ED ---
General Adult HPI - General Source: patient, family Mode of arrival: EMS Limitations: no limitations <Jose Alfredo Bailon - Last Filed: 12/20/20 00:12> <Jero Wong - Last Filed: 12/20/20 09:09> - General Chief complaint: Shortness of Breath Stated complaint: SOB Time Seen by Provider: 12/19/20 20:33 - History of Present Illness Initial comments: 85-year-old female with a complicated past medical history including atrial fibrillation on anticoagulation, asthma, GERD, hyperlipidemia, hypertension, renal disease, pulmonary fibrosis, mitral valve prolapse presents to the emergency room for a chief complaint of shortness of breath. Patient has been short of breath since yesterday. Patient usually has 2 L of oxygen at home for her pulmonary fibrosis. She has been more short of breath since Yesterday her cough has worsened. Family is also concerned she could've a urinary tract infection as she Feels she is urinating more frequent lately than normal. Patient has no other complaints at this time including chest pain, abdominal pain, nausea or vomiting, headache, or visual changes. (Jose Alfredo Bailon) - Related Data Home Medications Medication Instructions Recorded Confirmed Ergocalciferol [Vitamin D2 50,000 unit PO [id number] 07/19/15 12/19/20 (DRISDOL)] Levothyroxine Sodium [Synthroid] 50 mcg PO DAILY 07/19/15 12/19/20 Ubidecarenone [Co Q-10] 100 mg PO DAILY 07/19/15 12/19/20 Magnesium Oxide [Mag-Ox] 400 mg PO BID 11/16/17 12/19/20 allopurinoL [Zyloprim] 100 mg PO DAILY 11/16/17 12/19/20 Metoprolol Tartrate [Lopressor] 50 mg PO BID 12/18/18 12/19/20 Cyanocobalamin [Vitamin B-12] 500 mcg PO DAILY 06/02/19 12/19/20 Potassium Chloride ER [K-Dur 10] 10 meq PO BID 06/02/19 12/19/20 Albuterol Sulfate [Ventolin HFA] 2 puff INHALATION RT-Q6H PRN 12/19/20 12/19/20 Amiodarone [Cordarone] 200 mg PO BID 12/19/20 12/19/20 Docusate Sodium [Dok] 100 mg PO DAILY PRN 12/19/20 12/19/20 Furosemide [Lasix] 20 mg PO DAILY 12/19/20 12/19/20 Furosemide [Lasix] 40 mg PO DAILY 12/19/20 12/19/20 Lactose-Reduced Food [Boost] 237 ml PO DAILY 12/19/20 12/19/20 Metoprolol Tartrate [Lopressor] 25 mg PO DAILY@1200 12/19/20 12/19/20 Vitamin C/Biotin [Hair, Skin and 3 tab PO DAILY 12/19/20 12/19/20 Nails] Previous Rx's Medication Instructions Recorded Acetaminophen Tab [Tylenol] 650 mg PO Q6HR PRN tab 01/24/18 Apixaban [Eliquis] 5 mg PO BID #180 tab 07/20/18 Allergies Allergy/AdvReac Type Severity Reaction Status Date / Time iodine Allergy Unknown VERY LOW Verified 12/19/20 20:45 BLOOD PRESSURE,SHORTNESS OF BREATH adhesive tape Allergy Rash/Hives Verified 12/19/20 20:45 clarithromycin Allergy Unknown Verified 12/19/20 20:45 Iodinated Contrast Media Allergy Anaphylaxis Verified 12/19/20 20:45 metaxalone [From Skelaxin] Allergy Anaphylaxis Verified 12/19/20 20:45 niacin Allergy Unknown Verified 12/19/20 20:45 [From Niaspan Extended-Release] pantoprazole Allergy ITCHING Verified 12/19/20 20:45 ,REDNESS OF SKIN Review of Systems ROS Other: All systems not noted in ROS Statement are negative. <Jose Alfredo Bailon - Last Filed: 12/20/20 00:12> ROS Other: All systems not noted in ROS Statement are negative. <Jero Wong - Last Filed: 12/20/20 09:09> ROS Statement: Those systems with pertinent positive or pertinent negative responses have been documented in the HPI. Past Medical History Past Medical History: Atrial Fibrillation, Atrial Flutter, Asthma, Cancer, GERD/Reflux, Hearing Disorder / Deafness, Hyperlipidemia, Hypertension, Musculoskeletal Disorder, Osteoarthritis (OA), Pneumonia, Renal Disease, Thyroid Disorder, Vascular Disorder Additional Past Medical History / Comment(s): pulmonary fibrosis, Mitral valve prolapse, "hole in my heart", exertional dyspnea, chronic renal disease stage III, carpal tunnel bilaterally, osteoporosis, chronic low back pain, spinal stenosis, scoliosis, gout, varicose veins, R breast cancer with surgery/radiation, skin cancer removals, cancerous colon polyp removal, diverticular dx, hiatal hernia, IBS, ulcerative colitis, History of Any Multi-Drug Resistant Organisms: None Reported Past Surgical History: Breast Surgery, Cardiac Ablation, Cholecystectomy, Heart Catheterization, Hysterectomy, Orthopedic Surgery Additional Past Surgical History / Comment(s): R breast lumpectomy x 2, R breast bx, skin cancer removals, total hysterectomy, open cholecystectomy, R arm spur removals 3 times, R shoulder rotator cuff repair, R foot 2nd toe surgery, pilonidal cystectomy, colonoscopy with cancerous polypectomy, bilateral cataract removal/lens implants and surgery for astigmatism. Past Anesthesia/Blood Transfusion Reactions: Postoperative Nausea & Vomiting (PONV) Additional Past Anesthesia/Blood Transfusion Reaction / Comment(s): DUE TO REFLUX /POST ANESTHESIA PNEUMONIA. Past Psychological History: No Psychological Hx Reported Smoking Status: Never smoker Past Alcohol Use History: None Reported Past Drug Use History: None Reported - Past Family History Father Additional Family Medical History / Comment(s): Father was an alcoholic and pt thinks he from complications of that. Mother Family Medical History: Pulmonary Embolus Additional Family Medical History / Comment(s): at 59 from PE Sister(s) Family Medical History: Cancer Additional Family Medical History / Comment(s): Breast Cancer <Jose Alfredo Bailon P - Last Filed: 12/20/20 00:12> General Exam Limitations: no limitations General appearance: alert, in no apparent distress Head exam: Present: atraumatic Eye exam: Present: normal appearance, PERRL, EOMI. Absent: scleral icterus, conjunctival injection ENT exam: Present: normal exam, mucous membranes moist Neck exam: Present: normal inspection, full ROM. Absent: tenderness Respiratory exam: Present: normal lung sounds bilaterally. Absent: respiratory distress, wheezes Cardiovascular Exam: Present: tachycardia, irregular rhythm, normal heart sounds GI/Abdominal exam: Present: soft, normal bowel sounds. Absent: distended, tenderness, guarding, rebound, rigid <Jose Alfredo Bailon P - Last Filed: 12/20/20 00:12> Course Vital Signs 12/19/20 12/19/20 12/20/20 20:42 23:10 00:15 Temperature 102.4 F H 99.0 F 98.9 F Pulse Rate 119 H 94 82 Respiratory 20 20 20 Rate Blood Pressure 134/84 115/64 82/47 O2 Sat by Pulse 96 97 97 Oximetry 12/20/20 12/20/20 12/20/20 00:25 00:40 00:45 Temperature Pulse Rate 134 H 135 H 73 Respiratory 20 20 20 Rate Blood Pressure 87/56 88/67 95/65 O2 Sat by Pulse 94 L 96 93 L Oximetry 12/20/20 12/20/20 12/20/20 01:18 01:51 05:00 Temperature Pulse Rate 70 68 68 Respiratory 15 18 Rate Blood Pressure 107/58 111/76 O2 Sat by Pulse 97 97 Oximetry EKG Findings - EKG Comments: EKG Findings:: A flutter, ventricular rate 113, QRS 86, QTC 477 <Jose Alfredo Bailon - Last Filed: 12/20/20 00:12> Medical Decision Making - Lab Data Result diagrams: 12/19/20 21:38 12/19/20 21:38 <Jose Alfredo Bailon - Last Filed: 12/20/20 00:12> - Lab Data Result diagrams: 12/19/20 21:38 12/19/20 21:38 <Jero Wong - Last Filed: 12/20/20 09:09> - Medical Decision Making She presents with a fever of 102.4. This did improve with Tylenol. Heart rate of 119 initially which could be. If fever. Patient is noted to be in a flutter. Patient is anticoagulated for this. Patient is requiring increased o mental oxygen at 4 L. Daughter states she was very short of breath at home which concerned her. CBC does show slight leukocytosis. CMP relatively only remarkable, chronic kidney disease noted. BNP is elevated at 5600 chest x-ray did reveal CHF with possible superimposed infiltrates. Given patient's increased cough, fever, and shortness of breath she will be treated for pneumonia. She will also be given a dose of Lasix. I discussed this case with Dr. Pimentel who accepts the admission. (Jose Alfredo Bailon) I saw this patient in conjunction with the physician drafter assistant. I performed independent history and physical exam. Agree with case management. (Jero Wong) - Lab Data Lab Results 12/19/20 12/19/20 12/19/20 Range/Units 21:38 21:38 21:38 WBC 11.7 H (3.8-10.6) k/uL RBC 4.31 (3.80-5.40) m/uL Hgb 11.6 (11.4-16.0) gm/dL Hct 36.3 (34.0-46.0) % MCV 84.3 (80.0-100.0) fL MCH 26.9 (25.0-35.0) pg MCHC 31.9 (31.0-37.0) g/dL RDW 16.2 H (11.5-15.5) % Plt Count 249 (150-450) k/uL MPV 6.9 Neutrophils % 86 % Lymphocytes % 4 % Monocytes % 6 % Eosinophils % 2 % Basophils % 1 % Neutrophils # 10.0 H (1.3-7.7) k/uL Lymphocytes # 0.5 L (1.0-4.8) k/uL Monocytes # 0.7 (0-1.0) k/uL Eosinophils # 0.3 (0-0.7) k/uL Basophils # 0.1 (0-0.2) k/uL Hypochromasia Slight Anisocytosis Slight PT 11.9 (9.0-12.0) sec INR 1.1 (<1.2) APTT 24.7 (22.0-30.0) sec Sodium 131 L (137-145) mmol/L Potassium 4.2 (3.5-5.1) mmol/L Chloride 97 L (98-107) mmol/L Carbon Dioxide 25 (22-30) mmol/L Anion Gap 9 mmol/L BUN 24 H (7-17) mg/dL Creatinine 1.11 H (0.52-1.04) mg/dL Est GFR (CKD-EPI)AfAm 52 (>60 ml/min/1.73 sqM) Est GFR (CKD-EPI)NonAf 45 (>60 ml/min/1.73 sqM) Glucose 120 H (74-99) mg/dL Plasma Lactic Acid Harry (0.7-2.0) mmol/L Calcium 9.2 (8.4-10.2) mg/dL Total Bilirubin 1.3 (0.2-1.3) mg/dL AST 25 (14-36) U/L ALT 14 (4-34) U/L Alkaline Phosphatase 149 H (38-126) U/L Troponin I (0.000-0.034) ng/mL NT-Pro-B Natriuret Pep pg/mL Total Protein 6.9 (6.3-8.2) g/dL Albumin 3.8 (3.5-5.0) g/dL Urine Color Urine Appearance (Clear) Urine pH (5.0-8.0) Ur Specific [place] (1.001-1.035) Urine Protein (Negative) Urine Glucose (UA) (Negative) Urine Ketones (Negative) Urine Blood (Negative) Urine Nitrite (Negative) Urine Bilirubin (Negative) Urine Urobilinogen (<2.0) mg/dL Ur Leukocyte Esterase (Negative) Urine RBC (0-5) /hpf Urine WBC (0-5) /hpf Ur Squamous Epith Cells (0-4) /hpf Urine Bacteria (None) /hpf Hyaline Casts (0-2) /lpf Urine Mucus (None) /hpf Coronavirus (PCR) (Not Detectd) 12/19/20 12/19/20 12/19/20 Range/Units 21:38 21:38 21:38 WBC (3.8-10.6) k/uL RBC (3.80-5.40) m/uL Hgb (11.4-16.0) gm/dL Hct (34.0-46.0) % MCV (80.0-100.0) fL MCH (25.0-35.0) pg MCHC (31.0-37.0) g/dL RDW (11.5-15.5) % Plt Count (150-450) k/uL MPV Neutrophils % % Lymphocytes % % Monocytes % % Eosinophils % % Basophils % % Neutrophils # (1.3-7.7) k/uL Lymphocytes # (1.0-4.8) k/uL Monocytes # (0-1.0) k/uL Eosinophils # (0-0.7) k/uL Basophils # (0-0.2) k/uL Hypochromasia Anisocytosis PT (9.0-12.0) sec INR (<1.2) APTT (22.0-30.0) sec Sodium (137-145) mmol/L Potassium (3.5-5.1) mmol/L Chloride (98-107) mmol/L Carbon Dioxide (22-30) mmol/L Anion Gap mmol/L BUN (7-17) mg/dL Creatinine (0.52-1.04) mg/dL Est GFR (CKD-EPI)AfAm (>60 ml/min/1.73 sqM) Est GFR (CKD-EPI)NonAf (>60 ml/min/1.73 sqM) Glucose (74-99) mg/dL Plasma Lactic Acid Harry 1.3 (0.7-2.0) mmol/L Calcium (8.4-10.2) mg/dL Total Bilirubin (0.2-1.3) mg/dL AST (14-36) U/L ALT (4-34) U/L Alkaline Phosphatase (38-126) U/L Troponin I <0.012 (0.000-0.034) ng/mL NT-Pro-B Natriuret Pep 5630 pg/mL Total Protein (6.3-8.2) g/dL Albumin (3.5-5.0) g/dL Urine Color Urine Appearance (Clear) Urine pH (5.0-8.0) Ur Specific [place] (1.001-1.035) Urine Protein (Negative) Urine Glucose (UA) (Negative) Urine Ketones (Negative) Urine Blood (Negative) Urine Nitrite (Negative) Urine Bilirubin (Negative) Urine Urobilinogen (<2.0) mg/dL Ur Leukocyte Esterase (Negative) Urine RBC (0-5) /hpf Urine WBC (0-5) /hpf Ur Squamous Epith Cells (0-4) /hpf Urine Bacteria (None) /hpf Hyaline Casts (0-2) /lpf Urine Mucus (None) /hpf Coronavirus (PCR) (Not Detectd) 12/19/20 12/19/20 Range/Units 21:44 22:53 WBC (3.8-10.6) k/uL RBC (3.80-5.40) m/uL Hgb (11.4-16.0) gm/dL Hct (34.0-46.0) % MCV (80.0-100.0) fL MCH (25.0-35.0) pg MCHC (31.0-37.0) g/dL RDW (11.5-15.5) % Plt Count (150-450) k/uL MPV Neutrophils % % Lymphocytes % % Monocytes % % Eosinophils % % Basophils % % Neutrophils # (1.3-7.7) k/uL Lymphocytes # (1.0-4.8) k/uL Monocytes # (0-1.0) k/uL Eosinophils # (0-0.7) k/uL Basophils # (0-0.2) k/uL Hypochromasia Anisocytosis PT (9.0-12.0) sec INR (<1.2) APTT (22.0-30.0) sec Sodium (137-145) mmol/L Potassium (3.5-5.1) mmol/L Chloride (98-107) mmol/L Carbon Dioxide (22-30) mmol/L Anion Gap mmol/L BUN (7-17) mg/dL Creatinine (0.52-1.04) mg/dL Est GFR (CKD-EPI)AfAm (>60 ml/min/1.73 sqM) Est GFR (CKD-EPI)NonAf (>60 ml/min/1.73 sqM) Glucose (74-99) mg/dL Plasma Lactic Acid Harry (0.7-2.0) mmol/L Calcium (8.4-10.2) mg/dL Total Bilirubin (0.2-1.3) mg/dL AST (14-36) U/L ALT (4-34) U/L Alkaline Phosphatase (38-126) U/L Troponin I (0.000-0.034) ng/mL NT-Pro-B Natriuret Pep pg/mL Total Protein (6.3-8.2) g/dL Albumin (3.5-5.0) g/dL Urine Color Yellow Urine Appearance Clear (Clear) Urine pH 6.5 (5.0-8.0) Ur Specific [place] 1.010 (1.001-1.035) Urine Protein Negative (Negative) Urine Glucose (UA) Negative (Negative) Urine Ketones Negative (Negative) Urine Blood Small H (Negative) Urine Nitrite Negative (Negative) Urine Bilirubin Negative (Negative) Urine Urobilinogen <2.0 (<2.0) mg/dL Ur Leukocyte Esterase Negative (Negative) Urine RBC 10 H (0-5) /hpf Urine WBC 1 (0-5) /hpf Ur Squamous Epith Cells 3 (0-4) /hpf Urine Bacteria Many H (None) /hpf Hyaline Casts 3 H (0-2) /lpf Urine Mucus Rare H (None) /hpf Coronavirus (PCR) Not Detected (Not Detectd) Disposition Is patient prescribed a controlled substance at d/c from ED?: No Time of Disposition: 00:13 <Jose Alfredo Bailon - Last Filed: 12/20/20 00:12> <Jero Wong - Last Filed: 12/20/20 09:09> Clinical Impression: Shortness of breath, Pneumonia, CHF (congestive heart failure) Disposition: ADMITTED IP TO THIS HOSP
--- NOTE | 2020-12-19 21:21 | XR ---
EXAMINATION TYPE: XR chest 2V DATE OF EXAM: 12/19/2020 COMPARISON: NONE HISTORY: Shortness of breath. TECHNIQUE: Frontal and lateral views of the chest are obtained. FINDINGS: There is moderate interstitial edema with superimposed hazy and streaky opacities. No pleu ral effusion, or pneumothorax seen. The cardiac silhouette size is enlarged. The osseous structure s are intact. IMPRESSION: CHF with superimposed infiltrates not excluded.
[2020-12-19 22:04] LABS: Anisocytosis Slight; Basophils # (A) 0.1 k/uL (0-0.2); Basophils % (A) 1 %; Eosinophils # (A) 0.3 k/uL (0-0.7); Eosinophils % (A) 2 %; HCT 36.3 % (34.0-46.0); HGB 11.6 gm/dL (11.4-16.0); Hypochromasia Slight; Lymphocytes # (A) 0.5 k/uL (1.0-4.8); Lymphocytes % (A) 4 %; MCH 26.9 pg (25.0-35.0); MCHC 31.9 g/dL (31.0-37.0); MCV 84.3 fL (80.0-100.0); Mean Platelet Volume 6.9; Monocytes # (A) 0.7 k/uL (0-1.0); Monocytes % (A) 6 %; Neutrophils % (A) 86 %; Platelet Count 249 k/uL (150-450); RBC 4.31 m/uL (3.80-5.40); RDW 16.2 % (11.5-15.5); WBC 11.7 k/uL (3.8-10.6)
[2020-12-19 22:12] LABS: INR 1.1 (<1.2); Partial Thromboplastin Time 24.7 sec (22.0-30.0); Prothrombin Time 11.9 sec (9.0-12.0)
[2020-12-19 22:16] LABS: Albumin 3.8 g/dL (3.5-5.0); Calcium 9.2 mg/dL (8.4-10.2); Potassium 4.2 mmol/L (3.5-5.1); Total Bilirubin 1.3 mg/dL (0.2-1.3); Total Protein 6.9 g/dL (6.3-8.2)
[2020-12-19 23:04] LABS: Appearance,Urine Clear (Clear); Bacteria,Urine Many /hpf; Bilirubin,Urine Negative (Negative); Blood,Urine Small (Negative); Color,Urine Yellow; Glucose,Urine (UA) Negative (Negative); Hyaline Casts,Urine 3 /lpf (0-2); Ketones,Urine Negative (Negative); Leukocyte Esterase,Urine Negative (Negative); Mucus,Urine Rare /hpf; Nitrite,Urine Negative (Negative); PH, Urine 6.5 (5.0-8.0); Protein,Urine Negative (Negative); RBC,Urine 10 /hpf (0-5); Squamous Epithelial Cell,Urine 3 /hpf (0-4); Urobilinogen,Urine <2.0 mg/dL (<2.0); WBC,Urine 1 /hpf (0-5)
[2020-12-19] MEDS ORDERED: AZITHROMYCIN 500 MG in SODIUM CHLORIDE 0.9% 250 ML IVPB STA (23:11)
[2020-12-19] MEDS ORDERED: cefTRIAXone IN SWFI 1,000 MG/10 ML SYRINGE IVP STA (23:11)
[2020-12-20] MEDS ORDERED: PNEUMONIA PROTOCOL UTILIZED 1 EACH MISC PO PRN (00:03)
[2020-12-20] MEDS ORDERED: FUROSEMIDE 10 MG/ML 4 ML VIAL IV STA (00:05)
[2020-12-20] MEDS ORDERED: METOPROLOL TARTRATE 5 MG/5 ML VIAL IVP STA (00:29)
[2020-12-20] MEDS ORDERED: AMIODARONE 200 MG TAB PO STA (00:30)
[2020-12-20] MEDS ORDERED: DOCUSATE 100 MG CAP PO PRN (01:21)
[2020-12-20] MEDS ORDERED: ACETAMINOPHEN TAB 325 MG TAB PO PRN (01:21)
[2020-12-20] MEDS ORDERED: BENZONATATE 100 MG CAP PO PRN (02:58)
--- NOTE | 2020-12-20 03:10 | P.HPIM ---
History of Present Illness H&P Date: 12/19/20 Chief Complaint: Shortness of breath 85-year-old female with mitral valve prolapse, A. fib on anticoagulation, pulmonary fibrosis and asthma, hypertension Patient comes in with progressive shortness of breath of 1-2 days' duration she is unable to get comfortable today she notes that her oxygen sat is dropping requiring 4 L she is normally on 2 L nasal cannula. She is also describing some coughing productive of yellowish phlegm no hemoptysis denies any chest pain. She denies any fevers but reports occasional chills. She hasn't been around any sick once. No recent traveling or hospitalization. However she was mainly concerned regarding her palpitations and A. fib she said over the past 3 months since Thanksgiving she is unable to do anything around the house if she walks a few steps her heart will start pounding she's been following up with cardiology and they've been adjusting her medications however she feels that this poorly controlled she got a second opinion from [facility] was suggested that she gets a pacemaker with ablation. Family was concerned regarding UTI due to decreased urine output however her urine analysis in the ED was unremarkable patient is reporting some decrease in urinary stream but denies any dysuria or abdominal pain she does report some itching over the right side of the belly the back and bilateral buttocks she was concerned regarding shingles as she had that before. Otherwise she denies any nausea or vomiting denies any abdominal pain denies any diarrhea In the ED she was found to be in atrial flutter with rapid ventricular response chest x-ray showed bilateral infiltrates and possible CHF exacerbation elevated BNP, increased oxygen requirements. Review of Systems Pertinent positives as noted in HPI. All other systems were reviewed and are negative Past Medical History Past Medical History: Atrial Fibrillation, Atrial Flutter, Asthma, Cancer, GERD/Reflux, Hearing Disorder / Deafness, Hyperlipidemia, Hypertension, Musculoskeletal Disorder, Osteoarthritis (OA), Pneumonia, Renal Disease, Thyroid Disorder, Vascular Disorder Additional Past Medical History / Comment(s): pulmonary fibrosis, Mitral valve prolapse, "hole in my heart", exertional dyspnea, chronic renal disease stage III, carpal tunnel bilaterally, osteoporosis, chronic low back pain, spinal stenosis, scoliosis, gout, varicose veins, R breast cancer with surgery/radiation, skin cancer removals, cancerous colon polyp removal, diverticular dx, hiatal hernia, IBS, ulcerative colitis, History of Any Multi-Drug Resistant Organisms: None Reported Past Surgical History: Breast Surgery, Cardiac Ablation, Cholecystectomy, Heart Catheterization, Hysterectomy, Orthopedic Surgery Additional Past Surgical History / Comment(s): R breast lumpectomy x 2, R breast bx, skin cancer removals, total hysterectomy, open cholecystectomy, R arm spur removals 3 times, R shoulder rotator cuff repair, R foot 2nd toe surgery, pilonidal cystectomy, colonoscopy with cancerous polypectomy, bilateral cataract removal/lens implants and surgery for astigmatism. Past Anesthesia/Blood Transfusion Reactions: Postoperative Nausea & Vomiting (PONV) Additional Past Anesthesia/Blood Transfusion Reaction / Comment(s): DUE TO REFLUX /POST ANESTHESIA PNEUMONIA. Past Psychological History: No Psychological Hx Reported Smoking Status: Never smoker Past Alcohol Use History: None Reported Past Drug Use History: None Reported - Past Family History Father Additional Family Medical History / Comment(s): Father was an alcoholic and pt thinks he from complications of that. Mother Family Medical History: Pulmonary Embolus Additional Family Medical History / Comment(s): at 59 from PE Sister(s) Family Medical History: Cancer Additional Family Medical History / Comment(s): Breast Cancer Medications and Allergies Home Medications Medication Instructions Recorded Confirmed Type Ergocalciferol [Vitamin D2 50,000 unit PO [id number] 07/19/15 12/19/20 History (DRISDOL)] Levothyroxine Sodium [Synthroid] 50 mcg PO DAILY 07/19/15 12/19/20 History Ubidecarenone [Co Q-10] 100 mg PO DAILY 07/19/15 12/19/20 History Magnesium Oxide [Mag-Ox] 400 mg PO BID 11/16/17 12/19/20 History allopurinoL [Zyloprim] 100 mg PO DAILY 11/16/17 12/19/20 History Acetaminophen Tab [Tylenol] 650 mg PO Q6HR PRN tab 01/24/18 12/19/20 Rx Apixaban [Eliquis] 5 mg PO BID #180 tab 07/20/18 12/19/20 Rx Metoprolol Tartrate [Lopressor] 50 mg PO BID 12/18/18 12/19/20 History Cyanocobalamin [Vitamin B-12] 500 mcg PO DAILY 06/02/19 12/19/20 History Potassium Chloride ER [K-Dur 10] 10 meq PO BID 06/02/19 12/19/20 History Albuterol Sulfate [Ventolin HFA] 2 puff INHALATION RT-Q6H PRN 12/19/20 12/19/20 History Amiodarone [Cordarone] 200 mg PO BID 12/19/20 12/19/20 History Docusate Sodium [Dok] 100 mg PO DAILY PRN 12/19/20 12/19/20 History Furosemide [Lasix] 20 mg PO DAILY 12/19/20 12/19/20 History Furosemide [Lasix] 40 mg PO DAILY 12/19/20 12/19/20 History Lactose-Reduced Food [Boost] 237 ml PO DAILY 12/19/20 12/19/20 History Metoprolol Tartrate [Lopressor] 25 mg PO DAILY@1200 12/19/20 12/19/20 History Vitamin C/Biotin [Hair, Skin and 3 tab PO DAILY 12/19/20 12/19/20 History Nails] Allergies Allergy/AdvReac Type Severity Reaction Status Date / Time iodine Allergy Unknown VERY LOW Verified 12/19/20 20:45 BLOOD PRESSURE,SHORTNESS OF BREATH adhesive tape Allergy Rash/Hives Verified 12/19/20 20:45 clarithromycin Allergy Unknown Verified 12/19/20 20:45 Iodinated Contrast Media Allergy Anaphylaxis Verified 12/19/20 20:45 metaxalone [From Skelaxin] Allergy Anaphylaxis Verified 12/19/20 20:45 niacin Allergy Unknown Verified 12/19/20 20:45 [From Niaspan Extended-Release] pantoprazole Allergy ITCHING Verified 12/19/20 20:45 ,REDNESS OF SKIN Physical Exam Vitals: Vital Signs Temp Pulse Resp BP Pulse Ox 12/19/20 23:10 99.0 F 94 20 115/64 97 12/19/20 20:42 102.4 F H 119 H 20 134/84 96 Intake and Output 12/19/20 12/19/20 12/20/20 14:59 22:59 06:59 Other: Weight 78.018 kg Constitutional: No acute distress, conversant, pleasant Eyes: Anicteric sclerae, moist conjunctiva, Pupils equal round reactive to light ENMT: NC/AT Oropharynx clear, no erythema, or exudates Neck: Supple, FROM, no masses, or JVD No carotid bruits No thyromegaly Lungs: Good breath sounds throughout with decreased breath sounds at left lung base with positive rales Clear to percussion Normal respiratory effort, no accessory muscle use Cardiovascular: Heart regular in rate and rhythm No murmurs, gallops, or rubs No peripheral edema Abdominal: Soft Nontender, no guarding, rebound or rigidity Abdomen moving with respiration Normoactive bowel sounds No hepatomegaly, No splenomegaly No palpable mass No abdominal wall hernia noted Skin: There is couple areas of skin breakdown superficial with slight surrounding erythema no induration no tenderness to palpation around the right flank area. Otherwise Normal temperature, tone, texture, turgor No induration No subcutaneous nodules No ulcers Extremities: No digital cyanosis No clubbing Pedal pulses intact and symmetrical Radial pulses intact and symmetrical No calf tenderness Psychiatric: Alert and oriented to person, place and time Appropriate affect fair judgement Neuro Muscles Strength 4/5 in all 4 extremities Sensation to light touch grossly present throughout Cranial nerves II-XII grossly intact and patient hard of hearing No focal sensory deficits Lymphatics: no palpable cervical or supraclavicular , or inguinal lymph nodes Results CBC & Chem 7: 12/19/20 21:38 12/19/20 21:38 Labs: Abnormal Lab Results - Last 24 Hours (Table) 12/19/20 12/19/20 12/19/20 Range/Units 21:38 21:38 22:53 WBC 11.7 H (3.8-10.6) k/uL RDW 16.2 H (11.5-15.5) % Neutrophils # 10.0 H (1.3-7.7) k/uL Lymphocytes # 0.5 L (1.0-4.8) k/uL Sodium 131 L (137-145) mmol/L Chloride 97 L (98-107) mmol/L BUN 24 H (7-17) mg/dL Creatinine 1.11 H (0.52-1.04) mg/dL Glucose 120 H (74-99) mg/dL Alkaline Phosphatase 149 H (38-126) U/L Urine Blood Small H (Negative) Urine RBC 10 H (0-5) /hpf Urine Bacteria Many H (None) /hpf Hyaline Casts 3 H (0-2) /lpf Urine Mucus Rare H (None) /hpf Assessment and Plan Assessment: Acute on chronic hypoxic respiratory failure altered factorial secondary to below Sepsis (fever, leukocytosis, tachycardia ) Community-acquired pneumonia Pulmonary vascular congestion rule out CHF A flat or durable AV block Hyponatremia Patient was started on empiric antibiotics Follow-up cultures Gentle diuresis with IV Lasix 20 mg twice a day Resume amiodarone and metoprolol Patient heartrate is bouncing around 80s and 110 Symptomatic control of coughing Breathing treatments as needed Follow-up sodium and renal function after diuresis Supplemental oxygen as needed Tessalon Perles for coughing Covid testing negative Cardiology consult Check echocardiogram with left ventricular ejection fraction Chronic conditions History of asthma and pulmonary fibrosis Mitral valve prolapse Hypothyroid GERD Hyperlipidemia Resume home medications CODE STATUS: Full code DVT prophylaxis: On Eliquis for A. fib Discussed with: Patient, ER, RN Anticipated length of stay more than [address]: Home A total of 75 minutes was spent on the care of this complex patient more than 50% of the time was spent in counseling and care coordination.
--- NOTE | 2020-12-20 03:17 | P.HPADDEND ---
H&P Addendum H&P Addendum Date: 12/19/20 Advanced Care Planning Active diagnoses: Sepsis, community-acquired pneumonia A flutter with variable AV block Possible CHF Background: The patient was admitted for treatment of sepsis secondary to pneumonia. n Discussion: Person(s) present and participating in discussion: The patient, and myself Summary: Patient is hoping that she goes to her baseline status of health before last Thanksgiving about 3 months ago since then she developed this a flutter where she always gets palpitations if she walks a few steps, she is hoping that she gets a better quality of life for what is left for her she would not like to live like this where she is very limited due to palpitations and shortness of breath. She is hoping that she would get cardiology evaluation and she is willing to get the pacemaker and that means she gets a better quality of life. She is willing to pursue all medical measures that would improve her quality of life. In the meanwhile if she would to sustain a cardiopulmonary arrest she would like to have CPR and resuscitation and everything medically possible to be done unless we think that she would have very poor outcomes and quality of life in that case she wouldn't like to pursue any life-prolonging measures if it's thought that outcomes would be poor but for the short interim she would like to pursue full medical measures and to be a full code for now. She is hoping to feel better after this hospital stay and be able to go home Time spent: Total time spent face to face in education and discussion directly related to advanced care plannin minutes
[2020-12-20] MEDS ORDERED: FUROSEMIDE 10 MG/ML 2 ML VIAL IV SCH (09:00)
[2020-12-20] MEDS ORDERED: APIXABAN 5 MG TAB PO SCH (09:00)
[2020-12-20] MEDS: METOPROLOL TARTRATE 50 MG TAB PO SCH ×2 (09:38→20:26)
[2020-12-20] MEDS: LEVOTHYROXINE 50 MCG TAB PO SCH (09:38)
[2020-12-20] MEDS: AMIODARONE 200 MG TAB PO SCH ×2 (09:38→20:26)
--- NOTE | 2020-12-20 10:39 | ECHOF ---
Referral Reason:LVEF MEASUREMENTS -------- HEIGHT: 157.5 cm WEIGHT: 78.0 kg BP: 111/76 RVIDd: 2.7 cm (< 3.3) IVSd: 1.1 cm (0.6 - 1.1) LVIDd: 4.3 cm (3.9 - 5.3) LVPWd: 1.2 cm (0.6 - 1.1) IVSs: 2.0 cm LVIDs: 2.6 cm LVPWs: 1.8 cm LAESV Index (A-L): 43.52 ml/m Ao Diam: 2.8 cm (2.0 - 3.7) AV Cusp: 2.2 cm (1.5 - 2.6) LA Diam: 4.3 cm (2.7 - 3.8) MV EXCURSION: 17.007 mm (> 18.000) MV EF SLOPE: 112 mm/s (70 - 150) EPSS: 0.4 cm AR PHT: 423 ms RAP: 15.00 mmHg RVSP: 72.48 mmHg FINDINGS -------- Atrial fibrillation. This was a technically adequate study. The left ventricular size is normal. There is mild concentric left ventricular hypertrophy. Overa ll left ventricular systolic function is low-normal with, an EF between 50 - 55 %. Left ventricular fillimg pressure cannot be estimated due to Atrial fibrillation. The right ventricle is normal in size. The right ventricular systolic function is mildly impaired. LA is severely dilated >40 ml/m2 The right atrial size is normal. Aneurysmal Interatrial septum. There is mild aortic valve sclerosis. There is qofm-ul-yixaptmt aortic regurgitation. The mitral valve leaflets are mildly thickened. Moderate mitral regurgitation is present. The tricuspid valve appears structurally normal. Severe tricuspid regurgitation present. There is severe pulmonary hypertension. The right ventricular systolic pressure, as measured by Doppler, is 72.48mmHg. Trace/mild (physiologic) pulmonic regurgitation. The aortic root size is normal. The inferior vena cava is mildly dilated. There is a trivial pericardial effusion present. CONCLUSIONS -------- 1. Atrial fibrillation. 2. There is mild concentric left ventricular hypertrophy. 3. Overall left ventricular systolic function is low-normal with, an EF between 50 - 55 %. 4. LA is severely dilated >40 ml/m2 5. Aneurysmal Interatrial septum. 6. There is mild aortic valve sclerosis. 7. There is rafq-et-msgvrtsx aortic regurgitation. 8. The mitral valve leaflets are mildly thickened. 9. Moderate mitral regurgitation is present. 10. Severe tricuspid regurgitation present. 11. There is severe pulmonary hypertension. 12. Trace/mild (physiologic) pulmonic regurgitation. 13. The inferior vena cava is mildly dilated. 14. There is a trivial pericardial effusion present. QUALITATIVE FIELD PROJECT MANAGER: Swapna Velasquez RDCS
[2020-12-20 11:01] LABS: Basophils # (A) 0.06 X 10*3/uL (0.00-0.10); Basophils % (A) 0.7 %; Eosinophils # (A) 0.38 X 10*3/uL (0.04-0.35); Eosinophils % (A) 4.1 %; HGB 10.1 g/dL (12.0-15.0); Lymphocytes # (A) 1.15 X 10*3/uL (0.90-5.00); Lymphocytes % (A) 12.5 %; MCH 26.1 pg (27.0-32.0); MCHC 30.6 g/dL (32.0-37.0); MCV 85.3 fL (80.0-97.0); Mean Platelet Volume 9.5 fL (9.5-12.2); Monocytes % (A) 9.8 %; Neutrophils # (A) 6.72 X 10*3/uL (1.80-7.70); Neutrophils % (A) 72.7 %; Platelet Count 237 X 10*3/uL (140-440); RBC 3.87 X 10*6/uL (4.10-5.20); RDW 16.2 % (11.5-14.5); WBC 9.23 X 10*3/uL (4.50-10.00)
[2020-12-20] MEDS: SPIRONOLACTONE 25 MG TAB PO SCH (12:22)
[2020-12-20] MEDS: METOPROLOL TARTRATE 25 MG TAB PO SCH (12:22)
--- NOTE | 2020-12-20 12:46 | P.PN ---
Subjective Progress Note Date: 12/20/20 Breathing is improving, but not back to normal. HRs are better controlled. Cardiology consult pending. Objective - Vital Signs Vital signs: Vital Signs Temp 97.8 F 12/20/20 07:00 Pulse 71 12/20/20 07:00 Resp 16 12/20/20 07:00 BP 113/70 12/20/20 09:30 Pulse Ox 92 L 12/20/20 07:00 Intake & Output 12/19/20 12/20/20 12/20/20 18:59 06:59 18:59 Weight 78.018 kg 78.018 kg - Exam Gen: awake, alert HEENT: normocephalic, atraumatic, good hearing acuity, moist mucous membranes Resp: good air exchange, breathing comfortably with no accessory muscle use, clear to auscultation bilaterally without Velcro rales or wheezes CVS: good distal perfusion x 4, regular rate, irregular rhythm GI: soft, NTTP, ND : no SPT, no CVAT, thorpe catheter not present MSK: no pitting edema, no clubbing Neuro: non-focal, moving all extremities Psych: cooperative, euthymic mood - Labs CBC & Chem 7: 12/20/20 07:17 12/19/20 21:38 Labs: Abnormal Lab Results - Last 24 Hours (Table) 12/19/20 12/19/20 12/19/20 Range/Units 21:38 21:38 22:53 WBC 11.7 H (3.8-10.6) k/uL RBC (4.10-5.20) X 10*6/uL Hgb (12.0-15.0) g/dL Hct (37.2-46.3) % MCH (27.0-32.0) pg MCHC (32.0-37.0) g/dL RDW 16.2 H (11.5-15.5) % Neutrophils # 10.0 H (1.3-7.7) k/uL Lymphocytes # 0.5 L (1.0-4.8) k/uL Eosinophils # (0.04-0.35) X 10*3/uL Sodium 131 L (137-145) mmol/L Chloride 97 L (98-107) mmol/L BUN 24 H (7-17) mg/dL Creatinine 1.11 H (0.52-1.04) mg/dL Glucose 120 H (74-99) mg/dL Alkaline Phosphatase 149 H (38-126) U/L Urine Blood Small H (Negative) Urine RBC 10 H (0-5) /hpf Urine Bacteria Many H (None) /hpf Hyaline Casts 3 H (0-2) /lpf Urine Mucus Rare H (None) /hpf 12/20/20 Range/Units 07:17 WBC (3.8-10.6) k/uL RBC 3.87 L (4.10-5.20) X 10*6/uL Hgb 10.1 L (12.0-15.0) g/dL Hct 33.0 L (37.2-46.3) % MCH 26.1 L (27.0-32.0) pg MCHC 30.6 L (32.0-37.0) g/dL RDW 16.2 H (11.5-15.5) % Neutrophils # (1.3-7.7) k/uL Lymphocytes # (1.0-4.8) k/uL Eosinophils # 0.38 H (0.04-0.35) X 10*3/uL Sodium (137-145) mmol/L Chloride (98-107) mmol/L BUN (7-17) mg/dL Creatinine (0.52-1.04) mg/dL Glucose (74-99) mg/dL Alkaline Phosphatase (38-126) U/L Urine Blood (Negative) Urine RBC (0-5) /hpf Urine Bacteria (None) /hpf Hyaline Casts (0-2) /lpf Urine Mucus (None) /hpf Assessment and Plan Assessment: Acute on chronic hypoxic respiratory failure altered factorial secondary to below Sepsis (fever, leukocytosis, tachycardia ) Community-acquired pneumonia Pulmonary vascular congestion rule out CHF A flat or durable AV block Hyponatremia 85 year old woman with history of chronic respiratory failure from pulmonary fibrosis, AFib/Flutter with variable AV Block presented with acute respiratory failure with CXR showing ZOEY infiltrates concerning for sepsis from pneumonia. Plan: Patient was started on empiric antibiotics Follow-up cultures Gentle diuresis with IV Lasix 20 mg twice a day Resume amiodarone and metoprolol Patient heartrate is bouncing around 80s and 110 Symptomatic control of coughing Breathing treatments as needed Follow-up sodium and renal function after diuresis Supplemental oxygen as needed Tessalon Perles for coughing Covid testing negative Cardiology consult Check echocardiogram with left ventricular ejection fraction = 55%, severe pHTN to 72 Chronic conditions History of asthma and pulmonary fibrosis Mitral valve prolapse Hypothyroid GERD Hyperlipidemia Resume home medications CODE STATUS: Full code DVT prophylaxis: On Eliquis for A. fib Discussed with: Patient, ER, RN Anticipated length of stay more than [address]: Home
[2020-12-20 12:52] LABS: African American GFR (CKD) 47.1 (60.0-200.0); Albumin 3.8 g/dL (3.80-4.90); Albumin/Globulin Ratio 1.81 (1.60-3.17); Anion Gap 8.8 mmol/L (4.00-12.00); BUN/Creat Ratio 21.67 Ratio (12.00-20.00); Calcium 8.8 mg/dL (8.7-10.3); Carbon Dioxide 24.2 mmol/L (21.6-31.8); Globulin 2.1 g/dL (1.6-3.3); Non-African American GFR(CKD) 40.6 (60.0-200.0); Potassium 3.8 mmol/L (3.5-5.5); Total Bilirubin 1.2 mg/dL (0.3-1.2); Total Protein 5.9 g/dL (6.2-8.2)
--- NOTE | 2020-12-20 13:41 | P.CRDCN ---
History of Present Illness History of present illness: HISTORY OF PRESENTING ILLNESS This is a pleasant 85-year-old female past medical history significant for severe pulmonary hypertension, chronic right sided heart failure, chronic p ersistent atrial fibrillation on retirement anti-coagulation, hypertension, diabetes mellitus, dyslipidemia, pulmonary fibrosis on home oxygen and chronic kidney disease. She follows in the office with Dr. Caldwell. We have been asked to see in consultation for shortness of breath. She presented to the hospital with symptoms of shortness of breath that she feels like has been getting progressively worse over the last 3 months. According to ER documentation its been worse for the last 2 days. She is also complaining of a cough that is non- productive and persistent. She denies chest pain, dizziness or palpitations. Echocardiogram obtained on this admission reveals preserved LV systolic function with ejection fraction 50-55%, severely dilated left atrium, mild to moderate aortic regurgitation, moderate mitral regurgitation, severe tricuspid regurgitation and severe pulmonary hypertension with an RVSP of 72 mmHg. DIAGNOSTICS EKG reveals atrial flutter 2:1 conduction heart rate in the 113. Chest xray moderate interstitial edema with superimposed hazy and streaky opacities. Laboratory reviewed, CBC on admission 11.7 repeat today 9.2, hemoglobin 10.1, platelets 237, sodium 134, potassium 3.8, creatinine 1.2, troponin negative 1, BNP 5630 and TSH 1.13. Current cardiac medications include amiodarone 200 mg twice a day, Lopressor 25 mg daily at noon and 50 mg in the morning and evening, Eliquis 5 mg twice a day and Lasix 40 mg in the morning and 20 mg in the afternoon. REVIEW OF SYSTEMS At the time of my exam: CONSTITUTIONAL: Denies fever or chills. CARDIOVASCULAR: Denies chest pain, shortness of breath, orthopnea, PND or palpitations. RESPIRATORY: Complains of cough and shortness of breath. GASTROINTESTINAL: Denies abdominal pain, diarrhea, constipation, nausea or vomiting. MUSCULOSKELETAL: Denies myalgias. NEUROLOGIC: Denies numbness, tingling, headacbe or weakness. ENDOCRINE: Denies fatigue, weight change, polydipsia or polyurina. GENITOURINARY: Denies burning, hematuria or urgency with micturation. HEMATOLOGIC: Denies history of anemia or bleeding. PHYSICAL EXAMINATION Blood pressure 104/65 heart rate 69 afebrile and maintaining oxygen saturation on nasal cannula. CONSTITUTIONAL: No apparent distress. HEENT: Head is normocephalic. Pupils are equal, round. Sclerae anicteric. Mucous membranes of the mouth are moist. No JVD. No carotid bruit. CHEST EXAMINATION: Bibasilar crackles, diminished bilaterally, no wheezes or rhonchi. No chest wall tenderness is noted on palpation or with deep breathing. HEART EXAMINATION: Irregular rate and rhythm. S1, S2 heard. Systolic ejection murmur at the base, no gallops or rub. ABDOMEN: Soft, nontender. Positive bowel sounds. EXTREMITIES: 2+ peripheral pulses, no lower extremity edema and no calf tenderness. NEUROLOGIC EXAMINATION: Patient is awake, alert and oriented x3. ASSESSMENT Acute on chronic right-sided heart failure Pneumonia Leukocytosis Severe pulmonary hypertension Pulmonary fibrosis on home oxygen Chronic persistent atrial fibrillation on long-term anticoagulation Hypertension Dyslipidemia Diabetes mellitus Chronic kidney disease PLAN Continue Eliquis 2.5 mg twice a day for thromboembolic protection. Increase Lasix to 40 mg twice a day for 24 hours. Add Aldactone 25 mg daily. Follow electrolytes and renal function in the morning. Document accurate intake and output along with daily weights. Further recommendations to follow based upon clinical course. Thank you kindly for this consultation. Nurse Practitioner note has been reviewed, I agree with a documented findings and plan of care. Patient was seen and examined. Past Medical History Past Medical History: Atrial Fibrillation, Atrial Flutter, Asthma, Cancer, GERD/Reflux, Hearing Disorder / Deafness, Hyperlipidemia, Hypertension, Musculoskeletal Disorder, Osteoarthritis (OA), Pneumonia, Renal Disease, Thyroid Disorder, Vascular Disorder Additional Past Medical History / Comment(s): pulmonary fibrosis, Mitral valve prolapse, "hole in my heart", exertional dyspnea, chronic renal disease stage III, carpal tunnel bilaterally, osteoporosis, chronic low back pain, spinal stenosis, scoliosis, gout, varicose veins, R breast cancer with surgery/radiation, skin cancer removals, cancerous colon polyp removal, diverticular dx, hiatal hernia, IBS, ulcerative colitis, History of Any Multi-Drug Resistant Organisms: None Reported Past Surgical History: Breast Surgery, Cardiac Ablation, Cholecystectomy, Heart Catheterization, Hysterectomy, Orthopedic Surgery Additional Past Surgical History / Comment(s): R breast lumpectomy x 2, R breast bx, skin cancer removals, total hysterectomy, open cholecystectomy, R arm spur removals 3 times, R shoulder rotator cuff repair, R foot 2nd toe surgery, pilonidal cystectomy, colonoscopy with cancerous polypectomy, bilateral cataract removal/lens implants and surgery for astigmatism. Past Anesthesia/Blood Transfusion Reactions: Postoperative Nausea & Vomiting (PONV) Additional Past Anesthesia/Blood Transfusion Reaction / Comment(s): DUE TO REFLUX /POST ANESTHESIA PNEUMONIA. Past Psychological History: No Psychological Hx Reported Smoking Status: Never smoker Past Alcohol Use History: None Reported Past Drug Use History: None Reported - Past Family History Father Additional Family Medical History / Comment(s): Father was an alcoholic and pt thinks he from complications of that. Mother Family Medical History: Pulmonary Embolus Additional Family Medical History / Comment(s): at 59 from PE Sister(s) Family Medical History: Cancer Additional Family Medical History / Comment(s): Breast Cancer Medications and Allergies Home Medications Medication Instructions Recorded Confirmed Type Ergocalciferol [Vitamin D2 50,000 unit PO [id number] 07/19/15 12/19/20 History (DRISDOL)] Levothyroxine Sodium [Synthroid] 50 mcg PO DAILY 07/19/15 12/19/20 History Ubidecarenone [Co Q-10] 100 mg PO DAILY 07/19/15 12/19/20 History Magnesium Oxide [Mag-Ox] 400 mg PO BID 11/16/17 12/19/20 History allopurinoL [Zyloprim] 100 mg PO DAILY 11/16/17 12/19/20 History Acetaminophen Tab [Tylenol] 650 mg PO Q6HR PRN tab 01/24/18 12/19/20 Rx Apixaban [Eliquis] 5 mg PO BID #180 tab 07/20/18 12/19/20 Rx Metoprolol Tartrate [Lopressor] 50 mg PO BID 12/18/18 12/19/20 History Cyanocobalamin [Vitamin B-12] 500 mcg PO DAILY 06/02/19 12/19/20 History Potassium Chloride ER [K-Dur 10] 10 meq PO BID 06/02/19 12/19/20 History Albuterol Sulfate [Ventolin HFA] 2 puff INHALATION RT-Q6H PRN 12/19/20 12/19/20 History Amiodarone [Cordarone] 200 mg PO BID 12/19/20 12/19/20 History Docusate Sodium [Dok] 100 mg PO DAILY PRN 12/19/20 12/19/20 History Furosemide [Lasix] 20 mg PO DAILY 12/19/20 12/19/20 History Furosemide [Lasix] 40 mg PO DAILY 12/19/20 12/19/20 History Lactose-Reduced Food [Boost] 237 ml PO DAILY 12/19/20 12/19/20 History Metoprolol Tartrate [Lopressor] 25 mg PO DAILY@1200 12/19/20 12/19/20 History Vitamin C/Biotin [Hair, Skin and 3 tab PO DAILY 12/19/20 12/19/20 History Nails] Allergies Allergy/AdvReac Type Severity Reaction Status Date / Time iodine Allergy Unknown VERY LOW Verified 12/19/20 20:45 BLOOD PRESSURE,SHORTNESS OF BREATH adhesive tape Allergy Rash/Hives Verified 12/19/20 20:45 clarithromycin Allergy Unknown Verified 12/19/20 20:45 Iodinated Contrast Media Allergy Anaphylaxis Verified 12/19/20 20:45 metaxalone [From Skelaxin] Allergy Anaphylaxis Verified 12/19/20 20:45 niacin Allergy Unknown Verified 12/19/20 20:45 [From Niaspan Extended-Release] pantoprazole Allergy ITCHING Verified 12/19/20 20:45 ,REDNESS OF SKIN Physical Exam Vitals: Vital Signs Temp Pulse Pulse Resp BP BP Pulse Ox 12/20/20 09:30 113/70 12/20/20 07:00 97.8 F 71 16 115/71 92 L 12/20/20 05:00 68 12/20/20 01:51 68 18 111/76 97 12/20/20 01:18 70 15 107/58 97 12/20/20 00:45 73 20 95/65 93 L 12/20/20 00:40 135 H 20 88/67 96 12/20/20 00:25 134 H 20 87/56 94 L 12/20/20 00:15 98.9 F 82 20 82/47 97 12/19/20 23:10 99.0 F 94 20 115/64 97 12/19/20 20:42 102.4 F H 119 H 20 134/84 96 Intake and Output 12/19/20 12/20/20 12/20/20 22:59 06:59 14:59 Other: Weight 78.018 kg Results 12/20/20 07:17 12/20/20 07:17 Cardiac Enzymes 12/19/20 12/19/20 Range/Units 21:38 21:38 AST 25 (14-36) U/L Troponin I <0.012 (0.000-0.034) ng/mL Coagulation 12/19/20 Range/Units 21:38 PT 11.9 (9.0-12.0) sec APTT 24.7 (22.0-30.0) sec CBC 12/19/20 12/20/20 Range/Units 21:38 07:17 WBC 11.7 H 9.23 (3.8-10.6) k/uL RBC 4.31 3.87 L (3.80-5.40) m/uL Hgb 11.6 10.1 L (11.4-16.0) gm/dL Hct 36.3 33.0 L (34.0-46.0) % Plt Count 249 237 (150-450) k/uL Comprehensive Metabolic Panel 12/19/20 Range/Units 21:38 Sodium 131 L (137-145) mmol/L Potassium 4.2 (3.5-5.1) mmol/L Chloride 97 L (98-107) mmol/L Carbon Dioxide 25 (22-30) mmol/L BUN 24 H (7-17) mg/dL Creatinine 1.11 H (0.52-1.04) mg/dL Glucose 120 H (74-99) mg/dL Calcium 9.2 (8.4-10.2) mg/dL AST 25 (14-36) U/L ALT 14 (4-34) U/L Alkaline Phosphatase 149 H (38-126) U/L Total Protein 6.9 (6.3-8.2) g/dL Albumin 3.8 (3.5-5.0) g/dL Current Medications Generic Name Dose Route Start Last Admin Trade Name Freq PRN Reason Stop Dose Admin Acetaminophen 650 mg 12/20/20 01:21 Acetaminophen Tab 325 Mg Tab PO Q6HR PRN Mild Pain or Fever > 100.5 Albuterol/Ipratropium 3 ml 12/20/20 00:03 Ipratropium-Albuterol 3 Ml Neb INHALATION RT-Q4H PRN shortness of breath Amiodarone HCl 200 mg 12/20/20 09:00 12/20/20 09:38 Amiodarone 200 Mg Tab PO 200 mg BID NASIR Administration Apixaban 5 mg 12/20/20 09:00 12/20/20 09:38 Apixaban 5 Mg Tab PO 5 mg BID NASIR Administration Azithromycin 500 mg 12/21/20 00:04 Azithromycin 500 Mg Tab PO 12/25/20 00:05 DAILY NASIR Benzonatate 100 mg 12/20/20 02:58 Benzonatate 100 Mg Cap PO TID PRN Cough Docusate Sodium 100 mg 12/20/20 01:21 Docusate 100 Mg Cap PO DAILY PRN Constipation Furosemide 20 mg 12/20/20 09:00 12/20/20 09:38 Furosemide 10 Mg/Ml 2 Ml Vial IV 20 mg Q12HR NASIR Administration Ceftriaxone Sodium 2 gm/ 50 mls @ 100 mls/hr 12/21/20 00:04 Sodium Chloride IVPB 12/23/20 00:05 Q24HR NASIR Levothyroxine Sodium 50 mcg 12/20/20 06:30 12/20/20 09:38 Levothyroxine 50 Mcg Tab PO 50 mcg DAILY@0630 NASIR Administration Metoprolol Tartrate 25 mg 12/20/20 12:00 Metoprolol Tartrate 25 Mg Tab PO DAILY@1200 NASIR Metoprolol Tartrate 50 mg 12/20/20 09:00 12/20/20 09:38 Metoprolol Tartrate 50 Mg Tab PO 50 mg BID NASIR Administration Miscellaneous Information 1 each 12/20/20 00:03 Pneumonia Protocol Utilized 1 Each Misc PO ONCE PRN Per Protocol Intake and Output 12/19/20 12/20/20 12/20/20 22:59 06:59 14:59 Other: Weight 78.018 kg 12/20/20 07:17 12/19/20 21:38
[2020-12-20] MEDS: IPRATROPIUM-ALBUTEROL 3 ML NEB INHALATION PRN (15:46)
--- NOTE | 2020-12-20 16:22 | P.CNPUL ---
History of Present Illness Consult date: 12/20/20 Reason for consult: dyspnea History of present illness: 85-year-old female patient presented yesterday to the hospital because of progressive worsening shortness of breath a few days duration. The patient was having oxygen desaturation and she has been requiring around 4 L approximately nasal cannula and she normally uses 2 L. Along with a harper shortness of breath, shortness cough and her cough was productive and she was producing yellow sp utum. Denied having any chest pain. No pleurisy. No hemoptysis. No reported fever or chills. No recent travel history. The patient has multiple medical problems and comorbidities. She is known to have chronic hypoxic respiratory failure, pulmonary fibrosis, mitral valve prolapse, diabetes mellitus, hypertension, hyperlipidemia, chronic stage III kidney disease, breast cancer with previous surgery and radiation therapy, ulcerative colitis, spinal stenosis, osteoporosis, hypothyroidism and hyperlipidemia and hypertension. She was having episodic palpitation and she was seeking a second opinion regarding her atrial fibrillation with a possibility of ablation at the [facility]. Her blood work showed a hemoglobin of 11.6 with a white cell count 11.7 and a platelet count of 246, coagulation profile is within normal, BUN and creatinine were 24 and 1.1 respectively and a electrolytes all within normal limits. She did have some mild hyponatremia with a sodium level of 131 and a chloride level of 97. Her LFTs are within normal limits, lactate acid level was at 1.3, proBNP level was 5630. Total protein of 6.9 and albumin of 3.8. Bilirubin was normal at 1.3. UA showing only 3 WBCs, 1 RBC and hyaline casts. The chest x-ray was consistent with CHF. Note that the patient had an echocardiogram that showed a preserved LV function with an ejection fraction of 50-55%, dilated LA, mild to moderate aortic regurgitation, moderate mitral regurgitation, severe tricuspid regurgitation with a PA pressure of 72 mmHg. Her EKG showing a a flutter rhythm with a 2-1 conduction and a heart rate is 113. Review of Systems REVIEW OF SYSTEMS: CONSTITUTIONAL: Denies any recent significant weight loss or weight gain. EYES: Denies change in vision. EARS, NOSE, MOUTH, THROAT: Denies headaches, denies sore throat. CARDIOVASCULAR: Denies chest pain, palpitations or syncopal episodes. RESPIRATORY: Positive for shortness of breath, cough, congestion but no hemoptysis. GASTROINTESTINAL: Denies change in appetite, denies abdominal pain GENITOURINARY: Denies hematuria, denies infections. MUSKULOSKELETAL: Denies pain, denies swelling. INTEGUMENTARY: Denies rash, denies eczema. NEUROLOGICAL: Denies recent memory loss, no recent seizure activity. PSYCHIATRIC: Denies anxiety, denies depression. HEMATOLOGIC/LYMPHATIC: Denies anemia, denies enlarged lymph nodes. Past Medical History Past Medical History: Atrial Fibrillation, Atrial Flutter, Asthma, Cancer, GERD/Reflux, Hearing Disorder / Deafness, Hyperlipidemia, Hypertension, Musculoskeletal Disorder, Osteoarthritis (OA), Pneumonia, Renal Disease, Thyroid Disorder, Vascular Disorder Additional Past Medical History / Comment(s): pulmonary fibrosis, Mitral valve prolapse, "hole in my heart", exertional dyspnea, chronic renal disease stage III, carpal tunnel bilaterally, osteoporosis, chronic low back pain, spinal stenosis, scoliosis, gout, varicose veins, R breast cancer with surgery/radiation, skin cancer removals, cancerous colon polyp removal, diverticular dx, hiatal hernia, IBS, ulcerative colitis, History of Any Multi-Drug Resistant Organisms: None Reported Past Surgical History: Breast Surgery, Cardiac Ablation, Cholecystectomy, Heart Catheterization, Hysterectomy, Orthopedic Surgery Additional Past Surgical History / Comment(s): R breast lumpectomy x 2, R breast bx, skin cancer removals, total hysterectomy, open cholecystectomy, R arm spur removals 3 times, R shoulder rotator cuff repair, R foot 2nd toe surgery, pilonidal cystectomy, colonoscopy with cancerous polypectomy, bilateral cataract removal/lens implants and surgery for astigmatism. Past Anesthesia/Blood Transfusion Reactions: Postoperative Nausea & Vomiting (PONV) Additional Past Anesthesia/Blood Transfusion Reaction / Comment(s): DUE TO REFLUX /POST ANESTHESIA PNEUMONIA. Past Psychological History: No Psychological Hx Reported Smoking Status: Never smoker Past Alcohol Use History: None Reported Past Drug Use History: None Reported - Past Family History Father Additional Family Medical History / Comment(s): Father was an alcoholic and pt thinks he from complications of that. Mother Family Medical History: Pulmonary Embolus Additional Family Medical History / Comment(s): at 59 from PE Sister(s) Family Medical History: Cancer Additional Family Medical History / Comment(s): Breast Cancer Medications and Allergies Home Medications Medication Instructions Recorded Confirmed Type Ergocalciferol [Vitamin D2 50,000 unit PO [id number] 09/09/15 02/09/21 History (DRISDOL)] Levothyroxine Sodium [Synthroid] 50 mcg PO DAILY 07/19/15 12/19/20 History Ubidecarenone [Co Q-10] 100 mg PO DAILY 07/19/15 12/19/20 History Magnesium Oxide [Mag-Ox] 400 mg PO BID 11/16/17 12/19/20 History allopurinoL [Zyloprim] 100 mg PO DAILY 11/16/17 12/19/20 History Acetaminophen Tab [Tylenol] 650 mg PO Q6HR PRN tab 01/24/18 12/19/20 Rx Apixaban [Eliquis] 5 mg PO BID #180 tab 07/20/18 12/19/20 Rx Metoprolol Tartrate [Lopressor] 50 mg PO BID 12/18/18 12/19/20 History Cyanocobalamin [Vitamin B-12] 500 mcg PO DAILY 06/02/19 12/19/20 History Potassium Chloride ER [K-Dur 10] 10 meq PO BID 06/02/19 12/19/20 History Albuterol Sulfate [Ventolin HFA] 2 puff INHALATION RT-Q6H PRN 12/19/20 12/19/20 History Amiodarone [Cordarone] 200 mg PO BID 12/19/20 12/19/20 History Docusate Sodium [Dok] 100 mg PO DAILY PRN 12/19/20 12/19/20 History Furosemide [Lasix] 20 mg PO DAILY 12/19/20 12/19/20 History Furosemide [Lasix] 40 mg PO DAILY 12/19/20 12/19/20 History Lactose-Reduced Food [Boost] 237 ml PO DAILY 12/19/20 12/19/20 History Metoprolol Tartrate [Lopressor] 25 mg PO DAILY@1200 12/19/20 12/19/20 History Vitamin C/Biotin [Hair, Skin and 3 tab PO DAILY 12/19/20 12/19/20 History Nails] Allergies Allergy/AdvReac Type Severity Reaction Status Date / Time iodine Allergy Unknown VERY LOW Verified 12/19/20 20:45 BLOOD PRESSURE,SHORTNESS OF BREATH adhesive tape Allergy Rash/Hives Verified 12/19/20 20:45 clarithromycin Allergy Unknown Verified 12/19/20 20:45 Iodinated Contrast Media Allergy Anaphylaxis Verified 12/19/20 20:45 metaxalone [From Skelaxin] Allergy Anaphylaxis Verified 12/19/20 20:45 niacin Allergy Unknown Verified 12/19/20 20:45 [From Niaspan Extended-Release] pantoprazole Allergy ITCHING Verified 12/19/20 20:45 ,REDNESS OF SKIN Physical Exam Vitals: Vital Signs Temp Pulse Pulse Resp BP BP Pulse Ox 12/20/20 12:09 69 104/65 91 L 12/20/20 09:30 113/70 12/20/20 07:00 97.8 F 71 16 115/71 92 L 12/20/20 05:00 68 12/20/20 01:51 68 18 111/76 97 12/20/20 01:18 70 15 107/58 97 12/20/20 00:45 73 20 95/65 93 L 12/20/20 00:40 135 H 20 88/67 96 12/20/20 00:25 134 H 20 87/56 94 L 12/20/20 00:15 98.9 F 82 20 82/47 97 12/19/20 23:10 99.0 F 94 20 115/64 97 12/19/20 20:42 102.4 F H 119 H 20 134/84 96 Intake and Output 12/19/20 12/20/20 12/20/20 22:59 06:59 14:59 Other: Weight 78.018 kg 78.018 kg GENERAL EXAM: Alert, active, comfortable in no apparent distress. On 4 L nasal cannula HEAD: Normocephalic. EYES: Normal reaction of pupils, equal size. NOSE: Clear with pink turbinates. THROAT: No erythema or exudates. NECK: No masses, no JVD. CHEST: No chest wall deformity. LUNGS: Equal air entry with coarse crackles in the posterior bases, end expiratory wheeze CVS: S1 and S2 normal with no audible murmur, regular rhythm. ABDOMEN: No hepatosplenomegaly, normal bowel sounds, no guarding or rigidity. SPINE: No scoliosis or deformity SKIN: No rashes CENTRAL NERVOUS SYSTEM: No focal deficits, tone is normal in all 4 extremities. EXTREMITIES: There is no peripheral edema. No clubbing, no cyanosis. Peripheral pulses are intact. Results - Laboratory Findings CBC and BMP: 12/20/20 07:17 12/20/20 07:17 PT/INR, D-dimer PT 11.9 sec (9.0-12.0) 12/19/20 21:38 INR 1.1 (<1.2) 12/19/20 21:38 Abnormal lab findings: Abnormal Labs 12/19/20 12/19/20 12/19/20 21:38 21:38 22:53 WBC 11.7 H RBC Hgb Hct MCH MCHC RDW 16.2 H Neutrophils # 10.0 H Lymphocytes # 0.5 L Eosinophils # Sodium 131 L Chloride 97 L BUN 24 H Creatinine 1.11 H Est GFR (CKD-EPI)AfAm Est GFR (CKD-EPI)NonAf BUN/Creatinine Ratio Glucose 120 H Alkaline Phosphatase 149 H Total Protein Urine Blood Small H Urine RBC 10 H Urine Bacteria Many H Hyaline Casts 3 H Urine Mucus Rare H 12/20/20 12/20/20 07:17 07:17 WBC RBC 3.87 L Hgb 10.1 L Hct 33.0 L MCH 26.1 L MCHC 30.6 L RDW 16.2 H Neutrophils # Lymphocytes # Eosinophils # 0.38 H Sodium 134 L Chloride BUN Creatinine Est GFR (CKD-EPI)AfAm 47.1 L Est GFR (CKD-EPI)NonAf 40.6 L BUN/Creatinine Ratio 21.67 H Glucose Alkaline Phosphatase Total Protein 5.9 L Urine Blood Urine RBC Urine Bacteria Hyaline Casts Urine Mucus - Diagnostic Findings Chest x-ray: image reviewed Assessment and Plan Plan: 1 acute on chronic hypoxic respiratory failure and currently the patient on 4 to approximately nasal cannula. This is likely associated decompensated CHF with background pulmonary fibrosis. The series of CAT scans that was done on this patient since 2018. I noted that that the CAT scan of the chest that was done back in 2017 showed no major interstitial lung disease or fibrosis. Things progressively got worse in 2019 where the patient had 2 CAT scans in December and June 2019 where the dissecting CAT scan showed diffuse groundglass changes and this is not typical of IPF and I'm more concerned of hypersensitivity pneumonitis, drug induced pneumonitis, atypical mycobacterial infection-type of pneumonitis and interstitial edema. 2 chronic ILD, diffuse, without any significant honeycombing or scarring. Exact etiology is not clear. Could be related to drugs/amiodarone. Could be related to IPF is a less likely possibility 3 paroxysmal atrial fibrillation/flutter maintained on a combination of medications including metoprolol for rate control 25 mg by mouth daily, amiodarone 200 mg by mouth twice a day and Eliquis for long-term and coagulation 4 severe pulmonary hypertension, could be related to chronic lung disease and right-sided heart failure. 5 chronic stage III kidney disease 6 diabetes mellitus 7 hyperlipidemia 8 hypertension 9 hypothyroidism 10 spinal stenosis and chronic back pain along with scoliosis 11 gout 12 breast cancer with a previous lumpectomy followed by radiation therapy 13 skin cancer with previous resection 14 colonic polyps postresection 15 history of ulcerative colitis along with a component of IBS and diverticular disease 16 scoliosis of the spine along with spinal stenosis and chronic back pain 17 osteoporosis 18 impaired hearing/deafness. Plan Agree on Lasix 40 mg IV every 24 hours rhythm combination with Aldactone Monitor diuresis process and hopefully this will improve his oxygenation currently on 4 L of oxygen by nasal cannula Resume metoprolol Resume Ari Ahmadi's with cardiology the possibility of eliminating the amiodarone which could be the culprit for her underlying interstitial lung disease. This will largely depend on the duration and the timing of the medication introduced and also this will depend on the dose of the medications has been used over the years. I have to discuss this over with Dr. Caldwell Check pro calcitonin level May consider bronchoscopy and the bronchioloalveolar lavage Antibiotic coverage is empiric this point, she is currently on accommodation Rocephin and Zithromax. Obtain sputum Gram stain and culture. We'll continue to follow. Time with Patient: Greater than 30
[2020-12-20] MEDS: FUROSEMIDE 10 MG/ML 4 ML VIAL IV SCH (20:26)
[2020-12-20] MEDS: APIXABAN 2.5 MG TABLET PO SCH (20:26)
[2020-12-21] MEDS ORDERED: AZITHROMYCIN 500 MG TAB PO SCH (00:04)
[2020-12-21] MEDS: LEVOTHYROXINE 50 MCG TAB PO SCH (05:37)
[2020-12-21 06:32] LABS: African American GFR (CKD) 43 (>60 ml/min/1.73 sqM); Anion Gap 9 mmol/L; Blood Urea Nitrogen 27 mg/dL (7-17); Calcium 9.1 mg/dL (8.4-10.2); Carbon Dioxide 25 mmol/L (22-30); Chloride 99 mmol/L (98-107); Glucose 93 mg/dL (74-99); Non-African American GFR(CKD) 37 (>60 ml/min/1.73 sqM); Potassium 4.3 mmol/L (3.5-5.1); Sodium 133 mmol/L (137-145)
[2020-12-21] MEDS: APIXABAN 2.5 MG TABLET PO SCH ×2 (07:14→19:58)
[2020-12-21] MEDS: FUROSEMIDE 10 MG/ML 4 ML VIAL IV SCH ×2 (07:14→19:58)
[2020-12-21] MEDS: METOPROLOL TARTRATE 50 MG TAB PO SCH ×2 (07:14→19:59)
[2020-12-21] MEDS: AMIODARONE 200 MG TAB PO SCH ×2 (07:14→19:58)
[2020-12-21] MEDS: SPIRONOLACTONE 25 MG TAB PO SCH (07:14)
--- NOTE | 2020-12-21 07:59 | XR ---
EXAMINATION TYPE: XR chest 2V DATE OF EXAM: 12/21/2020 COMPARISON: 12/19/2020 INDICATION: Pneumonia TECHNIQUE: Frontal and lateral views of the chest are obtained. FINDINGS: The heart size is enlarged. The pulmonary vasculature is prominent. Diffuse increased lung markings are present which are nonspecific. Small posterior pleural effusions are present.. IMPRESSION: 1. Scattered bilateral lung infiltrates. Correlate for atypical pneumonia. Consider atypical pulmonar y edema as well.
[2020-12-21] MEDS: METOPROLOL TARTRATE 25 MG TAB PO SCH (12:14)
--- NOTE | 2020-12-21 12:22 | P.PN ---
Subjective Progress Note Date: 12/21/20 No new complaints, patient says dyspnea improved, but still has some on exertion. At baseline oxygen requirement. Reviewed history with patient today, she had radiation to her chest in 2014 for breast cancer, but never required chemotherapy, shortly after this her dyspnea started. She had a clear CT Chest in 2018, with no evidence of fibrosis. She developed an oxygen requirement after a hospitalization ~1 year ago, when she was noted to have fibrosis, but did not have this followed up due to fear of COVID pandemic. She then followed up for AFib in 07/2020, at which time she was also having significant ventricular ectopy and was started on amiodarone, which she says did improve her symptoms. She has been seen in consultation with [facility] cardiology as well as [facility], and has considered recommendations of an AVN ablation with PPM placement versus medical therapy alone, and is still thinking through the risks and benefits between the two. She has not had any further workup regarding her pulmonary fibrosis etiology until now. Objective - Vital Signs Vital signs: Vital Signs Temp 98.2 F 12/21/20 07:00 Pulse 73 12/21/20 07:00 Resp 20 12/21/20 07:00 BP 119/75 12/21/20 07:00 Pulse Ox 92 L 12/21/20 07:00 Intake & Output 12/20/20 12/21/20 12/21/20 18:59 06:59 18:59 Weight 78.018 kg 76.1 kg - Exam Gen: awake, alert HEENT: normocephalic, atraumatic, good hearing acuity, moist mucous membranes Resp: good air exchange, breathing comfortably with no accessory muscle use, clear to auscultation bilaterally without Velcro rales or wheezes CVS: good distal perfusion x 4, regular rate, irregular rhythm GI: soft, NTTP, ND : no SPT, no CVAT, thorpe catheter not present MSK: no pitting edema, no clubbing Neuro: non-focal, moving all extremities Psych: cooperative, euthymic mood - Labs CBC & Chem 7: 12/20/20 07:17 12/21/20 05:52 Labs: Abnormal Lab Results - Last 24 Hours (Table) 12/20/20 12/20/20 12/21/20 Range/Units 07:17 16:44 05:52 Sodium 134 L 133 L (135-145) mmol/L BUN 27 H (7-17) mg/dL Creatinine 1.30 H (0.52-1.04) mg/dL Est GFR (CKD-EPI)AfAm 47.1 L (60.0-200.0) Est GFR (CKD-EPI)NonAf 40.6 L (60.0-200.0) BUN/Creatinine Ratio 21.67 H (12.00-20.00) Ratio Total Protein 5.9 L (6.2-8.2) g/dL Procalcitonin 0.21 H (0.02-0.09) ng/mL Microbiology - Last 24 Hours (Table) 12/19/20 21:38 Blood Culture - Preliminary Blood No Growth after 24 hours Assessment and Plan Assessment: Acute on chronic hypoxic respiratory failure altered factorial secondary to below Sepsis (fever, leukocytosis, tachycardia ) Community-acquired pneumonia Pulmonary vascular congestion rule out CHF A flat or durable AV block Hyponatremia 85 year old woman with history of chronic respiratory failure from pulmonary fibrosis, AFib/Flutter with variable AV Block presented with acute respiratory failure with CXR showing ZOEY infiltrates concerning for sepsis from pneumonia. Plan: Patient was started on empiric antibiotics Follow-up cultures Gentle diuresis with IV Lasix 40 mg twice a day Resume amiodarone and metoprolol Patient heart rate is bouncing around 80s and 110 Symptomatic control of coughing Breathing treatments as needed Follow-up sodium and renal function after diuresis Supplemental oxygen as needed Tessalon Perles for coughing Covid testing negative Cardiology consult Pulmonary consult Check echocardiogram with left ventricular ejection fraction = 55%, severe pHTN to 72 Chronic conditions History of asthma and pulmonary fibrosis Mitral valve prolapse Hypothyroid GERD Hyperlipidemia Resume home medications CODE STATUS: Full code DVT prophylaxis: On Eliquis for A. fib Discussed with: Patient, ER, RN Anticipated length of stay more than [address]: Home
--- NOTE | 2020-12-21 14:32 | P.PN ---
Subjective HISTORY OF PRESENTING ILLNESS This is a pleasant 85-year-old female past medical history significant for severe pulmonary hypertension, chronic right sided heart failure, chronic persistent atrial fibrillation on chcf anti-coagulation, hypertension, diabetes mellitus, dyslipidemia, pulmonary fibrosis on home oxygen and chronic kidney disease. She follows in the office with Dr. Caldwell. She is seen and examined sitting up in bed in no acute distress. She states she has been up to the bathroom frequently and is diuresing well. She is down 2 kg, there is no documented output. Blood pressure 119/75 heart rate 73 afebrile and maintaining oxygen saturation on nasal cannula. Laboratory data reviewed, sodium 133, potassium 4.3, creatinine 1.3. Currently maintained on amiodarone 200 BID, lasix 40 mg IV BID, lopressor 50 mg BID and 25 mg at noontime and aldactone 25 mg daily. Telemetry tracings reveal atrial flutter with primarily controlled rates in the 70's. PHYSICAL EXAMINATION CONSTITUTIONAL: No apparent distress. HEENT: Head is normocephalic. Pupils are equal, round. Sclerae anicteric. Mucous membranes of the mouth are moist. No JVD. No carotid bruit. CHEST EXAMINATION: Bibasilar crackles, diminished bilaterally, no wheezes or rhonchi. No chest wall tenderness is noted on palpation or with deep breathing. HEART EXAMINATION: Irregular rate and rhythm. S1, S2 heard. Systolic ejection murmur at the base, no gallops or rub. EXTREMITIES: 2+ peripheral pulses, no lower extremity edema and no calf tenderness. ASSESSMENT Acute on chronic right-sided heart failure Pneumonia Leukocytosis Severe pulmonary hypertension Pulmonary fibrosis on home oxygen Chronic persistent atrial fibrillation on long-term anticoagulation Hypertension Dyslipidemia Diabetes mellitus Chronic kidney disease PLAN Continue current medical regimen. Ongoing diuresis. Follow renal function and electrolytes in the morning. Chest CT pending. Dr. Caldwell and Dr. Umanzor discussed the possibility of amiodarone induced lung disease, however amiodarone has only been prescribed for 1-week. Further recommendations to follow based on clinical course. Nurse Practitioner note has been reviewed, I agree with a documented findings and plan of care. Patient was seen and examined. Objective - Vital Signs Vital signs: Vital Signs Temp 98.2 F 12/21/20 07:00 Pulse 73 12/21/20 07:00 Resp 20 12/21/20 07:00 BP 119/75 02/11/21 07:00 Pulse Ox 92 L 12/21/20 07:00 Intake & Output 12/20/20 12/21/20 12/21/20 18:59 06:59 18:59 Weight 78.018 kg 76.1 kg - Labs CBC & Chem 7: 12/20/20 07:17 12/21/20 05:52 Labs: Abnormal Lab Results - Last 24 Hours (Table) 12/20/20 12/21/20 Range/Units 16:44 05:52 Sodium 133 L (137-145) mmol/L BUN 27 H (7-17) mg/dL Creatinine 1.30 H (0.52-1.04) mg/dL Procalcitonin 0.21 H (0.02-0.09) ng/mL Microbiology - Last 24 Hours (Table) 12/19/20 21:38 Blood Culture - Preliminary Blood No Growth after 24 hours
--- NOTE | 2020-12-21 16:25 | P.PN ---
Subjective Progress Note Date: 12/21/20 Principal diagnosis: Dyspnea 85-year-old female patient presented yesterday to the hospital because of progressive worsening shortness of breath a few days duration. The patient was having oxygen desaturation and she has been requiring around 4 L approximately nasal cannula and she normally uses 2 L. Along with a harper shortness of breath, shortness cough and her cough was productive and she was producing yellow sputum. Denied having any chest pain. No pleurisy. No hemoptysis. No reported fever or chills. No recent travel history. The patient has multiple medical problems and comorbidities. She is known to have chronic hypoxic respiratory failure, pulmonary fibrosis, mitral valve prolapse, diabetes mellitus, hypertension, hyperlipidemia, chronic stage III kidney disease, breast cancer with previous surgery and radiation therapy, ulcerative colitis, spinal stenosis, osteoporosis, hypothyroidism and hyperlipidemia and hypertension. She was having episodic palpitation and she was seeking a second opinion regarding her atrial fibrillation with a possibility of ablation at the [facility]. Her blood work showed a hemoglobin of 11.6 with a white cell count 11.7 and a platelet count of 246, coagulation profile is within normal, BUN and creatinine were 24 and 1.1 respectively and a electrolytes all within normal limits. She did have some mild hyponatremia with a sodium level of 131 and a chloride level of 97. Her LFTs are within normal limits, lactate acid level was at 1.3, proBNP level was 5630. Total protein of 6.9 and albumin of 3.8. Bilirubin was normal at 1.3. UA showing only 3 WBCs, 1 RBC and hyaline casts. The chest x-ray was consistent with CHF. Note that the patient had an echocardiogram that showed a preserved LV function with an ejection fraction of 50-55%, dilated LA, mild to moderate aortic regurgitation, moderate mitral regurgitation, severe tricuspid regurgitation with a PA pressure of 72 mmHg. Her EKG showing a a flutter rhythm with a 2-1 conduction and a heart rate is 113. On 12/21/2020 patient seen in follow-up on medical floor. She is currently on 3 L of oxygen pulse ox 95%, she's been afebrile, hemodynamically stable, no complaints of chest pain, chest x-ray today shows scattered bilateral lung infiltrates, with consideration for atypical pulmonary edema. Patient remains on diuretics, her weight is down, she is maintaining negative fluid balance. His labs have been reviewed, showing sodium of 133, potassium is 4.3, chloride is 99, CO2 is 25, BUN of 27, creatinine is 1.3. Patient continues on oral amiodarone, oral anticoagulation in the form of Eliquis, she is on empiric antibiotics in the form of azithromycin and Rocephin, her Lasix dose is 40 mg every 12 hours. Patient remains in A. fib with a controlled rate. The daughter brought in records from [facility] from 2019, it was reviewed, and patient was given a diagnosis of interstitial lung disease with the possibility of hypersensitivity pneumonitis, less likely related to amiodarone toxicity, however definitive diagnosis could not be made unless a lung biopsy was done. There have been no acute events overnight. Patient appears to be breathing comfortably, she is diuresing, she states she was up several times in the night, to the bathroom. No fever or chills, no chest pain. Objective - Vital Signs Vital signs: Vital Signs Temp 97.8 F 12/21/20 15:00 Pulse 87 12/21/20 15:00 Resp 20 12/21/20 15:00 BP 112/75 12/21/20 15:00 Pulse Ox 95 12/21/20 15:00 Intake & Output 12/20/20 12/21/20 12/21/20 18:59 06:59 18:59 Weight 78.018 kg 76.1 kg - Exam GENERAL EXAM: Alert, very pleasant, 85-year-old white female, on 3 L of oxygen with a pulse ox of 95% comfortable in no apparent distress. HEAD: Normocephalic/atraumatic. EYES: Normal reaction of pupils, equal size. Conjunctiva pink, sclera white. NOSE: Clear with pink turbinates. THROAT: No erythema or exudates. NECK: No masses, no JVD, no thyroid enlargement, no adenopathy. CHEST: No chest wall deformity. Symmetrical expansion. LUNGS: Equal air entry with no crackles, wheeze, rhonchi or dullness. CVS: Regular rate and rhythm, normal S1 and S2, no gallops, no murmurs, no rubs ABDOMEN: Soft, nontender. No hepatosplenomegaly, normal bowel sounds, no guarding or rigidity. EXTREMITIES: No clubbing, no edema, no cyanosis, 2+ pulses and upper and lower extremities. MUSCULOSKELETAL: Muscle strength and tone normal. SPINE: No scoliosis or deformity SKIN: No rashes CENTRAL NERVOUS SYSTEM: Alert and oriented -3. No focal deficits, tone is normal in all 4 extremities. PSYCHIATRIC: Alert and oriented -3. Appropriate affect. Intact judgment and insight. - Labs CBC & Chem 7: 12/20/20 07:17 12/21/20 05:52 Labs: Abnormal Lab Results - Last 24 Hours (Table) 12/20/20 12/21/20 Range/Units 16:44 05:52 Sodium 133 L (137-145) mmol/L BUN 27 H (7-17) mg/dL Creatinine 1.30 H (0.52-1.04) mg/dL Procalcitonin 0.21 H (0.02-0.09) ng/mL Microbiology - Last 24 Hours (Table) 12/19/20 21:38 Blood Culture - Preliminary Blood No Growth after 24 hours Assessment and Plan Plan: Assessment: 1 acute on chronic hypoxic respiratory failure and currently the patient on 4 to approximately nasal cannula. This is likely associated decompensated CHF with background pulmonary fibrosis. The series of CAT scans that was done on this patient since 2018. I noted that that the CAT scan of the chest that was done back in 2018 showed no major interstitial lung disease or fibrosis. Things progressively got worse in 2019 where the patient had 2 CAT scans in December and June 2019 where the dissecting CAT scan showed diffuse groundglass changes and this is not typical of IPF and I'm more concerned of hypersensitivity pneumonitis, drug induced pneumonitis, atypical mycobacterial infection-type of pneumonitis and interstitial edema. 2 chronic ILD, diffuse, without any significant honeycombing or scarring. Exact etiology is not clear. Could be related to drugs/amiodarone. Could be related to IPF is a less likely possibility 3 paroxysmal atrial fibrillation/flutter maintained on a combination of medications including metoprolol for rate control 25 mg by mouth daily, amiodarone 200 mg by mouth twice a day and Eliquis for long-term and coagulation 4 severe pulmonary hypertension, could be related to chronic lung disease and right-sided heart failure. 5 chronic stage III kidney disease 6 diabetes mellitus 7 hyperlipidemia 8 hypertension 9 hypothyroidism 10 spinal stenosis and chronic back pain along with scoliosis 11 gout 12 breast cancer with a previous lumpectomy followed by radiation therapy 13 skin cancer with previous resection 14 colonic polyps postresection 15 history of ulcerative colitis along with a component of IBS and diverticular disease 16 scoliosis of the spine along with spinal stenosis and chronic back pain 17 osteoporosis 18 impaired hearing/deafness. Plan: We'll continue diuresis for another 24 hours, we'll obtain high-resolution CT of the chest tomorrow. Patient's daughter brought in documentation from the [facility] where the patient was evaluated in 2019 and the exact cau se of her interstitial lung disease was not certain however the physician at the [facility] felt that it was less likely to be related to amiodarone toxicity. The cause of her interstitial lung disease could not be certain unless a lung biopsy was performed. We will send markers for connective tissue disease including a any, SHELBIE, p-ANCA, c-ANCA, and rheumatoid factor. Continue diuretics, continue antibiotics. We'll continue to follow. Patient was also given the option of following up with the [facility] where she had previously been extensively evaluated. I performed a history & physical examination of the patient and discussed their management with my nurse practitioner, Ethel Seay. I reviewed the nurse practitioner's note and agree with the documented findings and plan of care. Lung sounds are positive for bibasilar rales The findings and the impression was discussed with the patient. I attest to the documentation by the nurse practitioner. Time with Patient: Less than 30
[2020-12-21] MEDS ORDERED: traZODone HCL 50 MG TAB PO PRN (18:00)
[2020-12-21] MEDS: AZITHROMYCIN 500 MG TAB PO SCH (19:58)
[2020-12-21] MEDS: MELATONIN 5 MG TABLET PO SCH (21:46)
[2020-12-22] MEDS: LEVOTHYROXINE 50 MCG TAB PO SCH (05:56)
[2020-12-22 07:14] LABS: African American GFR (CKD) 42 (>60 ml/min/1.73 sqM); Anion Gap 9 mmol/L; Blood Urea Nitrogen 28 mg/dL (7-17); Calcium 9.1 mg/dL (8.4-10.2); Carbon Dioxide 26 mmol/L (22-30); Chloride 97 mmol/L (98-107); Glucose 92 mg/dL (74-99); Non-African American GFR(CKD) 36 (>60 ml/min/1.73 sqM); Potassium 3.9 mmol/L (3.5-5.1); Sodium 132 mmol/L (137-145)
--- NOTE | 2020-12-22 07:53 | CT ---
EXAMINATION TYPE: CT chest wo con DATE OF EXAM: 12/22/2020 COMPARISON: 06/17/2019 HISTORY: ILD CT DLP: 316.4 mGycm, Automated exposure control for dose reduction was used. CONTRAST: None TECHNIQUE: Axial images were obtained at 1 mm thick sections at 10 mm intervals. This will limit po rtions of the examination which may not be visualized within the [id number]. Images were obtained in the supine view. Prone views are not obtained. FINDINGS: Portion of the thyroid visualized is normal. Patchy nonspecific infiltrates are within the lung bases. Some groundglass opacity may be present. Co rrelate for atypical pneumonia. Pulmonary edema could be considered. Previous right lower lobe nodules not identified on the current study is compared to be due to imagin g technique. No enlarged mediastinal or hilar adenopathy is evident. The ascending aorta diameter at the level o f the main pulmonary artery is 4.2 cm. The main pulmonary artery diameter at the bifurcation is 4.5 cm. Correlate for pulmonary hypertension. Aneurysmal dilatation of the ascending thoracic aorta is ev ident. There is a small right pleural effusion. Very minimal left pleural effusion may be present. Coronary artery calcification is noted. Limited CT sections are obtained through the upper abdomen. Abdomen is essentially unremarkable. IMPRESSIONS: 1. Patchy infiltrates scattered within the lung bases can be related to acute infection or pulmonary edema. Correlate with the patient's history. 2. Small right and minimal left pleural effusion. 3. Aneurysmal dilatation of the ascending thoracic aorta. 4. Clinical correlation recommended for pulmonary edema.
[2020-12-22] MEDS: FUROSEMIDE 10 MG/ML 4 ML VIAL IV SCH ×2 (09:15→20:43)
[2020-12-22] MEDS: APIXABAN 2.5 MG TABLET PO SCH ×2 (09:17→20:36)
[2020-12-22] MEDS: METOPROLOL TARTRATE 50 MG TAB PO SCH ×2 (09:17→20:36)
[2020-12-22] MEDS: AMIODARONE 200 MG TAB PO SCH ×2 (09:17→20:36)
[2020-12-22] MEDS: SPIRONOLACTONE 25 MG TAB PO SCH (09:18)
[2020-12-22 11:36] LABS: Anti-Smith Ab Interp NEGATIVE (NEGATIVE)
--- NOTE | 2020-12-22 11:52 | PN ---
PROGRESS NOTE Mrs. Ziegler is an 85-year-old female with a known history of chronic persistent atrial fibrillation, history of severe pulmonary hypertension, who presented with progressive dyspnea and peripheral edema as well as cough. She had atrial fibrillation with rapid ventricular response. She has been evaluated by Dr. Umanzor who reviewed her data from [facility]. The patient is feeling better today. Her breathing is better. Her ventricular response is under better control. She denying any chest pain or dizziness. She continues to have a cough. She continues to be on IV diuretics. It was felt that she has chronic interstitial lung disease with associated pulmonary hypertension. Markers for connective tissue disease were obtained yesterday. She had a CAT scan done yesterday. She continues to be at this time on amiodarone 200 mg twice a day, Eliquis 2.5 mg twice a day, Lasix 40 mg IV q.12 hours, metoprolol tartrate 50 twice a day and 25 at noontime, spironolactone 25 mg daily. PHYSICAL EXAMINATION: Blood pressure running in the 120s with the heart rate in the 70. LUNGS: With scattered rhonchi. No wheezes. HEART: Irregular, irregular. S1, S2. No S3 with systolic murmur. ABDOMEN: Soft and nontender. EXTREMITIES: No edema. LAB DATA: Lab data revealed BUN and creatinine 28 and 1.32. Potassium 3.9. Her sodium is 132. IMPRESSION: 1. Symptoms of progressive dyspnea with element of fluid overload with preserved systolic function and severe pulmonary hypertension. 2. Chronic interstitial lung disease, full etiology unclear. Workup in progress. 3. Chronic persistent atrial fibrillation, anticoagulated, ventricular response is under better control. 4. Severe pulmonary hypertension with chronic oxygen use. 5. Chronic disease. 6. History of hypertension. RECOMMENDATION: From the cardiac standpoint, will continue the IV diuretic for another 24 hours and switch her to oral tomorrow. I discussed her case with Dr. Umanzor. It is unlikely that amiodarone is the cause of her changes. She used to be on it in the past but that was stopped a while ago and restarted just a week ago. We will continue observation on present therapy at this time and depending on her progress, further recommendation will be made. MMODL / IJN: [id number] /
--- NOTE | 2020-12-22 12:14 | P.PN ---
Subjective Progress Note Date: 12/22/20 No new complaints today. She reports that she feels more energetic on exertion. Ongoing IV diuresis. Objective - Vital Signs Vital signs: Vital Signs Temp 94.6 F L 12/22/20 07:23 Pulse 76 12/22/20 09:00 Resp 16 12/22/20 09:00 BP 127/73 12/22/20 07:23 Pulse Ox 93 L 12/22/20 07:23 Intake & Output 12/21/20 12/22/20 12/22/20 18:59 06:59 18:59 Output Total 800 Balance -800 Weight 75.7 kg Output: Urine 800 Other: # Voids 3 - Exam Gen: awake, alert HEENT: normocephalic, atraumatic, good hearing acuity, moist mucous membranes Resp: good air exchange, breathing comfortably with no accessory muscle use, clear to auscultation bilaterally without Velcro rales or wheezes CVS: good distal perfusion x 4, regular rate, irregular rhythm GI: soft, NTTP, ND : no SPT, no CVAT, thorpe catheter not present MSK: no pitting edema, no clubbing Neuro: non-focal, moving all extremities Psych: cooperative, euthymic mood - Labs CBC & Chem 7: 12/20/20 07:17 12/22/20 06:38 Labs: Abnormal Lab Results - Last 24 Hours (Table) 12/22/20 12/22/20 Range/Units 06:38 06:38 Sodium 132 L (137-145) mmol/L Chloride 97 L (98-107) mmol/L BUN 28 H (7-17) mg/dL Creatinine 1.32 H (0.52-1.04) mg/dL KWADWO Screen POSITIVE A (NEGATIVE) RADON INSPECTOR Antibody Interp POSITIVE A (NEGATIVE) Microbiology - Last 24 Hours (Table) 12/19/20 21:38 Blood Culture - Preliminary Blood No Growth after 48 hours Assessment and Plan Assessment: Acute on chronic hypoxic respiratory failure altered factorial secondary to below Sepsis (fever, leukocytosis, tachycardia ) Community-acquired pneumonia Pulmonary vascular congestion rule out CHF A flat or durable AV block Hyponatremia 85 year old woman with history of chronic respiratory failure from pulmonary fibrosis, AFib/Flutter with variable AV Block presented with acute respiratory failure with CXR showing ZOEY infiltrates concerning for sepsis from pneumonia. Plan: Patient was started on empiric antibiotics Follow-up cultures = NGTD Gentle diuresis with IV Lasix 40 mg twice a day Resume amiodarone and metoprolol Symptomatic control of coughing Breathing treatments as needed Supplemental oxygen as needed Tessalon Perles for coughing Covid testing negative Cardiology consult Pulmonary consult Check echocardiogram with left ventricular ejection fraction = 55%, severe pHTN to 72 Chronic conditions History of asthma and pulmonary fibrosis Mitral valve prolapse Hypothyroid GERD Hyperlipidemia Resume home medications CODE STATUS: Full code DVT prophylaxis: On Eliquis for A. fib Discussed with: Patient, ER, RN Anticipated length of stay more than [address]: Home
[2020-12-22] MEDS: METOPROLOL TARTRATE 25 MG TAB PO SCH (13:08)
--- NOTE | 2020-12-22 16:11 | P.PN ---
Subjective Progress Note Date: 12/22/20 Principal diagnosis: Dyspnea 85-year-old female patient presented yesterday to the hospital because of progressive worsening shortness of breath a few days duration. The patient was having oxygen desaturation and she has been requiring around 4 L approximately nasal cannula and she normally uses 2 L. Along with a harper shortness of breath, shortness cough and her cough was productive and she was producing yellow sputum. Denied having any chest pain. No pleurisy. No hemoptysis. No reported fever or chills. No recent travel history. The patient has multiple medical problems and comorbidities. She is known to have chronic hypoxic respiratory failure, pulmonary fibrosis, mitral valve prolapse, diabetes mellitus, hypertension, hyperlipidemia, chronic stage III kidney disease, breast cancer with previous surgery and radiation therapy, ulcerative colitis, spinal stenosis, osteoporosis, hypothyroidism and hyperlipidemia and hypertension. She was having episodic palpitation and she was seeking a second opinion regarding her atrial fibrillation with a possibility of ablation at the [facility]. Her blood work showed a hemoglobin of 11.6 with a white cell count 11.7 and a platelet count of 246, coagulation profile is within normal, BUN and creatinine were 24 and 1.1 respectively and a electrolytes all within normal limits. She did have some mild hyponatremia with a sodium level of 131 and a chloride level of 97. Her LFTs are within normal limits, lactate acid level was at 1.3, proBNP level was 5630. Total protein of 6.9 and albumin of 3.8. Bilirubin was normal at 1.3. UA showing only 3 WBCs, 1 RBC and hyaline casts. The chest x-ray was consistent with CHF. Note that the patient had an echocardiogram that showed a preserved LV function with an ejection fraction of 50-55%, dilated LA, mild to moderate aortic regurgitation, moderate mitral regurgitation, severe tricuspid regurgitation with a PA pressure of 72 mmHg. Her EKG showing a a flutter rhythm with a 2-1 conduction and a heart rate is 113. On 12/21/2020 patient seen in follow-up on medical floor. She is currently on 3 L of oxygen pulse ox 95%, she's been afebrile, hemodynamically stable, no complaints of chest pain, chest x-ray today shows scattered bilateral lung infiltrates, with consideration for atypical pulmonary edema. Patient remains on diuretics, her weight is down, she is maintaining negative fluid balance. His labs have been reviewed, showing sodium of 133, potassium is 4.3, chloride is 99, CO2 is 25, BUN of 27, creatinine is 1.3. Patient continues on oral amiodarone, oral anticoagulation in the form of Eliquis, she is on empiric antibiotics in the form of azithromycin and Rocephin, her Lasix dose is 40 mg every 12 hours. Patient remains in A. fib with a controlled rate. The daughter brought in records from [facility] from 2019, it was reviewed, and patient was given a diagnosis of interstitial lung disease with the possibility of hypersensitivity pneumonitis, less likely related to amiodarone toxicity, however definitive diagnosis could not be made unless a lung biopsy was done. There have been no acute events overnight. Patient appears to be breathing comfortably, she is diuresing, she states she was up several times in the night, to the bathroom. No fever or chills, no chest pain. On 12/22/2020 patient is seen in follow-up on medical floor. She states her breathing comfortably, but does have exertional dyspnea with any activity, she continues on diuretics, currently on Medrol 40 mg twice daily, she remains on azithromycin and Rocephin for empiric antibiotic coverage, she's had no fever or chills, today sodium is 132, potassium 3.9, chloride is 97, B1 is 20, creatinine is 1.32, pro-calcitonin level was 0.21. Objective - Vital Signs Vital signs: Vital Signs Temp 94.6 F L 12/22/20 07:23 Pulse 78 12/22/20 13:45 Resp 18 12/22/20 13:45 BP 96/61 12/22/20 13:45 Pulse Ox 93 L 12/22/20 07:23 Intake & Output 12/21/20 12/22/20 12/22/20 18:59 06:59 18:59 Output Total 800 820 Balance -800 -820 Weight 75.7 kg Output: Urine 800 820 Other: # Voids 3 1 - Exam GENERAL EXAM: Alert, very pleasant, 85-year-old white female, on 3 L of oxygen with a pulse ox of 95% comfortable in no apparent distress. HEAD: Normocephalic/atraumatic. EYES: Normal reaction of pupils, equal size. Conjunctiva pink, sclera white. NOSE: Clear with pink turbinates. THROAT: No erythema or exudates. NECK: No masses, no JVD, no thyroid enlargement, no adenopathy. CHEST: No chest wall deformity. Symmetrical expansion. LUNGS: Equal air entry with no crackles, wheeze, rhonchi or dullness. CVS: Regular rate and rhythm, normal S1 and S2, no gallops, no murmurs, no rubs ABDOMEN: Soft, nontender. No hepatosplenomegaly, normal bowel sounds, no guarding or rigidity. EXTREMITIES: No clubbing, no edema, no cyanosis, 2+ pulses and upper and lower extremities. MUSCULOSKELETAL: Muscle strength and tone normal. SPINE: No scoliosis or deformity SKIN: No rashes CENTRAL NERVOUS SYSTEM: Alert and oriented -3. No focal deficits, tone is normal in all 4 extremities. PSYCHIATRIC: Alert and oriented -3. Appropriate affect. Intact judgment and insight. - Labs CBC & Chem 7: 12/20/20 07:17 12/22/20 06:38 Labs: Abnormal Lab Results - Last 24 Hours (Table) 12/22/20 12/22/20 Range/Units 06:38 06:38 Sodium 132 L (137-145) mmol/L Chloride 97 L (98-107) mmol/L BUN 28 H (7-17) mg/dL Creatinine 1.32 H (0.52-1.04) mg/dL KWADWO Screen POSITIVE A (NEGATIVE) SHIPWRIGHT HELPER Antibody Interp POSITIVE A (NEGATIVE) Microbiology - Last 24 Hours (Table) 12/19/20 21:38 Blood Culture - Preliminary Blood No Growth after 48 hours Assessment and Plan Plan: Assessment: 1 acute on chronic hypoxic respiratory failure and currently the patient on 4 to approximately nasal cannula. This is likely associated decompensated CHF with background pulmonary fibrosis. The series of CAT scans that was done on this patient since 2018. I noted that that the CAT scan of the chest that was done back in 2018 showed no major interstitial lung disease or fibrosis. Things progressively got worse in 2019 where the patient had 2 CAT scans in December and June 2019 where the dissecting CAT scan showed diffuse groundglass changes and this is not typical of IPF and I'm more concerned of hypersensitivity pneumonitis, drug induced pneumonitis, atypical mycobacterial infection-type of pneumonitis and interstitial edema. 2 chronic ILD, diffuse, without any significant honeycombing or scarring. Exact etiology is not clear. Could be related to drugs/amiodarone. Could be related to IPF is a less likely possibility 3 paroxysmal atrial fibrillation/flutter maintained on a combination of medications including metoprolol for rate control 25 mg by mouth daily, amiodarone 200 mg by mouth twice a day and Eliquis for long-term and coagulation 4 severe pulmonary hypertension, could be related to chronic lung disease and right-sided heart failure. 5 chronic stage III kidney disease 6 diabetes mellitus 7 hyperlipidemia 8 hypertension 9 hypothyroidism 10 spinal stenosis and chronic back pain along with scoliosis 11 gout 12 breast cancer with a previous lumpectomy followed by radiation therapy 13 skin cancer with previous resection 14 colonic polyps postresection 15 history of ulcerative colitis along with a component of IBS and diverticular disease 16 scoliosis of the spine along with spinal stenosis and chronic back pain 17 osteoporosis 18 impaired hearing/deafness. Plan: Continue diuretics for another 24 hours, CT chest has been completed and reviewed, showing patchy infiltrates scattered within the lung bases with the possibility of pulmonary edema or infectious etiology, and small right and minimal left pleural effusion. Case discussed with cardiology, will continue diuretics for the 24 hours, may repeat high resolution CT chest in another 24-48 hours. Connective tissue workup points to possibility of Sjogren's disease, or mixed connective tissue disorder. Will send SSA and SSB antibody. At any rate, patient will probably not tolerate lung biopsy well. However she is hoping to improve her dyspnea which is limiting her functional capacity quite significantly. I performed a history & physical examination of the patient and discussed their management with my nurse practitioner, Ethel Seay. I reviewed the nurse practitioner's note and agree with the documented findings and plan of care. Lung sounds are positive for bibasilar rales The findings and the impression was discussed with the patient. I attest to the documentation by the nurse practitioner. Time with Patient: Less than 30
[2020-12-22] MEDS: AZITHROMYCIN 500 MG TAB PO SCH (20:36)
[2020-12-22] MEDS: MELATONIN 5 MG TABLET PO SCH (20:44)
[2020-12-23] MEDS: LEVOTHYROXINE 50 MCG TAB PO SCH (05:39)
[2020-12-23 06:34] LABS: African American GFR (CKD) 41 (>60 ml/min/1.73 sqM); Anion Gap 9 mmol/L; Blood Urea Nitrogen 27 mg/dL (7-17); Carbon Dioxide 29 mmol/L (22-30); Chloride 96 mmol/L (98-107); Glucose 92 mg/dL (74-99); Non-African American GFR(CKD) 36 (>60 ml/min/1.73 sqM); Potassium 3.6 mmol/L (3.5-5.1); Sodium 134 mmol/L (137-145)
[2020-12-23] MEDS: SPIRONOLACTONE 25 MG TAB PO SCH (10:17)
[2020-12-23] MEDS: AMIODARONE 200 MG TAB PO SCH ×2 (10:17→20:11)
[2020-12-23] MEDS: APIXABAN 2.5 MG TABLET PO SCH ×2 (10:17→20:10)
[2020-12-23] MEDS: METOPROLOL TARTRATE 50 MG TAB PO SCH ×2 (10:17→20:10)
[2020-12-23] MEDS: FUROSEMIDE 10 MG/ML 4 ML VIAL IV SCH (10:17)
--- NOTE | 2020-12-23 11:51 | P.PN ---
Subjective Progress Note Date: 12/23/20 HISTORY OF PRESENTING ILLNESS This is a pleasant 85-year-old female past medical history significant for severe pulmonary hypertension, chronic right sided heart failure, chronic persistent atrial fibrillation on [facility] anti-coagulation, hypertension, diabetes mellitus, dyslipidemia, pulmonary fibrosis on home oxygen and chronic kidney disease. She follows in the office with Dr. Caldwell. She is seen and examined sitting up in bed in no acute distress. She states she has been up to the bathroom frequently and is diuresing well. She is down 2 kg, there is no documented output. Blood pressure 119/75 heart rate 73 afebrile and maintaining oxygen saturation on nasal cannula. Laboratory data reviewed, sodium 133, potassium 4.3, creatinine 1.3. Currently maintained on amiodarone 200 BID, lasix 40 mg IV BID, lopressor 50 mg BID and 25 mg at noontime and aldactone 25 mg daily. Telemetry tracings reveal atrial flutter with primarily controlled rates in the 70's. 12/23: CT of the chest reveals patchy infiltrates scattered within the lung bases related to acute infection or pulmonary edema. Small right and minimal left pleural effusion. Aneurysmal dilatation of the ascending thoracic aorta. Patient states that she is able to get up to the bathroom has minimal shortness of breath. No shortness of breath at rest. She denies having any palpitations. No lightheadedness or dizziness. PHYSICAL EXAMINATION CONSTITUTIONAL: Patient is sitting up in bed and appears to be comfortable. No respiratory distress is noted.. HEENT: Head is normocephalic. Pupils are equal, round. Sclerae anicteric. Mucous membranes of the mouth are moist. No JVD. No carotid bruit. CHEST EXAMINATION: diminished bilaterally, no wheezes or rhonchi. No chest wall tenderness is noted on palpation or with deep breathing. HEART EXAMINATION: Irregular rate and rhythm. S1, S2 heard. Systolic ejection murmur at the base, no gallops or rub. EXTREMITIES: 2+ peripheral pulses, no lower extremity edema and no calf tenderness. ASSESSMENT Acute on chronic right-sided heart failure Pneumonia Leukocytosis Severe pulmonary hypertension Pulmonary fibrosis on home oxygen Chronic persistent atrial fibrillation on long-term anticoagulation Hypertension Dyslipidemia Diabetes mellitus Chronic kidney disease Dilated ascending thoracic aorta PLAN Continue current medical regimen. Transition IV Lasix to oral 40 mg twice daily Follow renal function and electrolytes in the morning. Further recommendations to follow based on clinical course. Nurse Practitioner note has been reviewed, I agree with a documented findings and plan of care. Patient was seen and examined. Objective - Vital Signs Vital signs: Vital Signs Temp 98.3 F 12/23/20 07:00 Pulse 88 12/23/20 07:00 Resp 16 12/23/20 07:00 BP 108/67 12/23/20 07:00 Pulse Ox 94 L 12/23/20 07:00 Intake & Output 12/22/20 12/23/20 12/23/20 18:59 06:59 18:59 Output Total 1120 Balance -1120 Weight 75.4 kg Output: Urine 1120 Other: # Voids 1 - Labs CBC & Chem 7: 12/20/20 07:17 12/23/20 05:41 Labs: Abnormal Lab Results - Last 24 Hours (Table) 12/22/20 12/22/20 12/23/20 Range/Units 06:38 06:38 05:41 Sodium 134 L (137-145) mmol/L Chloride 96 L (98-107) mmol/L BUN 27 H (7-17) mg/dL Creatinine 1.35 H (0.52-1.04) mg/dL KWADWO Screen POSITIVE A (NEGATIVE) SS-B Ab Interp POSITIVE A (NEGATIVE) PATIENT RELATIONS REPRESENTATIVE Antibody Interp POSITIVE A (NEGATIVE) Microbiology - Last 24 Hours (Table) 12/19/20 21:38 Blood Culture - Preliminary Blood No Growth after 72 hours
[2020-12-23] MEDS: METOPROLOL TARTRATE 25 MG TAB PO SCH (12:18)
--- NOTE | 2020-12-23 13:13 | P.PN ---
Subjective Progress Note Date: 12/23/20 Doing well, no new complaints. Improving dyspnea on exertion, ongoing diuresis, IV switched to oral today. Objective - Vital Signs Vital signs: Vital Signs Temp 98.3 F 12/23/20 07:00 Pulse 88 12/23/20 07:00 Resp 16 12/23/20 07:00 BP 108/67 12/23/20 07:00 Pulse Ox 94 L 12/23/20 07:00 Intake & Output 12/22/20 12/23/20 12/23/20 18:59 06:59 18:59 Output Total 1120 Balance -1120 Weight 75.4 kg Output: Urine 1120 Other: # Voids 1 - Exam Gen: awake, alert HEENT: normocephalic, atraumatic, good hearing acuity, moist mucous membranes Resp: good air exchange, breathing comfortably with no accessory muscle use, clear to auscultation bilaterally without Velcro rales or wheezes CVS: good distal perfusion x 4, regular rate, irregular rhythm GI: soft, NTTP, ND : no SPT, no CVAT, thorpe catheter not present MSK: no pitting edema, no clubbing Neuro: non-focal, moving all extremities Psych: cooperative, euthymic mood - Labs CBC & Chem 7: 12/20/20 07:17 12/23/20 05:41 Labs: Abnormal Lab Results - Last 24 Hours (Table) 12/22/20 12/23/20 Range/Units 06:38 05:41 Sodium 134 L (137-145) mmol/L Chloride 96 L (98-107) mmol/L BUN 27 H (7-17) mg/dL Creatinine 1.35 H (0.52-1.04) mg/dL SS-B Ab Interp POSITIVE A (NEGATIVE) Microbiology - Last 24 Hours (Table) 12/19/20 21:38 Blood Culture - Preliminary Blood No Growth after 72 hours Assessment and Plan Assessment: Acute on chronic hypoxic respiratory failure altered factorial secondary to below Sepsis (fever, leukocytosis, tachycardia ) Community-acquired pneumonia Pulmonary vascular congestion rule out CHF A flat or durable AV block Hyponatremia Pulmonary Fibrosis secondary to Scleroderma 85 year old woman with history of chronic respiratory failure from pulmonary fibrosis, AFib/Flutter with variable AV Block presented with acute respiratory failure with CXR showing ZOEY infiltrates concerning for sepsis from pneumonia. Plan: Patient was started on empiric antibiotics Follow-up cultures = NGTD Gentle diuresis with PO Lasix 40 mg twice a day Resume amiodarone and metoprolol Symptomatic control of coughing Breathing treatments as needed Supplemental oxygen as needed Tessalon Perles for coughing Check echocardiogram with left ventricular ejection fraction = 55%, severe pHTN to 72 Covid testing negative Follow up: Cardiology consult --> ongoing amio and PO diuresis with f/u, consideration of AVN ablation/PPM if failure of medical therapy Pulmonary consult --> outpatient will require initiation of azathioprine or Mycophenolate for scleroderma Chronic conditions History of asthma and pulmonary fibrosis Mitral valve prolapse Hypothyroid GERD Hyperlipidemia Resume home medications CODE STATUS: Full code DVT prophylaxis: On Eliquis for A. fib Discussed with: Patient, ER, RN Anticipated length of stay more than [address]: Home
--- NOTE | 2020-12-23 13:36 | P.PN ---
Subjective Progress Note Date: 12/23/20 85-year-old female patient presented yesterday to the hospital because of progressive worsening shortness of breath a few days duration. The patient was having oxygen desaturation and she has been requiring around 4 L approximately nasal cannula and she normally uses 2 L. Along with a harper shortness of breath, shortness cough and her cough was productive and she was producing yellow sputum. Denied having any chest pain. No pleurisy. No hemoptysis. No reported fever or chills. No recent travel history. The patient has multiple medical problems and comorbidities. She is known to have chronic hypoxic respiratory failure, pulmonary fibrosis, mitral valve prolapse, diabetes mellitus, hypertension, hyperlipidemia, chronic stage III kidney disease, breast cancer with previous surgery and radiation therapy, ulcerative colitis, spinal stenosis, osteoporosis, hypothyroidism and hyperlipidemia and hypertension. She was having episodic palpitation and she was seeking a second opinion regarding her atrial fibrillation with a possibility of ablation at the [facility]. Her blood work showed a hemoglobin of 11.6 with a white cell count 11.7 and a platelet count of 246, coagulation profile is within normal, BUN and creatinine were 24 and 1.1 respectively and a electrolytes all within normal limits. She did have some mild hyponatremia with a sodium level of 131 and a chloride level of 97. Her LFTs are within normal limits, lactate acid level was at 1.3, proBNP level was 5630. Total protein of 6.9 and albumin of 3.8. Bilirubin was normal at 1.3. UA showing only 3 WBCs, 1 RBC and hyaline casts. The chest x-ray was consistent with CHF. Note that the patient had an echocardiogram that showed a preserved LV function with an ejection fraction of 50-55%, dilated LA, mild to moderate aortic regurgitation, moderate mitral regurgitation, severe tricuspid regurgitation with a PA pressure of 72 mmHg. Her EKG showing a a flutter rhythm with a 2-1 conduction and a heart rate is 113. On 12/21/2020 patient seen in follow-up on medical floor. She is currently on 3 L of oxygen pulse ox 95%, she's been afebrile, hemodynamically stable, no complaints of chest pain, chest x-ray today shows scattered bilateral lung infiltrates, with consideration for atypical pulmonary edema. Patient remains on diuretics, her weight is down, she is maintaining negative fluid balance. His labs have been reviewed, showing sodium of 133, potassium is 4.3, chloride is 99, CO2 is 25, BUN of 27, creatinine is 1.3. Patient continues on oral amiodarone, oral anticoagulation in the form of Eliquis, she is on empiric antibiotics in the form of azithromycin and Rocephin, her Lasix dose is 40 mg every 12 hours. Patient remains in A. fib with a controlled rate. The daughter brought in records from [facility] from 2019, it was reviewed, and patient was given a diagnosis of interstitial lung disease with the possibility of hypersensitivity pneumonitis, less likely related to amiodarone toxicity, however definitive diagnosis could not be made unless a lung biopsy was done. There have been no acute events overnight. Patient appears to be breathing comfortably, she is diuresing, she states she was up several times in the night, to the bathroom. No fever or chills, no chest pain. On 12/22/2020 patient is seen in follow-up on medical floor. She states her breathing comfortably, but does have exertional dyspnea with any activity, she continues on diuretics, currently on Medrol 40 mg twice daily, she remains on azithromycin and Rocephin for empiric antibiotic coverage, she's had no fever or chills, today sodium is 132, potassium 3.9, chloride is 97, B1 is 20, creatinine is 1.32, pro-calcitonin level was 0.21. On 12/23/2020, the patient is feeling much better. She is less short of breath. She is less tachycardic. Her A. fib is under better control. She has diuresed adequately. Her hematologic profile was also positive and the patient positive antibodies To KWADWO, anti-BOARD LAYER and SSA antibodies were also positive. As such, I think is a component of interstitial lung disease probably in the form of Sjogren's disease with secondary ILD. She is doing well. No other new issues for now. Potential home tomorrow. Objective - Vital Signs Vital signs: Vital Signs Temp 98.3 F 12/23/20 07:00 Pulse 88 12/23/20 07:00 Resp 16 12/23/20 07:00 BP 108/67 12/23/20 07:00 Pulse Ox 94 L 12/23/20 07:00 Intake & Output 12/22/20 12/23/20 12/23/20 18:59 06:59 18:59 Output Total 1120 Balance -1120 Weight 75.4 kg Output: Urine 1120 Other: # Voids 1 - Exam GENERAL EXAM: Alert, very pleasant, 85-year-old white female, on 3 L of oxygen with a pulse ox of 95% comfortable in no apparent distress. HEAD: Normocephalic/atraumatic. EYES: Normal reaction of pupils, equal size. Conjunctiva pink, sclera white. NOSE: Clear with pink turbinates. THROAT: No erythema or exudates. NECK: No masses, no JVD, no thyroid enlargement, no adenopathy. CHEST: No chest wall deformity. Symmetrical expansion. LUNGS: Equal air entry with no crackles, wheeze, rhonchi or dullness. CVS: Regular rate and rhythm, normal S1 and S2, no gallops, no murmurs, no rubs ABDOMEN: Soft, nontender. No hepatosplenomegaly, normal bowel sounds, no guarding or rigidity. EXTREMITIES: No clubbing, no edema, no cyanosis, 2+ pulses and upper and lower extremities. MUSCULOSKELETAL: Muscle strength and tone normal. SPINE: No scoliosis or deformity SKIN: No rashes CENTRAL NERVOUS SYSTEM: Alert and oriented -3. No focal deficits, tone is normal in all 4 extremities. PSYCHIATRIC: Alert and oriented -3. Appropriate affect. Intact judgment and insight. - Labs CBC & Chem 7: 12/20/20 07:17 12/23/20 05:41 Labs: Abnormal Lab Results - Last 24 Hours (Table) 12/22/20 12/23/20 Range/Units 06:38 05:41 Sodium 134 L (137-145) mmol/L Chloride 96 L (98-107) mmol/L BUN 27 H (7-17) mg/dL Creatinine 1.35 H (0.52-1.04) mg/dL SS-B Ab Interp POSITIVE A (NEGATIVE) Microbiology - Last 24 Hours (Table) 12/19/20 21:38 Blood Culture - Preliminary Blood No Growth after 72 hours Assessment and Plan Plan: 1 acute on chronic hypoxic respiratory failure and currently the patient on 4 to approximately nasal cannula. This is likely associated decompensated CHF with background ILD which is probably in the form of connective tissue disease mediated ILD. Her connective tissue disease markers including KWADWO and SSA and anti-BOARD LAYER was positive. Suspect ILD secondary to Sjogren's disease. Doubt amiodarone-induced lung toxicity. There could've been a component of interstitial edema as the patient had groundglass changes in addition to right- sided pleural effusion. She improved with diuresis. Antibiotics can be discontinued. 2 chronic ILD, diffuse, without any significant honeycombing or scarring. See The above discussion 3 paroxysmal atrial fibrillation/flutter maintained on a combination of medications including metoprolol for rate control 25 mg by mouth daily, amiodarone 200 mg by mouth twice a day and Eliquis for long-term and coagulation 4 severe pulmonary hypertension, could be related to chronic lung disease and right-sided heart failure. 5 chronic stage III kidney disease 6 diabetes mellitus 7 hyperlipidemia 8 hypertension 9 hypothyroidism 10 spinal stenosis and chronic back pain along with scoliosis 11 gout 12 breast cancer with a previous lumpectomy followed by radiation therapy 13 skin cancer with previous resection 14 colonic polyps postresection 15 history of ulcerative colitis along with a component of IBS and diverticular disease 16 scoliosis of the spine along with spinal stenosis and chronic back pain 17 osteoporosis 18 impaired hearing/deafness. Plan Discussed the case with Dr. Caldwell. The pulmonary findings as most likely ILD secondary to connective tissue disease such as Sjogren's disease. No indication for amiodarone-induced lung toxicity. This can be continued as long as it. For rate control. Switch the Lasix to oral. Continue Eliquis. Continue metopr olol. She is well diuresis. Renal function stable. She can be discharged home on oxygen to be followed up on outpatient basis. Clinically feeling much better.
[2020-12-23] MEDS: FUROSEMIDE 40 MG TAB PO SCH (17:03)
[2020-12-23] MEDS: IPRATROPIUM-ALBUTEROL 3 ML NEB INHALATION PRN (19:46)
[2020-12-23] MEDS: MELATONIN 5 MG TABLET PO SCH (20:11)
[2020-12-24 06:58] LABS: African American GFR (CKD) 43 (>60 ml/min/1.73 sqM); Anion Gap 9 mmol/L; Blood Urea Nitrogen 26 mg/dL (7-17); Calcium 8.9 mg/dL (8.4-10.2); Carbon Dioxide 25 mmol/L (22-30); Chloride 98 mmol/L (98-107); Glucose 93 mg/dL (74-99); Non-African American GFR(CKD) 37 (>60 ml/min/1.73 sqM); Potassium 3.7 mmol/L (3.5-5.1); Sodium 132 mmol/L (137-145)
[2020-12-24] MEDS: LEVOTHYROXINE 50 MCG TAB PO SCH (08:47)
[2020-12-24] MEDS: SPIRONOLACTONE 25 MG TAB PO SCH (08:47)
[2020-12-24] MEDS: METOPROLOL TARTRATE 50 MG TAB PO SCH (08:47)
[2020-12-24] MEDS: AMIODARONE 200 MG TAB PO SCH (08:47)
[2020-12-24] MEDS: FUROSEMIDE 40 MG TAB PO SCH (08:47)
[2020-12-24] MEDS: APIXABAN 2.5 MG TABLET PO SCH (08:48)
[2020-12-24 08:49] VITALS: BP 113/77; PULSE 81; RESP 16; TEMP 97.6
--- NOTE | 2020-12-24 11:15 | P.PN ---
Subjective Progress Note Date: 12/24/20 HISTORY OF PRESENTING ILLNESS This is a pleasant 85-year-old female past medical history significant for severe pulmonary hypertension, chronic right sided heart failure, chronic persistent atrial fibrillation on senior care anti-coagulation, hypertension, diabetes mellitus, dyslipidemia, pulmonary fibrosis on home oxygen and chronic kidney disease. She follows in the office with Dr. Caldwell. She is seen and examined sitting up in bed in no acute distress. She states she has been up to the bathroom frequently and is diuresing well. She is down 2 kg, there is no documented output. Blood pressure 119/75 heart rate 73 afebrile and maintaining oxygen saturation on nasal cannula. Laboratory data reviewed, sodium 133, potassium 4.3, creatinine 1.3. Currently maintained on amiodarone 200 BID, lasix 40 mg IV BID, lopressor 50 mg BID and 25 mg at noontime and aldactone 25 mg daily. Telemetry tracings reveal atrial flutter with primarily controlled rates in the 70's. 12/23: CT of the chest reveals patchy infiltrates scattered within the lung bases related to acute infection or pulmonary edema. Small right and minimal left pleural effusion. Aneurysmal dilatation of the ascending thoracic aorta. Patient states that she is able to get up to the bathroom has minimal shortness of breath. No shortness of breath at rest. She denies having any palpitations. No lightheadedness or dizziness. 12/24: Patient denies having any chest pain or shortness of breath. Her blood pressure is 113/77. 95% on 3 L. BUN 26 and creatinine 1.3. She is currently on Lasix 40 mg twice daily and tolerating well. Patient is anticipating discharge home today. PHYSICAL EXAMINATION CONSTITUTIONAL: Patient is sitting up in bed and appears to be comfortable. No respiratory distress is noted. HEENT: Head is normocephalic. Pupils are equal, round. Sclerae anicteric. Mucous membranes of the mouth are moist. No JVD. No carotid bruit. CHEST EXAMINATION: diminished bilaterally, no wheezes or rhonchi. No chest wall tenderness is noted on palpation or with deep breathing. HEART EXAMINATION: Irregular rate and rhythm. S1, S2 heard. Systolic ejection murmur at the base, no gallops or rub. EXTREMITIES: 2+ peripheral pulses, no lower extremity edema and no calf tenderness. ASSESSMENT Acute on chronic right-sided heart failure Pneumonia Leukocytosis Severe pulmonary hypertension Pulmonary fibrosis on home oxygen Chronic persistent atrial fibrillation on long-term anticoagulation Hypertension Dyslipidemia Diabetes mellitus Chronic kidney disease Dilated ascending thoracic aorta PLAN Continue current medical regimen. Continue oral Lasix 40 mg twice daily Patient is cleared for discharge from cardiology. Nurse Practitioner note has been reviewed, I agree with a documented findings and plan of care. Patient was seen and examined. Objective - Vital Signs Vital signs: Vital Signs Temp 97.6 F 12/24/20 07:00 Pulse 81 12/24/20 07:00 Resp 16 12/24/20 07:00 BP 113/77 12/24/20 07:00 Pulse Ox 95 12/24/20 07:00 Intake & Output 12/23/20 12/24/20 12/24/20 18:59 06:59 18:59 Output Total 925 900 Balance -925 -900 Weight 74.3 kg Output: Urine 925 900 Other: # Voids 3 - Labs CBC & Chem 7: 12/20/20 07:17 12/24/20 06:30 Labs: Abnormal Lab Results - Last 24 Hours (Table) 12/24/20 Range/Units 06:30 Sodium 132 L (137-145) mmol/L BUN 26 H (7-17) mg/dL Creatinine 1.30 H (0.52-1.04) mg/dL Microbiology - Last 24 Hours (Table) 12/19/20 21:38 Blood Culture - Preliminary Blood No Growth after 96 hours
[2020-12-24] MEDS: METOPROLOL TARTRATE 25 MG TAB PO SCH (12:02)
--- NOTE | 2020-12-24 13:37 | P.DS ---
Providers Date of admission: 12/19/20 23:25 Expected date of discharge: 12/24/20 Attending physician: Boby Pimentel MD Consults: 12/20/20 03:20 Consult Physician Routine Consulting Provider: aAron Zamora Consult Reason/Comments: atrial flutter Do you want consulting provider notified?: Yes, Notify in am 12/20/20 14:40 Consult Physician Routine Consulting Provider: Neptali Umanzor Consult Reason/Comments: pulmonary fibrosis CHF Do you want consulting provider notified?: Yes [facility] Course: Acute on chronic hypoxic respiratory failure altered factorial secondary to below Sepsis (fever, leukocytosis, tachycardia ) Community-acquired pneumonia Pulmonary vascular congestion rule out CHF A flat or durable AV block Hyponatremia Pulmonary Fibrosis secondary to Sjogren 85 year old woman with history of chronic respiratory failure from pulmonary fibrosis, AFib/Flutter with variable AV Block presented with acute respiratory failure with CXR showing ZOEY infiltrates concerning for sepsis from pneumonia. Pt was treated with empiric antibiotics, but cultures showed NGTD. Pt was seen by cardiology and pulmonary medicine for AFib and pulm fibrosis respectively. Patient had echo demonstrating severe pHTN to 72, and imaging consistent with interstitial lung disease and pulm fibrosis. Workup demonstrated positive antibodies consistent with Sjogren. Patient was diuresed with IV lasix then transitioned to PO lasix upon clinical improvement. Amiodarone was continued for rate control for AFib with success. Patient will be followed up with cardiology and pulmonary teams as outpatient for ongoing treatment for her active medical issues. I spent 40 minutes preparing this discharge. Assessment: Gen: awake, alert HEENT: normocephalic, atraumatic, good hearing acuity, moist mucous membranes Resp: good air exchange, breathing comfortably with no accessory muscle use, clear to auscultation bilaterally without Velcro rales or wheezes CVS: good distal perfusion x 4, regular rate, irregular rhythm GI: soft, NTTP, ND : no SPT, no CVAT, thorpe catheter not present MSK: no pitting edema, no clubbing Neuro: non-focal, moving all extremities Psych: cooperative, euthymic mood Patient Condition at Discharge: Good Plan - Discharge Summary Discharge Rx Participant: Yes New Discharge Prescriptions: New Spironolactone [Aldactone] 25 mg PO DAILY #30 tab Benzonatate [Tessalon Perles] 100 mg PO TID PRN 15 Days #30 cap PRN Reason: Cough Continue Levothyroxine Sodium [Synthroid] 50 mcg PO DAILY Ubidecarenone [Co Q-10] 100 mg PO DAILY Ergocalciferol [Vitamin D2 (DRISDOL)] 50,000 unit PO [id number] Magnesium Oxide [Mag-Ox] 400 mg PO BID allopurinoL [Zyloprim] 100 mg PO DAILY Acetaminophen Tab [Tylenol] 650 mg PO Q6HR PRN tab PRN Reason: Mild Pain Or Fever > 100.5 Apixaban [Eliquis] 5 mg PO BID #180 tab Metoprolol Tartrate [Lopressor] 50 mg PO BID Potassium Chloride ER [K-Dur 10] 10 meq PO BID Cyanocobalamin [Vitamin B-12] 500 mcg PO DAILY Lactose-Reduced Food [Boost] 237 ml PO DAILY Amiodarone [Cordarone] 200 mg PO BID Vitamin C/Biotin [Hair, Skin and Nails] 3 tab PO DAILY Docusate Sodium [Dok] 100 mg PO DAILY PRN PRN Reason: Constipation Metoprolol Tartrate [Lopressor] 25 mg PO DAILY@1200 Albuterol Sulfate [Ventolin HFA] 2 puff INHALATION RT-Q6H PRN PRN Reason: Shortness Of Breath Changed Furosemide [Lasix] 40 mg PO BID #60 Discontinued Furosemide [Lasix] 20 mg PO DAILY Discharge Medication List Ergocalciferol [Vitamin D2 (DRISDOL)] 50,000 unit PO [id number] 07/19/15 [History] Levothyroxine Sodium [Synthroid] 50 mcg PO DAILY 07/19/15 [History] Ubidecarenone [Co Q-10] 100 mg PO DAILY 07/19/15 [History] Magnesium Oxide [Mag-Ox] 400 mg PO BID 11/16/17 [History] allopurinoL [Zyloprim] 100 mg PO DAILY 11/16/17 [History] Acetaminophen Tab [Tylenol] 650 mg PO Q6HR PRN tab 01/24/18 [Rx] Apixaban [Eliquis] 5 mg PO BID #180 tab 07/20/18 [Rx] Metoprolol Tartrate [Lopressor] 50 mg PO BID 12/18/18 [History] Cyanocobalamin [Vitamin B-12] 500 mcg PO DAILY 06/02/19 [History] Potassium Chloride ER [K-Dur 10] 10 meq PO BID 06/02/19 [History] Albuterol Sulfate [Ventolin HFA] 2 puff INHALATION RT-Q6H PRN 12/19/20 [History] Amiodarone [Cordarone] 200 mg PO BID 12/19/20 [History] Docusate Sodium [Dok] 100 mg PO DAILY PRN 12/19/20 [History] Lactose-Reduced Food [Boost] 237 ml PO DAILY 12/19/20 [History] Metoprolol Tartrate [Lopressor] 25 mg PO DAILY@1200 12/19/20 [History] Vitamin C/Biotin [Hair, Skin and Nails] 3 tab PO DAILY 12/19/20 [History] Benzonatate [Tessalon Perles] 100 mg PO TID PRN 15 Days #30 cap 12/24/20 [Rx] Furosemide [Lasix] 40 mg PO BID #60 12/24/20 [Rx] Spironolactone [Aldactone] 25 mg PO DAILY #30 tab 12/24/20 [Rx] Follow up Appointment(s)/Referral(s): [facility], [NON-STAFF] - ([facility] will call you to set up your first visit for 1-2 days after you leave the hospital. ) Neptali Umanzor MD [STAFF PHYSICIAN] - 2 Weeks Alverto Fernández [Primary Care Provider] - 1-2 days Patient Instructions/Handouts: Heart Failure (DC), Community Acquired Pneumonia (DC)
[2020-12-25 14:57] LABS: ANA Pattern Speckled
[2020-12-25 15:25] LABS: C-ANCA <1:20 Titer (<1:20)
== END 2020-12-24 13:30 | disposition home or self-care (01) | DRG 871 ==
LOC: EC 20:25 → 6NMEDSUR 23:25 → 4SSUR 12-20 02:33
PROVIDERS: ADMIT Internal Medicine; ATTEND Internal Medicine
DX: A41.9 Sepsis, unspecified organism (principal); J18.9 Pneumonia, unspecified organism; J96.21 Acute and chronic respiratory failure with hypoxia; E87.1 Hypo-osmolality and hyponatremia; I13.0 Hypertensive heart and chronic kidney disease with heart failure and stage 1 through stage 4 chronic kidney disease, or unspecified chronic kidney disease; I48.19 Other persistent atrial fibrillation; I48.92 Unspecified atrial flutter; K51.90 Ulcerative colitis, unspecified, without complications; E03.9 Hypothyroidism, unspecified; E11.22 Type 2 diabetes mellitus with diabetic chronic kidney disease; E78.5 Hyperlipidemia, unspecified; G89.29 Other chronic pain; H91.90 Unspecified hearing loss, unspecified ear; I08.0 Rheumatic disorders of both mitral and aortic valves; I27.20 Pulmonary hypertension, unspecified; I44.30 Unspecified atrioventricular block; I50.813 Acute on chronic right heart failure; I71.2 Thoracic aortic aneurysm, without rupture; J45.909 Unspecified asthma, uncomplicated; K21.9 Gastro-esophageal reflux disease without esophagitis; M10.9 Gout, unspecified; M34.9 Systemic sclerosis, unspecified; M35.00 Sjogren syndrome, unspecified; M41.9 Scoliosis, unspecified; M48.00 Spinal stenosis, site unspecified; M81.0 Age-related osteoporosis without current pathological fracture; N18.30 Chronic kidney disease, stage 3 unspecified; Z20.822 Contact with and (suspected) exposure to COVID-19; Z85.038 Personal history of other malignant neoplasm of large intestine; Z85.828 Personal history of other malignant neoplasm of skin; Z79.01 Long term (current) use of anticoagulants; Z79.890 Hormone replacement therapy; Z79.899 Other long term (current) drug therapy; Z80.3 Family history of malignant neoplasm of breast; Z81.1 Family history of alcohol abuse and dependence; Z85.3 Personal history of malignant neoplasm of breast; Z90.710 Acquired absence of both cervix and uterus; Z92.3 Personal history of irradiation; Z98.42 Cataract extraction status, left eye; Z98.41 Cataract extraction status, right eye; Z96.1 Presence of intraocular lens; J84.112 Idiopathic pulmonary fibrosis; T46.2X5A Adverse effect of other antidysrhythmic drugs, initial encounter; Z99.81 Dependence on supplemental oxygen; Z88.8 Allergy status to other drugs, medicaments and biological substances; Z88.1 Allergy status to other antibiotic agents; Z91.041 Radiographic dye allergy status
CPT/HCPCS: 36415; 71046; 71250; 80048; 80053; 81001; 83605; 83880; 84145; 84443; 84484; 85025; 85610; 85730; 86038; 86039; 86235; 86255; 86431; 87040; 87635; 93005; 93306; 94640; 94760; 96365; 96375; 99285

== ENCOUNTER → 2021-01-25 | Outpatient (CLI) | payer MEDICARE ==
--- NOTE | 2021-01-25 12:24 | XR ---
EXAMINATION TYPE: XR chest 2V DATE OF EXAM: 01/25/2021 COMPARISON: 12/21/2019 INDICATION: Short of breath TECHNIQUE: Frontal and lateral views of the chest are obtained. FINDINGS: The heart size is mildly. The pulmonary vasculature is normal. No suspicious focal infiltrate is evident.. IMPRESSION: 1. Resolution of previous infiltrates.
[2021-01-26 02:55] LABS: African American GFR (CKD) 25.4 (60.0-200.0); Albumin 4.2 g/dL (3.80-4.90); Albumin/Globulin Ratio 1.83 (1.60-3.17); Anion Gap 12.7 mmol/L (4.00-12.00); BUN/Creat Ratio 21.5 Ratio (12.00-20.00); Calcium 9.8 mg/dL (8.7-10.3); Carbon Dioxide 23.3 mmol/L (21.6-31.8); Globulin 2.3 g/dL (1.6-3.3); Non-African American GFR(CKD) 21.9 (60.0-200.0); Potassium 4.4 mmol/L (3.5-5.5); Total Bilirubin 0.7 mg/dL (0.3-1.2); Total Protein 6.5 g/dL (6.2-8.2)
== END | disposition home or self-care (01) ==
LOC: LABWHC1 11:10
PROVIDERS: ATTEND Internal Medicine Interventional Cardiology
DX: J84.10 Pulmonary fibrosis, unspecified (principal); I27.20 Pulmonary hypertension, unspecified; I48.21 Permanent atrial fibrillation
CPT/HCPCS: 36415; 71046; 80053; 84443

== ENCOUNTER 2021-06-27 11:21 | Inpatient (IN) | payer MEDICARE ==
[2021-06-27 12:48] LABS: Albumin 3.8 g/dL (3.5-5.0); Calcium 9.5 mg/dL (8.4-10.2); Potassium 5.2 mmol/L (3.5-5.1); Total Bilirubin 1.4 mg/dL (0.2-1.3)
--- NOTE | 2021-06-27 12:53 | XR ---
EXAMINATION TYPE: XR chest 2V DATE OF EXAM: 06/27/2021 COMPARISON: 01/25/2021 HISTORY: Shortness of breath TECHNIQUE: Frontal and lateral views of the chest are obtained. FINDINGS: Scattered senescent parenchymal changes noted. Hyperinflation compatible with COPD. Cardiomegaly with scattered infiltrates and pulmonary venous congestion may reflect developing conges tive failure. Infiltrates of other etiology not excluded. Mediastinal structures are stable and gross ly unremarkable. No evidence for hilar prominence. Degenerative changes dorsal spine. IMPRESSION: 1. Cardiomegaly with scattered infiltrates and pulmonary venous congestion may reflect developing con gestive failure. Infiltrates of other etiology not excluded.
[2021-06-27 12:57] LABS: INR 1.1 (<1.2); Partial Thromboplastin Time 24.6 sec (22.0-30.0); Prothrombin Time 11.7 sec (9.0-12.0)
[2021-06-27 13:03] LABS: Anisocytosis Slight; Basophils # (A) 0.1 k/uL (0-0.2); Basophils % (A) 1 %; Eosinophils % (A) 1 %; HCT 39.1 % (34.0-46.0); HGB 12.2 gm/dL (11.4-16.0); Hypochromasia Moderate; Lymphocytes % (A) 16 %; MCH 26.1 pg (25.0-35.0); MCHC 31.3 g/dL (31.0-37.0); MCV 83.4 fL (80.0-100.0); Mean Platelet Volume 6.6; Monocytes # (A) 0.4 k/uL (0-1.0); Monocytes % (A) 7 %; Neutrophils # (A) 4.3 k/uL (1.3-7.7); Neutrophils % (A) 71 %; Platelet Count 306 k/uL (150-450); Poikilocytosis Slight; RBC 4.69 m/uL (3.80-5.40); RDW 17.1 % (11.5-15.5)
--- NOTE | 2021-06-27 13:31 | ED ---
SOB HPI - General Chief Complaint: Shortness of Breath Stated Complaint: SOB Source: patient Mode of arrival: wheelchair Limitations: no limitations - History of Present Illness Initial Comments: Patient is an 86-year-old female with past history of pulmonary fibrosis on 2 L of home O2, congestive heart failure, A. fib, hypertension who presents to the emergency department with reported shortness of breath. I do receive a call from Dr. Mtz who is sending the patient over from his office. She states for the past month she has been progressively short of breath with exertion. She has difficulty lying flat at night to sleep. She admits to mild swelling in her lower extremities. Admits to mild chest pain. She does have a history of A. fib and is on anticoagulation. Denies any missed doses. She admits to a mild nonproductive cough. No fevers but admits to chills. No sick contacts. She is vaccinated against Covid since December. She takes spironolactone 25 mg once daily and Lasix 40 mg twice daily however continues to have shortness of breath. Dr. Mtz noted that the patient was 92% on her 2 liters of home O2 when she is normally 96% and therefore transferred her to the hospital for further evaluation - Related Data Home Medications Medication Instructions Recorded Confirmed Ergocalciferol [Vitamin D2 50,000 unit PO Q14D 07/19/15 06/27/21 (DRISDHELIO)] Levothyroxine Sodium [Synthroid] 50 mcg PO DAILY 07/19/15 06/27/21 Ubidecarenone [Co Q-10] 100 mg PO DAILY 07/19/15 06/27/21 Magnesium Oxide [Mag-Ox] 400 mg PO BID 11/16/17 06/27/21 Cyanocobalamin [Vitamin B-12] 500 mcg PO DAILY 06/02/19 06/27/21 Apixaban [Eliquis] 2.5 mg PO BID 06/27/21 06/27/21 Metoprolol Tartrate [Lopressor] 50 mg PO BID 06/27/21 06/27/21 Sennosides/Docusate Sodium [Senna 2 tab PO BID PRN 06/27/21 06/27/21 Plus 8.6-50 mg Tablet] Previous Rx's Medication Instructions Recorded Furosemide [Lasix] 40 mg PO BID #60 02/14/21 Amiodarone [Cordarone] 200 mg PO DAILY tab 06/28/21 Losartan [Cozaar] 12.5 mg PO DAILY #30 tab 06/29/21 Spironolactone [Aldactone] 12.5 mg PO DAILY #30 tab 06/29/21 Allergies Allergy/AdvReac Type Severity Reaction Status Date / Time iodine Allergy Unknown VERY LOW Verified 06/27/21 17:32 BLOOD PRESSURE,SHORTNESS OF BREATH adhesive tape Allergy Rash/Hives Verified 06/27/21 17:32 clarithromycin Allergy Unknown Verified 06/27/21 17:32 Iodinated Contrast Media Allergy Anaphylaxis Verified 06/27/21 17:32 metaxalone [From Skelaxin] Allergy Anaphylaxis Verified 06/27/21 17:32 niacin Allergy Unknown Verified 06/27/21 17:32 [From Niaspan Extended-Release] pantoprazole Allergy ITCHING Verified 06/27/21 17:32 ,REDNESS OF SKIN Review of Systems ROS Statement: Those systems with pertinent positive or pertinent negative responses have been documented in the HPI. ROS Other: All systems not noted in ROS Statement are negative. Past Medical History Past Medical History: Atrial Fibrillation, Atrial Flutter, Asthma, Cancer, GERD/Reflux, Hearing Disorder / Deafness, Hyperlipidemia, Hypertension, Musculoskeletal Disorder, Osteoarthritis (OA), Pneumonia, Renal Disease, Thyroid Disorder, Vascular Disorder Additional Past Medical History / Comment(s): pulmonary fibrosis, Mitral valve prolapse, "hole in my heart", exertional dyspnea, chronic renal disease stage III, carpal tunnel bilaterally, osteoporosis, chronic low back pain, spinal stenosis, scoliosis, gout, varicose veins, R breast cancer with surgery/radiation, skin cancer removals, cancerous colon polyp removal, diverticular dx, hiatal hernia, IBS, ulcerative colitis, History of Any Multi-Drug Resistant Organisms: None Reported Past Surgical History: Breast Surgery, Cardiac Ablation, Cholecystectomy, Heart Catheterization, Hysterectomy, Orthopedic Surgery Additional Past Surgical History / Comment(s): R breast lumpectomy x 2, R breast bx, skin cancer removals, total hysterectomy, open cholecystectomy, R arm spur removals 3 times, R shoulder rotator cuff repair, R foot 2nd toe surgery, pilonidal cystectomy, colonoscopy with cancerous polypectomy, bilateral cataract removal/lens implants and surgery for astigmatism. Past Anesthesia/Blood Transfusion Reactions: Postoperative Nausea & Vomiting (PONV) Additional Past Anesthesia/Blood Transfusion Reaction / Comment(s): DUE TO REFLUX /POST ANESTHESIA PNEUMONIA. Past Psychological History: No Psychological Hx Reported Smoking Status: Never smoker Past Alcohol Use History: None Reported Past Drug Use History: None Reported - Past Family History Father Additional Family Medical History / Comment(s): Father was an alcoholic and pt thinks he from complications of that. Mother Family Medical History: Pulmonary Embolus Additional Family Medical History / Comment(s): at 59 from PE Sister(s) Family Medical History: Cancer Additional Family Medical History / Comment(s): Breast Cancer General Exam Limitations: no limitations General appearance: alert, in no apparent distress Head exam: Present: atraumatic, normocephalic, normal inspection Eye exam: Present: normal appearance, PERRL, EOMI. Absent: scleral icterus, conjunctival injection, periorbital swelling ENT exam: Present: normal exam, mucous membranes moist Neck exam: Present: normal inspection. Absent: tenderness, meningismus, lymphadenopathy Respiratory exam: Present: normal lung sounds bilaterally. Absent: respiratory distress, wheezes, rales, rhonchi, stridor Cardiovascular Exam: Present: regular rate, normal rhythm, normal heart sounds. Absent: systolic murmur, diastolic murmur, rubs, gallop, clicks GI/Abdominal exam: Present: soft, normal bowel sounds. Absent: distended, tenderness, guarding, rebound, rigid Extremities exam: Present: normal inspection, full ROM, normal capillary refill, pedal edema. Absent: tenderness, joint swelling, calf tenderness Back exam: Present: normal inspection Neurological exam: Present: alert, oriented X3, CN II-XII intact Psychiatric exam: Present: normal affect, normal mood Skin exam: Present: warm, dry, intact, normal color. Absent: rash Course Vital Signs 06/27/21 06/27/21 06/27/21 11:38 14:42 17:16 Temperature 98.0 F 98.1 F Pulse Rate 70 69 75 Respiratory 19 20 20 Rate Blood Pressure 124/68 144/58 103/50 O2 Sat by Pulse 95 96 96 Oximetry Medical Decision Making - Medical Decision Making Upon arrival patient is placed in room 32. A thorough history and physical exam was performed. IV is established. Laboratory studies are conducted and the patient went for chest x-ray. Laboratory studies demonstrated a sodium of 124. Potassium 5.2. BNP is 7020. Chest x-ray demonstrates some pulmonary edema. Patient was given 60 mg of Lasix IV. I recommended hospital admission for co ntinued diuresis. Patient agreed to this. Spoke with Dr. Verde who agreed to admit the patient. She is currently awaiting a bed on the floor - Lab Data Result diagrams: 06/28/21 05:32 06/29/21 06:17 Lab Results 06/27/21 06/27/21 06/27/21 Range/Units 12:22 12:22 12:22 WBC 6.0 (3.8-10.6) k/uL RBC 4.69 (3.80-5.40) m/uL Hgb 12.2 (11.4-16.0) gm/dL Hct 39.1 (34.0-46.0) % MCV 83.4 (80.0-100.0) fL MCH 26.1 (25.0-35.0) pg MCHC 31.3 (31.0-37.0) g/dL RDW 17.1 H (11.5-15.5) % Plt Count 306 (150-450) k/uL MPV 6.6 Neutrophils % 71 % Lymphocytes % 16 % Monocytes % 7 % Eosinophils % 1 % Basophils % 1 % Neutrophils # 4.3 (1.3-7.7) k/uL Lymphocytes # 1.0 (1.0-4.8) k/uL Monocytes # 0.4 (0-1.0) k/uL Eosinophils # 0.0 (0-0.7) k/uL Basophils # 0.1 (0-0.2) k/uL Hypochromasia Moderate Poikilocytosis Slight Anisocytosis Slight PT 11.7 (9.0-12.0) sec INR 1.1 (<1.2) APTT 24.6 (22.0-30.0) sec Sodium 124 L (137-145) mmol/L Potassium 5.2 H (3.5-5.1) mmol/L Chloride 94 L (98-107) mmol/L Carbon Dioxide 20 L (22-30) mmol/L Anion Gap 10 mmol/L BUN 31 H (7-17) mg/dL Creatinine 1.56 H (0.52-1.04) mg/dL Est GFR (CKD-EPI)AfAm 34 (>60 ml/min/1.73 sqM) Est GFR (CKD-EPI)NonAf 30 (>60 ml/min/1.73 sqM) Glucose 100 H (74-99) mg/dL Plasma Lactic Acid Harry (0.7-2.0) mmol/L Calcium 9.5 (8.4-10.2) mg/dL Total Bilirubin 1.4 H (0.2-1.3) mg/dL AST 44 H (14-36) U/L ALT 25 (4-34) U/L Alkaline Phosphatase 130 H (38-126) U/L Troponin I (0.000-0.034) ng/mL NT-Pro-B Natriuret Pep pg/mL Total Protein 7.0 (6.3-8.2) g/dL Albumin 3.8 (3.5-5.0) g/dL 06/27/21 06/27/21 06/27/21 Range/Units 12:22 12:22 12:22 WBC (3.8-10.6) k/uL RBC (3.80-5.40) m/uL Hgb (11.4-16.0) gm/dL Hct (34.0-46.0) % MCV (80.0-100.0) fL MCH (25.0-35.0) pg MCHC (31.0-37.0) g/dL RDW (11.5-15.5) % Plt Count (150-450) k/uL MPV Neutrophils % % Lymphocytes % % Monocytes % % Eosinophils % % Basophils % % Neutrophils # (1.3-7.7) k/uL Lymphocytes # (1.0-4.8) k/uL Monocytes # (0-1.0) k/uL Eosinophils # (0-0.7) k/uL Basophils # (0-0.2) k/uL Hypochromasia Poikilocytosis Anisocytosis PT (9.0-12.0) sec INR (<1.2) APTT (22.0-30.0) sec Sodium (137-145) mmol/L Potassium (3.5-5.1) mmol/L Chloride (98-107) mmol/L Carbon Dioxide (22-30) mmol/L Anion Gap mmol/L BUN (7-17) mg/dL Creatinine (0.52-1.04) mg/dL Est GFR (CKD-EPI)AfAm (>60 ml/min/1.73 sqM) Est GFR (CKD-EPI)NonAf (>60 ml/min/1.73 sqM) Glucose (74-99) mg/dL Plasma Lactic Acid Harry 1.3 (0.7-2.0) mmol/L Calcium (8.4-10.2) mg/dL Total Bilirubin (0.2-1.3) mg/dL AST (14-36) U/L ALT (4-34) U/L Alkaline Phosphatase (38-126) U/L Troponin I <0.012 (0.000-0.034) ng/mL NT-Pro-B Natriuret Pep 7020 pg/mL Total Protein (6.3-8.2) g/dL Albumin (3.5-5.0) g/dL - EKG Data EKG Comments: EKG demonstrates A. fib with a rate of 72. QRS 98. QTC of 490. No acute ST segment elevations Disposition Clinical Impression: CHF (congestive heart failure), Atrial flutter, Respiratory insufficiency Disposition: ADMITTED IP TO THIS HOSP Condition: Stable Is patient prescribed a controlled substance at d/c from ED?: No Decision to Admit Reason: Admit from EC Decision Date: 06/27/21 Decision Time: 14:39
[2021-06-27] MEDS ORDERED: FUROSEMIDE 10 MG/ML 10 ML VIAL IV STA (14:36)
[2021-06-27] MEDS ORDERED: NALOXONE 0.4 MG/ML 1 ML VIAL IV PRN (14:39)
[2021-06-27] MEDS ORDERED: ACETAMINOPHEN TAB 325 MG TAB PO PRN (16:55)
[2021-06-27] MEDS ORDERED: MELATONIN 3 MG TABLET PO PRN (16:55)
[2021-06-27] MEDS ORDERED: bisacodyL 5 MG TABLET.DR PO PRN (16:55)
--- NOTE | 2021-06-27 17:07 | P.HPIM ---
History of Present Illness H&P Date: 06/27/21 Chief Complaint: shortness of breath Patient is an 86-year-old female with a history of mitral valve prolapse, A. fib on anticoagulation, congestive heart failure, and pulmonary fibrosis who initially went to Dr. Mtz's office secondary to worsening shortness of breath. He sent her over see emergency department due to concerns that her O2 sat was last on her home 2 L O2. In the ER her vital signs within normal limits. Initial laboratory analysis showed a sodium of 124, potassium 5.2, carbon dioxide 20, anion gap 10, BUN 31, creatinine 1.56, bilirubin 1.4, and AST of 44. Initial troponin was negative. BNP was 7020. Chest x-ray showed cardiomegaly with scattered infiltrates and pulmonary venous congestion. She is given a dose of Lasix and arrangements were made for admission. Patient's last available echocardiogram from December 2020 showed ejection fraction 50-55% with moderate mitral regurg, severe pulmonary hypertension, severe tricuspid regurgitation, and a severely dilated left atrium as well as moderate aortic regurg. Patient seen and examined at bedside. She reports that for the last 2-3 days she has had some shortness of breath, decreased exercise tolerance, and nonproductive cough. She reports that she has felt as though she was going to faint and passed out she walks too far. She has intermittent lower extremity edema which is unchanged. She has been really struggling with her memory over the last couple of months. She thinks she may have forgotten to take some of her medications at home. She denies any recent fevers. She is having some constipation, no diarrhea. She is having urinary urgency with incomplete ability to follow-up the bladder. She lives at home. She uses a walker and have home O2. Pertinent positives and negatives as discussed in HPI, a complete review of systems was performed and all other systems are negative. General: non toxic, no distress, appears at stated age Derm: warm, dry Head: atraumatic, normocephalic, symmetric Eyes: EOMI, no lid lag, anicteric sclera, pupils equal round reactive to light ENT: Nose and ears atraumatic, no thrush, no pharyngeal erythema Neck: No thyromegaly, no cervical lymphadenopathy, trachea midline, supple Mouth: no lip lesion, mucus membranes moist Cardiovascular: S1S2 reg with systolic ejection murmur, positive posterior tibial pulse bilateral, no edema, capillary refill less than 2 seconds, + JVD Lungs: Crackles bilateral bases, no wheeze, no accessory muscle use Abdominal: soft, nontender to palpation, no guarding, no appreciable organomegaly, normal bowel sounds Ext: no gross muscle atrophy, muscle strength muscle strength 5 out of 5 in all 4 extremities, no contractures Neuro: CN II-XI grossly intact, light touch intact all 4 extremities, finger to nose within normal limits, Psych: Alert, oriented, appropriate affect Acute exacerbation of diastolic congestive heart failure -Lasix IV push twice a day -Resume home Lopressor -Strict I's and O's, daily weights -Hold KEYLA inhibitor and Aldactone secondary to hyperkalemia -Cardiology consultation Hyperkalemia and hypovolemic hyponatremic and -Lasix -Hold lisinopril and spironolactone -Repeat lites at 1900 Acute on chronic hypoxic hypercapnic respiratory failure -Wean O2 as able -Manage fluid status Cognitive decline - speech eval - outpatient follow-up Paroxysmal atrial fibrillation -Lopressor -Eliquis -Amiodarone CKD 3/4 -Creatinine at baseline -Avoid nephrotoxic agents -Repeat BMP in a.m. Chronic: Pulmonary fibrosis Chronic low back pain Gout IBS Ulcerative colitis Dyslipidemia Hypertension Home medications have not yet been reconciled The patient is admitted with an anticipated greater than 2 midnight stay for evaluation of AE CHF CODE STATUS:see addendem DVT prophylaxis: eliquis Discussed with: patient, nursing, ed physician Anticipated discharge date: 2-[address]: home health vs SNF A total of 45 minutes was spent on the care of this complex patient more than 50% of the time was spent in counseling and care coordination. Past Medical History Past Medical History: Atrial Fibrillation, Atrial Flutter, Asthma, Cancer, GERD/Reflux, Hearing Disorder / Deafness, Hyperlipidemia, Hypertension, Musculoskeletal Disorder, Osteoarthritis (OA), Pneumonia, Renal Disease, Thyroid Disorder, Vascular Disorder Additional Past Medical History / Comment(s): pulmonary fibrosis, Mitral valve prolapse, "hole in my heart", exertional dyspnea, chronic renal disease stage III, carpal tunnel bilaterally, osteoporosis, chronic low back pain, spinal stenosis, scoliosis, gout, varicose veins, R breast cancer with surgery/radiation, skin cancer removals, cancerous colon polyp removal, diverticular dx, hiatal hernia, IBS, ulcerative colitis, History of Any Multi-Drug Resistant Organisms: None Reported Past Surgical History: Breast Surgery, Cardiac Ablation, Cholecystectomy, Heart Catheterization, Hysterectomy, Orthopedic Surgery Additional Past Surgical History / Comment(s): R breast lumpectomy x 2, R breast bx, skin cancer removals, total hysterectomy, open cholecystectomy, R arm spur removals 3 times, R shoulder rotator cuff repair, R foot 2nd toe surgery, pi lonidal cystectomy, colonoscopy with cancerous polypectomy, bilateral cataract removal/lens implants and surgery for astigmatism. Past Anesthesia/Blood Transfusion Reactions: Postoperative Nausea & Vomiting (PONV) Additional Past Anesthesia/Blood Transfusion Reaction / Comment(s): DUE TO REFLUX /POST ANESTHESIA PNEUMONIA. Past Psychological History: No Psychological Hx Reported Smoking Status: Never smoker Past Alcohol Use History: None Reported Past Drug Use History: None Reported - Past Family History Father Additional Family Medical History / Comment(s): Father was an alcoholic and pt thinks he from complications of that. Mother Family Medical History: Pulmonary Embolus Additional Family Medical History / Comment(s): at 59 from PE Sister(s) Family Medical History: Cancer Additional Family Medical History / Comment(s): Breast Cancer Medications and Allergies Home Medications Medication Instructions Recorded Confirmed Type Ergocalciferol [Vitamin D2 50,000 unit PO [id number] 07/19/15 12/19/20 History (DRISDOL)] Levothyroxine Sodium [Synthroid] 50 mcg PO DAILY 07/19/15 12/19/20 History Ubidecarenone [Co Q-10] 100 mg PO DAILY 07/19/15 12/19/20 History Magnesium Oxide [Mag-Ox] 400 mg PO BID 11/16/17 12/19/20 History allopurinoL [Zyloprim] 100 mg PO DAILY 11/16/17 12/19/20 History Acetaminophen Tab [Tylenol] 650 mg PO Q6HR PRN tab 01/24/18 12/19/20 Rx Apixaban [Eliquis] 5 mg PO BID #180 tab 07/20/18 12/19/20 Rx Metoprolol Tartrate [Lopressor] 50 mg PO BID 12/18/18 12/19/20 History Cyanocobalamin [Vitamin B-12] 500 mcg PO DAILY 06/02/19 12/19/20 History Potassium Chloride ER [K-Dur 10] 10 meq PO BID 06/02/19 12/19/20 History Albuterol Sulfate [Ventolin HFA] 2 puff INHALATION RT-Q6H PRN 12/19/20 12/19/20 History Amiodarone [Cordarone] 200 mg PO BID 12/19/20 12/19/20 History Docusate Sodium [Dok] 100 mg PO DAILY PRN 12/19/20 12/19/20 History Lactose-Reduced Food [Boost] 237 ml PO DAILY 12/19/20 12/19/20 History Metoprolol Tartrate [Lopressor] 25 mg PO DAILY@1200 12/19/20 12/19/20 History Vitamin C/Biotin [Hair, Skin and 3 tab PO DAILY 12/19/20 12/19/20 History Nails] Benzonatate [Tessalon Perles] 100 mg PO TID PRN 15 Days #30 cap 12/24/20 Rx Furosemide [Lasix] 40 mg PO BID #60 12/24/20 12/19/20 Rx Spironolactone [Aldactone] 25 mg PO DAILY #30 tab 12/24/20 Rx Allergies Allergy/AdvReac Type Severity Reaction Status Date / Time iodine Allergy Unknown VERY LOW Verified 06/27/21 11:41 BLOOD PRESSURE,SHORTNESS OF BREATH adhesive tape Allergy Rash/Hives Verified 06/27/21 11:41 clarithromycin Allergy Unknown Verified 06/27/21 11:41 Iodinated Contrast Media Allergy Anaphylaxis Verified 06/27/21 11:41 metaxalone [From Skelaxin] Allergy Anaphylaxis Verified 06/27/21 11:41 niacin Allergy Unknown Verified 06/27/21 11:41 [From Niaspan Extended-Release] pantoprazole Allergy ITCHING Verified 06/27/21 11:41 ,REDNESS OF SKIN Physical Exam Osteopathic Statement: *. No significant issues noted on an osteopathic structural exam other than those noted in the History and Physical/Consult. Vitals: Vital Signs Temp Pulse Resp BP Pulse Ox 06/27/21 14:42 69 20 144/58 96 06/27/21 11:38 98.0 F 70 19 124/68 95 Intake and Output 06/27/21 06/27/21 06/27/21 06:59 14:59 22:59 Other: Weight 75.75 kg Results CBC & Chem 7: 06/27/21 12:22 06/27/21 12:22 Labs: Abnormal Lab Results - Last 24 Hours (Table) 06/27/21 06/27/21 Range/Units 12:22 12:22 RDW 17.1 H (11.5-15.5) % Sodium 124 L (137-145) mmol/L Potassium 5.2 H (3.5-5.1) mmol/L Chloride 94 L (98-107) mmol/L Carbon Dioxide 20 L (22-30) mmol/L BUN 31 H (7-17) mg/dL Creatinine 1.56 H (0.52-1.04) mg/dL Glucose 100 H (74-99) mg/dL Total Bilirubin 1.4 H (0.2-1.3) mg/dL AST 44 H (14-36) U/L Alkaline Phosphatase 130 H (38-126) U/L
[2021-06-27] MEDS ORDERED: ALBUTEROL NEBULIZED 2.5 MG/3 ML INHALATION PRN (19:51)
[2021-06-27] MEDS ORDERED: FUROSEMIDE 10 MG/ML 4 ML VIAL IV SCH (20:00)
[2021-06-27] MEDS: APIXABAN 2.5 MG TABLET PO SCH (20:32)
[2021-06-27] MEDS: METOPROLOL TARTRATE 50 MG TAB PO SCH (20:32)
[2021-06-27] MEDS: AMIODARONE 200 MG TAB PO SCH (20:32)
[2021-06-27] MEDS: FUROSEMIDE 10 MG/ML 4 ML VIAL IV SCH (20:33)
[2021-06-28 03:57] LABS: African American GFR (CKD) 30.7 (60.0-200.0); Anion Gap 10.8 mmol/L (4.00-12.00); BUN/Creat Ratio 17.65 Ratio (12.00-20.00); Calcium 9.1 mg/dL (8.7-10.3); Carbon Dioxide 24.2 mmol/L (21.6-31.8); Non-African American GFR(CKD) 26.5 (60.0-200.0); Potassium 4.1 mmol/L (3.5-5.5)
[2021-06-28] MEDS: LEVOTHYROXINE 50 MCG TAB PO SCH (06:19)
[2021-06-28] MEDS: METOPROLOL TARTRATE 50 MG TAB PO SCH ×2 (08:24→21:50)
[2021-06-28] MEDS: AMIODARONE 200 MG TAB PO SCH (08:26)
[2021-06-28] MEDS: APIXABAN 2.5 MG TABLET PO SCH ×2 (08:26→21:50)
[2021-06-28] MEDS: CYANOCOBALAMIN 500 MCG TAB PO SCH (08:26)
[2021-06-28] MEDS: FUROSEMIDE 10 MG/ML 4 ML VIAL IV SCH (08:27)
[2021-06-28 08:58] LABS: Basophils # (A) 0.05 X 10*3/uL (0.00-0.10); Basophils % (A) 0.8 %; Eosinophils # (A) 0.08 X 10*3/uL (0.04-0.35); Eosinophils % (A) 1.3 %; HCT 37.1 % (37.2-46.3); Lymphocytes # (A) 0.88 X 10*3/uL (0.90-5.00); Lymphocytes % (A) 14.3 %; MCHC 29.6 g/dL (32.0-37.0); MCV 84.3 fL (80.0-97.0); Mean Platelet Volume 8.8 fL (9.5-12.2); Monocytes # (A) 0.76 X 10*3/uL (0.20-1.00); Monocytes % (A) 12.4 %; Neutrophils # (A) 4.35 X 10*3/uL (1.80-7.70); Neutrophils % (A) 70.7 %; Platelet Count 270 X 10*3/uL (140-440); WBC 6.15 X 10*3/uL (4.50-10.00)
[2021-06-28] MEDS ORDERED: ERGOCALCIFEROL 1,250 MCG (50,000 IU) CAPSULE PO SCH (09:00)
[2021-06-28 09:10] LABS: African American GFR (CKD) 28.6 (60.0-200.0); Anion Gap 9.8 mmol/L (4.00-12.00); BUN/Creat Ratio 17.22 Ratio (12.00-20.00); Calcium 9.3 mg/dL (8.7-10.3); Carbon Dioxide 25.2 mmol/L (21.6-31.8); Magnesium 2.1 mg/dL (1.5-2.4); Non-African American GFR(CKD) 24.7 (60.0-200.0); Potassium 3.9 mmol/L (3.5-5.5)
--- NOTE | 2021-06-28 10:01 | P.CRDCN ---
History of Present Illness History of present illness: HISTORY OF PRESENTING ILLNESS This is a pleasant 85-year-old female past medical history significant for severe pulmonary hypertension, chronic right sided heart failure, chronic pe rsistent atrial fibrillation on group home anti-coagulation, hypertension, diabetes mellitus, dyslipidemia, pulmonary fibrosis on home oxygen and chronic kidney disease. She follows in the office with Dr. Caldwell. We have been asked to see in consultation for congestive heart failure. Patient presents to the emergency department with complaints of shortness of breath. Patient states over the past 2-3 days she's been feeling short of breath, decreased exercise tolerance. She has had increased fatigue when doing her normal activities and walking. On admission, patient given IV Lasix 60mg x 1. and started on IV Lasix 40mg BID, one dose given. She states she has urinated a lot. I/Os indicate 800mL output over the past 24 hours with decrease in weight. EKG reveals atrial flutter 2:1 conduction HR 72. Chest xray Cardiomegaly with scattered infiltrates and pulmonary venous congestion. On admission patient's labs revealed sodium 124, potassium 5.2, BUN 31, serum creatinine 1.5, total bilirubin 1.4, AST 44, ALT 25, alkaline phosphatase 130, troponin negative 1, proBNP 7020. DIAGNOSTICS Laboratory reviewed, WBC 6.1, hemoglobin 11, platelets 270, sodium 131, potassium 3.9, BUN 31, serum creatinine 1.8, magnesium 2.1 Echocardiogram 12/2020 revealed preserved LV systolic function with ejection fraction 50-55%, severely dilated left atrium, mild to moderate aortic regurgitation, moderate mitral regurgitation, severe tricuspid regurgitation and severe pulmonary hypertension with an RVSP of 72 mmHg. Most recent cardiac catheterization 01/2019 which revealed normal coronary arteries. Current home cardiac medications include amiodarone 200 mg daily, Eliquis 2.5 mg twice a day, magnesium oxide 400 mg twice day, Toprol titrate 50 mg twice a day, potassium chloride 10meq twice a day, spironolactone 25mg daily REVIEW OF SYSTEMS At the time of my exam: CONSTITUTIONAL: Denies fever or chills. CARDIOVASCULAR: +shortness of breath +dyspnea on exertion. Denies chest pain,orthopnea, PND or palpitations. RESPIRATORY: Complains of cough and shortness of breath. GASTROINTESTINAL: Denies abdominal pain, diarrhea, constipation, nausea or vomiting. MUSCULOSKELETAL: Denies myalgias. NEUROLOGIC: Denies numbness, tingling, headacbe or weakness. ENDOCRINE: Denies fatigue, weight change, polydipsia or polyurina. GENITOURINARY: Denies burning, hematuria or urgency with micturation. HEMATOLOGIC: Denies history of anemia or bleeding. PHYSICAL EXAMINATION Blood pressure heart rate afebrile and maintaining oxygen saturation on nasal cannula. CONSTITUTIONAL: No apparent distress. HEENT: Head is normocephalic. Pupils are equal, round. Sclerae anicteric. Mucous membranes of the mouth are moist. No JVD. No carotid bruit. CHEST EXAMINATION: Lungs are clear to auscultation bilaterally No chest wall tenderness is noted on palpation or with deep breathing. HEART EXAMINATION: Irregular rate and rhythm. S1, S2 heard. Systolic ejection murmur at the base, no gallops or rub. ABDOMEN: Soft, nontender. Positive bowel sounds. EXTREMITIES: 2+ peripheral pulses, no lower extremity edema and no calf tenderness. NEUROLOGIC EXAMINATION: Patient is awake, alert and oriented x3. ASSESSMENT Acute on chronic diastolic heart failure Severe pulmonary hypertension Pulmonary fibrosis on home oxygen Chronic persistent atrial fibrillation on long-term anticoagulation Hypertension Dyslipidemia Type 2 Diabetes mellitus Acute on Chronic kidney disease Hyperkalemia Hyponatremia PLAN Patient appears comfortable and euvolemic on exam, serum creatinine elevated. Will switch to PO Lasix today Decrease amiodarone to 200mg daily Continue Eliquis 2.5mg BID, metoprolol tartrate 50mg BID Patient's home potassium and spironolactone on hold due to hyperkalemia. Follow electrolytes and renal function Document accurate intake and output along with daily weights. Further recommendations to follow based upon clinical course. Thank you kindly for this consultation. Nurse Practitioner note has been reviewed, I agree with a documented findings and plan of care. Patient was seen and examined. Past Medical History Past Medical History: Atrial Fibrillation, Atrial Flutter, Asthma, Cancer, GERD/Reflux, Hearing Disorder / Deafness, Hyperlipidemia, Hypertension, Musculoskeletal Disorder, Osteoarthritis (OA), Pneumonia, Renal Disease, Thyroid Disorder, Vascular Disorder Additional Past Medical History / Comment(s): pulmonary fibrosis, Mitral valve prolapse, "hole in my heart", exertional dyspnea, chronic renal disease stage III, carpal tunnel bilaterally, osteoporosis, chronic low back pain, spinal stenosis, scoliosis, gout, varicose veins, R breast cancer with surgery/radiation, skin cancer removals, cancerous colon polyp removal, diverticular dx, hiatal hernia, IBS, ulcerative colitis, History of Any Multi-Drug Resistant Organisms: None Reported Past Surgical History: Breast Surgery, Cardiac Ablation, Cholecystectomy, Heart Catheterization, Hysterectomy, Orthopedic Surgery Additional Past Surgical History / Comment(s): R breast lumpectomy x 2, R breast bx, skin cancer removals, total hysterectomy, open cholecystectomy, R arm spur removals 3 times, R shoulder rotator cuff repair, R foot 2nd toe surgery, pilonidal cystectomy, colonoscopy with cancerous polypectomy, bilateral cataract removal/lens implants and surgery for astigmatism. Past Anesthesia/Blood Transfusion Reactions: Postoperative Nausea & Vomiting (PONV) Additional Past Anesthesia/Blood Transfusion Reaction / Comment(s): DUE TO REFLUX /POST ANESTHESIA PNEUMONIA. Past Psychological History: No Psychological Hx Reported Smoking Status: Never smoker Past Alcohol Use History: None Reported Past Drug Use History: None Reported - Past Family History Father Additional Family Medical History / Comment(s): Father was an alcoholic and pt thinks he from complications of that. Mother Family Medical History: Pulmonary Embolus Additional Family Medical History / Comment(s): at 59 from PE Sister(s) Family Medical History: Cancer Additional Family Medical History / Comment(s): Breast Cancer Medications and Allergies Home Medications Medication Instructions Recorded Confirmed Type Ergocalciferol [Vitamin D2 50,000 unit PO Q14D 07/19/15 06/27/21 History (DRISDOL)] Levothyroxine Sodium [Synthroid] 50 mcg PO DAILY 07/19/15 06/27/21 History Ubidecarenone [Co Q-10] 100 mg PO DAILY 07/19/15 06/27/21 History Magnesium Oxide [Mag-Ox] 400 mg PO BID 11/16/17 06/27/21 History Cyanocobalamin [Vitamin B-12] 500 mcg PO DAILY 06/02/19 06/27/21 History Potassium Chloride ER [K-Dur 10] 10 meq PO BID 06/02/19 06/27/21 History Furosemide [Lasix] 40 mg PO BID #60 12/24/20 06/27/21 Rx Spironolactone [Aldactone] 25 mg PO DAILY #30 tab 12/24/20 06/27/21 Rx Albuterol Sulfate [Ventolin HFA] 2 puff INHALATION RT-Q4H PRN 06/27/21 06/27/21 History Apixaban [Eliquis] 2.5 mg PO BID 06/27/21 06/27/21 History Metoprolol Tartrate [Lopressor] 50 mg PO BID 06/27/21 06/27/21 History Sennosides/Docusate Sodium [Senna 2 tab PO BID PRN 06/27/21 06/27/21 History Plus 8.6-50 mg Tablet] Amiodarone [Cordarone] 200 mg PO DAILY tab 06/28/21 Rx Allergies Allergy/AdvReac Type Severity Reaction Status Date / Time iodine Allergy Unknown VERY LOW Verified 06/27/21 17:32 BLOOD PRESSURE,SHORTNESS OF BREATH adhesive tape Allergy Rash/Hives Verified 06/27/21 17:32 clarithromycin Allergy Unknown Verified 06/27/21 17:32 Iodinated Contrast Media Allergy Anaphylaxis Verified 06/27/21 17:32 metaxalone [From Skelaxin] Allergy Anaphylaxis Verified 06/27/21 17:32 niacin Allergy Unknown Verified 06/27/21 17:32 [From Niaspan Extended-Release] pantoprazole Allergy ITCHING Verified 06/27/21 17:32 ,REDNESS OF SKIN Physical Exam Vitals: Vital Signs Temp Pulse Pulse Resp BP BP Pulse Ox 06/28/21 02:00 98.3 F 80 16 109/64 95 06/27/21 20:53 90 L 06/27/21 20:00 98.1 F 78 17 104/71 96 06/27/21 17:50 97.5 F L 82 16 116/65 92 L 06/27/21 17:16 98.1 F 75 20 103/50 96 06/27/21 14:42 69 20 144/58 96 06/27/21 11:38 98.0 F 70 19 124/68 95 Intake and Output 06/27/21 06/28/21 06/28/21 22:59 06:59 14:59 Intake Total 1500 0 Output Total 600 200 Balance 900 -200 Intake: Oral 1500 0 Output: Urine 600 200 Other: Voiding Method Toilet Toilet # Voids 0 200 Weight 75.75 kg 73.6 kg Results 06/28/21 05:32 06/28/21 05:32 Cardiac Enzymes 06/27/21 06/27/21 Range/Units 12:22 12:22 AST 44 H (14-36) U/L Troponin I <0.012 (0.000-0.034) ng/mL Coagulation 06/27/21 Range/Units 12:22 PT 11.7 (9.0-12.0) sec APTT 24.6 (22.0-30.0) sec CBC 06/27/21 Range/Units 12:22 WBC 6.0 (3.8-10.6) k/uL RBC 4.69 (3.80-5.40) m/uL Hgb 12.2 (11.4-16.0) gm/dL Hct 39.1 (34.0-46.0) % Plt Count 306 (150-450) k/uL Comprehensive Metabolic Panel 06/27/21 06/27/21 Range/Units 12:22 18:04 Sodium 124 L 131 L (137-145) mmol/L Potassium 5.2 H 4.1 (3.5-5.1) mmol/L Chloride 94 L 96 (98-107) mmol/L Carbon Dioxide 20 L 24.2 (22-30) mmol/L BUN 31 H 30.0 H (7-17) mg/dL Creatinine 1.56 H 1.7 H (0.52-1.04) mg/dL Glucose 100 H 96 (74-99) mg/dL Calcium 9.5 9.1 (8.4-10.2) mg/dL AST 44 H (14-36) U/L ALT 25 (4-34) U/L Alkaline Phosphatase 130 H (38-126) U/L Total Protein 7.0 (6.3-8.2) g/dL Albumin 3.8 (3.5-5.0) g/dL Current Medications Generic Name Dose Route Start Last Admin Trade Name Freq PRN Reason Stop Dose Admin Acetaminophen 650 mg 06/27/21 16:55 Acetaminophen Tab 325 Mg Tab PO Q6HR PRN Mild Pain or Fever > 100.5 Albuterol Sulfate 2.5 mg 06/27/21 19:51 Albuterol Nebulized 2.5 Mg/3 Ml INHALATION RT-Q4H PRN Cough/Wheezing Amiodarone HCl 200 mg 06/27/21 21:00 06/27/21 20:32 Amiodarone 200 Mg Tab PO 200 mg BID NASIR Administration Apixaban 2.5 mg 06/27/21 21:00 06/27/21 20:32 Apixaban 2.5 Mg Tablet PO 2.5 mg BID NASIR Administration Protocol Bisacodyl 5 mg 06/27/21 16:55 Bisacodyl 5 Mg Tablet.Dr PO DAILY PRN Constipation Cyanocobalamin 500 mcg 06/28/21 09:00 Cyanocobalamin 500 Mcg Tab PO DAILY NASIR Ergocalciferol 1,250 mcg 06/28/21 09:00 Ergocalciferol 1,250 Mcg (50,000 Iu) Capsule PO Q14D NASIR Furosemide 40 mg 06/27/21 21:00 06/27/21 20:33 Furosemide 10 Mg/Ml 4 Ml Vial IV 40 mg Q12HR NASIR Administration Levothyroxine Sodium 50 mcg 06/28/21 06:30 06/28/21 06:19 Levothyroxine 50 Mcg Tab PO 50 mcg 0630 NASIR Administration Melatonin 3 mg 06/27/21 16:55 Melatonin 3 Mg Tablet PO HS PRN Insomnia Metoprolol Tartrate 50 mg 06/27/21 21:00 06/27/21 20:32 Metoprolol Tartrate 50 Mg Tab PO 50 mg BID NASIR Administration Naloxone HCl 0.2 mg 06/27/21 14:39 Naloxone 0.4 Mg/Ml 1 Ml Vial IV Q2M PRN Opioid Reversal Intake and Output 06/27/21 06/28/21 06/28/21 22:59 06:59 14:59 Intake Total 1500 0 Output Total 600 200 Balance 900 -200 Intake: Oral 1500 0 Output: Urine 600 200 Other: Voiding Method Toilet Toilet # Voids 0 200 Weight 75.75 kg 73.6 kg 06/27/21 12:22 06/27/21 18:04
[2021-06-28 15:39] VITALS: BMI 29.7
--- NOTE | 2021-06-28 15:44 | P.PN ---
Subjective Progress Note Date: 06/28/21 Principal diagnosis: shortness of breath Patient is an 86-year-old female with a history of mitral valve prolapse, A. fib on anticoagulation, congestive heart failure, and pulmonary fibrosis who initially went to Dr. Mtz's office secondary to worsening shortness of breath. He sent her over see emergency department due to concerns that her O2 sat was last on her home 2 L O2. In the ER her vital signs within normal limits. Initial laboratory analysis showed a sodium of 124, potassium 5.2, carbon dioxide 20, anion gap 10, BUN 31, creatinine 1.56, bilirubin 1.4, and AST of 44. Initial troponin was negative. BNP was 7020. Chest x-ray showed cardiomegaly with scattered infiltrates and pulmonary venous congestion. She is given a dose of Lasix and arrangements were made for admission. Patient's last available echocardiogram from December 2020 showed ejection fraction 50-55% with moderate mitral regurg, severe pulmonary hypertension, severe tricuspid regurgitation, and a severely dilated left atrium as well as moderate aortic regurg. She was given a dose of lasix and admitted for further management. Lasix was not continued until repeat sodium available and her breathing has improved significantly so oral lasix was resumed. Patient seen and examined at bedside. She reports that her breathing is somewhat better. She was hoping to go home today. She is having less coughing. She overall feels better than yesterday. D/W family that she should not live alone and will need help with her meds. General: il;l appearing, no distress, appears at stated age Derm: warm, dry Head: atraumatic, normocephalic, symmetric Eyes: EOMI, no lid lag, anicteric sclera Mouth: no lip lesion, mucus membranes moist Cardiovascular: S1S2 reg, no murmur, positive posterior tibial pulse bilateral, Lungs: Crackles bilateral bases, no rhonchi, no rales , no accessory muscle use Abdominal: soft, nontender to palpation, no guarding, no appreciable organomegaly Ext: no gross muscle atrophy, trace edema, no contractures Neuro: CN II-XI grossly intact, no focal neuro deficits Psych: Alert, oriented, appropriate affect Acute exacerbation of diastolic congestive heart failure, EF 50-55% -Lasix PO -Lopressor -Strict I's and O's, daily weights -Hold Aldactone secondary hyperkalemia, which has improved will start losartan -Cardiology recs appreciated hypovolemic hyponatremic -Lasix to PO -Repeat lytes at 1900 Acute on chronic hypoxic hypercapnic respiratory failure -Wean O2 as able -Manage fluid status Cognitive decline - speech eval - outpatient follow-up with neurology Paroxysmal atrial fibrillation -Lopressor -Eliquis -Amiodarone decreased CKD 3/4 -Creatinine at baseline -Avoid nephrotoxic agents -Repeat BMP in a.m. Chronic: Pulmonary fibrosis Chronic low back pain Gout IBS Ulcerative colitis Dyslipidemia Hypertension Hyperkalemiam, resolved DVT prophylaxis: eliquis Discussed with: patient, nursing Anticipated discharge date: in AM Anticipated discharge place: home health A total of 30 minutes was spent on the care of this complex patient more than 50% of the time was spent in counseling and care coordination. Objective - Vital Signs Vital signs: Vital Signs Temp 97.2 F L 06/28/21 15:00 Pulse 73 06/28/21 15:00 Resp 18 06/28/21 15:00 BP 104/68 06/28/21 15:00 Pulse Ox 98 06/28/21 15:00 Intake & Output 06/27/21 06/28/21 06/28/21 18:59 06:59 18:59 Intake Total 1500 330 Output Total 800 Balance 700 330 Weight 75.75 kg 73.6 kg Intake: Oral 1500 330 Output: Urine 800 Other: Voiding Method Toilet Toilet # Voids 1 200 - Labs CBC & Chem 7: 06/28/21 05:32 06/28/21 05:32 Labs: Abnormal Lab Results - Last 24 Hours (Table) 06/27/21 06/28/21 06/28/21 Range/Units 18:04 05:32 05:32 Hgb 11.0 L (12.0-15.0) g/dL Hct 37.1 L (37.2-46.3) % MCH 25.0 L (27.0-32.0) pg MCHC 29.6 L (32.0-37.0) g/dL RDW 17.0 H (11.5-14.5) % MPV 8.8 L (9.5-12.2) fL Lymphocytes # 0.88 L (0.90-5.00) X 10*3/uL Sodium 131 L 131 L (135-145) mmol/L BUN 30.0 H 31.0 H (9.0-27.0) mg/dL Creatinine 1.7 H 1.8 H (0.6-1.5) mg/dL Est GFR (CKD-EPI)AfAm 30.7 L 28.6 L (60.0-200.0) Est GFR (CKD-EPI)NonAf 26.5 L 24.7 L (60.0-200.0)
[2021-06-28] MEDS: LOSARTAN 25 MG TAB PO SCH (17:30)
[2021-06-28] MEDS: FUROSEMIDE 40 MG TAB PO SCH (17:30)
[2021-06-29] MEDS: LEVOTHYROXINE 50 MCG TAB PO SCH (06:50)
[2021-06-29] MEDS: APIXABAN 2.5 MG TABLET PO SCH (08:04)
[2021-06-29] MEDS: LOSARTAN 25 MG TAB PO SCH (08:04)
[2021-06-29] MEDS: CYANOCOBALAMIN 500 MCG TAB PO SCH (08:05)
[2021-06-29] MEDS: FUROSEMIDE 40 MG TAB PO SCH (08:05)
[2021-06-29] MEDS: METOPROLOL TARTRATE 50 MG TAB PO SCH (08:06)
[2021-06-29 08:12] VITALS: BP 109/58; RESP 18; TEMP 97.8
[2021-06-29] MEDS ORDERED: AMIODARONE 200 MG TAB PO SCH (09:00)
[2021-06-29 10:09] VITALS: PULSE 64
[2021-06-29 10:38] LABS: African American GFR (CKD) 28.6 (60.0-200.0); Anion Gap 9.2 mmol/L (4.00-12.00); BUN/Creat Ratio 20.56 Ratio (12.00-20.00); Calcium 8.9 mg/dL (8.7-10.3); Carbon Dioxide 26.8 mmol/L (21.6-31.8); Non-African American GFR(CKD) 24.7 (60.0-200.0); Potassium 3.8 mmol/L (3.5-5.5)
[2021-06-29] MEDS ORDERED: SPIRONOLACTONE 25 MG TAB PO SCH (12:15)
--- NOTE | 2021-06-29 13:36 | P.PN ---
Subjective This is a pleasant 85-year-old female past medical history significant for severe pulmonary hypertension, chronic right sided heart failure, chronic persistent atrial fibrillation on terminal gauger anti-coagulation, hypertension, diabetes mellitus, dyslipidemia, pulmonary fibrosis on home oxygen and chronic kidney disease. She follows in the office with Dr. Caldwell. We have been asked to see in consultation for congestive heart failure. Patient presents to the emergency department with complaints of shortness of breath. Patient states ove r the past 2-3 days she's been feeling short of breath, decreased exercise tolerance. She has had increased fatigue when doing her normal activities and walking. On admission, patient given IV Lasix 60mg x 1. and started on IV Lasix 40mg BID, one dose given. She states she has urinated a lot. I/Os indicate 800mL output over the past 24 hours with decrease in weight. EKG reveals atrial flutter 2:1 conduction HR 72. Chest xray Cardiomegaly with scattered infiltrates and pulmonary venous congestion. On admission patient's labs revealed sodium 124, potassium 5.2, BUN 31, serum creatinine 1.5, total bilirubin 1.4, AST 44, ALT 25, alkaline phosphatase 130, troponin negative 1, proBNP 7020. DIAGNOSTICS Echocardiogram 12/2020 revealed preserved LV systolic function with ejection fraction 50-55%, severely dilated left atrium, mild to moderate aortic regurgitation, moderate mitral regurgitation, severe tricuspid regurgitation and severe pulmonary hypertension with an RVSP of 72 mmHg. Most recent cardiac catheterization 01/2019 which revealed normal coronary arteries. 06/29/21: Patient seen and examined at bedside, no acute distress. Blood pressure 109/58, heart rate 80, afebrile, maintaining oxygen saturations 95% on room air. Laboratory data reviewed sodium 131, potassium 3.8, P1 37, serum creatinine 1.8. Patient currently maintained on amiodarone 200 mg daily, Eliquis 2.5 mg twice a day, Lasix 40 mg PO BID, losartan 12.5 mg daily, metoprolol titrate 50 mg twice a day. PHYSICAL EXAMINATION CONSTITUTIONAL: No apparent distress. HEENT: Head is normocephalic. Neck Supple. No JVD. No carotid bruit. CHEST EXAMINATION: Lungs are diminished in bases. No chest wall tenderness is noted on palpation or with deep breathing. HEART EXAMINATION: Irregular rate and rhythm. S1, S2 heard. Systolic ejection murmur at the base, no gallops or rub. ABDOMEN: Soft, nontender. Positive bowel sounds. EXTREMITIES: 2+ peripheral pulses, no lower extremity edema and no calf tenderness. NEUROLOGIC EXAMINATION: Patient is awake, alert and oriented x3. ASSESSMENT Acute on chronic diastolic heart failure Severe pulmonary hypertension Pulmonary fibrosis on home oxygen Chronic persistent atrial fibrillation on long-term anticoagulation Hypertension Dyslipidemia Type 2 Diabetes mellitus Acute on Chronic kidney disease Hyperkalemia Hyponatremia PLAN Patient appears comfortable and euvolemic on exam, serum creatinine elevated. Continue PO Lasix 40mg BID Continue amiodarone to 200mg daily Continue Eliquis 2.5mg BID, metoprolol tartrate 50mg BID Decrease spironolactone to 12.5mg daily Repeat BMP within 1 week Hold Potassium supplementation until follow up BMP Follow up with Dr Caldwell within 1-2 weeks From cardiology perspective, patient is stable to be discharged home Thank you kindly for this consultation. Nurse Practitioner note has been reviewed, I agree with a documented findings and plan of care. Patient was seen and examined. Objective - Vital Signs Vital signs: Vital Signs Temp 97.8 F 06/29/21 08:11 Pulse 80 06/29/21 08:11 Resp 18 06/29/21 08:11 BP 109/58 06/29/21 08:11 Pulse Ox 95 06/29/21 08:11 Intake & Output 06/28/21 06/29/21 06/29/21 18:59 06:59 18:59 Intake Total 330 Balance 330 Weight 73.6 kg 73.8 kg Intake: Oral 330 Other: Voiding Method Toilet Toilet Toilet - Labs CBC & Chem 7: 06/28/21 05:32 06/29/21 06:17 Labs: Abnormal Lab Results - Last 24 Hours (Table) 06/29/21 Range/Units 06:17 Sodium 131 L (135-145) mmol/L Chloride 95 L (96-109) mmol/L BUN 37.0 H (9.0-27.0) mg/dL Creatinine 1.8 H (0.6-1.5) mg/dL Est GFR (CKD-EPI)AfAm 28.6 L (60.0-200.0) Est GFR (CKD-EPI)NonAf 24.7 L (60.0-200.0) BUN/Creatinine Ratio 20.56 H (12.00-20.00) Ratio Glucose 119 H (70-110) mg/dL
--- NOTE | 2021-06-29 13:41 | P.DS ---
Providers Date of admission: 06/27/21 14:13 Expected date of discharge: 06/29/21 Attending physician: Piper Fuller DO Consults: 06/27/21 16:57 Consult Physician Routine Consulting Provider: Kevin Higgins Consult Reason/Comments: AE CHF Do you want consulting provider notified?: Yes Primary care physician: Alverto Fernández Hospital Course: Discharge Diagnosis: Acute exacerbation of diastolic congestive heart failure, EF 50-55% hypervolemic hyponatremic Acute on chronic hypoxic hypercapnic respiratory failure Cognitive decline Paroxysmal atrial fibrillation CKD 3/4 Pulmonary fibrosis Chronic low back pain Gout IBS Ulcerative colitis Dyslipidemia Hypertension Hyperkalemia, resolved Hospital Course: Patient is an 86-year-old female with a history of mitral valve prolapse, A. fib on anticoagulation, congestive heart failure, and pulmonary fibrosis who initially went to Dr. Fernández's office secondary to worsening shortness of breath. He sent her over see emergency department due to concerns that her O2 sat was last on her home 2 L O2. In the ER her vital signs within normal limits. Initial laboratory analysis showed a sodium of 124, potassium 5.2, carbon dioxide 20, anion gap 10, BUN 31, creatinine 1.56, bilirubin 1.4, and AST of 44. Initial troponin was negative. BNP was 7020. Chest x-ray showed cardiomegaly with scattered infiltrates and pulmonary venous congestion. She is given a dose of Lasix and arrangements were made for admission. Patient's last available echocardiogram from December 2020 showed ejection fraction 50-55% with moderate mitral regurg, severe pulmonary hypertension, severe tricuspid regurgitation, and a severely dilated left atrium as well as moderate aortic re gurg. She was given a dose of lasix and admitted for further management. Lasix was not continued until repeat sodium available and her breathing has improved significantly so oral lasix was resumed. She was seen by cardiology and her home medications were adjusted. She was seen by speech and does have significant cognitive dysfunction with Slums 16/30 score. Her volume status was optimized and she was determined stable for discharge. 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 Follow-up: Dr. Caldwell in 1 week, Dr. Fernández in 3-5 days, [facility] neuro [facility]. Home health with nursing and social work, repeat CBC in 3- 5 days, off potassium due to hyperkalemia, decreased spironolocatone dose but added lisinopril will need close monitoring for hyperkalemia. Patient seen and examined at bedside. Breathing is much better. Able to ambulate easily. A long discussion regarding her memory loss. Vital signs reviewed and stable. General: Multiple areas of ecchymosis, non toxic, no distress, appears at stated age Derm: warm, dry Head: atraumatic, normocephalic, symmetric Eyes: EOMI, no lid lag, anicteric sclera Mouth: no lip lesion, mucus membranes moist Cardiovascular: S1S2 reg, no murmur, positive posterior tibial pulse bilateral, no JVD Lungs: CTA bilateral, no rhonchi, no rales , no accessory muscle use Abdominal: soft, nontender to palpation, no guarding, no appreciable organomegaly Ext: no gross muscle atrophy, trace edema, no contractures Neuro: CN II-XI grossly intact, no focal neuro deficits Psych: Alert, oriented, appropriate affect A total of 32 minutes of time were spent preparing this complex discharge summary . Patient Condition at Discharge: Stable Plan - Discharge Summary Discharge Rx Participant: No New Discharge Prescriptions: New Amiodarone [Cordarone] 200 mg PO DAILY tab Losartan [Cozaar] 12.5 mg PO DAILY #30 tab Spironolactone [Aldactone] 12.5 mg PO DAILY #30 tab Continue Levothyroxine Sodium [Synthroid] 50 mcg PO DAILY Ubidecarenone [Co Q-10] 100 mg PO DAILY Ergocalciferol [Vitamin D2 (DRISDOL)] 50,000 unit PO Q14D Magnesium Oxide [Mag-Ox] 400 mg PO BID Cyanocobalamin [Vitamin B-12] 500 mcg PO DAILY Furosemide [Lasix] 40 mg PO BID #60 Apixaban [Eliquis] 2.5 mg PO BID Metoprolol Tartrate [Lopressor] 50 mg PO BID Sennosides/Docusate Sodium [Senna Plus 8.6-50 mg Tablet] 2 tab PO BID PRN PRN Reason: Constipation Discontinued Potassium Chloride ER [K-Dur 10] 10 meq PO BID Amiodarone [Cordarone] 200 mg PO BID Spironolactone [Aldactone] 25 mg PO DAILY #30 tab Albuterol Sulfate [Ventolin HFA] 2 puff INHALATION RT-Q4H PRN PRN Reason: Cough/Wheezing Discharge Medication List Ergocalciferol [Vitamin D2 (DRISDOL)] 50,000 unit PO Q14D 07/19/15 [History] Levothyroxine Sodium [Synthroid] 50 mcg PO DAILY 07/19/15 [History] Ubidecarenone [Co Q-10] 100 mg PO DAILY 07/19/15 [History] Magnesium Oxide [Mag-Ox] 400 mg PO BID 11/16/17 [History] Cyanocobalamin [Vitamin B-12] 500 mcg PO DAILY 06/02/19 [History] Furosemide [Lasix] 40 mg PO BID #60 12/24/20 [Rx] Apixaban [Eliquis] 2.5 mg PO BID 06/27/21 [History] Metoprolol Tartrate [Lopressor] 50 mg PO BID 06/27/21 [History] Sennosides/Docusate Sodium [Senna Plus 8.6-50 mg Tablet] 2 tab PO BID PRN 06/27/21 [History] Amiodarone [Cordarone] 200 mg PO DAILY tab 06/28/21 [Rx] Losartan [Cozaar] 12.5 mg PO DAILY #30 tab 06/29/21 [Rx] Spironolactone [Aldactone] 12.5 mg PO DAILY #30 tab 06/29/21 [Rx] Follow up Appointment(s)/Referral(s): Chino Caldwell MD [STAFF PHYSICIAN] - 1 Week Alverto Fernández [Primary Care Provider] - 1-2 days Ambulatory/Diagnostic Orders: Basic Metabolic Panel [LAB.AMB] Location: None Selected Activity/Diet/Wound Care/Special Instructions: Activity: [] Diet: [] Wound Care: [] Special Instructions: [facility]- for memory loss issues, comprehensive testing to determined where the neurocognitive decline They have a [place] location Discharge Disposition: HOME WITH HOME HEALTH SERVICES
== END 2021-06-29 14:33 | disposition home health service (06) | DRG 291 ==
LOC: EC 11:21 → 6NMEDSUR 14:13 → UNDOADMOB 14:13 → 6NMEDSUR 16:02
PROVIDERS: ADMIT Internal Medicine; ATTEND Internal Medicine
DX: I13.0 Hypertensive heart and chronic kidney disease with heart failure and stage 1 through stage 4 chronic kidney disease, or unspecified chronic kidney disease (principal); I50.33 Acute on chronic diastolic (congestive) heart failure; J96.21 Acute and chronic respiratory failure with hypoxia; J96.22 Acute and chronic respiratory failure with hypercapnia; E87.1 Hypo-osmolality and hyponatremia; I48.19 Other persistent atrial fibrillation; I48.92 Unspecified atrial flutter; K51.90 Ulcerative colitis, unspecified, without complications; N18.4 Chronic kidney disease, stage 4 (severe); E11.22 Type 2 diabetes mellitus with diabetic chronic kidney disease; E78.5 Hyperlipidemia, unspecified; E86.1 Hypovolemia; E87.5 Hyperkalemia; G89.29 Other chronic pain; Z79.01 Long term (current) use of anticoagulants; Z99.81 Dependence on supplemental oxygen; I27.29 Other secondary pulmonary hypertension; J45.909 Unspecified asthma, uncomplicated; I08.3 Combined rheumatic disorders of mitral, aortic and tricuspid valves; J84.10 Pulmonary fibrosis, unspecified; Z85.828 Personal history of other malignant neoplasm of skin; Z85.3 Personal history of malignant neoplasm of breast; Z85.038 Personal history of other malignant neoplasm of large intestine; M10.9 Gout, unspecified; M48.00 Spinal stenosis, site unspecified; M41.9 Scoliosis, unspecified; M81.0 Age-related osteoporosis without current pathological fracture; E07.9 Disorder of thyroid, unspecified; Z80.3 Family history of malignant neoplasm of breast; Z81.1 Family history of alcohol abuse and dependence; K57.90 Diverticulosis of intestine, part unspecified, without perforation or abscess without bleeding; H91.90 Unspecified hearing loss, unspecified ear; K44.9 Diaphragmatic hernia without obstruction or gangrene; Z79.899 Other long term (current) drug therapy; Z79.890 Hormone replacement therapy; Z90.710 Acquired absence of both cervix and uterus; Z98.42 Cataract extraction status, left eye; Z98.41 Cataract extraction status, right eye; Z96.1 Presence of intraocular lens; Z90.49 Acquired absence of other specified parts of digestive tract; Z92.3 Personal history of irradiation; Z98.890 Other specified postprocedural states; Z87.01 Personal history of pneumonia (recurrent); Z88.8 Allergy status to other drugs, medicaments and biological substances; Z88.1 Allergy status to other antibiotic agents; Z91.041 Radiographic dye allergy status; Z83.2 Family history of diseases of the blood and blood-forming organs and certain disorders involving the immune mechanism
CPT/HCPCS: 36415; 51798; 71046; 80048; 80053; 83605; 83735; 83880; 84484; 85025; 85610; 85730; 93005; 94760; 99285

== ENCOUNTER 2021-07-12 14:44 | Inpatient (IN) | payer MEDICARE ==
[2021-07-12] MEDS ORDERED: SODIUM CHLORIDE 0.9% 500 ML 500 ML IV ONE (17:13)
[2021-07-12 17:49] LABS: Glucose,Whole Blood 123 mg/dL (75-99)
--- NOTE | 2021-07-12 17:51 | ED ---
General Adult HPI - General Chief complaint: Altered Mental Status Stated complaint: Altered, r/o mini stroke Time Seen by Provider: 07/12/21 17:05 Source: patient, family (son), RN notes reviewed, old records reviewed Mode of arrival: EMS Limitations: no limitations - History of Present Illness Initial comments: 86-year-old alert female presents to the emergency room with her son. He states that she has had increasing confusion over the past 2 weeks. She was discharged from the hospital on June 29 with altered mental status. They do have home care nurses have come to the house and today they stated that her dementia is significantly worse. They were not sure if this could be another urinary tract infection or worsening dementia. Patient states that she is with twins, she identifies her son at the bedside is being her . She thinks it 1954. She denies any pain or shortness of breath. -: week(s) (2) Severity scale (1-10): 0 Consistency: intermittent Improves with: none Worsens with: none - Related Data Home Medications Medication Instructions Recorded Confirmed Levothyroxine Sodium [Synthroid] 50 mcg PO DAILY 07/19/15 07/12/21 Ubidecarenone [Co Q-10] 100 mg PO DAILY 07/19/15 07/12/21 Magnesium Oxide [Mag-Ox] 400 mg PO BID 11/16/17 07/12/21 Cyanocobalamin [Vitamin B-12] 500 mcg PO DAILY 06/02/19 07/12/21 Apixaban [Eliquis] 2.5 mg PO BID 06/27/21 07/12/21 Metoprolol Tartrate [Lopressor] 50 mg PO BID 06/27/21 07/12/21 Sennosides/Docusate Sodium [Senna 2 tab PO BID PRN 06/27/21 07/12/21 Plus 8.6-50 mg Tablet] Clobetasol Propionate [Temovate 1 applic TOPICAL BID 07/12/21 07/12/21 0.05% Oint] Ergocalciferol [Vitamin D2 (1250 1,250 mcg PO Q14D 07/12/21 07/12/21 Mcg = 81941 Iu)] Hydrocortisone Oint 1 applic TOPICAL BID 07/12/21 07/12/21 [Hydrocortisone 2.5% Oint] Previous Rx's Medication Instructions Recorded Furosemide [Lasix] 40 mg PO BID #60 12/24/20 Amiodarone [Cordarone] 200 mg PO DAILY tab 06/28/21 Losartan [Cozaar] 12.5 mg PO DAILY #30 tab 06/29/21 Spironolactone [Aldactone] 12.5 mg PO DAILY #30 tab 06/29/21 Allergies Allergy/AdvReac Type Severity Reaction Status Date / Time iodine Allergy Unknown VERY LOW Verified 07/12/21 18:37 BLOOD PRESSURE,SHORTNESS OF BREATH adhesive tape Allergy Rash/Hives Verified 07/12/21 18:37 clarithromycin Allergy Unknown Verified 07/12/21 18:37 Iodinated Contrast Media Allergy Anaphylaxis Verified 07/12/21 18:37 metaxalone [From Skelaxin] Allergy Anaphylaxis Verified 07/12/21 18:37 niacin Allergy Unknown Verified 07/12/21 18:37 [From Niaspan Extended-Release] pantoprazole Allergy ITCHING Verified 07/12/21 18:37 ,REDNESS OF SKIN Review of Systems ROS Statement: Those systems with pertinent positive or pertinent negative responses have been documented in the HPI. ROS Other: All systems not noted in ROS Statement are negative. Past Medical History Past Medical History: Atrial Fibrillation, Atrial Flutter, Asthma, Cancer, GERD/Reflux, Hearing Disorder / Deafness, Hyperlipidemia, Hypertension, Musculoskeletal Disorder, Osteoarthritis (OA), Pneumonia, Renal Disease, Thyroid Disorder, Vascular Disorder Additional Past Medical History / Comment(s): pulmonary fibrosis, Mitral valve prolapse, "hole in my heart", exertional dyspnea, chronic renal disease stage III, carpal tunnel bilaterally, osteoporosis, chronic low back pain, spinal stenosis, scoliosis, gout, varicose veins, R breast cancer with surgery/radiation, skin cancer removals, cancerous colon polyp removal, diverticular dx, hiatal hernia, IBS, ulcerative colitis, History of Any Multi-Drug Resistant Organisms: None Reported Past Surgical History: Breast Surgery, Cardiac Ablation, Cholecystectomy, Heart Catheterization, Hysterectomy, Orthopedic Surgery Additional Past Surgical History / Comment(s): R breast lumpectomy x 2, R breast bx, skin cancer removals, total hysterectomy, open cholecystectomy, R arm spur removals 3 times, R shoulder rotator cuff repair, R foot 2nd toe surgery, pilonidal cystectomy, colonoscopy with cancerous polypectomy, bilateral cataract removal/lens implants and surgery for astigmatism. Past Anesthesia/Blood Transfusion Reactions: Postoperative Nausea & Vomiting (PONV) Additional Past Anesthesia/Blood Transfusion Reaction / Comment(s): DUE TO REFLUX /POST ANESTHESIA PNEUMONIA. Past Psychological History: No Psychological Hx Reported Smoking Status: Never smoker Past Alcohol Use History: None Reported Past Drug Use History: None Reported - Past Family History Father Additional Family Medical History / Comment(s): Father was an alcoholic and pt thinks he from complications of that. Mother Family Medical History: Pulmonary Embolus Additional Family Medical History / Comment(s): at 59 from PE Sister(s) Family Medical History: Cancer Additional Family Medical History / Comment(s): Breast Cancer General Exam Limitations: no limitations, altered mental status General appearance: alert, in no apparent distress Head exam: Present: atraumatic, normocephalic, normal inspection Eye exam: Present: normal appearance, PERRL, EOMI. Absent: scleral icterus, conjunctival injection, periorbital swelling ENT exam: Present: normal exam, normal oropharynx, mucous membranes moist Neck exam: Present: normal inspection, full ROM. Absent: tenderness, meningismus, thyromegaly Respiratory exam: Present: normal lung sounds bilaterally. Absent: respiratory distress, wheezes, rales, rhonchi, stridor, chest wall tenderness, accessory muscle use Cardiovascular Exam: Present: regular rate, normal rhythm, normal heart sounds. Absent: systolic murmur, diastolic murmur, rubs, gallop, clicks GI/Abdominal exam: Present: soft, normal bowel sounds. Absent: distended, tenderness, guarding, rebound, rigid Extremities exam: Present: normal inspection, full ROM, normal capillary refill. Absent: tenderness, pedal edema, joint swelling, calf tenderness Back exam: Present: normal inspection. Absent: tenderness, CVA tenderness (R), CVA tenderness (L), muscle spasm, paraspinal tenderness, vertebral tenderness, rash noted Neurological exam: Present: alert, CN II-XII intact Expanded Patient oriented to: Present: person, place Speech: Present: fluid speech Cranial nerves: EOM's Intact: Normal, Gag Reflex: Normal, Tongue Deviation: Normal Motor strength exam: RUE: 5, LUE: 5, RLE: 5, LLE: 5 Eye Response: (4) open spontaneously Motor Response: (6) obeys commands Verbal Response: (4) confused conversation Argelia Total: 14 Psychiatric exam: Present: normal affect, normal mood Skin exam: Present: warm, dry, intact, normal color. Absent: rash, cyanosis, diaphoretic, erythema, pallor, mottled Course Vital Signs 07/12/21 07/12/21 16:03 19:27 Temperature 98.5 F Pulse Rate 70 66 Respiratory 18 18 Rate Blood Pressure 113/67 111/75 O2 Sat by Pulse 92 L 92 L Oximetry EKG Findings - EKG Results: EKG shows: atrial fibrillation (Ventricular rate 78, QRS 0.90, QTC 0.492) Medical Decision Making - Medical Decision Making CT of the brain shows no intracranial mass or hemorrhage. There is no acute process. Chest x-ray shows mild interstitial pulmonary edema no obvious infiltrate. Her oxygen saturation is 92% on room air. She is covid negative. Her CBC is unremarkable, her glucose is 113. Her urine is negative for infection. Sodium level is 128 she will be observed for hyponatremia. Her EKG shows atrial fibrillation, troponin is negative at 0.012. I did speak with Dr. Fuller was agreeable to this plan. Family was notified that they will still continue the need neuropsychology at [facility] and work and long-term care for her. Her son that is acceptable to this plan of care. - Lab Data Result diagrams: 07/12/21 17:50 07/12/21 17:50 Lab Results 07/12/21 07/12/21 07/12/21 Range/Units 17:47 17:50 17:50 WBC 6.9 (3.8-10.6) k/uL RBC 4.98 (3.80-5.40) m/uL Hgb 12.8 (11.4-16.0) gm/dL Hct 41.6 (34.0-46.0) % MCV 83.6 (80.0-100.0) fL MCH 25.7 (25.0-35.0) pg MCHC 30.8 L (31.0-37.0) g/dL RDW 17.2 H (11.5-15.5) % Plt Count 274 (150-450) k/uL MPV 7.1 Neutrophils % 72 % Lymphocytes % 15 % Monocytes % 9 % Eosinophils % 2 % Basophils % 1 % Neutrophils # 5.0 (1.3-7.7) k/uL Lymphocytes # 1.0 (1.0-4.8) k/uL Monocytes # 0.6 (0-1.0) k/uL Eosinophils # 0.1 (0-0.7) k/uL Basophils # 0.1 (0-0.2) k/uL Manual Slide Review Performed Polychromasia Present Hypochromasia Marked Poikilocytosis Slight Poikilocytosis (manual Present Anisocytosis Slight PT 11.7 (9.0-12.0) sec INR 1.1 (<1.2) APTT 25.8 (22.0-30.0) sec Sodium (137-145) mmol/L Potassium (3.5-5.1) mmol/L Chloride (98-107) mmol/L Carbon Dioxide (22-30) mmol/L Anion Gap mmol/L BUN (7-17) mg/dL Creatinine (0.52-1.04) mg/dL Est GFR (CKD-EPI)AfAm (>60 ml/min/1.73 sqM) Est GFR (CKD-EPI)NonAf (>60 ml/min/1.73 sqM) Glucose (74-99) mg/dL POC Glucose (mg/dL) 123 H (75-99) mg/dL POC Glu Music Supervisor ID Lobo Coleman Calcium (8.4-10.2) mg/dL Total Bilirubin (0.2-1.3) mg/dL AST (14-36) U/L ALT (4-34) U/L Alkaline Phosphatase (38-126) U/L Troponin I (0.000-0.034) ng/mL Total Protein (6.3-8.2) g/dL Albumin (3.5-5.0) g/dL Urine Color Urine Appearance (Clear) Urine pH (5.0-8.0) Ur Specific [place] (1.001-1.035) Urine Protein (Negative) Urine Glucose (UA) (Negative) Urine Ketones (Negative) Urine Blood (Negative) Urine Nitrite (Negative) Urine Bilirubin (Negative) Urine Urobilinogen (<2.0) mg/dL Ur Leukocyte Esterase (Negative) Urine Opiates Screen (NotDetected) Ur Oxycodone Screen (NotDetected) Urine Methadone Screen (NotDetected) Ur Propoxyphene Screen (NotDetected) Ur Barbiturates Screen (NotDetected) U Tricyclic Antidepress (NotDetected) Ur Phencyclidine Scrn (NotDetected) Ur Amphetamines Screen (NotDetected) U Methamphetamines Scrn (NotDetected) U Benzodiazepines Scrn (NotDetected) Urine Cocaine Screen (NotDetected) U Marijuana (THC) Screen (NotDetected) Coronavirus (PCR) (Not Detectd) 07/12/21 07/12/21 07/12/21 Range/Units 17:50 17:50 17:50 WBC (3.8-10.6) k/uL RBC (3.80-5.40) m/uL Hgb (11.4-16.0) gm/dL Hct (34.0-46.0) % MCV (80.0-100.0) fL MCH (25.0-35.0) pg MCHC (31.0-37.0) g/dL RDW (11.5-15.5) % Plt Count (150-450) k/uL MPV Neutrophils % % Lymphocytes % % Monocytes % % Eosinophils % % Basophils % % Neutrophils # (1.3-7.7) k/uL Lymphocytes # (1.0-4.8) k/uL Monocytes # (0-1.0) k/uL Eosinophils # (0-0.7) k/uL Basophils # (0-0.2) k/uL Manual Slide Review Polychromasia Hypochromasia Poikilocytosis Poikilocytosis (manual Anisocytosis PT (9.0-12.0) sec INR (<1.2) APTT (22.0-30.0) sec Sodium 128 L (137-145) mmol/L Potassium 4.4 (3.5-5.1) mmol/L Chloride 99 (98-107) mmol/L Carbon Dioxide 19 L (22-30) mmol/L Anion Gap 10 mmol/L BUN 31 H (7-17) mg/dL Creatinine 1.60 H (0.52-1.04) mg/dL Est GFR (CKD-EPI)AfAm 33 (>60 ml/min/1.73 sqM) Est GFR (CKD-EPI)NonAf 29 (>60 ml/min/1.73 sqM) Glucose 113 H (74-99) mg/dL POC Glucose (mg/dL) (75-99) mg/dL POC Glu Music Supervisor ID Calcium 9.3 (8.4-10.2) mg/dL Total Bilirubin 1.1 (0.2-1.3) mg/dL AST 37 H (14-36) U/L ALT 24 (4-34) U/L Alkaline Phosphatase 143 H (38-126) U/L Troponin I <0.012 (0.000-0.034) ng/mL Total Protein 6.9 (6.3-8.2) g/dL Albumin 3.7 (3.5-5.0) g/dL Urine Color Light Yellow Urine Appearance Clear (Clear) Urine pH 7.0 (5.0-8.0) Ur Specific [place] 1.005 (1.001-1.035) Urine Protein Negative (Negative) Urine Glucose (UA) Negative (Negative) Urine Ketones Negative (Negative) Urine Blood Negative (Negative) Urine Nitrite Negative (Negative) Urine Bilirubin Negative (Negative) Urine Urobilinogen <2.0 (<2.0) mg/dL Ur Leukocyte Esterase Negative (Negative) Urine Opiates Screen Not Detected (NotDetected) Ur Oxycodone Screen Not Detected (NotDetected) Urine Methadone Screen Not Detected (NotDetected) Ur Propoxyphene Screen Not Detected (NotDetected) Ur Barbiturates Screen Not Detected (NotDetected) U Tricyclic Antidepress Not Detected (NotDetected) Ur Phencyclidine Scrn Not Detected (NotDetected) Ur Amphetamines Screen Not Detected (NotDetected) U Methamphetamines Scrn Not Detected (NotDetected) U Benzodiazepines Scrn Not Detected (NotDetected) Urine Cocaine Screen Not Detected (NotDetected) U Marijuana (THC) Screen Not Detected (NotDetected) Coronavirus (PCR) (Not Detectd) 07/12/21 Range/Units 18:55 WBC (3.8-10.6) k/uL RBC (3.80-5.40) m/uL Hgb (11.4-16.0) gm/dL Hct (34.0-46.0) % MCV (80.0-100.0) fL MCH (25.0-35.0) pg MCHC (31.0-37.0) g/dL RDW (11.5-15.5) % Plt Count (150-450) k/uL MPV Neutrophils % % Lymphocytes % % Monocytes % % Eosinophils % % Basophils % % Neutrophils # (1.3-7.7) k/uL Lymphocytes # (1.0-4.8) k/uL Monocytes # (0-1.0) k/uL Eosinophils # (0-0.7) k/uL Basophils # (0-0.2) k/uL Manual Slide Review Polychromasia Hypochromasia Poikilocytosis Poikilocytosis (manual Anisocytosis PT (9.0-12.0) sec INR (<1.2) APTT (22.0-30.0) sec Sodium (137-145) mmol/L Potassium (3.5-5.1) mmol/L Chloride (98-107) mmol/L Carbon Dioxide (22-30) mmol/L Anion Gap mmol/L BUN (7-17) mg/dL Creatinine (0.52-1.04) mg/dL Est GFR (CKD-EPI)AfAm (>60 ml/min/1.73 sqM) Est GFR (CKD-EPI)NonAf (>60 ml/min/1.73 sqM) Glucose (74-99) mg/dL POC Glucose (mg/dL) (75-99) mg/dL POC Glu Music Supervisor ID Calcium (8.4-10.2) mg/dL Total Bilirubin (0.2-1.3) mg/dL AST (14-36) U/L ALT (4-34) U/L Alkaline Phosphatase (38-126) U/L Troponin I (0.000-0.034) ng/mL Total Protein (6.3-8.2) g/dL Albumin (3.5-5.0) g/dL Urine Color Urine Appearance (Clear) Urine pH (5.0-8.0) Ur Specific [place] (1.001-1.035) Urine Protein (Negative) Urine Glucose (UA) (Negative) Urine Ketones (Negative) Urine Blood (Negative) Urine Nitrite (Negative) Urine Bilirubin (Negative) Urine Urobilinogen (<2.0) mg/dL Ur Leukocyte Esterase (Negative) Urine Opiates Screen (NotDetected) Ur Oxycodone Screen (NotDetected) Urine Methadone Screen (NotDetected) Ur Propoxyphene Screen (NotDetected) Ur Barbiturates Screen (NotDetected) U Tricyclic Antidepress (NotDetected) Ur Phencyclidine Scrn (NotDetected) Ur Amphetamines Screen (NotDetected) U Methamphetamines Scrn (NotDetected) U Benzodiazepines Scrn (NotDetected) Urine Cocaine Screen (NotDetected) U Marijuana (THC) Screen (NotDetected) Coronavirus (PCR) Not Detected (Not Detectd) Disposition Clinical Impression: Hyponatremia, Dementia Disposition: ADMITTED IP TO THIS HOSP Referrals: Alverto Fernández [Primary Care Provider] - 1-2 days Decision Date: 07/12/21 Decision Time: 19:31
--- NOTE | 2021-07-12 18:07 | CT ---
EXAMINATION: CT brain wo con DATE AND TIME: 07/12/2021 5:45 PM CLINICAL INDICATION: PHH; altered mental status TECHNIQUE: Standard departmental protocol DLP: 1099.4 mGy-cm COMPARISON: None. FINDINGS: The calvarium is intact. There is no intracranial hemorrhage. There is no intracranial mass or mass effect. No definite new intra-axial or extra-axial attenuation defect. The paranasal sinuses, middle ear cavities, and mastoid sinus air cells are clear. The orbits are unremarkable. IMPRESSION: NO ACUTE PROCESS.
[2021-07-12 18:13] LABS: Appearance,Urine Clear (Clear); Bilirubin,Urine Negative (Negative); Blood,Urine Negative (Negative); Color,Urine Light Yellow; Glucose,Urine (UA) Negative (Negative); Ketones,Urine Negative (Negative); Leukocyte Esterase,Urine Negative (Negative); Nitrite,Urine Negative (Negative); Protein,Urine Negative (Negative); Specific Gravity,Urine 1.005 (1.001-1.035); Urobilinogen,Urine <2.0 mg/dL (<2.0)
[2021-07-12 18:17] LABS: Albumin 3.7 g/dL (3.5-5.0); Calcium 9.3 mg/dL (8.4-10.2); Potassium 4.4 mmol/L (3.5-5.1); Total Bilirubin 1.1 mg/dL (0.2-1.3); Total Protein 6.9 g/dL (6.3-8.2)
--- NOTE | 2021-07-12 18:20 | XR ---
EXAMINATION: XR chest 2V DATE AND TIME: 07/12/2021 5:34 PM CLINICAL INDICATION: PHH; altered mental status TECHNIQUE: Departmental protocol COMPARISON: 06/27/2021 FINDINGS: Markedly enlarged cardiac silhouette redemonstrated. The lungs demonstrate [id number] silhouetting of the pulmonary vasculature by a symmetric fine reticular pattern of increased density, consistent with a clinical diagnosis of mild cardiogenic inte rstitial phase pulmonary edema. Lungs are otherwise unremarkable. The pleural spaces are negative. The skeletal structures and soft tissues are negative for acute findings. IMPRESSION: Findings consistent with a clinical diagnosis of mild interstitial phase pulmonary edema.
[2021-07-12 18:27] LABS: INR 1.1 (<1.2); Partial Thromboplastin Time 25.8 sec (22.0-30.0); Prothrombin Time 11.7 sec (9.0-12.0)
[2021-07-12 18:28] LABS: Amphetamine Screen,Urine Not Detected (NotDetected); Barbiturate Screen,Urine Not Detected (NotDetected); Benzodiazepines Screen,Urine Not Detected (NotDetected); Cocaine Screen,Urine Not Detected (NotDetected); Methadone Screen, Urine Not Detected (NotDetected); Opiate Screen,Urine Not Detected (NotDetected); Oxycodone Screen, Urine Not Detected (NotDetected); Phencyclidine Screen,Urine Not Detected (NotDetected); Tricyclic Antidepressant,Urine Not Detected (NotDetected); Urn Cannabinoid Scrn Not Detected (NotDetected)
[2021-07-12 18:43] LABS: Anisocytosis Slight; Basophils # (A) 0.1 k/uL (0-0.2); Basophils % (A) 1 %; Eosinophils # (A) 0.1 k/uL (0-0.7); Eosinophils % (A) 2 %; HCT 41.6 % (34.0-46.0); HGB 12.8 gm/dL (11.4-16.0); Hypochromasia Marked; Lymphocytes % (A) 15 %; MCH 25.7 pg (25.0-35.0); MCHC 30.8 g/dL (31.0-37.0); MCV 83.6 fL (80.0-100.0); Mean Platelet Volume 7.1; Monocytes # (A) 0.6 k/uL (0-1.0); Monocytes % (A) 9 %; Neutrophils % (A) 72 %; Platelet Count 274 k/uL (150-450); Poikilocytosis Slight; RBC 4.98 m/uL (3.80-5.40); RDW 17.2 % (11.5-15.5); WBC 6.9 k/uL (3.8-10.6)
[2021-07-12 18:48] LABS: Poikilocytosis (M) Present; Polychromasia Present
[2021-07-12] MEDS ORDERED: NALOXONE 0.4 MG/ML 1 ML VIAL IV PRN (19:25)
[2021-07-12] MEDS ORDERED: SODIUM CHLORIDE 0.9% 1,000 ML IV SCH (19:30)
[2021-07-12] MEDS ORDERED: SENNOSIDES-DOCUSATE SODIUM 1 EACH TAB PO PRN (23:00)
[2021-07-12] MEDS: APIXABAN 2.5 MG TABLET PO SCH (23:21)
[2021-07-12] MEDS: METOPROLOL TARTRATE 50 MG TAB PO SCH (23:21)
--- NOTE | 2021-07-13 01:52 | P.HPIM ---
History of Present Illness H&P Date: 07/12/21 Chief Complaint: Increased confusion 78-year-old female with multiple comorbidities diastolic CHF, cognitive impairment, paroxysmal A. fib, CKD Patient was brought in by her son due to worsening confusion over the past 2 weeks since discharge, she was discharged around June 29 where she was admitted at that time for acute diastolic CHF exacerbation with acute on chronic hypoxic respiratory failure and increase oxygen requirement patient was treated with diuretics and discharged in stable condition however since she's been home she has been receiving some therapy and visiting nurse it was noticed that she was having some increased worsening confusion. Patient is unable to provide any meaningful history son reported that the patient has been screaming becoming more irritated with decreased by mouth intake. She thinks she is back in the 60s and that she's with twin baby and feeling very anxious about her was deployed. She is becoming too hard to handle at home and the son was worried that she's having another urinary tract infection brought her for evaluation. In the ED was found to have chronic hyponatremia stable renal function and not requiring oxygen at this time. Urine analysis was negative troponin negative and Covid testing was negative chest x-ray did show mild pulmonary edema Otherwise during the interview patient seems to be very comfortable however confused about the fact that she's and expecting twin delivery tonight Review of Systems ROS unobtainable: due to mental status Past Medical History Past Medical History: Atrial Fibrillation, Atrial Flutter, Asthma, Cancer, GERD/Reflux, Hearing Disorder / Deafness, Hyperlipidemia, Hypertension, Musculoskeletal Disorder, Osteoarthritis (OA), Pneumonia, Renal Disease, Thyroid Disorder, Vascular Disorder Additional Past Medical History / Comment(s): pulmonary fibrosis, Mitral valve prolapse, "hole in my heart", exertional dyspnea, chronic renal disease stage III, carpal tunnel bilaterally, osteoporosis, chronic low back pain, spinal stenosis, scoliosis, gout, varicose veins, R breast cancer with surgery/radiation, skin cancer removals, cancerous colon polyp removal, diverticular dx, hiatal hernia, IBS, ulcerative colitis, History of Any Multi-Drug Resistant Organisms: None Reported Past Surgical History: Breast Surgery, Cardiac Ablation, Cholecystectomy, Heart Catheterization, Hysterectomy, Orthopedic Surgery Additional Past Surgical History / Comment(s): R breast lumpectomy x 2, R breast bx, skin cancer removals, total hysterectomy, open cholecystectomy, R arm spur removals 3 times, R shoulder rotator cuff repair, R foot 2nd toe surgery, pilonidal cystectomy, colonoscopy with cancerous polypectomy, bilateral cataract removal/lens implants and surgery for astigmatism. Past Anesthesia/Blood Transfusion Reactions: Postoperative Nausea & Vomiting (PONV) Additional Past Anesthesia/Blood Transfusion Reaction / Comment(s): DUE TO REFLUX /POST ANESTHESIA PNEUMONIA. Past Psychological History: No Psychological Hx Reported Smoking Status: Never smoker Past Alcohol Use History: None Reported Past Drug Use History: None Reported - Past Family History Father Additional Family Medical History / Comment(s): Father was an alcoholic and pt thinks he from complications of that. Mother Family Medical History: Pulmonary Embolus Additional Family Medical History / Comment(s): at 59 from PE Sister(s) Family Medical History: Cancer Additional Family Medical History / Comment(s): Breast Cancer Medications and Allergies Home Medications Medication Instructions Recorded Confirmed Type Levothyroxine Sodium [Synthroid] 50 mcg PO DAILY 07/19/15 07/12/21 History Ubidecarenone [Co Q-10] 100 mg PO DAILY 07/19/15 07/12/21 History Magnesium Oxide [Mag-Ox] 400 mg PO BID 11/16/17 07/12/21 History Cyanocobalamin [Vitamin B-12] 500 mcg PO DAILY 06/02/19 07/12/21 History Furosemide [Lasix] 40 mg PO BID #60 12/24/20 07/12/21 Rx Apixaban [Eliquis] 2.5 mg PO BID 06/27/21 07/12/21 History Metoprolol Tartrate [Lopressor] 50 mg PO BID 06/27/21 07/12/21 History Sennosides/Docusate Sodium [Senna 2 tab PO BID PRN 06/27/21 07/12/21 History Plus 8.6-50 mg Tablet] Amiodarone [Cordarone] 200 mg PO DAILY tab 06/28/21 07/12/21 Rx Losartan [Cozaar] 12.5 mg PO DAILY #30 tab 06/29/21 07/12/21 Rx Spironolactone [Aldactone] 12.5 mg PO DAILY #30 tab 06/29/21 07/12/21 Rx Clobetasol Propionate [Temovate 1 applic TOPICAL BID 07/12/21 07/12/21 History 0.05% Oint] Ergocalciferol [Vitamin D2 (1250 1,250 mcg PO Q14D 07/12/21 07/12/21 History Mcg = 74816 Iu)] Hydrocortisone Oint 1 applic TOPICAL BID 07/12/21 07/12/21 History [Hydrocortisone 2.5% Oint] Allergies Allergy/AdvReac Type Severity Reaction Status Date / Time iodine Allergy Unknown VERY LOW Verified 07/12/21 18:37 BLOOD PRESSURE,SHORTNESS OF BREATH adhesive tape Allergy Rash/Hives Verified 07/12/21 18:37 clarithromycin Allergy Unknown Verified 07/12/21 18:37 Iodinated Contrast Media Allergy Anaphylaxis Verified 07/12/21 18:37 metaxalone [From Skelaxin] Allergy Anaphylaxis Verified 07/12/21 18:37 niacin Allergy Unknown Verified 07/12/21 18:37 [From Niaspan Extended-Release] pantoprazole Allergy ITCHING Verified 07/12/21 18:37 ,REDNESS OF SKIN Physical Exam Vitals: Vital Signs Temp Pulse Resp BP Pulse Ox 07/12/21 21:24 97.7 F 71 18 121/77 95 07/12/21 19:27 66 18 111/75 92 L 07/12/21 16:03 98.5 F 70 18 113/67 92 L Intake and Output 07/12/21 07/12/21 07/12/21 06:59 14:59 22:59 Other: Weight 74.843 kg Constitutional: No acute distress, patient is confused Eyes: Anicteric sclerae, moist conjunctiva, Pupils equal round reactive to light ENMT: NC/AT Oropharynx clear, no erythema, or exudates Neck: Supple, FROM, no masses, or JVD No carotid bruits No thyromegaly Lungs: Fine inspiratory rales at lung bases Clear to percussion Normal respiratory effort, no accessory muscle use Cardiovascular: Heart regular in rate and rhythm, Systolic murmurs, no gallops, or rubs No peripheral edema Abdominal: Soft Nontender, no guarding, rebound or rigidity Abdomen moving with respiration Normoactive bowel sounds No hepatomegaly, No splenomegaly No palpable mass No abdominal wall hernia noted Skin: Normal temperature, tone, texture, turgor No induration No subcutaneous nodules No rash, lesions No ulcers Extremities: No digital cyanosis No clubbing Pedal pulses intact and symmetrical Radial pulses intact and symmetrical No calf tenderness Psychiatric: Alert and oriented to self only Neuro Muscles Strength 4/5 in all 4 extremities Sensation to light touch grossly present throughout Cranial nerves II-XII grossly intact No focal sensory deficits Lymphatics: no palpable cervical or supraclavicular , or inguinal lymph nodes Results CBC & Chem 7: 07/12/21 17:50 07/12/21 17:50 Labs: Abnormal Lab Results - Last 24 Hours (Table) 07/12/21 07/12/21 07/12/21 Range/Units 17:47 17:50 17:50 MCHC 30.8 L (31.0-37.0) g/dL RDW 17.2 H (11.5-15.5) % Sodium 128 L (137-145) mmol/L Carbon Dioxide 19 L (22-30) mmol/L BUN 31 H (7-17) mg/dL Creatinine 1.60 H (0.52-1.04) mg/dL Glucose 113 H (74-99) mg/dL POC Glucose (mg/dL) 123 H (75-99) mg/dL AST 37 H (14-36) U/L Alkaline Phosphatase 143 H (38-126) U/L Assessment and Plan Assessment: Advanced dementia with worsening cognitive impairment Chronic hyponatremia Chronic kidney disease Paroxysmal atrial fibrillation Hypertension History of pulmonary fibrosis Plan Supportive care Follow-up electrolytes Reorientation and fall precautions Urinalysis is negative Covid testing negative Troponins negative Chest x-ray showed mild pulmonary edema with avoid diuretics at this time due to fear of worsening confusion patient currently is on room air with oxygen saturation above 92% Resume home medications Preformed a thorough record review from recent hospitalization where she was discharged June 29 where she was admitted for acute diastolic CHF exacerbation CODE STATUS: Full code DVT prophylaxis: lizzette Discussed with: Patient, ER, RN Anticipated length of stay less than [address]: Pending clinical course A total of 55 minutes was spent on the care of this complex patient more than 50% of the time was spent in counseling and care coordination.
[2021-07-13] MEDS: LEVOTHYROXINE 50 MCG TAB PO SCH (06:17)
[2021-07-13] MEDS: AMIODARONE 200 MG TAB PO SCH (08:12)
[2021-07-13] MEDS: APIXABAN 2.5 MG TABLET PO SCH ×2 (08:12→23:15)
[2021-07-13] MEDS: METOPROLOL TARTRATE 50 MG TAB PO SCH ×2 (08:13→23:15)
[2021-07-13] MEDS: LOSARTAN 25 MG TAB PO SCH (08:13)
[2021-07-13] MEDS ORDERED: NON FORMULARY DRUG (Ubidecarenone [Co Q-10] 100 MG Capsule) PO SCH (09:00)
[2021-07-13] MEDS ORDERED: polyethylene glycoL 3350 17 GM POWD.PACK PO STA (10:40)
[2021-07-13 11:15] LABS: African American GFR (CKD) 36 (>60 ml/min/1.73 sqM); Anion Gap 10 mmol/L; Blood Urea Nitrogen 27 mg/dL (7-17); Calcium 9.4 mg/dL (8.4-10.2); Carbon Dioxide 21 mmol/L (22-30); Chloride 102 mmol/L (98-107); Glucose 130 mg/dL (74-99); Non-African American GFR(CKD) 31 (>60 ml/min/1.73 sqM); Potassium 4.2 mmol/L (3.5-5.1); Sodium 133 mmol/L (137-145)
[2021-07-13 11:20] LABS: Anisocytosis Slight; HCT 38.2 % (34.0-46.0); HGB 11.9 gm/dL (11.4-16.0); Hypochromasia Marked; MCH 26.2 pg (25.0-35.0); MCV 84.6 fL (80.0-100.0); Platelet Count 300 k/uL (150-450); Poikilocytosis Slight; RBC 4.52 m/uL (3.80-5.40); RDW 17.2 % (11.5-15.5); WBC 5.7 k/uL (3.8-10.6)
--- NOTE | 2021-07-13 16:30 | P.PN ---
Subjective Progress Note Date: 07/13/21 (delayed charting seen at 0930) Principal diagnosis: confusion Patient is an 78-year-old female with a history of diastolic congestive heart failure, dementia, paroxysmal A. fib, and chronic kidney disease who presented to the hospital with family due to worsening confusion and agitation. In the ER she underwent an extensive evaluation. Initial vital signs are within normal limits. Laboratory analysis showed slightly low sodium level of 128. CT head showed no acute process. Chest x-ray showed mild interstitial phase pulmonary edema. She was admitted for further monitoring. She was started on gentle IV fluids. By the morning after admission her mentation had improved slightly. Patient seen and examined at bedside. She is asking for discharge. She does not remember coming to the hospital yesterday or anything that occurred. She doesn't that she is having issues with her dementia and sometimes becoming very forgetful. She is having much difficulty hearing currently. She denies any chest pain, shortness breath, nausea, vomiting General: No toxic, no distress, appears at stated age Derm: warm, dry Head: atraumatic, normocephalic, symmetric Eyes: EOMI, no lid lag, anicteric sclera Mouth: no lip lesion, mucus membranes dry Cardiovascular: S1S2 reg, no murmur, positive posterior tibial pulse bilateral, Lungs: Decreased bs bilateral, no rhonchi, no rales , no accessory muscle use Abdominal: soft, nontender to palpation, no guarding, no appreciable organomegaly Ext: no gross muscle atrophy, no edema, no contractures Neuro: CN II-XI grossly intact, no focal neuro deficits Psych: Alert, oriented, appropriate affect Hyponatremia, chronic -Continue to hold Lasix -IV fluid resuscitation completed -Slightly improved -Repeat in a.m. Dementia with behavioral disturbances -Start Seroquel -Safe and supportive environment -Long discussion was had with family regarding her overall prognosis of dementia and typical course of care. - check TSH Additional diagnoses: Hypothyroidism Diastolic congestive heart failure Atrial fibrillation anticoagulated with Eliquis Discussed with family who are looking at alternative's care. PT and OT ev aluation for possible rehab, likely will convert to long-term care. In meeting with social work and case management. Objective - Vital Signs Vital signs: Vital Signs Temp 97.5 F L 07/13/21 13:30 Pulse 85 07/13/21 13:30 Resp 18 07/13/21 13:30 BP 121/65 07/13/21 13:30 Pulse Ox 93 L 07/13/21 13:30 Intake & Output 07/12/21 07/13/21 07/13/21 18:59 06:59 18:59 Weight 74.843 kg 74.843 kg Other: # Voids 2 - Labs CBC & Chem 7: 07/13/21 10:39 07/13/21 10:39 Labs: Abnormal Lab Results - Last 24 Hours (Table) 07/12/21 07/12/21 07/12/21 Range/Units 17:47 17:50 17:50 MCHC 30.8 L (31.0-37.0) g/dL RDW 17.2 H (11.5-15.5) % Sodium 128 L (137-145) mmol/L Carbon Dioxide 19 L (22-30) mmol/L BUN 31 H (7-17) mg/dL Creatinine 1.60 H (0.52-1.04) mg/dL Glucose 113 H (74-99) mg/dL POC Glucose (mg/dL) 123 H (75-99) mg/dL AST 37 H (14-36) U/L Alkaline Phosphatase 143 H (38-126) U/L 07/13/21 07/13/21 Range/Units 10:39 10:39 MCHC (31.0-37.0) g/dL RDW 17.2 H (11.5-15.5) % Sodium 133 L (137-145) mmol/L Carbon Dioxide 21 L (22-30) mmol/L BUN 27 H (7-17) mg/dL Creatinine 1.49 H (0.52-1.04) mg/dL Glucose 130 H (74-99) mg/dL POC Glucose (mg/dL) (75-99) mg/dL AST (14-36) U/L Alkaline Phosphatase (38-126) U/L
[2021-07-13] MEDS: QUEtiapine 25 MG TAB PO SCH (23:15)
[2021-07-14] MEDS: LEVOTHYROXINE 50 MCG TAB PO SCH (06:21)
[2021-07-14] MEDS: APIXABAN 2.5 MG TABLET PO SCH ×2 (08:56→21:50)
[2021-07-14] MEDS: AMIODARONE 200 MG TAB PO SCH (08:56)
[2021-07-14] MEDS: LOSARTAN 25 MG TAB PO SCH (08:56)
[2021-07-14] MEDS: METOPROLOL TARTRATE 50 MG TAB PO SCH ×2 (08:57→21:50)
[2021-07-14] MEDS: ALPRAZolam 0.5 MG TAB PO PRN ×2 (12:43→21:50)
--- NOTE | 2021-07-14 17:05 | P.PN ---
Subjective Progress Note Date: 07/14/21 (delayed charting seen at 1140) Principal diagnosis: confusion Patient is an 78-year-old female with a history of diastolic congestive heart failure, dementia, paroxysmal A. fib, and chronic kidney disease who presented to the hospital with family due to worsening confusion and agitation. In the ER she underwent an extensive evaluation. Initial vital signs are within normal limits. Laboratory analysis showed slightly low sodium level of 128. CT head showed no acute process. Chest x-ray showed mild interstitial phase pulmonary edema. She was admitted for further monitoring. She was started on gentle IV fluids. By the morning after admission her mentation had improved slightly. She was started on seroquel to help with sleep. Patient seen and examined at bedside. Tearful states that she feels short of breath and anxious and doesn't want to keep going. She thinks that she was up all night wanting to . General: No toxic, no distress, appears at stated age Derm: warm, dry Head: atraumatic, normocephalic, symmetric Eyes: EOMI, no lid lag, anicteric sclera Mouth: no lip lesion, mucus membranes dry Cardiovascular: S1S2 reg, no murmur, positive posterior tibial pulse bilateral, Lungs: Decreased bs bilateral, no rhonchi, no rales , no accessory muscle use Abdominal: soft, nontender to palpation, no guarding, no appreciable organomegaly Ext: no gross muscle atrophy, no edema, no contractures Neuro: CN II-XI grossly intact, no focal neuro deficits Psych: Alert, oriented, appropriate affect Hyponatremia, chronic -resume lasix at lower dose -IV fluid resuscitation completed -Slightly improved -Repeat in a.m. Dementia with behavioral disturbances - start PRN xanax had a long discussion with family that this should not be used rn long term care and that she will need to have medicaions adjusted for anxiety. -Start Seroquel -Safe and supportive environment -Long discussion was had with family regarding her overall prognosis of dementia and typical course of care. - check TSH Additional diagnoses: Hypothyroidism- TSH pending Diastolic congestive heart failure - resume Lasix only once daily and Aldactone - on BB and ACEI Atrial fibrillation anticoagulated with Eliquis Monitor for improvement in SOB and anxiety, likely home in AM, resume lasix and assess for imrpovement in shortness of breath. Again discussed with her son the trajectory of dementia. They are working on getting her into assisted living in [place]. Active Medications Alprazolam (Alprazolam 0.5 Mg Tab) 0.5 mg PO TID PRN PRN Reason: Anxiety Last Admin: 07/14/21 12:43 Dose: 0.5 mg Documented by: Amiodarone HCl (Amiodarone 200 Mg Tab) 200 mg PO DAILY [facility] Last Admin: 07/14/21 08:56 Dose: 200 mg Documented by: Apixaban (Apixaban 2.5 Mg Tablet) 2.5 mg PO BID [facility]; Protocol Last Admin: 07/14/21 08:56 Dose: 2.5 mg Documented by: Furosemide (Furosemide 40 Mg Tab) 40 mg PO DAILY [facility] Levothyroxine Sodium (Levothyroxine 50 Mcg Tab) 50 mcg PO DAILY@0630 [facility] Last Admin: 07/14/21 06:21 Dose: 50 mcg Documented by: Losartan Potassium (Losartan 25 Mg Tab) 12.5 mg PO DAILY [facility] Last Admin: 07/14/21 08:56 Dose: 12.5 mg Documented by: Metoprolol Tartrate (Metoprolol Tartrate 50 Mg Tab) 50 mg PO BID [facility] Last Admin: 07/14/21 08:57 Dose: 50 mg Documented by: Naloxone HCl (Naloxone 0.4 Mg/Ml 1 Ml Vial) 0.2 mg IV Q2M PRN PRN Reason: Opioid Reversal Quetiapine Fumarate (Quetiapine 25 Mg Tab) 25 mg PO HS [facility] Last Admin: 07/13/21 23:15 Dose: 25 mg Documented by: Senna/Docusate Sodium (Sennosides-Docusate Sodium 1 Each Tab) 2 each PO BID PRN PRN Reason: Constipation Last Admin: 07/14/21 09:01 Dose: 2 each Documented by: Spironolactone (Spironolactone 25 Mg Tab) 12.5 mg PO DAILY [facility] Objective - Vital Signs Vital signs: Vital Signs Temp 97.9 F 07/14/21 14:00 Pulse 69 07/14/21 14:00 Resp 18 07/14/21 14:00 BP 115/74 07/14/21 14:00 Pulse Ox 94 L 07/14/21 14:00 Intake & Output 07/13/21 07/14/21 07/14/21 18:59 06:59 18:59 Intake Total 1000 Balance 1000 Intake: Oral 1000 Other: Voiding Method Toilet Toilet Bedpan # Voids 2 - Labs CBC & Chem 7: 07/13/21 10:39 07/13/21 10:39
[2021-07-14] MEDS: FUROSEMIDE 40 MG TAB PO SCH (17:28)
[2021-07-14 20:27] VITALS: RESP 16
[2021-07-14] MEDS: QUEtiapine 25 MG TAB PO SCH (21:50)
[2021-07-15] MEDS: LEVOTHYROXINE 50 MCG TAB PO SCH (06:02)
[2021-07-15 07:54] VITALS: BP 127/64; PULSE 86; TEMP 98.4
[2021-07-15 07:59] LABS: African American GFR (CKD) 38 (>60 ml/min/1.73 sqM); Anion Gap 7 mmol/L; Blood Urea Nitrogen 24 mg/dL (7-17); Calcium 9.3 mg/dL (8.4-10.2); Carbon Dioxide 24 mmol/L (22-30); Chloride 101 mmol/L (98-107); Glucose 75 mg/dL (74-99); Non-African American GFR(CKD) 33 (>60 ml/min/1.73 sqM); Potassium 4.2 mmol/L (3.5-5.1); Sodium 132 mmol/L (137-145)
[2021-07-15] MEDS: METOPROLOL TARTRATE 50 MG TAB PO SCH (08:22)
[2021-07-15] MEDS: FUROSEMIDE 40 MG TAB PO SCH (08:22)
[2021-07-15] MEDS: APIXABAN 2.5 MG TABLET PO SCH (08:22)
[2021-07-15] MEDS: LOSARTAN 25 MG TAB PO SCH (08:22)
[2021-07-15] MEDS: AMIODARONE 200 MG TAB PO SCH (08:23)
[2021-07-15] MEDS ORDERED: SPIRONOLACTONE 25 MG TAB PO SCH (09:00)
--- NOTE | 2021-07-15 14:57 | P.DS ---
Providers Date of admission: 07/12/21 19:42 Expected date of discharge: 07/15/21 Attending physician: Piper Fuller DO Primary care physician: Alverto Fernández [facility] Course: Discharge Diagnosis: Hyponatremia, chronic Dementia with behavioral disturbances Hypothyroidism Diastolic congestive heart failure P. Atrial fibrillation anticoagulated with Eliquis Hospital Course: Patient is an 78-year-old female with a history of diastolic congestive heart failure, dementia, paroxysmal A. fib, and chronic kidney disease who presented to the hospital with family due to worsening confusion and agitation. In the ER she underwent an extensive evaluation. Initial vital signs are within normal limits. Laboratory analysis showed slightly low sodium level of 128. CT head s howed no acute process. Chest x-ray showed mild interstitial phase pulmonary edema. She was admitted for further monitoring. She was started on gentle IV fluids. By the morning after admission her mentation had improved slightly. She was started on seroquel to help with nocturnal agitation and sleep cycle disturbances. She did have an episode of increased anxiety and was subsequently started on Xanax with good results. She was resumed on her Lasix once daily instead of twice daily and her Aldactone. She was discharged home in stable condition. Follow-up: Patient is going to go to an assisted living shortly. She was given a prescription for Xanax and Seroquel. It was discussed with her family on the day before discharge that Xanax is not a great long-term solution however it may help in the short-term and that I highly suggest he discuss with her primary better solution for her increased anxiety. I have also recommended neuropsych testing in the past for this patient. She may benefit from psychiatry services as well. Patient seen and examined at bedside. She is much better than yesterday. She feels much better than yesterday. No longer feels anxious or hopeless. States that her breathing is much better than yesterday. Vital signs reviewed and stable. General: non toxic, no distress, appears at stated age Derm: warm, dry Head: atraumatic, normocephalic, symmetric Eyes: EOMI, no lid lag, anicteric sclera Mouth: no lip lesion, mucus membranes moist Cardiovascular: S1S2 reg, no murmur, positive posterior tibial pulse bilateral, Lungs: Course bilateral, no rhonchi, no rales , no accessory muscle use Abdominal: soft, nontender to palpation, no guarding, no appreciable organomegaly Ext: no gross muscle atrophy, trace edema, no contractures Neuro: CN II-XI grossly intact, no focal neuro deficits Psych: Alert, oriented, appropriate affect A total of 25 minutes of time were spent preparing this complex discharge summary . Plan - Discharge Summary Discharge Rx Participant: No New Discharge Prescriptions: New QUEtiapine [SEROquel] 25 mg PO HS #30 tab Furosemide [Lasix] 40 mg PO DAILY #30 tab ALPRAZolam [Xanax] 0.5 mg PO TID PRN #30 tab PRN Reason: Anxiety Continue Levothyroxine Sodium [Synthroid] 50 mcg PO DAILY Ubidecarenone [Co Q-10] 100 mg PO DAILY Magnesium Oxide [Mag-Ox] 400 mg PO BID Cyanocobalamin [Vitamin B-12] 500 mcg PO DAILY Apixaban [Eliquis] 2.5 mg PO BID Metoprolol Tartrate [Lopressor] 50 mg PO BID Sennosides/Docusate Sodium [Senna Plus 8.6-50 mg Tablet] 2 tab PO BID PRN PRN Reason: Constipation Amiodarone [Cordarone] 200 mg PO DAILY tab Losartan [Cozaar] 12.5 mg PO DAILY #30 tab Hydrocortisone Oint [Hydrocortisone 2.5% Oint] 1 applic TOPICAL BID Ergocalciferol [Vitamin D2 (1250 Mcg = 03705 Iu)] 1,250 mcg PO Q14D Clobetasol Propionate [Temovate 0.05% Oint] 1 applic TOPICAL BID Spironolactone [Aldactone] 12.5 mg PO DAILY #30 tab Discontinued Furosemide [Lasix] 40 mg PO BID #60 Discharge Medication List Levothyroxine Sodium [Synthroid] 50 mcg PO DAILY 07/19/15 [History] Ubidecarenone [Co Q-10] 100 mg PO DAILY 07/19/15 [History] Magnesium Oxide [Mag-Ox] 400 mg PO BID 11/16/17 [History] Cyanocobalamin [Vitamin B-12] 500 mcg PO DAILY 06/02/19 [History] Apixaban [Eliquis] 2.5 mg PO BID 06/27/21 [History] Metoprolol Tartrate [Lopressor] 50 mg PO BID 06/27/21 [History] Sennosides/Docusate Sodium [Senna Plus 8.6-50 mg Tablet] 2 tab PO BID PRN 06/27/21 [History] Amiodarone [Cordarone] 200 mg PO DAILY tab 06/28/21 [Rx] Losartan [Cozaar] 12.5 mg PO DAILY #30 tab 06/29/21 [Rx] Spironolactone [Aldactone] 12.5 mg PO DAILY #30 tab 06/29/21 [Rx] Clobetasol Propionate [Temovate 0.05% Oint] 1 applic TOPICAL BID 07/12/21 [History] Ergocalciferol [Vitamin D2 (1250 Mcg = 06850 Iu)] 1,250 mcg PO Q14D 07/12/21 [History] Hydrocortisone Oint [Hydrocortisone 2.5% Oint] 1 applic TOPICAL BID 07/12/21 [History] ALPRAZolam [Xanax] 0.5 mg PO TID PRN #30 tab 07/15/21 [Rx] Furosemide [Lasix] 40 mg PO DAILY #30 tab 07/15/21 [Rx] QUEtiapine [SEROquel] 25 mg PO HS #30 tab 07/15/21 [Rx] Follow up Appointment(s)/Referral(s): Alverto Fernández [Primary Care Provider] - 1-2 days Patient Instructions/Handouts: Dementia (ED) Activity/Diet/Wound Care/Special Instructions: Activity: as tolerated Diet: Heart healthy Special Instructions: It was a pleasure caring for your mother, we wish you well in transitioning her to the assisted living. Stay strong Dementia is hard on families. She will have good and bad days this is typical. [facility] has support services for dementia care givers. Discharge Disposition: HOME SELF-CARE
== END 2021-07-15 13:48 | disposition home or self-care (01) | DRG 884 ==
LOC: EC 14:44 → 4SSUR 19:42
PROVIDERS: ADMIT Internal Medicine; ATTEND Internal Medicine
DX: F03.91 Unspecified dementia, unspecified severity, with behavioral disturbance (principal); I50.33 Acute on chronic diastolic (congestive) heart failure; J96.21 Acute and chronic respiratory failure with hypoxia; E87.1 Hypo-osmolality and hyponatremia; I13.0 Hypertensive heart and chronic kidney disease with heart failure and stage 1 through stage 4 chronic kidney disease, or unspecified chronic kidney disease; K51.90 Ulcerative colitis, unspecified, without complications; J84.10 Pulmonary fibrosis, unspecified; Z20.822 Contact with and (suspected) exposure to COVID-19; E03.9 Hypothyroidism, unspecified; N18.30 Chronic kidney disease, stage 3 unspecified; E78.5 Hyperlipidemia, unspecified; M81.0 Age-related osteoporosis without current pathological fracture; F41.9 Anxiety disorder, unspecified; H91.90 Unspecified hearing loss, unspecified ear; I34.1 Nonrheumatic mitral (valve) prolapse; I48.0 Paroxysmal atrial fibrillation; J45.909 Unspecified asthma, uncomplicated; K59.00 Constipation, unspecified; M41.9 Scoliosis, unspecified; M10.9 Gout, unspecified; Z79.01 Long term (current) use of anticoagulants; Z96.1 Presence of intraocular lens; Z79.890 Hormone replacement therapy; Z79.899 Other long term (current) drug therapy; Z85.038 Personal history of other malignant neoplasm of large intestine; Z85.3 Personal history of malignant neoplasm of breast; Z85.828 Personal history of other malignant neoplasm of skin; Z90.710 Acquired absence of both cervix and uterus; Z90.49 Acquired absence of other specified parts of digestive tract; Z87.19 Personal history of other diseases of the digestive system; Z88.1 Allergy status to other antibiotic agents; Z88.8 Allergy status to other drugs, medicaments and biological substances; Z91.041 Radiographic dye allergy status; Z91.048 Other nonmedicinal substance allergy status
CPT/HCPCS: 36415; 70450; 71046; 80048; 80053; 80306; 81003; 84443; 84484; 85025; 85027; 85610; 85730; 87635; 93005; 99285

== ENCOUNTER 2021-09-21 13:23 | Emergency (ER) | payer MEDICARE ==
[2021-09-21 14:00] VITALS: RESP 18; TEMP 97
[2021-09-21 14:24] LABS: Appearance,Urine Clear (Clear); Bilirubin,Urine Negative (Negative); Blood,Urine Negative (Negative); Color,Urine Light Yellow; Glucose,Urine (UA) Negative (Negative); Ketones,Urine Negative (Negative); Leukocyte Esterase,Urine Negative (Negative); Nitrite,Urine Negative (Negative); Protein,Urine Negative (Negative); Specific Gravity,Urine 1.007 (1.001-1.035); Urobilinogen,Urine <2.0 mg/dL (<2.0)
--- NOTE | 2021-09-21 15:42 | ED ---
General Adult HPI - General Chief complaint: GI Bleed Stated complaint: Blood in stool Time Seen by Provider: 09/21/21 15:35 Source: patient, family, RN notes reviewed, old records reviewed Mode of arrival: ambulatory Limitations: no limitations - History of Present Illness Initial comments: 86-year-old female, very hard of hearing, presents to the emergency room with her son from the nursing facility. Patient was sent for 2 episodes of rectal bleeding today. Patient denies any abdominal pain. She denies any other bleeding, no nausea or vomiting. She states that she has been straining to have her bowel movements today. She does take Eliquis for afib, no other blood thinners. She does have a history of atrial fibrillation, asthma, GERD, renal disease, mitral valve prolapse. She is alert and oriented. -: days(s) (1) Severity scale (1-10): 0 Associated Symptoms: other (Constipation with 2 episodes of rectal bleeding today) - Related Data Home Medications Medication Instructions Recorded Confirmed Levothyroxine Sodium [Synthroid] 50 mcg PO DAILY@0700 07/19/15 09/21/21 Magnesium Oxide [Mag-Ox] 400 mg PO BID@0800,199911/16/17 09/21/21 Cyanocobalamin [Vitamin B-12] 500 mcg PO DAILY@0800 06/02/19 09/21/21 Apixaban [Eliquis] 2.5 mg PO BID@0800,199906/27/21 09/21/21 Metoprolol Tartrate [Lopressor] 50 mg PO BID@0800,199906/27/21 09/21/21 Sennosides/Docusate Sodium [Senna 2 tab PO BID PRN 06/27/21 09/21/21 Plus 8.6-50 mg Tablet] Clobetasol Propionate [Temovate 1 applic TOPICAL BID@0800,199907/12/21 09/21/21 0.05% Oint] Ergocalciferol [Vitamin D2 (1250 1,250 mcg PO Q14D 07/12/21 09/21/21 Mcg = 90411 Iu)] Hydrocortisone Oint 1 applic TOPICAL BID@0800,199907/12/21 09/21/21 [Hydrocortisone 2.5% Oint] ALPRAZolam [Xanax] 0.5 mg PO HS PRN 09/21/21 09/21/21 Acetylcysteine [Mucomyst 10%] 200 mg INHALATION Q8H PRN 09/21/21 09/21/21 Albuterol Inhaler [Ventolin Hfa 2 puff INHALATION RT-Q4H PRN 09/21/21 09/21/21 Inhaler] Amiodarone [Cordarone] 200 mg PO DAILY@0800 09/21/21 09/21/21 Benzonatate [Tessalon Perles] 100 mg PO TID PRN 09/21/21 09/21/21 Donepezil [Aricept] 10 mg PO HS@199909/21/21 09/21/21 Escitalopram [Lexapro] 5 mg PO DAILY@0800 09/21/21 09/21/21 Furosemide [Lasix] 40 mg PO DAILY@0800 09/21/21 09/21/21 Hydrocortisone Cream 1 applic TOPICAL BID PRN 09/21/21 09/21/21 [Hydrocortisone 1% Cream] Losartan [Cozaar] 12.5 mg PO DAILY@0800 09/21/21 09/21/21 Petrolatum, White [Aquaphor] 1 applic TOPICAL BID@0800,199909/21/21 09/21/21 Potassium Chloride [Potassium 10 mg PO BID@0800,199909/21/21 09/21/21 Chloride ER] Silver Sulfadiazine [SSD 1% Cream] 1 applic TOPICAL BID@0800,199909/21/21 09/21/21 Spironolactone [Aldactone] 25 mg PO DAILY@0800 09/21/21 09/21/21 Sulfamethox-Tmp 800-160Mg [Bactrim 1 tab PO BID@08,199909/21/21 09/21/21 DS 800-160 mg] Allergies Allergy/AdvReac Type Severity Reaction Status Date / Time iodine Allergy Unknown VERY LOW Verified 09/21/21 16:50 BLOOD PRESSURE,SHORTNESS OF BREATH adhesive tape Allergy Rash/Hives Verified 09/21/21 16:50 clarithromycin Allergy Unknown Verified 09/21/21 16:50 Iodinated Contrast Media Allergy Anaphylaxis Verified 09/21/21 16:50 metaxalone [From Skelaxin] Allergy Anaphylaxis Verified 09/21/21 16:50 niacin Allergy Unknown Verified 09/21/21 16:50 [From Niaspan Extended-Release] pantoprazole Allergy ITCHING Verified 09/21/21 16:50 ,REDNESS OF SKIN Review of Systems ROS Statement: Those systems with pertinent positive or pertinent negative responses have been documented in the HPI. ROS Other: All systems not noted in ROS Statement are negative. Past Medical History Past Medical History: Atrial Fibrillation, Atrial Flutter, Asthma, Cancer, GERD/Reflux, Hearing Disorder / Deafness, Hyperlipidemia, Hypertension, Musculoskeletal Disorder, Osteoarthritis (OA), Pneumonia, Renal Disease, Thyroid Disorder, Vascular Disorder Additional Past Medical History / Comment(s): pulmonary fibrosis, Mitral valve prolapse, "hole in my heart", exertional dyspnea, chronic renal disease stage III, carpal tunnel bilaterally, osteoporosis, chronic low back pain, spinal stenosis, scoliosis, gout, varicose veins, R breast cancer with surgery/rad iation, skin cancer removals, cancerous colon polyp removal, diverticular dx, hiatal hernia, IBS, ulcerative colitis, History of Any Multi-Drug Resistant Organisms: None Reported Past Surgical History: Breast Surgery, Cardiac Ablation, Cholecystectomy, Heart Catheterization, Hysterectomy, Orthopedic Surgery Additional Past Surgical History / Comment(s): R breast lumpectomy x 2, R breast bx, skin cancer removals, total hysterectomy, open cholecystectomy, R arm spur removals 3 times, R shoulder rotator cuff repair, R foot 2nd toe surgery, pilonidal cystectomy, colonoscopy with cancerous polypectomy, bilateral cataract removal/lens implants and surgery for astigmatism. Past Anesthesia/Blood Transfusion Reactions: Postoperative Nausea & Vomiting (PONV) Additional Past Anesthesia/Blood Transfusion Reaction / Comment(s): DUE TO REFLUX /POST ANESTHESIA PNEUMONIA. Past Psychological History: No Psychological Hx Reported Smoking Status: Never smoker Past Alcohol Use History: None Reported Past Drug Use History: None Reported - Past Family History Father Additional Family Medical History / Comment(s): Father was an alcoholic and pt thinks he from complications of that. Mother Family Medical History: Pulmonary Embolus Additional Family Medical History / Comment(s): at 59 from PE Sister(s) Family Medical History: Cancer Additional Family Medical History / Comment(s): Breast Cancer General Exam Limitations: no limitations General appearance: alert, in no apparent distress Head exam: Present: atraumatic, normocephalic, normal inspection Eye exam: Present: normal appearance, EOMI ENT exam: Present: normal exam, normal oropharynx, mucous membranes moist, other (Dentures) Neck exam: Present: normal inspection, full ROM. Absent: tenderness, meningismus, lymphadenopathy Respiratory exam: Present: rales (Left base). Absent: respiratory distress, wheezes, chest wall tenderness, accessory muscle use, decreased breath sounds Cardiovascular Exam: Present: regular rate, irregular rhythm, normal heart sounds. Absent: systolic murmur, diastolic murmur, rubs, gallop, clicks, JVD GI/Abdominal exam: Present: soft, normal bowel sounds, other (Abrasion to right mid abdomen patient states has been there for a long time, healing). Absent: distended, tenderness, guarding, rebound, rigid Rectal exam: Present: normal rectal tone, hemorrhoids (external), tenderness Extremities exam: Present: normal inspection, normal capillary refill, pedal edema (Trace). Absent: tenderness, calf tenderness Back exam: Present: normal inspection, full ROM. Absent: tenderness, CVA tende rness (R), CVA tenderness (L), muscle spasm, paraspinal tenderness, vertebral tenderness, rash noted Neurological exam: Present: alert, oriented X3 Psychiatric exam: Present: normal affect, normal mood Skin exam: Present: warm, dry, intact, normal color. Absent: rash, cyanosis, diaphoretic Course Vital Signs 09/21/21 09/21/21 13:56 18:41 Temperature 97 F L Pulse Rate 76 74 Respiratory 18 18 Rate Blood Pressure 97/63 113/73 O2 Sat by Pulse 95 95 Oximetry Medical Decision Making - Medical Decision Making 86-year-old female presents emergency room with 2 episodes of bloody stools today. Patient is on eliquis for her atrial fibrillation. Patient's abdomen is soft and nontender. She is alert and oriented 4, her vital signs are stable. Upon rectal exam she does have an external hemorrhoid there is no evidence of blood. Her occult stool is positive. Her troponin is negative at 0.012 Hem oglobin and hematocrit is stable at 11.9 and 41.0 respectively.. Her platelet count is 289. X-ray of the abdomen shows a right pleural effusion suggestive of chronic heart failure. There is no sign of obstruction or pneumoperitoneum. Stool pattern is normal. There is no evidence of mass. She has been in the emergency room for over 4 hours with no active bleeding. She does have an external hemorrhoid that is tender however there is no evidence of gross blood. She had a normal bowel movement prior to discharge with no evidence of bleeding. [facility] will be [facility] who will monitor for further bleeding and directed to stop eliquis. If no further bleeding can resume Eliquis on Friday. She was directed to return to the emergency room with any new or worsening symptoms or bleeding. Case discussed with Dr. Petit. - Lab Data Result diagrams: 09/21/21 16:24 09/21/21 16:24 Lab Results 09/21/21 09/21/21 09/21/21 Range/Units 14:01 16:24 16:24 WBC 6.7 (3.8-10.6) k/uL RBC 4.80 (3.80-5.40) m/uL Hgb 11.9 (11.4-16.0) gm/dL Hct 41.0 (34.0-46.0) % MCV 85.2 (80.0-100.0) fL MCH 24.7 L (25.0-35.0) pg MCHC 29.0 L (31.0-37.0) g/dL RDW 18.7 H (11.5-15.5) % Plt Count 289 (150-450) k/uL MPV 7.0 Neutrophils % 71 % Lymphocytes % 13 % Monocytes % 8 % Eosinophils % 2 % Basophils % 1 % Neutrophils # 4.8 (1.3-7.7) k/uL Lymphocytes # 0.9 L (1.0-4.8) k/uL Monocytes # 0.5 (0-1.0) k/uL Eosinophils # 0.1 (0-0.7) k/uL Basophils # 0.1 (0-0.2) k/uL Hypochromasia Marked Poikilocytosis Slight Anisocytosis Slight PT 12.1 H (9.0-12.0) sec INR 1.2 H (<1.2) APTT 26.3 (22.0-30.0) sec Sodium (137-145) mmol/L Potassium (3.5-5.1) mmol/L Chloride (98-107) mmol/L Carbon Dioxide (22-30) mmol/L Anion Gap mmol/L BUN (7-17) mg/dL Creatinine (0.52-1.04) mg/dL Est GFR (CKD-EPI)AfAm (>60 ml/min/1.73 sqM) Est GFR (CKD-EPI)NonAf (>60 ml/min/1.73 sqM) Glucose (74-99) mg/dL Plasma Lactic Acid Harry (0.7-2.0) mmol/L Calcium (8.4-10.2) mg/dL Magnesium (1.6-2.3) mg/dL Total Bilirubin (0.2-1.3) mg/dL AST (14-36) U/L ALT (4-34) U/L Alkaline Phosphatase (38-126) U/L Troponin I (0.000-0.034) ng/mL Total Protein (6.3-8.2) g/dL Albumin (3.5-5.0) g/dL Urine Color Light Yellow Urine Appearance Clear (Clear) Urine pH 6.0 (5.0-8.0) Ur Specific Matheny 1.007 (1.001-1.035) Urine Protein Negative (Negative) Urine Glucose (UA) Negative (Negative) Urine Ketones Negative (Negative) Urine Blood Negative (Negative) Urine Nitrite Negative (Negative) Urine Bilirubin Negative (Negative) Urine Urobilinogen <2.0 (<2.0) mg/dL Ur Leukocyte Esterase Negative (Negative) Stool Occult Blood (Negative) 09/21/21 09/21/21 09/21/21 Range/Units 16:24 16:24 16:24 WBC (3.8-10.6) k/uL RBC (3.80-5.40) m/uL Hgb (11.4-16.0) gm/dL Hct (34.0-46.0) % MCV (80.0-100.0) fL MCH (25.0-35.0) pg MCHC (31.0-37.0) g/dL RDW (11.5-15.5) % Plt Count (150-450) k/uL MPV Neutrophils % % Lymphocytes % % Monocytes % % Eosinophils % % Basophils % % Neutrophils # (1.3-7.7) k/uL Lymphocytes # (1.0-4.8) k/uL Monocytes # (0-1.0) k/uL Eosinophils # (0-0.7) k/uL Basophils # (0-0.2) k/uL Hypochromasia Poikilocytosis Anisocytosis PT (9.0-12.0) sec INR (<1.2) APTT (22.0-30.0) sec Sodium 133 L (137-145) mmol/L Potassium 4.7 (3.5-5.1) mmol/L Chloride 101 (98-107) mmol/L Carbon Dioxide 24 (22-30) mmol/L Anion Gap 8 mmol/L BUN 24 H (7-17) mg/dL Creatinine 1.66 H (0.52-1.04) mg/dL Est GFR (CKD-EPI)AfAm 32 (>60 ml/min/1.73 sqM) Est GFR (CKD-EPI)NonAf 27 (>60 ml/min/1.73 sqM) Glucose 106 H (74-99) mg/dL Plasma Lactic Acid Harry 1.7 (0.7-2.0) mmol/L Calcium 9.5 (8.4-10.2) mg/dL Magnesium 2.2 (1.6-2.3) mg/dL Total Bilirubin 0.7 (0.2-1.3) mg/dL AST 34 (14-36) U/L ALT 18 (4-34) U/L Alkaline Phosphatase 133 H (38-126) U/L Troponin I <0.012 (0.000-0.034) ng/mL Total Protein 6.8 (6.3-8.2) g/dL Albumin 3.4 L (3.5-5.0) g/dL Urine Color Urine Appearance (Clear) Urine pH (5.0-8.0) Ur Specific Matheny (1.001-1.035) Urine Protein (Negative) Urine Glucose (UA) (Negative) Urine Ketones (Negative) Urine Blood (Negative) Urine Nitrite (Negative) Urine Bilirubin (Negative) Urine Urobilinogen (<2.0) mg/dL Ur Leukocyte Esterase (Negative) Stool Occult Blood (Negative) 09/21/21 Range/Units Unknown WBC (3.8-10.6) k/uL RBC (3.80-5.40) m/uL Hgb (11.4-16.0) gm/dL Hct (34.0-46.0) % MCV (80.0-100.0) fL MCH (25.0-35.0) pg MCHC (31.0-37.0) g/dL RDW (11.5-15.5) % Plt Count (150-450) k/uL MPV Neutrophils % % Lymphocytes % % Monocytes % % Eosinophils % % Basophils % % Neutrophils # (1.3-7.7) k/uL Lymphocytes # (1.0-4.8) k/uL Monocytes # (0-1.0) k/uL Eosinophils # (0-0.7) k/uL Basophils # (0-0.2) k/uL Hypochromasia Poikilocytosis Anisocytosis PT (9.0-12.0) sec INR (<1.2) APTT (22.0-30.0) sec Sodium (137-145) mmol/L Potassium (3.5-5.1) mmol/L Chloride (98-107) mmol/L Carbon Dioxide (22-30) mmol/L Anion Gap mmol/L BUN (7-17) mg/dL Creatinine (0.52-1.04) mg/dL Est GFR (CKD-EPI)AfAm (>60 ml/min/1.73 sqM) Est GFR (CKD-EPI)NonAf (>60 ml/min/1.73 sqM) Glucose (74-99) mg/dL Plasma Lactic Acid Harry (0.7-2.0) mmol/L Calcium (8.4-10.2) mg/dL Magnesium (1.6-2.3) mg/dL Total Bilirubin (0.2-1.3) mg/dL AST (14-36) U/L ALT (4-34) U/L Alkaline Phosphatase (38-126) U/L Troponin I (0.000-0.034) ng/mL Total Protein (6.3-8.2) g/dL Albumin (3.5-5.0) g/dL Urine Color Urine Appearance (Clear) Urine pH (5.0-8.0) Ur Specific Matheny (1.001-1.035) Urine Protein (Negative) Urine Glucose (UA) (Negative) Urine Ketones (Negative) Urine Blood (Negative) Urine Nitrite (Negative) Urine Bilirubin (Negative) Urine Urobilinogen (<2.0) mg/dL Ur Leukocyte Esterase (Negative) Stool Occult Blood Positive H (Negative) Disposition Clinical Impression: Hemorrhoid, Rectal bleeding Disposition: HOME SELF-CARE Condition: Good Instructions (If sedation given, give patient instructions): Hemorrhoids (ED), Rectal Bleeding (ED) Additional Instructions: Stopped Eliquis for 24 hours. If no further bleeding you can resume Eliquis on Friday. Return to the emergency room with any new or concerning symptoms including increased bleeding or abdominal pain. Is patient prescribed a controlled substance at d/c from ED?: No Referrals: Alverto Fernández [STAFF PHYSICIAN] - 1-2 days Time of Disposition: 18:09
[2021-09-21 16:32] LABS: Anisocytosis Slight; Basophils # (A) 0.1 k/uL (0-0.2); Basophils % (A) 1 %; Eosinophils # (A) 0.1 k/uL (0-0.7); Eosinophils % (A) 2 %; HGB 11.9 gm/dL (11.4-16.0); Hypochromasia Marked; Lymphocytes # (A) 0.9 k/uL (1.0-4.8); Lymphocytes % (A) 13 %; MCH 24.7 pg (25.0-35.0); MCV 85.2 fL (80.0-100.0); Monocytes # (A) 0.5 k/uL (0-1.0); Monocytes % (A) 8 %; Neutrophils # (A) 4.8 k/uL (1.3-7.7); Neutrophils % (A) 71 %; Platelet Count 289 k/uL (150-450); Poikilocytosis Slight; RDW 18.7 % (11.5-15.5); WBC 6.7 k/uL (3.8-10.6)
[2021-09-21 16:43] LABS: Albumin 3.4 g/dL (3.5-5.0); Calcium 9.5 mg/dL (8.4-10.2); Magnesium 2.2 mg/dL (1.6-2.3); Potassium 4.7 mmol/L (3.5-5.1); Total Bilirubin 0.7 mg/dL (0.2-1.3); Total Protein 6.8 g/dL (6.3-8.2)
[2021-09-21 16:45] LABS: INR 1.2 (<1.2); Partial Thromboplastin Time 26.3 sec (22.0-30.0); Prothrombin Time 12.1 sec (9.0-12.0)
--- NOTE | 2021-09-21 17:12 | XR ---
EXAMINATION TYPE: XR abdomen acute w cxr DATE OF EXAM: 09/21/2021 COMPARISON: NONE HISTORY: Rectal bleeding TECHNIQUE: 3 views FINDINGS: There is blunting right costophrenic angle. Heart is enlarged. There is mild pulmonary kelly estion. There are no hilar masses. Mediastinum is normal. There is no sign of intestinal obstruction or pneumoperitoneum. Fecal pattern is normal. There is no evidence of a mass. There are clips from cholecystectomy. There are no pathologic calcifications over the kidneys. IMPRESSION: There is right pleural effusion increased compared to old exam and suggestive of some mil d chronic heart failure. Cardiomegaly unchanged. Nonacute abdomen.
[2021-09-21 18:42] VITALS: BP 113/73; PULSE 74
== END 2021-09-21 18:41 | disposition home or self-care (01) ==
LOC: EC 13:23
DX: K64.4 Residual hemorrhoidal skin tags (principal); I12.9 Hypertensive chronic kidney disease with stage 1 through stage 4 chronic kidney disease, or unspecified chronic kidney disease; N18.30 Chronic kidney disease, stage 3 unspecified; I48.91 Unspecified atrial fibrillation; J45.909 Unspecified asthma, uncomplicated; K21.9 Gastro-esophageal reflux disease without esophagitis; E78.5 Hyperlipidemia, unspecified; M19.90 Unspecified osteoarthritis, unspecified site; M81.0 Age-related osteoporosis without current pathological fracture; E07.9 Disorder of thyroid, unspecified; Z79.01 Long term (current) use of anticoagulants; Z88.1 Allergy status to other antibiotic agents; Z85.3 Personal history of malignant neoplasm of breast; Z90.49 Acquired absence of other specified parts of digestive tract; Z90.710 Acquired absence of both cervix and uterus; Z87.19 Personal history of other diseases of the digestive system; Z85.828 Personal history of other malignant neoplasm of skin; Z85.038 Personal history of other malignant neoplasm of large intestine
CPT/HCPCS: 36415; 74022; 80053; 81003; 82272; 83605; 83735; 84484; 85025; 85610; 85730; 99283

== ENCOUNTER 2021-09-28 14:13 | Inpatient (IN) | payer MEDICARE ==
[2021-09-28] MEDS ORDERED: SODIUM CHLORIDE 0.9% 1,000 ML IV STA (14:40)
--- NOTE | 2021-09-28 14:47 | ED ---
General Adult HPI - General Chief complaint: Altered Mental Status Stated complaint: hypotension Time Seen by Provider: 09/28/21 14:13 Source: patient, family, RN notes reviewed, old records reviewed Mode of arrival: EMS Limitations: no limitations - History of Present Illness Initial comments: This is an 86-year-old female presents emergency Department because the physician she saw today found her blood pressure below to be bradycardic and have diarrhea for a week. Patient also had a fall 2 days ago and hurt her left hip and she continues to complain about that. Family states her blood pressure normally is not that low and her heart rate is not normally low. Family states she is altered mentally but that is her baseline. Family states his been no fever no complaint of shortness of breath however her oxygenation is not good in the emergency department of family states that is not normal. Patient has not complained of any pain except for the left hip. - Related Data Home Medications Medication Instructions Recorded Confirmed Levothyroxine Sodium [Synthroid] 50 mcg PO DAILY@0700 07/19/15 09/28/21 Magnesium Oxide [Mag-Ox] 400 mg PO BID@0800,199911/16/17 09/28/21 Cyanocobalamin [Vitamin B-12] 500 mcg PO DAILY@0800 06/02/19 09/28/21 Apixaban [Eliquis] 2.5 mg PO BID@0800,199906/27/21 09/28/21 Metoprolol Tartrate [Lopressor] 50 mg PO BID@0800,199906/27/21 09/28/21 Sennosides/Docusate Sodium [Senna 2 tab PO BID PRN 06/27/21 09/28/21 Plus 8.6-50 mg Tablet] Clobetasol Propionate [Temovate 1 applic TOPICAL BID@0800,199907/12/21 09/28/21 0.05% Oint] Ergocalciferol [Vitamin D2 (1250 1,250 mcg PO Q14D 07/12/21 09/28/21 Mcg = 01281 Iu)] Hydrocortisone Oint 1 applic TOPICAL BID@0800,199907/12/21 09/28/21 [Hydrocortisone 2.5% Oint] ALPRAZolam [Xanax] 0.5 mg PO HS PRN 09/21/21 09/28/21 Acetylcysteine [Mucomyst 10%] 200 mg INHALATION Q8H PRN 09/21/21 09/28/21 Albuterol Inhaler [Ventolin Hfa 2 puff INHALATION RT-Q4H PRN 09/21/21 09/28/21 Inhaler] Amiodarone [Cordarone] 200 mg PO DAILY@0800 09/21/21 09/28/21 Benzonatate [Tessalon Perles] 100 mg PO TID PRN 09/21/21 09/28/21 Donepezil [Aricept] 10 mg PO HS@199909/21/21 09/28/21 Escitalopram [Lexapro] 5 mg PO DAILY@0800 09/21/21 09/28/21 Furosemide [Lasix] 40 mg PO DAILY@0800 09/21/21 09/28/21 Hydrocortisone Cream 1 applic TOPICAL BID PRN 09/21/21 09/28/21 [Hydrocortisone 1% Cream] Losartan [Cozaar] 12.5 mg PO DAILY@0800 09/21/21 09/28/21 Petrolatum, White [Aquaphor] 1 applic TOPICAL BID@08,199909/21/21 09/28/21 Potassium Chloride [Potassium 10 mg PO BID@08,199909/21/21 09/28/21 Chloride ER] Silver Sulfadiazine [SSD 1% Cream] 1 applic TOPICAL BID@08,199909/21/21 09/28/21 Spironolactone [Aldactone] 25 mg PO DAILY@0800 09/21/21 09/28/21 Sulfamethox-Tmp 800-160Mg [Bactrim 1 tab PO BID@08,199909/21/21 09/21/21 DS 800-160 mg] Albuterol Nebulized [Ventolin 2.5 mg INHALATION RT-Q4H PRN 09/28/21 09/28/21 Nebulized] Allergies Allergy/AdvReac Type Severity Reaction Status Date / Time iodine Allergy Unknown VERY LOW Verified 09/28/21 15:55 BLOOD PRESSURE,SHORTNESS OF BREATH adhesive tape Allergy Rash/Hives Verified 09/28/21 15:55 clarithromycin Allergy Unknown Verified 09/28/21 15:55 Iodinated Contrast Media Allergy Anaphylaxis Verified 09/28/21 15:55 metaxalone [From Skelaxin] Allergy Anaphylaxis Verified 09/28/21 15:55 niacin Allergy Unknown Verified 09/28/21 15:55 [From Niaspan Extended-Release] pantoprazole Allergy ITCHING Verified 09/28/21 15:55 ,REDNESS OF SKIN Review of Systems ROS Statement: Those systems with pertinent positive or pertinent negative responses have been documented in the HPI. ROS Other: All systems not noted in ROS Statement are negative. Past Medical History Past Medical History: Atrial Fibrillation, Atrial Flutter, Asthma, Cancer, GERD/Reflux, Hearing Disorder / Deafness, Hyperlipidemia, Hypertension, Musculoskeletal Disorder, Osteoarthritis (OA), Pneumonia, Renal Disease, Thyroid Disorder, Vascular Disorder Additional Past Medical History / Comment(s): pulmonary fibrosis, Mitral valve prolapse, "hole in my heart", exertional dyspnea, chronic renal disease stage III, carpal tunnel bilaterally, osteoporosis, chronic low back pain, spinal stenosis, scoliosis, gout, varicose veins, R breast cancer with surgery/radiation, skin cancer removals, cancerous colon polyp removal, diverticular dx, hiatal hernia, IBS, ulcerative colitis, History of Any Multi-Drug Resistant Organisms: None Reported Past Surgical History: Breast Surgery, Cardiac Ablation, Cholecystectomy, Heart Catheterization, Hysterectomy, Orthopedic Surgery Additional Past Surgical History / Comment(s): R breast lumpectomy x 2, R breast bx, skin cancer removals, total hysterectomy, open cholecystectomy, R arm spur removals 3 times, R shoulder rotator cuff repair, R foot 2nd toe surgery, pilonidal cystectomy, colonoscopy with cancerous polypectomy, bilateral cataract removal/lens implants and surgery for astigmatism. Past Anesthesia/Blood Transfusion Reactions: Postoperative Nausea & Vomiting (PONV) Additional Past Anesthesia/Blood Transfusion Reaction / Comment(s): DUE TO REFLUX /POST ANESTHESIA PNEUMONIA. Past Psychological History: No Psychological Hx Reported Smoking Status: Never smoker Past Alcohol Use History: None Reported Past Drug Use History: None Reported - Past Family History Father Additional Family Medical History / Comment(s): Father was an alcoholic and pt thinks he from complications of that. Mother Family Medical History: Pulmonary Embolus Additional Family Medical History / Comment(s): at 59 from PE Sister(s) Family Medical History: Cancer Additional Family Medical History / Comment(s): Breast Cancer General Exam - General Exam Comments Initial Comments: GENERAL: Patient is well-developed and well-nourished. Patient is nontoxic and well- hydrated and is in no acute distress. ENT: Neck is soft and supple. No significant lymphadenopathy is noted. Oropharynx is clear. Moist mucous membranes. Neck has full range of motion without eliciting any pain. EYES: The sclera were anicteric and conjunctiva were pink and moist. Extraocular movements were intact and pupils were equal round and reactive to light. Eyelids were unremarkable. PULMONARY: Unlabored respirations. Good breath sounds bilaterally. No audible rales rhonchi or wheezing was noted. CARDIOVASCULAR: There is a regular rate and rhythm without any murmurs gallops or rubs. ABDOMEN: Soft and nontender with normal bowel sounds. SKIN: Skin is clear with no lesions or rashes and otherwise unremarkable. NEUROLOGIC: Patient is alert and oriented x3. Cranial nerves II through XII are grossly intact. Motor and sensory are also intact. Normal speech, volume and content. Symmetrical smile. MUSCULOSKELETAL: Normal extremities with adequate strength and full range of motion. No lower extremity swelling or edema. No calf tenderness. LYMPHATICS: No significant lymphadenopathy is noted PSYCHIATRIC: Normal psychiatric evaluation. Limitations: no limitations Course Vital Signs 09/28/21 09/28/21 09/28/21 14:31 15:14 15:56 Temperature 98.4 F Pulse Rate 47 L 65 91 Respiratory 15 15 18 Rate Blood Pressure 108/86 95/55 94/63 O2 Sat by Pulse 90 L 96 99 Oximetry 09/28/21 09/28/21 09/28/21 16:37 17:06 17:23 Temperature Pulse Rate 46 L 76 76 Respiratory 18 Rate Blood Pressure 104/43 O2 Sat by Pulse 97 Oximetry 09/28/21 17:46 Temperature Pulse Rate 92 Respiratory 15 Rate Blood Pressure 93/61 O2 Sat by Pulse 100 Oximetry Medical Decision Making - Medical Decision Making EKG shows marked sinus bradycardia with a second-degree block Mobitz type II 44 bpm ME interval is 258 QRSs 100 QT interval 338 QTC is 288. Patient's EKG shows no ST segment elevation or depression. After I gave the patient atropine her heart rate showed undetermined rhythm no P waves are noted was a wide complex rate at 99 bpm QRS is 162 QT interval is 458 QTC was 587. At this point in time patient had a potassium that was 6.7 slight treated with potassium repeated an EKG and it showed a sinus rhythm at 74 bpm ME interval is 378 QRSs 106 QT interval is 4:30 QTC is 477. Patient again looks like she is a second-degree block Chest x-ray shows questionable pneumonia versus CHF however because the patient has an elevated white count and lactic acid 2.7 we will start antibiotics at this point in time at 4:15 PM. There will not be any fluid bolus secondary to the fact that it appears that the patient has pulmonary edema currently on the chest x-ray. Patient's family wanted the patient. No code and when I spoke with him about pressors they stated they did not want any pressors and just wanted to keep her comfortable and put her on some oxygen and he did not find the patient being placed on BiPAP so I placed her on BiPAP. I spoke with Dr. Bray he agreed to admit the patient admitted the patient wrote admitting orders. I consult cardiology - Lab Data Result diagrams: 09/28/21 15:01 09/28/21 15:31 Lab Results 09/28/21 09/28/21 09/28/21 Range/Units 14:47 15:01 15:01 WBC 11.8 H (3.8-10.6) k/uL RBC 4.59 (3.80-5.40) m/uL Hgb 11.7 (11.4-16.0) gm/dL Hct 38.5 (34.0-46.0) % MCV 83.8 (80.0-100.0) fL MCH 25.5 (25.0-35.0) pg MCHC 30.4 L (31.0-37.0) g/dL RDW 19.2 H (11.5-15.5) % Plt Count 313 (150-450) k/uL MPV 7.4 Neutrophils % 84 % Lymphocytes % 7 % Monocytes % 5 % Eosinophils % 0 % Basophils % 0 % Neutrophils # 9.9 H (1.3-7.7) k/uL Lymphocytes # 0.9 L (1.0-4.8) k/uL Monocytes # 0.6 (0-1.0) k/uL Eosinophils # 0.0 (0-0.7) k/uL Basophils # 0.0 (0-0.2) k/uL Differential Comment Manual Slide Review Performed Hypochromasia Marked Poikilocytosis Slight Anisocytosis Slight PT (9.0-12.0) sec INR (<1.2) APTT (22.0-30.0) sec D-Dimer (<0.60) mg/L FEU Sodium (137-145) mmol/L Potassium (3.5-5.1) mmol/L Chloride (98-107) mmol/L Carbon Dioxide (22-30) mmol/L Anion Gap mmol/L BUN (7-17) mg/dL Creatinine (0.52-1.04) mg/dL Est GFR (CKD-EPI)AfAm (>60 ml/min/1.73 sqM) Est GFR (CKD-EPI)NonAf (>60 ml/min/1.73 sqM) Glucose (74-99) mg/dL Lactic Ac Sepsis Rflx Plasma Lactic Acid Harry (0.7-2.0) mmol/L Calcium (8.4-10.2) mg/dL Magnesium (1.6-2.3) mg/dL Total Bilirubin (0.2-1.3) mg/dL AST (14-36) U/L ALT (4-34) U/L Alkaline Phosphatase (38-126) U/L Troponin I (0.000-0.034) ng/mL NT-Pro-B Natriuret Pep pg/mL Total Protein (6.3-8.2) g/dL Albumin (3.5-5.0) g/dL C. difficile (EIA) Intrp Negative (Negative) Coronavirus (PCR) Not Detected (Not Detectd) 09/28/21 09/28/21 09/28/21 Range/Units 15:01 15:01 15:01 WBC (3.8-10.6) k/uL RBC (3.80-5.40) m/uL Hgb (11.4-16.0) gm/dL Hct (34.0-46.0) % MCV (80.0-100.0) fL MCH (25.0-35.0) pg MCHC (31.0-37.0) g/dL RDW (11.5-15.5) % Plt Count (150-450) k/uL MPV Neutrophils % % Lymphocytes % % Monocytes % % Eosinophils % % Basophils % % Neutrophils # (1.3-7.7) k/uL Lymphocytes # (1.0-4.8) k/uL Monocytes # (0-1.0) k/uL Eosinophils # (0-0.7) k/uL Basophils # (0-0.2) k/uL Differential Comment Manual Slide Review Hypochromasia Poikilocytosis Anisocytosis PT 15.4 H (9.0-12.0) sec INR 1.5 H (<1.2) APTT 28.5 (22.0-30.0) sec D-Dimer (<0.60) mg/L FEU Sodium 131 L (137-145) mmol/L Potassium 6.7 H* (3.5-5.1) mmol/L Chloride 105 (98-107) mmol/L Carbon Dioxide 17 L (22-30) mmol/L Anion Gap 9 mmol/L BUN 43 H (7-17) mg/dL Creatinine 3.26 H (0.52-1.04) mg/dL Est GFR (CKD-EPI)AfAm 14 (>60 ml/min/1.73 sqM) Est GFR (CKD-EPI)NonAf 12 (>60 ml/min/1.73 sqM) Glucose 95 (74-99) mg/dL Lactic Ac Sepsis Rflx Plasma Lactic Acid Harry 2.7 H* (0.7-2.0) mmol/L Calcium 8.7 (8.4-10.2) mg/dL Magnesium 3.0 H (1.6-2.3) mg/dL Total Bilirubin 1.0 (0.2-1.3) mg/dL AST 39 H (14-36) U/L ALT 20 (4-34) U/L Alkaline Phosphatase 103 (38-126) U/L Troponin I (0.000-0.034) ng/mL NT-Pro-B Natriuret Pep pg/mL Total Protein 6.4 (6.3-8.2) g/dL Albumin 3.1 L (3.5-5.0) g/dL C. difficile (EIA) Intrp (Negative) Coronavirus (PCR) (Not Detectd) 09/28/21 09/28/21 09/28/21 Range/Units 15:01 15:24 15:31 WBC (3.8-10.6) k/uL RBC (3.80-5.40) m/uL Hgb (11.4-16.0) gm/dL Hct (34.0-46.0) % MCV (80.0-100.0) fL MCH (25.0-35.0) pg MCHC (31.0-37.0) g/dL RDW (11.5-15.5) % Plt Count (150-450) k/uL MPV Neutrophils % % Lymphocytes % % Monocytes % % Eosinophils % % Basophils % % Neutrophils # (1.3-7.7) k/uL Lymphocytes # (1.0-4.8) k/uL Monocytes # (0-1.0) k/uL Eosinophils # (0-0.7) k/uL Basophils # (0-0.2) k/uL Differential Comment Manual Slide Review Hypochromasia Poikilocytosis Anisocytosis PT (9.0-12.0) sec INR (<1.2) APTT (22.0-30.0) sec D-Dimer (<0.60) mg/L FEU Sodium (137-145) mmol/L Potassium 6.7 H* (3.5-5.1) mmol/L Chloride (98-107) mmol/L Carbon Dioxide (22-30) mmol/L Anion Gap mmol/L BUN (7-17) mg/dL Creatinine (0.52-1.04) mg/dL Est GFR (CKD-EPI)AfAm (>60 ml/min/1.73 sqM) Est GFR (CKD-EPI)NonAf (>60 ml/min/1.73 sqM) Glucose (74-99) mg/dL Lactic Ac Sepsis Rflx Y Plasma Lactic Acid Harry (0.7-2.0) mmol/L Calcium (8.4-10.2) mg/dL Magnesium (1.6-2.3) mg/dL Total Bilirubin (0.2-1.3) mg/dL AST (14-36) U/L ALT (4-34) U/L Alkaline Phosphatase (38-126) U/L Troponin I 0.543 H* (0.000-0.034) ng/mL NT-Pro-B Natriuret Pep pg/mL Total Protein (6.3-8.2) g/dL Albumin (3.5-5.0) g/dL C. difficile (EIA) Intrp (Negative) Coronavirus (PCR) (Not Detectd) 09/28/21 09/28/21 Range/Units 16:16 16:16 WBC (3.8-10.6) k/uL RBC (3.80-5.40) m/uL Hgb (11.4-16.0) gm/dL Hct (34.0-46.0) % MCV (80.0-100.0) fL MCH (25.0-35.0) pg MCHC (31.0-37.0) g/dL RDW (11.5-15.5) % Plt Count (150-450) k/uL MPV Neutrophils % % Lymphocytes % % Monocytes % % Eosinophils % % Basophils % % Neutrophils # (1.3-7.7) k/uL Lymphocytes # (1.0-4.8) k/uL Monocytes # (0-1.0) k/uL Eosinophils # (0-0.7) k/uL Basophils # (0-0.2) k/uL Differential Comment Manual Slide Review Hypochromasia Poikilocytosis Anisocytosis PT (9.0-12.0) sec INR (<1.2) APTT (22.0-30.0) sec D-Dimer 1.05 H (<0.60) mg/L FEU Sodium (137-145) mmol/L Potassium (3.5-5.1) mmol/L Chloride (98-107) mmol/L Carbon Dioxide (22-30) mmol/L Anion Gap mmol/L BUN (7-17) mg/dL Creatinine (0.52-1.04) mg/dL Est GFR (CKD-EPI)AfAm (>60 ml/min/1.73 sqM) Est GFR (CKD-EPI)NonAf (>60 ml/min/1.73 sqM) Glucose (74-99) mg/dL Lactic Ac Sepsis Rflx Plasma Lactic Acid Harry (0.7-2.0) mmol/L Calcium (8.4-10.2) mg/dL Magnesium (1.6-2.3) mg/dL Total Bilirubin (0.2-1.3) mg/dL AST (14-36) U/L ALT (4-34) U/L Alkaline Phosphatase (38-126) U/L Troponin I (0.000-0.034) ng/mL NT-Pro-B Natriuret Pep 82021 pg/mL Total Protein (6.3-8.2) g/dL Albumin (3.5-5.0) g/dL C. difficile (EIA) Intrp (Negative) Coronavirus (PCR) (Not Detectd) Critical Care Time Critical Care Time: Yes Total Critical Care Time: 35 Disposition Clinical Impression: Bradycardia, Hyperkalemia, Hypotension, Elevated troponin, Diarrhea, Acute renal failure, Left hip pain, Pulmonary edema Disposition: ADMITTED IP TO THIS HOSP Referrals: None,Stated [Primary Care Provider] - 1-2 days Time of Disposition: 17:54
[2021-09-28] MEDS ORDERED: ATROPINE SULFATE 0.1 MG/ML 10ML SYRINGE IV STA (14:57)
[2021-09-28 15:18] LABS: Albumin 3.1 g/dL (3.5-5.0); Calcium 8.7 mg/dL (8.4-10.2); Total Protein 6.4 g/dL (6.3-8.2)
[2021-09-28 15:24] LABS: Anisocytosis Slight; Basophils % (A) 0 %; Eosinophils % (A) 0 %; HCT 38.5 % (34.0-46.0); HGB 11.7 gm/dL (11.4-16.0); Hypochromasia Marked; INR 1.5 (<1.2); Lymphocytes # (A) 0.9 k/uL (1.0-4.8); Lymphocytes % (A) 7 %; MCH 25.5 pg (25.0-35.0); MCHC 30.4 g/dL (31.0-37.0); MCV 83.8 fL (80.0-100.0); Mean Platelet Volume 7.4; Monocytes # (A) 0.6 k/uL (0-1.0); Monocytes % (A) 5 %; Neutrophils # (A) 9.9 k/uL (1.3-7.7); Neutrophils % (A) 84 %; Partial Thromboplastin Time 28.5 sec (22.0-30.0); Platelet Count 313 k/uL (150-450); Poikilocytosis Slight; Prothrombin Time 15.4 sec (9.0-12.0); RBC 4.59 m/uL (3.80-5.40); RDW 19.2 % (11.5-15.5); WBC 11.8 k/uL (3.8-10.6)
[2021-09-28 15:25] LABS: Potassium 6.7 mmol/L (3.5-5.1)
[2021-09-28] MEDS ORDERED: CALCIUM CHLORIDE 100 MG/ML 10 ML SYRINGE IVP STA (15:26)
--- NOTE | 2021-09-28 15:55 | XR ---
EXAMINATION TYPE: XR chest 2V DATE OF EXAM: 09/28/2021 COMPARISON: 07/12/2021 HISTORY: 86-year-old female with weakness and shortness of breath TECHNIQUE: AP and lateral views FINDINGS: The heart is moderately enlarged. Diffuse interstitial and patchy confluence in opacities bilaterally . No sizable pleural effusion on the lateral view. Surgical clips right axilla. IMPRESSION: Moderate cardiomegaly with patchy bilateral airspace disease. Correlate for CHF with patchy pulmonary edema versus other etiology such as interstitial pneumonitis, hypersensitivity pneumonitis, ARDS, or COVID pneumonia.
--- NOTE | 2021-09-28 15:57 | XR ---
EXAMINATION TYPE: AP view pelvis and 2 views left hip DATE OF EXAM: 09/28/2021 Comparison: None Clinical History: 86-year-old female with left groin pain after Trauma Findings: Osteopenia. Mild degenerative change at the hips. Subtle lucencies at the level of the left pubic bod y and left inferior pubic ramus. No displaced fracture is seen. Degenerative changes lower lumbar spi ne. Impression: 1. Osteopenia. Mild degenerative change of the hips. No displaced hip fracture seen. 2. However, there are subtle lucencies involving the left pubic body and left inferior pubic ramus. S ubtle nondisplaced fractures difficult to exclude. Given the degree of osteopenia, MRI can provide mo re sensitive evaluation.
[2021-09-28] MEDS ORDERED: DEXTROSE 50% SYRINGE 50 ML IVP STA (16:07)
[2021-09-28] MEDS ORDERED: SODIUM BICARB 8.4% 50 ML SYR (1 MEQ/ML) IV STA (16:07)
[2021-09-28] MEDS ORDERED: INSULIN REGULAR 100 UNIT/ML VIAL (IV) IV ONE (16:08)
[2021-09-28] MEDS ORDERED: IPRATROPIUM-ALBUTEROL 3 ML NEB INHALATION STA (16:08)
[2021-09-28] MEDS ORDERED: cefTRIAXone IN SWFI 1,000 MG/10 ML SYRINGE IVP STA (16:13)
[2021-09-28] MEDS ORDERED: FUROSEMIDE 10 MG/ML 2 ML VIAL IV ONE (17:30)
[2021-09-28] MEDS ORDERED: NITROGLYCERIN SL TABS 0.4 MG TAB SUBLINGUAL PRN (17:57)
[2021-09-28] MEDS ORDERED: LORazepam 2 MG/ML INJ IV STA (18:11)
[2021-09-28] MEDS ORDERED: HYDROCORTISONE SUCCINATE 100 MG/2 ML VIAL IV STA (18:51)
--- NOTE | 2021-09-28 20:10 | HP ---
HISTORY AND PHYSICAL CHIEF COMPLAINT: Diarrhea and change in mental status. HISTORY OF PRESENT ILLNESS: This 86-year-old woman with a past medical history of multiple medical problems, including atrial fibrillation, atrial flutter, asthma, GERD, hard of hearing, history of breast surgery, history of cardiac ablation, also has significant dementia. The patient was noted to have diarrhea for the last several days. The patient is confused, unable to give a coherent history. Most of the history is taken from my discussion with the staff, discussion with the ER physician and discussion with family, the daughter and the son at the bedside. The patient also was found to be hypotensive and bradycardic and the patient was taken to [facility] and admitted for evaluation and treatment. The patient responded Atropine, but right bundle block pattern was noted transiently, then converted to normal sinus rhythm. Patient is being closely monitored. The patient is apparently NO CODE NO CPR NO VENT at this time. The patient has also had a fall and apparently was complaining of left hip pain. The patient was hypoxic on presentation, and with BiPAP the saturation increased to 100. The patient is being closely monitored at this time. The family also does not want any pressor drips at this time. The patient has significant dementia previously. PAST MEDICAL HISTORY: Per chart, atrial fibrillation/flutter, asthma, GERD, dementia. HOME MEDICATIONS: Hydrocodone, Tessalon, Ventolin. Xanax, vitamin D2, Mucomyst, Aldactone, Senna, potassium, Lopressor, magnesium oxide. Doses are reviewed. ALLERGIES: IODINE, ADHESIVE TAPES, CLARITHROMYCIN, IV CONTRAST MEDIA. SOCIAL HISTORY: Per chart, no history of smoking, no history of alcohol intake. REVIEW OF SYSTEMS: Review of systems could not be taken. PHYSICAL EXAMINATION: Patient is conscious, confused. Pulse is 92, blood pressure 93/61, respiration 15, temperature normal, pulse ox 100% on BiPAP. Oral mucosa dry. NECK: No jugular venous distention. No carotid bruit. No lymph node enlargement. CARDIOVASCULAR: S1, S2 muffled. Ejection systolic murmur. RESPIRATION: Breath sounds diminished at the bases. A few scattered rhonchi and crackles. ABDOMEN: Soft, nontender. No mass palpable. LEGS: No edema. No swelling. NERVOUS SYSTEM: Higher functions as mentioned earlier. Diffusely weak. Full exam is not possible. SKIN: No ulcer, rash, bleeding. JOINTS: No active deforming arthropathy. LABS: WBC 11.8, hemoglobin 11.7, and PT is 15.4, INR 1.5. Sodium ntd potassium 6.7, creatinine 3.26. ASSESSMENT: 1. Severe hypotension and bradycardia secondary to dehydration and acute renal failure. 2. Congestive heart failure, acute exacerbation. Ejection fraction unknown. 3. Acute renal failure with acute tubular necrosis. 4. Severe hyperkalemia secondary to acute tubular necrosis. 5. Elevated plasma lactic acid, possibly secondary to dehydration and renal failure. 6. Severe dementia. 7. Hypermagnesemia. 8. Increased AST. 9. Troponin 0.0543, possibly secondary to renal failure. Rule out acute [id number]- elevation myocardial infarction. 10.Elevated D-dimer. 11.Increased white count. 12.History of atrial fibrillation and flutter. 13.History of asthma. 14.History of hypertension. 15.Hyperlipidemia. 16.History of degenerative joint disease. 17.History of pneumonia. 18.History of vascular disorder. 19.History of pulmonary fibrosis. 20.Mitral valve prolapse. 21.History of chronic kidney disease, stage 3. 22.History of carpal tunnel syndrome. 23.History of spinal stenosis. 24.History of varicose veins. 25.History of right breast cancer. 26.History of hiatal hernia. 27.History of irritable bowel syndrome. 28.History of ulcerative colitis. 29.History of cholecystectomy. 30.History of cardiac catheterization. 31.History of breast lumpectomy. 32.NO CODE, NO CPR, NO VENT. RECOMMENDATIONS AND DISCUSSION: In this 86-year-old woman who presented with multiple complex issues, we will monitor the patient closely. We will continue with the conservative line of management. I would recommend cautious IV fluids and continue to monitor. Otherwise, I recommend empiric antibiotics with Levaquin and Flagyl, to be adjusted according to the renal function. Monitor fluid/electrolyte balance. Continue the rest of the home medications. Prognosis guarded because of multiple complex medical issues. Further recommendations to follow. Discussed with the family, who understands and agrees. TARA / CINTHIAN: [id number] / NISHANT
[2021-09-28] MEDS ORDERED: SODIUM CHLORIDE 0.9% 500 ML 250 ML IV ONE (21:25)
[2021-09-28] MEDS: metroNIDAZOLE-NS PMX 500 MG in SALINE 1 100ML.BAG IVPB SCH (21:31)
[2021-09-28] MEDS ORDERED: SODIUM POLYSTYRENE SULFONATE 15 GM/60 ML BOTTLE PO STA (22:11)
[2021-09-28] MEDS ORDERED: ALBUTEROL NEBULIZED 2.5 MG/3 ML INHALATION PRN (22:20)
[2021-09-28] MEDS ORDERED: BENZONATATE 100 MG CAP PO PRN (22:20)
[2021-09-28] MEDS: LEVOFLOXACIN 250MG-D5W PMX 250 MG in DEXTROSE/WATER 1 50ML.BAG IVPB SCH (22:24)
[2021-09-28] MEDS: SODIUM CHLORIDE 0.9% 1,000 ML IV SCH (22:36)
[2021-09-28] MEDS: APIXABAN 2.5 MG TABLET PO SCH (22:41)
[2021-09-28 23:27] LABS: Appearance,Urine Clear (Clear); Bilirubin,Urine Negative (Negative); Blood,Urine Negative (Negative); Color,Urine Yellow; Glucose,Urine (UA) Negative (Negative); Ketones,Urine Negative (Negative); Leukocyte Esterase,Urine Negative (Negative); Nitrite,Urine Negative (Negative); PH, Urine 5.5 (5.0-8.0); Protein,Urine Negative (Negative); Specific Gravity,Urine 1.015 (1.001-1.035); Urobilinogen,Urine <2.0 mg/dL (<2.0)
[2021-09-29] MEDS: LEVOTHYROXINE 50 MCG TAB PO SCH (06:12)
[2021-09-29 08:40] LABS: Anisocytosis Slight; Basophils % (A) 0 %; Eosinophils % (A) 0 %; HGB 10.9 gm/dL (11.4-16.0); Hypochromasia Marked; Lymphocytes # (A) 0.6 k/uL (1.0-4.8); Lymphocytes % (A) 8 %; MCH 25.4 pg (25.0-35.0); MCHC 29.5 g/dL (31.0-37.0); MCV 86.1 fL (80.0-100.0); Mean Platelet Volume 7.2; Monocytes # (A) 0.3 k/uL (0-1.0); Monocytes % (A) 4 %; Neutrophils # (A) 5.7 k/uL (1.3-7.7); Neutrophils % (A) 85 %; Platelet Count 246 k/uL (150-450); RDW 18.6 % (11.5-15.5); WBC 6.6 k/uL (3.8-10.6)
[2021-09-29 08:53] LABS: African American GFR (CKD) 15 (>60 ml/min/1.73 sqM); Anion Gap 7 mmol/L; Blood Urea Nitrogen 40 mg/dL (7-17); Calcium 9.1 mg/dL (8.4-10.2); Carbon Dioxide 21 mmol/L (22-30); Chloride 105 mmol/L (98-107); Glucose 98 mg/dL (74-99); Non-African American GFR(CKD) 13 (>60 ml/min/1.73 sqM); Potassium 5.4 mmol/L (3.5-5.1); Sodium 133 mmol/L (137-145)
[2021-09-29] MEDS ORDERED: ASPIRIN 325 MG TAB PO SCH (09:00)
[2021-09-29] MEDS: LEVOFLOXACIN 250MG-D5W PMX 250 MG in DEXTROSE/WATER 1 50ML.BAG IVPB SCH (09:00)
[2021-09-29] MEDS ORDERED: APIXABAN 2.5 MG TABLET PO SCH (09:00)
--- NOTE | 2021-09-29 09:12 | P.NPCON ---
History of Present Illness - Reason for Consult Consult date: 09/29/21 acute renal failure - Chief Complaint Acute kidney injury - History of Present Illness This is a 86-year-old female who is seen in consultation because of acute kidney injury, hyperkalemia and acidosis. Her creatinine on admission was 3.26 potassium was 6.1 bicarb 17 and gap 9. She came in from a [facility] with dementia and diarrhea for a week. She is unable to give a good history. She is observed to be coughing. Supposedly she had a fall 2 days ago and hurt her left hip In the emergency room she was found to be bradycardic, blood pressure was in the 70s, heart rate in the 40s Past history significant for atrial fibrillation asthma dementia. She was started on antibiotics she is given atropine in the emergency room Currently she is awake alert cheerful on nasal cannula oxygen. She is hard of hearing and also has dementia. Currently her blood pressure is 91/60, 85/55 heart rate in the 80s afebrile Past Medical History Past Medical History: Atrial Fibrillation, Atrial Flutter, Asthma, Cancer, GERD/Reflux, Hearing Disorder / Deafness, Hyperlipidemia, Hypertension, Musculoskeletal Disorder, Osteoarthritis (OA), Pneumonia, Renal Disease, Thyroid Disorder, Vascular Disorder Additional Past Medical History / Comment(s): pulmonary fibrosis, Mitral valve prolapse, "hole in my heart", exertional dyspnea, chronic renal disease stage III, carpal tunnel bilaterally, osteoporosis, chronic low back pain, spinal stenosis, scoliosis, gout, varicose veins, R breast cancer with surgery/radiatio n, skin cancer removals, cancerous colon polyp removal, diverticular dx, hiatal hernia, IBS, ulcerative colitis, History of Any Multi-Drug Resistant Organisms: None Reported Past Surgical History: Breast Surgery, Cardiac Ablation, Cholecystectomy, Heart Catheterization, Hysterectomy, Orthopedic Surgery Additional Past Surgical History / Comment(s): R breast lumpectomy x 2, R breast bx, skin cancer removals, total hysterectomy, open cholecystectomy, R arm spur removals 3 times, R shoulder rotator cuff repair, R foot 2nd toe surgery, pilonidal cystectomy, colonoscopy with cancerous polypectomy, bilateral cataract removal/lens implants and surgery for astigmatism. Past Anesthesia/Blood Transfusion Reactions: Postoperative Nausea & Vomiting (PONV) Additional Past Anesthesia/Blood Transfusion Reaction / Comment(s): DUE TO REFLUX /POST ANESTHESIA PNEUMONIA. Past Psychological History: No Psychological Hx Reported Additional Psychological History / Comment(s): . Smoking Status: Never smoker Past Alcohol Use History: None Reported Past Drug Use History: None Reported - Past Family History Father Additional Family Medical History / Comment(s): Father was an alcoholic and pt thinks he from complications of that. Mother Family Medical History: Pulmonary Embolus Additional Family Medical History / Comment(s): at 59 from PE Sister(s) Family Medical History: Cancer Additional Family Medical History / Comment(s): Breast Cancer Medications and Allergies Home Medications Medication Instructions Recorded Confirmed Type Levothyroxine Sodium [Synthroid] 50 mcg PO DAILY@0700 07/19/15 09/28/21 History Magnesium Oxide [Mag-Ox] 400 mg PO BID@0800,199911/16/17 09/28/21 History Cyanocobalamin [Vitamin B-12] 500 mcg PO DAILY@0800 06/02/19 09/28/21 History Apixaban [Eliquis] 2.5 mg PO BID@0800,199906/27/21 09/28/21 History Metoprolol Tartrate [Lopressor] 50 mg PO BID@0800,199906/27/21 09/28/21 History Sennosides/Docusate Sodium [Senna 2 tab PO BID PRN 06/27/21 09/28/21 History Plus 8.6-50 mg Tablet] Clobetasol Propionate [Temovate 1 applic TOPICAL BID@0800,199907/12/21 09/28/21 History 0.05% Oint] Ergocalciferol [Vitamin D2 (1250 1,250 mcg PO Q14D 07/12/21 09/28/21 History Mcg = 11946 Iu)] Hydrocortisone Oint 1 applic TOPICAL BID@0800,199907/12/21 09/28/21 History [Hydrocortisone 2.5% Oint] ALPRAZolam [Xanax] 0.5 mg PO HS PRN 09/21/21 09/28/21 History Acetylcysteine [Mucomyst 10%] 200 mg INHALATION Q8H PRN 09/21/21 09/28/21 History Albuterol Inhaler [Ventolin Hfa 2 puff INHALATION RT-Q4H PRN 09/21/21 09/28/21 History Inhaler] Amiodarone [Cordarone] 200 mg PO DAILY@0800 09/21/21 09/28/21 History Benzonatate [Tessalon Perles] 100 mg PO TID PRN 09/21/21 09/28/21 History Donepezil [Aricept] 10 mg PO HS@199909/21/21 09/28/21 History Escitalopram [Lexapro] 5 mg PO DAILY@0800 09/21/21 09/28/21 History Furosemide [Lasix] 40 mg PO DAILY@0800 09/21/21 09/28/21 History Hydrocortisone Cream 1 applic TOPICAL BID PRN 09/21/21 09/28/21 History [Hydrocortisone 1% Cream] Losartan [Cozaar] 12.5 mg PO DAILY@0800 09/21/21 09/28/21 History Petrolatum, White [Aquaphor] 1 applic TOPICAL BID@0800,199909/21/21 09/28/21 History Potassium Chloride [Potassium 10 mg PO BID@0800,199909/21/21 09/28/21 History Chloride ER] Silver Sulfadiazine [SSD 1% Cream] 1 applic TOPICAL BID@08,199909/21/21 09/28/21 History Spironolactone [Aldactone] 25 mg PO DAILY@0800 09/21/21 09/28/21 History Sulfamethox-Tmp 800-160Mg [Bactrim 1 tab PO BID@0800,199909/21/21 09/21/21 History DS 800-160 mg] Albuterol Nebulized [Ventolin 2.5 mg INHALATION RT-Q4H PRN 09/28/21 09/28/21 History Nebulized] Allergies Allergy/AdvReac Type Severity Reaction Status Date / Time iodine Allergy Unknown VERY LOW Verified 09/28/21 15:55 BLOOD PRESSURE,SHORTNESS OF BREATH adhesive tape Allergy Rash/Hives Verified 09/28/21 15:55 clarithromycin Allergy Unknown Verified 09/28/21 15:55 Iodinated Contrast Media Allergy Anaphylaxis Verified 09/28/21 15:55 metaxalone [From Skelaxin] Allergy Anaphylaxis Verified 09/28/21 15:55 niacin Allergy Unknown Verified 09/28/21 15:55 [From Niaspan Extended-Release] pantoprazole Allergy ITCHING Verified 09/28/21 15:55 ,REDNESS OF SKIN Physical Exam Vitals: Vital Signs Temp Pulse Pulse Pulse Resp BP BP 09/29/21 08:10 09/29/21 05:00 91/60 09/29/21 04:31 09/29/21 04:00 97.9 F 85 16 85/55 09/29/21 00:45 90/58 09/29/21 00:43 09/28/21 23:23 97.6 F 85 20 79/50 09/28/21 22:26 90 20 74/42 09/28/21 20:40 09/28/21 20:37 98.5 F 47 L 23 09/28/21 20:01 104 H 28 H 85/62 09/28/21 17:46 92 15 93/61 09/28/21 17:23 76 09/28/21 17:06 76 09/28/21 16:37 46 L 18 104/43 09/28/21 15:56 91 18 94/63 09/28/21 15:14 65 15 95/55 09/28/21 14:31 98.4 F 47 L 15 108/86 BP Pulse Ox 09/29/21 08:10 92 L 09/29/21 05:00 09/29/21 04:31 92 L 09/29/21 04:00 95 09/29/21 00:45 09/29/21 00:43 93 L 09/28/21 23:23 95 09/28/21 22:26 95 09/28/21 20:40 91/51 09/28/21 20:37 79/46 97 09/28/21 20:01 100 09/28/21 17:46 100 09/28/21 17:23 09/28/21 17:06 09/28/21 16:37 97 09/28/21 15:56 99 09/28/21 15:14 96 09/28/21 14:31 90 L Intake and Output 09/28/21 09/29/21 09/29/21 22:59 06:59 14:59 Intake Total 110 570 Output Total 0 220 Balance 110 350 Intake: IV 10 570 Invasive Line 2 10 10 Levofloxacin 250Mg-D5w 50 Pmx 250 mg In Dextrose/ Water 1 50ml.bag @ 50 mls /hr IVPB DAILY [facility] Rx#: [id number] Sodium Chloride 0.9% 1, 160 000 ml @ 40 mls/hr IV . Q24H [facility] Rx#:[id number] Sodium Chloride 0.9% 500 250 ml 250 ml @ 999 mls/hr IV .Q16M [facility] Rx#:[id number] metroNIDAZOLE-NS PMX 500 100 mg In Saline 1 100ml.bag @ 100 mls/hr IVPB BID [facility] Rx#:[id number] Oral 100 Output: Urine 0 220 Straight 220 Other: Voiding Method Diaper # Voids 0 # Bowel Movements 1 Weight 77.111 kg 75 kg On examination awake alert cheerful hard of hearing HEENT exam no JVP neck is supple no facial asymmetry Lungs are clear to auscultation with an occasional coarse crackle at bases fairly good air entry bilaterally Heart sounds unremarkable for any murmur rub gallop Abdomen soft nontender no masses felt nondistended Extremity exam was trace edema Neurologically awake alert but has dementia no focal motor signs Results - Lab Results Most recent lab results Calcium 9.1 mg/dL (8.4-10.2) 09/29/21 07:59 Magnesium 3.0 mg/dL (1.6-2.3) H 09/28/21 15:01 09/29/21 07:59 09/29/21 07:59 Assessment and Plan Assessment: Impression 1. Acute kidney injury from diarrhea and low blood pressure. Creatinine b aseline is 1.43 as of 07/15/2021, 1.66 on 09/21/2021 and on admission was 3.26 and this morning is slightly better at 3.06 2. Chest x-ray is suggestive of either pneumonia or CHF or a combination th ereof. Urine Analysis benign, lactic acid was high 2.9 Rule out sepsis, coronavirus PCR negative 3. Non-gap acidosis from diarrhea and acute kidney injury. Bicarb improved from 17-21 this morning he had 4. Hyperkalemia secondary acute kidney injury improved potassium was 6.1 and currently 5.4 5. Lactic acidosis improved from 2.9-1.9 Recommendation 1. Maintain gentle hydration currently at 40 mL an hour of normal saline 2. Watch for congestive heart failure 3. Check a calcitonin 4. Watch potassium 5. Start sodium bicarb 650 2 times a day Thank you for this consultation, will continue follow closely
[2021-09-29] MEDS: ESCITALOPRAM 5 MG TAB PO SCH (09:16)
[2021-09-29] MEDS: metroNIDAZOLE-NS PMX 500 MG in SALINE 1 100ML.BAG IVPB SCH ×2 (09:16→22:05)
[2021-09-29] MEDS: APIXABAN 2.5 MG TABLET PO SCH ×2 (09:16→22:05)
[2021-09-29] MEDS ORDERED: SODIUM ZIRCONIUM CYCLOSILICATE 10 GM PACKET PO ONE (09:30)
[2021-09-29 12:08] LABS: Chol/HDL Ratio 2.37 Ratio; LDL Cholesterol,Calculated 39.2 mg/dL (0.0-131.0); VLDL Calculation 12.88 mg/dL (5.00-40.00)
--- NOTE | 2021-09-29 14:59 | CONS ---
CONSULTATION This is an 86-year-old lady with a known history of chronic atrial fibrillation, chronic kidney disease, hypothyroidism, who also has history of hypertension. She came into the hospital complaining of feeling weak and tired and found that her blood pressure was low. She had a low heart rate and was having diarrhea and was not eating well. She was found to be hyperkalemic with a potassium of 6.1. She was bradycardic. She was also dehydrated, seems to have acute kidney injury. She received some Kayexalate with modest improvement in her potassium level. She also has what seems to be an acute bronchitis type picture and she is coughing up productive sputum, but no chest pain. She has chronic atrial fib and is anticoagulated and the bradycardia that was probably because of hyperkalemia. At the time of my evaluation, she still has some wheezing but no chest pain. Heart rate is better. QRS is narrow. On arrival, her EKG revealed a wide QRS rhythm, irregular, suggestive of atrial fibrillation with a QRS widening secondary to hyperkalemia, which seems to have improved and the QRS is narrowed on the rhythm strips. PAST MEDICAL HISTORY: 1. Remarkable for chronic atrial fibrillation. 2. Hypertension with chronic kidney disease. 3. Hypothyroidism. 4. History of pulmonary fibrosis. 5. History of mitral valve prolapse, details are unclear. 6. She also has history of cholecystectomy. 7. Previous cardiac cath which did not reveal any significant obstructive CAD and the cardiac cath was performed in January of 2019. 8. LABORATORY DATA: Suggests that creatinine is up to 3.26, potassium is 6.1 and BUN is 43. Hemoglobin is 11.7. PHYSICAL EXAMINATION: On examination, blood pressure is 96/60, pulse rate is 80, irregular. HEENT unremarkable. Fundus was not examined by me. NECK: Supple there is JVD of 1 cm. No carotid bruit. Heart exam reveals S1, S2 with irregular rhythm. Short systolic murmur at the base. Lungs reveal bilateral scattered wheezes. ABDOMEN is soft, nontender. Lower extremities reveal diminished pulses. Central nervous system no focal deficits. EKG revealed atrial fibrillation with wide QRS initially. Subsequently, QRS has narrowed. Rhythm is atrial fib, nonspecific ST changes. IMPRESSION: 1. Dehydration with acute kidney injury. 2. Hyperkalemia. 3. Probable pneumonia. 4. Chronic atrial fibrillation. RECOMMENDATIONS: I am recommending that we hydrate her cautiously, give her some Lokelma 5 g, discontinue aspirin and we will also seek a pulmonary consult as well. I discussed my thoughts in detail with the patient and her daughter. Prognosis remains guarded. We will continue to follow. TARA / CANDY: [id number] /
[2021-09-29] MEDS ORDERED: ALPRAZolam 0.5 MG TAB PO PRN (19:26)
--- NOTE | 2021-09-29 20:22 | XR ---
EXAMINATION TYPE: XR chest 1V portable DATE OF EXAM: 09/29/2021 COMPARISON: 09/28/2021 HISTORY: Difficulty breathing TECHNIQUE: FINDINGS: Heart is enlarged. There is pulmonary vascular mild congestion. There is blunting of the ri ght costophrenic angle. There are chest leads. IMPRESSION: Mild congestive heart failure with right pleural effusion. Pulmonary congestion and impro michael compared to yesterday.
[2021-09-29] MEDS: ALBUTEROL NEBULIZED 2.5 MG/3 ML INHALATION PRN (20:23)
[2021-09-29] MEDS: SODIUM BICARBONATE TAB 650 MG TAB PO SCH (22:04)
[2021-09-29] MEDS: DONEPEZIL 10 MG TAB PO SCH (22:04)
--- NOTE | 2021-09-29 22:07 | PN ---
PROGRESS NOTE DATE OF SERVICE: 09/29/2021 This 86-year-old woman who was admitted with severe hypotension, bradycardia and acute renal failure is being closely monitored. Patient also has some CHF, acute exacerbation. Patient also had renal failure. Patient was having diarrhea for the last several days. The creatinine is worse at yesterday today it is 3.06. Potassium is slightly better. Patient is being closely monitored. Patient's sensorium is also slightly improved. No chest pain. No palpitations. No fever. Past medical history reviewed. REVIEW OF SYSTEMS: CARDIOVASCULAR SYSTEM: No angina. RESPIRATION: As mentioned earlier. GI: As mentioned earlier. : No dysuria. NERVOUS SYSTEM: No numbness, weakness. CURRENT MEDICATIONS: Reviewed. They include Ventolin, Eliquis, Tessalon, Lexapro, Levaquin, Flagyl. Other medications and doses are reviewed. PHYSICAL EXAMINATION: Patient alert and oriented x2. Pulse 84, blood pressure 94/62, respiration 20, temperature 98.2, pulse ox 93% on 15 L. HEENT: Conjunctivae normal. NECK: No jugular venous distention. CARDIOVASCULAR: S1, S2 muffled. RESPIRATION: Breath sounds diminished at the bases. A few scattered rhonchi and crackles. ABDOMEN: Soft, nontender. LEGS: No edema. No swelling. NERVOUS SYSTEM: No focal deficit. LABS: WBC 6.6, sodium 138, potassium 5.4. ASSESSMENT: 1. Severe hypotension and bradycardia secondary to dehydration, acute renal failure secondary to acute diarrheal illness. 2. Severe hypoxia with acute hypoxic respiratory failure secondary to congestive heart failure, acute exacerbation, ejection fraction unknown. 3. Acute renal failure with acute tubular necrosis. 4. Severe hyperkalemia secondary to acute tubular necrosis. 5. Elevated plasma lactic acidosis, possibly secondary to dehydration renal failure and sepsis, present on admission. 6. Severe dementia. 7. Hypomagnesemia. 8. Increased AST. 9. Troponin 0.0543, possibly secondary to renal failure. Rule out acute exk-TR-xsqwdyj- elevation myocardial infarction. 10.Elevated D-dimer. 11.Increased white count. 12.History of atrial fibrillation/flutter. 13.History of asthma. 14.History of hypertension. 15.Hyperlipidemia. 16.History of degenerative joint disease. 17.History of pneumonia. 18.History of vascular disorder. 19.History of pulmonary fibrosis. 20.Mitral valve prolapse history. 21.History of chronic kidney disease, stage 3. 22.History of carpal tunnel syndrome. 23.History of spinal stenosis. 24.History of varicose veins. 25.History of right breast cancer. 26.History of hiatal hernia. 27.History of irritable bowel syndrome. 28.History of ulcerative colitis. 29.History of cholecystectomy. 30.History of cardiac catheterization. 31.History of breast lumpectomy. 32.NO CODE, NO CPR, NO VENT. RECOMMENDATIONS AND DISCUSSION: I recommend to continue current medications, continue with the monitoring, symptomatic treatment. Repeat labs. Closely follow with multiple consultants. Prognosis is guarded because of multiple complex medical issues. I would also recommend evaluation by Dr. Abraham because of severe hypoxia. Guarded prognosis. Further recommendations to follow. I will repeat a chest x-ray tomorrow as well. The possibility of pneumonia is also considered. MMODL / IJN: [id number] / MTDD
[2021-09-29] MEDS: MAGNESIUM OXIDE 400 MG TAB PO SCH (22:21)
--- NOTE | 2021-09-29 22:52 | CT ---
EXAMINATION TYPE: CT chest wo con DATE OF EXAM: 09/29/2021 COMPARISON: 12/22/2020 HISTORY: Scan to rule pneumonia or mass CT DLP: 327.3 mGycm Automated exposure control for dose reduction was used. Images obtained from the thoracic inlet to the diaphragm with no contrast. There is large right pleural effusion. Heart is enlarged. There is no pericardial effusion. There is no mediastinal adenopathy. There is patchy airspace infiltrates in both lungs. There is atelectasis i n consolidation right lower lobe adjacent to the pleural fluid. There is large inferior vena cava con sistent with chronic congestive heart failure. There is some spurring in the thoracic spine. Sternum is intact. There is no compression fracture. IMPRESSION: Patchy bilateral pulmonary airspace infiltrates. Cardiomegaly with right pleural effusion consistent with chronic congestive heart failure. Pleural fluid and infiltrates increased compared to old exam. Infiltrates more likely related to pneumonia. No suspicious pulmonary mass.
[2021-09-30] MEDS: SODIUM CHLORIDE 0.9% 1,000 ML IV SCH (04:16)
[2021-09-30] MEDS: LEVOTHYROXINE 50 MCG TAB PO SCH (06:09)
[2021-09-30] MEDS: ALBUTEROL NEBULIZED 2.5 MG/3 ML INHALATION PRN ×5 (07:11→23:46)
--- NOTE | 2021-09-30 08:52 | P.PN ---
Subjective Progress Note Date: 09/30/21 Principal diagnosis: This is a 80-year-old female seen in consultation because of acute kidney injury secondary to diarrhea and low blood pressure, creatinine went up from 1.4. Ba seline to 3.26 on admission. The chest x-ray though was somewhat ambiguous and might have been congestive heart failure versus pneumonia. She was gently hydrated at 40 MLS normal saline and hour. After she continues to have cough. Blood pressure still somewhat low but 107/71 heart rate in the 80s to 90s and 24-hour I and O is not well documented. Objective - Vital Signs Vital signs: Vital Signs Temp 97.9 F 09/30/21 03:56 Pulse 80 09/30/21 07:22 Resp 18 09/30/21 03:56 BP 107/71 09/30/21 03:56 Pulse Ox 93 L 09/30/21 03:56 Intake & Output 09/29/21 09/30/21 09/30/21 18:59 06:59 18:59 Intake Total 118 118 Balance 118 118 Weight 75.5 kg Intake: Oral 118 118 Other: Voiding Method Diaper Diaper # Voids 2 1 1 # Bowel Movements 5 1 2 Exam she is awake alert. HEENT exam no JVP noted neck is supple no facial asymmetry Lungs are significant for bilateral fine crackles fair air entry bilaterally Heart sounds unremarkable for any murmur rub gallop Abdomen soft nontender Extremity exam reveals trace edema Neurologically awake alert, hard of hearing - Labs CBC & Chem 7: 09/29/21 07:59 09/29/21 07:59 Labs: Abnormal Lab Results - Last 24 Hours (Table) 09/29/21 09/29/21 Range/Units 07:59 07:59 Sodium 133 L (137-145) mmol/L Potassium 5.4 H (3.5-5.1) mmol/L Carbon Dioxide 21 L (22-30) mmol/L BUN 40 H (7-17) mg/dL Creatinine 3.06 H (0.52-1.04) mg/dL HDL Cholesterol 37.90 L (40.00-60.00) mg/dL Procalcitonin 0.23 H (0.02-0.09) ng/mL Assessment and Plan Assessment: Impression 1. Acute kidney injury from diarrhea and low blood pressure. Creatinine baseline is 1.43 as of 07/15/2021, 1.66 on 09/21/2021 and on admission was 3.26 and is slightly better at 3.06 as of yesterday last today are pending 2. Chest x-ray is suggestive of either pneumonia or CHF or a combination the reof. Urine Analysis benign, lactic acid was high 2.9 Rule out sepsis, coronavirus PCR negative. Computed tomography scan of the chest is suggestive of pneumonia and chronic CHF. Pro-calcitonin was 0.23 3. Non-gap acidosis from diarrhea and acute kidney injury. Bicarb improved from 17-21, labs today pending 4. Hyperkalemia secondary acute kidney injury improved potassium was 6.1 and currently 5.4, as of yesterday 5. Lactic acidosis improved from 2.9-1.9 Recommendation 1. Maintain gentle hydration currently at 40 mL an hour of normal saline 2. Watch for congestive heart failure 3. Watch potassium 4. Continue sodium bicarb 650 2 times a day
[2021-09-30 10:07] LABS: Calcium 8.9 mg/dL (8.4-10.2); Potassium 3.6 mmol/L (3.5-5.1)
[2021-09-30 10:17] LABS: Anisocytosis Slight; Basophils % (A) 0 %; Eosinophils # (A) 0.1 k/uL (0-0.7); Eosinophils % (A) 1 %; HCT 36.3 % (34.0-46.0); HGB 10.7 gm/dL (11.4-16.0); Hypochromasia Marked; Lymphocytes # (A) 0.6 k/uL (1.0-4.8); Lymphocytes % (A) 7 %; MCH 25.3 pg (25.0-35.0); MCHC 29.6 g/dL (31.0-37.0); MCV 85.3 fL (80.0-100.0); Mean Platelet Volume 7.6; Monocytes # (A) 0.4 k/uL (0-1.0); Monocytes % (A) 5 %; Neutrophils # (A) 6.5 k/uL (1.3-7.7); Neutrophils % (A) 85 %; Platelet Count 214 k/uL (150-450); Poikilocytosis Slight; RBC 4.25 m/uL (3.80-5.40); WBC 7.6 k/uL (3.8-10.6)
[2021-09-30] MEDS: SODIUM BICARBONATE TAB 650 MG TAB PO SCH ×2 (10:25→20:37)
[2021-09-30] MEDS: metroNIDAZOLE-NS PMX 500 MG in SALINE 1 100ML.BAG IVPB SCH ×2 (10:25→20:38)
[2021-09-30] MEDS: APIXABAN 2.5 MG TABLET PO SCH ×2 (10:25→20:38)
[2021-09-30] MEDS: LEVOFLOXACIN 250MG-D5W PMX 250 MG in DEXTROSE/WATER 1 50ML.BAG IVPB SCH (10:25)
[2021-09-30] MEDS: METOPROLOL TARTRATE 25 MG TAB PO SCH ×3 (10:25→20:37)
[2021-09-30] MEDS: CYANOCOBALAMIN 500 MCG TAB PO SCH (10:26)
[2021-09-30] MEDS: ESCITALOPRAM 5 MG TAB PO SCH (10:26)
[2021-09-30] MEDS: MAGNESIUM OXIDE 400 MG TAB PO SCH ×2 (10:26→20:38)
--- NOTE | 2021-09-30 12:54 | PN ---
PROGRESS NOTE Mrs. Farnaz Ziegler is doing well. She is in atrial fib. Rate is good. QRS is narrowed. Hyperkalemia has resolved. She still has cough and has been having some productive cough and we are awaiting further input from pulmonology. Cardiac-herrera, she is hemodynamically stable in atrial fibrillation. Hyperkalemia has resolved. Vitals are stable. JVD 1 cm. No carotid bruit. S1-S2 heard normally. Irregularity in rhythm noted. Short systolic murmur noted. Abdomen is distended. Lower extremities reveal diminished pulses. Central nervous system is grossly within normal limits. I will await further input from Pulmonary. MMODL / IJN: [id number] /
[2021-09-30] MEDS ORDERED: FUROSEMIDE 10 MG/ML 2 ML VIAL IV ONE (13:18)
--- NOTE | 2021-09-30 14:14 | XR ---
EXAMINATION TYPE: XR chest 1V portable DATE OF EXAM: 09/30/2021 COMPARISON: Yesterday HISTORY: Short of breath TECHNIQUE: Single view FINDINGS: Heart is enlarged. There is bilateral pulmonary interstitial and airspace edema. There is b lunting of the right costophrenic angle. There are chest leads. IMPRESSION: Congestive heart failure with right pleural effusion. Superimposed pneumonia also possibl e. No significant change.
[2021-09-30] MEDS ORDERED: LOPERAMIDE 2 MG CAP PO PRN (14:30)
[2021-09-30] MEDS: FUROSEMIDE 10 MG/ML 2 ML VIAL IV SCH ×2 (14:31→20:37)
--- NOTE | 2021-09-30 15:36 | P.CNPUL ---
History of Present Illness Consult date: 09/30/21 Reason for consult: dyspnea, cough, pulmonary fibrosis Chief complaint: Diarrhea and change in mental status. History of present illness: This is an 86-year-old female with history of multiple medical problems including interstitial lung disease/pulmonary fibrosis, sees Dr. Umanzor on outpatient basis for her pulmonary fibrosis. Known history of chronic atrial fibrillation/flutter asthma, GERD, history of cardiac ablation, and underlying dementia. Patient was admitted back on 09/27/21, mostly with symptoms of di arrhea for several days. Patient was quite confused apparently on presentation, she was also hypotensive, bradycardic, she even required atropine for her bradycardia, and she went into a normal sinus rhythm. Patient has been seen by many consultants since admission including cardiology, nephrology, and I was asked to see her because of her abnormal chest x-ray. I actually reviewed her chest x-ray and CT of the chest, patient has interstitial lung disease, congestive heart failure with right-sided pleural effusion, she may or may not have pneumonia, her pro calcitonin is slightly elevated, however her BNP level is over 11,000. Patient did receive Lasix given to her by the merchandise flow associate, and follow-up chest x-ray showed definite improvement compared to the initial chest x-ray on admission. Hence I am recommending more diuretics on this patient, and we'll recommend repeat chest x-ray in the next 24-48 hours. Patient is presently in bed, requiring 15 L high flow cannula, O2 saturations 90%, but she does not seem to be in distress. After evaluating the patient, I recommended diuretics. And I was able to discussed and reviewed with the patient and her family the chest x-ray finding since admission and a follow-up chest x-ray as well as the CT of the chest. Review of Systems CONSTITUTIONAL: Denies any recent significant weight loss or weight gain. EYES: Denies change in vision. EARS, NOSE, MOUTH, THROAT: Denies headaches, denies sore throat. CARDIOVASCULAR: Denies chest pain, palpitations or syncopal episodes. RESPIRATORY: Positive for shortness of breath, cough, congestion but no hemoptysis. GASTROINTESTINAL: Denies change in appetite, denies abdominal pain GENITOURINARY: Denies hematuria, denies infections. MUSKULOSKELETAL: Denies pain, denies swelling. INTEGUMENTARY: Denies rash, denies eczema. NEUROLOGICAL: Denies recent memory loss, no recent seizure activity. PSYCHIATRIC: Denies anxiety, denies depression. HEMATOLOGIC/LYMPHATIC: Denies anemia, denies enlarged lymph nodes. Past Medical History Past Medical History: Atrial Fibrillation, Atrial Flutter, Asthma, Cancer, GERD/Reflux, Hearing Disorder / Deafness, Hyperlipidemia, Hypertension, Musculoskeletal Disorder, Osteoarthritis (OA), Pneumonia, Renal Disease, Thyroid Disorder, Vascular Disorder Additional Past Medical History / Comment(s): pulmonary fibrosis, Mitral valve prolapse, "hole in my heart", exertional dyspnea, chronic renal disease stage III, carpal tunnel bilaterally, osteoporosis, chronic low back pain, spinal stenosis, scoliosis, gout, varicose veins, R breast cancer with surgery/radiation, skin cancer removals, cancerous colon polyp removal, diverticular dx, hiatal hernia, IBS, ulcerative colitis, History of Any Multi-Drug Resistant Organisms: None Reported Past Surgical History: Breast Surgery, Cardiac Ablation, Cholecystectomy, Heart Catheterization, Hysterectomy, Orthopedic Surgery Additional Past Surgical History / Comment(s): R breast lumpectomy x 2, R breast bx, skin cancer removals, total hysterectomy, open cholecystectomy, R arm spur removals 3 times, R shoulder rotator cuff repair, R foot 2nd toe surgery, pilonidal cystectomy, colonoscopy with cancerous polypectomy, bilateral cataract removal/lens implants and surgery for astigmatism. Past Anesthesia/Blood Transfusion Reactions: Postoperative Nausea & Vomiting (PONV) Additional Past Anesthesia/Blood Transfusion Reaction / Comment(s): DUE TO REFLUX /POST ANESTHESIA PNEUMONIA. Past Psychological History: No Psychological Hx Reported Additional Psychological History / Comment(s): . Smoking Status: Never smoker Past Alcohol Use History: None Reported Past Drug Use History: None Reported - Past Family History Father Additional Family Medical History / Comment(s): Father was an alcoholic and pt thinks he from complications of that. Mother Family Medical History: Pulmonary Embolus Additional Family Medical History / Comment(s): at 59 from PE Sister(s) Family Medical History: Cancer Additional Family Medical History / Comment(s): Breast Cancer Medications and Allergies Home Medications Medication Instructions Recorded Confirmed Type Levothyroxine Sodium [Synthroid] 50 mcg PO DAILY@0700 07/19/15 09/28/21 History Magnesium Oxide [Mag-Ox] 400 mg PO BID@0800,199911/16/1709/28/21 History Cyanocobalamin [Vitamin B-12] 500 mcg PO DAILY@0800 06/02/19 09/28/21 History Apixaban [Eliquis] 2.5 mg PO BID@08,199906/27/21 09/28/21 History Metoprolol Tartrate [Lopressor] 50 mg PO BID@08,199906/27/21 09/28/21 History Sennosides/Docusate Sodium [Senna 2 tab PO BID PRN 06/27/21 09/28/21 History Plus 8.6-50 mg Tablet] Clobetasol Propionate [Temovate 1 applic TOPICAL BID@799,199907/12/21 09/28/21 History 0.05% Oint] Ergocalciferol [Vitamin D2 (1250 1,250 mcg PO Q14D 07/12/21 09/28/21 History Mcg = 05517 Iu)] Hydrocortisone Oint 1 applic TOPICAL BID@799,199907/12/21 09/28/21 History [Hydrocortisone 2.5% Oint] ALPRAZolam [Xanax] 0.5 mg PO HS PRN 09/21/21 09/28/21 History Acetylcysteine [Mucomyst 10%] 200 mg INHALATION Q8H PRN 09/21/21 09/28/21 History Albuterol Inhaler [Ventolin Hfa 2 puff INHALATION RT-Q4H PRN 09/21/21 09/28/21 History Inhaler] Amiodarone [Cordarone] 200 mg PO DAILY@0809/21/21 09/28/21 History Benzonatate [Tessalon Perles] 100 mg PO TID PRN 09/21/21 09/28/21 History Donepezil [Aricept] 10 mg PO HS@199909/21/21 09/28/21 History Escitalopram [Lexapro] 5 mg PO DAILY@0800 09/21/21 09/28/21 History Furosemide [Lasix] 40 mg PO DAILY@0800 09/21/21 09/28/21 History Hydrocortisone Cream 1 applic TOPICAL BID PRN 09/21/21 09/28/21 History [Hydrocortisone 1% Cream] Losartan [Cozaar] 12.5 mg PO DAILY@0800 09/21/21 09/28/21 History Petrolatum, White [Aquaphor] 1 applic TOPICAL BID@0800,199909/21/21 09/28/21 History Potassium Chloride [Potassium 10 mg PO BID@0800,199909/21/21 09/28/21 History Chloride ER] Silver Sulfadiazine [SSD 1% Cream] 1 applic TOPICAL BID@0800,199909/21/21 09/28/21 History Spironolactone [Aldactone] 25 mg PO DAILY@0800 09/21/21 09/28/21 History Sulfamethox-Tmp 800-160Mg [Bactrim 1 tab PO BID@0800,199909/21/21 09/21/21 History DS 800-160 mg] Albuterol Nebulized [Ventolin 2.5 mg INHALATION RT-Q4H PRN 09/28/21 09/28/21 History Nebulized] Allergies Allergy/AdvReac Type Severity Reaction Status Date / Time iodine Allergy Unknown VERY LOW Verified 09/28/21 15:55 BLOOD PRESSURE,SHORTNESS OF BREATH adhesive tape Allergy Rash/Hives Verified 09/28/21 15:55 clarithromycin Allergy Unknown Verified 09/28/21 15:55 Iodinated Contrast Media Allergy Anaphylaxis Verified 09/28/21 15:55 metaxalone [From Skelaxin] Allergy Anaphylaxis Verified 09/28/21 15:55 niacin Allergy Unknown Verified 09/28/21 15:55 [From Niaspan Extended-Release] pantoprazole Allergy ITCHING Verified 09/28/21 15:55 ,REDNESS OF SKIN Physical Exam Vitals: Vital Signs Temp Pulse Pulse Pulse Resp BP Pulse Ox 09/30/21 12:00 98.2 F 106 H 25 H 110/72 87 L 09/30/21 11:24 88 09/30/21 11:12 88 09/30/21 08:00 85 103 H 25 H 111/64 90 L 09/30/21 07:22 80 09/30/21 07:12 80 09/30/21 03:56 97.9 F 96 18 107/71 93 L 09/30/21 00:31 92 L 09/29/21 23:16 97.7 F 86 16 93/57 98 09/29/21 20:41 82 09/29/21 20:29 97 09/29/21 20:26 82 09/29/21 20:00 97.7 F 85 18 99/59 97 09/29/21 16:00 97.8 F 84/51 Intake and Output 09/30/21 09/30/21 09/30/21 06:59 14:59 22:59 Intake Total 236 Balance 236 Intake: Oral 236 Other: Voiding Method Diaper Diaper # Voids 1 1 # Bowel Movements 1 2 Weight 75.5 kg GENERAL: Revealed 86-year-old female, pleasant, on high flow cannula, in no distress, a bit confused ENT: Jasmyne, EOMI, anicteric, no neck masses, positive JVD. EYES: Jasmyne, EOMI, nonicteric. PULMONARY: Symmetrical chest expansion, crackles at the bases. No rhonchi and no wheezes. CARDIOVASCULAR: There is a regular rate and rhythm without any murmurs gallops or rubs. ABDOMEN: Soft and nontender with normal bowel sounds. SKIN: Skin is clear with no lesions or rashes and otherwise unremarkable. NEUROLOGIC: Patient is awake, slightly confused, hard of hearing. MUSCULOSKELETAL: Normal extremities with adequate strength and full range of motion. No lower extremity swelling or edema. No calf tenderness. LYMPHATICS: No significant lymphadenopathy is noted Neurologic/PSYCHIATRIC: Normal mood, affect, slightly confused mental status and hard of hearing. Results - Laboratory Findings CBC and BMP: 09/30/21 09:38 09/30/21 09:38 PT/INR, D-dimer PT 15.4 sec (9.0-12.0) H 09/28/21 15:01 INR 1.5 (<1.2) H 09/28/21 15:01 D-Dimer 1.05 mg/L FEU (<0.60) H 09/28/21 16:16 Abnormal lab findings: Abnormal Labs 09/28/21 09/28/21 09/28/21 15:01 15:01 15:01 WBC 11.8 H Hgb MCHC 30.4 L RDW 19.2 H Neutrophils # 9.9 H Lymphocytes # 0.9 L PT 15.4 H INR 1.5 H D-Dimer Sodium 131 L Potassium 6.7 H* Carbon Dioxide 17 L BUN 43 H Creatinine 3.26 H Glucose Plasma Lactic Acid Harry Magnesium 3.0 H AST 39 H Troponin I Albumin 3.1 L HDL Cholesterol Procalcitonin 09/28/21 09/28/21 09/28/21 15:01 15:01 15:31 WBC Hgb MCHC RDW Neutrophils # Lymphocytes # PT INR D-Dimer Sodium Potassium 6.7 H* Carbon Dioxide BUN Creatinine Glucose Plasma Lactic Acid Harry 2.7 H* Magnesium AST Troponin I 0.543 H* Albumin HDL Cholesterol Procalcitonin 09/28/21 09/28/21 09/28/21 16:16 19:23 19:23 WBC Hgb MCHC RDW Neutrophils # Lymphocytes # PT INR D-Dimer 1.05 H Sodium Potassium Carbon Dioxide BUN Creatinine Glucose Plasma Lactic Acid Harry 2.9 H* Magnesium AST Troponin I 0.510 H* Albumin HDL Cholesterol Procalcitonin 09/28/21 09/28/21 09/28/21 21:10 21:10 21:21 WBC Hgb MCHC RDW Neutrophils # Lymphocytes # PT INR D-Dimer Sodium Potassium 6.1 H* Carbon Dioxide BUN Creatinine Glucose Plasma Lactic Acid Haryr 2.9 H* Magnesium AST Troponin I 0.540 H* Albumin HDL Cholesterol Procalcitonin 09/29/21 09/29/21 09/29/21 07:59 07:59 07:59 WBC Hgb 10.9 L MCHC 29.5 L RDW 18.6 H Neutrophils # Lymphocytes # 0.6 L PT INR D-Dimer Sodium 133 L Potassium 5.4 H Carbon Dioxide 21 L BUN 40 H Creatinine 3.06 H Glucose Plasma Lactic Acid Harry Magnesium AST Troponin I Albumin HDL Cholesterol 37.90 L Procalcitonin 0.23 H 09/30/21 09/30/21 09:38 09:38 WBC Hgb 10.7 L MCHC 29.6 L RDW 19.0 H Neutrophils # Lymphocytes # 0.6 L PT INR D-Dimer Sodium 133 L Potassium Carbon Dioxide 19 L BUN 34 H Creatinine 2.24 H Glucose 162 H Plasma Lactic Acid Harry Magnesium AST Troponin I Albumin HDL Cholesterol Procalcitonin - Diagnostic Findings CT scan - chest: image reviewed (CT of the chest is showing patchy bilateral airspace disease, consistent with congestive heart failure with pleural effusion, and some interstitial lung disease) Assessment and Plan Assessment: Impression: Acute on chronic hypoxic respiratory failure secondary to acute on chronic diastolic congestive heart failure and background of pulmonary fibrosis. Chronic interstitial lung disease Paroxysmal atrial fibrillation Severe pulmonary hypertension Chronic kidney disease stage III Type 2 diabetes Dyslipidemia Hypothyroidism History of spinal stenosis History of breast cancer and lumpectomy followed by radiation History of colonic polyps History of ulcerative colitis and some component of irritable bowel syndrome Osteoporosis Impaired hearing/deafness. Recommendation: Must diurese the patient and monitor her renal status. Continue cardiac meds. Make sure the patient is not on any amiodarone as may be a contributing and initial cause of her interstitial lung disease. Repeat chest x-ray after good course of diuresis. Continue antibiotics empirically although clinically I strongly doubt pneumonia but it is not entirely ruled out. We will continue to follow. Discussed and reviewed with her daughter the findings of the CT of the chest, Prognosis is definitely poor and guarded. We will continue to follow.
[2021-09-30] MEDS: DONEPEZIL 10 MG TAB PO SCH (20:38)
--- NOTE | 2021-09-30 21:00 | PN ---
PROGRESS NOTE DATE OF SERVICE: 09/30/2021 This 86-year-old woman who was admitted with severe hypotension, bradycardia, also had acute renal failure. The patient being closely monitored at this time. No chest pain. No palpitations. No fever. Patient is hypoxic also. Dr. Abraham saw the patient. The most recent chest x-ray which was evaluated personally by me showed some evidence of CHF as well. The patient also had chronic interstitial lung disease and background pulmonary fibrosis also. The patient has paroxysmal atrial fibrillation. Past medical history reviewed. REVIEW OF SYSTEMS: Could not be taken, the patient is mildly confused. CURRENT MEDICATIONS: Reviewed and include: Ventolin. Xanax, Eliquis, Tessalon Perles, vitamin B12, Aricept, Aricept, Lexapro. Doses reviewed. PHYSICAL EXAMINATION: The patient is alert and oriented times three. Pulse 98. Blood pressure 108/63, respiration 21, temperature 98.2, pulse ox 94% on 15 L. HEENT: Conjunctivae normal. Neck: No JVD. Cardiovascular: S1, S2 muffled. Respiration: Breath sounds diminished in the bases. A few scattered rhonchi and crackles. Abdomen: Soft, nontender. Legs: No edema. No swelling. Nervous system: No focal deficits. LABS: WBC 7.7, hemoglobin 10.2, sodium 133. Other labs are noted. ASSESSMENT: 1. Acute hypoxic respiratory failure with congestive heart failure acute exacerbation with acute on chronic diastolic dysfunction with acute hypoxic respiratory failure. 2. Severe hypotension, bradycardia, secondary to dehydration, acute renal failure secondary to acute diarrheal illness, present on admission. 3. Severe hypoxia and acute hypoxic respiratory failure, multifactorial, as mentioned earlier. 4. Chronic interstitial lung disease and idiopathic pulmonary fibrosis, as mentioned earlier. 5. Acute renal failure with acute tubular necrosis. 6. Severe hyperkalemia secondary to acute tubular necrosis, present on admission. 7. Elevated plasma lactic acid secondary to dehydration, renal failure, sepsis, present on admission. 8. Severe dementia. 9. Hypomagnesemia. 10.Increased AST. 11.Troponin 0.0543, possibly secondary to renal failure. Rule out acute non-ST- segment-elevation myocardial infarction, which is unlikely. 12.Elevated D-dimer. 13.Increased WBC. 14.History of atrial flutter fibrillation. 15.History of asthma. 16.History of hypertension. 17.Hyperlipidemia. 18.History of degenerative joint disease. 19.History of pneumonia. 20.History of vascular disorder. 21.History of pulmonary fibrosis. 22.Mitral valve prolapse history. 23.History of chronic kidney stage 3. 24.Carpal tunnel syndrome. 25.History of spinal stenosis. 26.History of varicose veins. 27.History of right breast cancer. 28.History of hiatal hernia. 29.History of irritable bowel syndrome. 30.History of ulcerative colitis. 31.History of cholecystectomy. 32.History of cardiac catheterization. 33.History of breast lumpectomy. 34.NO CODE, NO CPR, NO VENT. RECOMMENDATIONS AND DISCUSSION: Continue current medications, management, symptomatic treatment, and repeat labs. Otherwise, at this time, I recommend continue with current medications. The patient is on a small dose of IV diuretics. We will definitely continue the empiric antibiotics also that have been given. Prognosis guarded. Patient is NO CODE. Further recommendations to follow. See orders for details. MMODL / IJN: [id number] /
[2021-10-01] MEDS: ALBUTEROL NEBULIZED 2.5 MG/3 ML INHALATION PRN ×4 (03:56→15:11)
[2021-10-01] MEDS: LEVOTHYROXINE 50 MCG TAB PO SCH (06:38)
[2021-10-01 06:55] LABS: Anisocytosis Slight; Basophils % (A) 0 %; Eosinophils # (A) 0.1 k/uL (0-0.7); Eosinophils % (A) 1 %; HCT 36.1 % (34.0-46.0); HGB 10.5 gm/dL (11.4-16.0); Hypochromasia Marked; Lymphocytes # (A) 0.6 k/uL (1.0-4.8); Lymphocytes % (A) 7 %; MCHC 29.1 g/dL (31.0-37.0); MCV 85.9 fL (80.0-100.0); Mean Platelet Volume 8.3; Monocytes # (A) 0.5 k/uL (0-1.0); Monocytes % (A) 6 %; Neutrophils # (A) 6.5 k/uL (1.3-7.7); Neutrophils % (A) 83 %; Platelet Count 200 k/uL (150-450); Poikilocytosis Slight; RDW 18.9 % (11.5-15.5); WBC 7.8 k/uL (3.8-10.6)
[2021-10-01 07:10] LABS: Calcium 8.9 mg/dL (8.4-10.2); Potassium 4.1 mmol/L (3.5-5.1)
[2021-10-01] MEDS: FUROSEMIDE 10 MG/ML 2 ML VIAL IV SCH ×2 (07:22→20:33)
[2021-10-01] MEDS: METOPROLOL TARTRATE 25 MG TAB PO SCH ×3 (07:23→20:32)
[2021-10-01] MEDS: CYANOCOBALAMIN 500 MCG TAB PO SCH (07:23)
[2021-10-01] MEDS: metroNIDAZOLE-NS PMX 500 MG in SALINE 1 100ML.BAG IVPB SCH ×2 (07:23→20:33)
[2021-10-01] MEDS: SODIUM BICARBONATE TAB 650 MG TAB PO SCH ×2 (07:23→20:32)
[2021-10-01] MEDS: APIXABAN 2.5 MG TABLET PO SCH ×2 (07:23→20:32)
[2021-10-01] MEDS: MAGNESIUM OXIDE 400 MG TAB PO SCH ×2 (07:23→20:32)
[2021-10-01] MEDS: ESCITALOPRAM 5 MG TAB PO SCH (07:28)
[2021-10-01] MEDS: LEVOFLOXACIN 250MG-D5W PMX 250 MG in DEXTROSE/WATER 1 50ML.BAG IVPB SCH (08:23)
--- NOTE | 2021-10-01 11:40 | P.PN ---
Subjective This is a 86-year-old female with a past medical history of chronic atrial fibrillation (on Eliquis), chronic kidney disease, hypothyroidism, hypertension, pulmonary fibrosis, pulmonary hypertension, dyslipidemia, type 2 diabetes. She follows in the office with Dr. Caldwell. We are consultation for bradycardia, hypotension, pulmonary edema. Patient presents emergency department with complaints of feeling weak and tired and found to be hypotensive. She was also having episodes of diarrhea, decreased by mouth intake and found to have acute kidney injury and hyperkalemia. She had troponin 0.54, 0.51, 0.54. Echocardiogram 12/2020 revealed EF of 5055% Mild to moderate aortic regurgitation, moderate mitral regurgitation, severe tricuspid regurgitation, severe pulmonary hypertension. 10/01/21 Patient seen and examined at bedside, no acute distress. Denies any chest pain. She continues to be short of breath. She is requirin Bipap Labs reviewed, sodium 135, potassium 4.1, BUN 31, serum creatinine 1.9, proBNP 11,300. She is currently maintained on Eliquis 2.5 mg twice a day, IV Lasix 20 mg twice a day, metoprolol tartrate 25 mg 3 times a day. Telemetry reviewed patient atrial fibrillation with controlled ventricular rates. No bradycardia noted. 900mL output over the past 24 hours. Blood pressure 103/70, heart rate 100, afebrile Requiring BiPAP GENERAL: Short of breath NECK: Supple +JVD LUNGS: Breath sounds bilateral rhonci to auscultation bilaterally. Respiration equal and unlabored. No wheezes, rales or rhonchi. HEART: Irregular rate and rhythm. Systolic ejection murmur. S1 and S2 heard. EXTREMITIES: Normal range of motion, no edema. No clubbing or cyanosis. Peripheral pulses intact. ASSESSMENT Chronic atrial fibrillation, on Eliquis Acute on chronic hypoxic respiratory failure secondary to acute on chronic diastolic congestive heart failure Elevated troponin, likely due to supply and demand mismatch and acute renal failure Pulmonary fibrosis Chronic interstitial lung disease Acute on chronic kidney disease, sCr is improving Type 2 diabetes Hypothyroidism Dyslipidemia History of hypertension History of breast cancer and lumpectomy followed by radiation Hyperkalemia, resolved PLAN Continue IV lasix 20mg BID Monitor I/Os, daily weights Monitor renal function and electrolytes Continue Eliquis Continue metoprolol tartrate Further recommendations based on clinical course Objective - Vital Signs Vital signs: Vital Signs Temp 97.5 F L 11/22/21 07:25 Pulse 100 10/01/21 11:25 Resp 18 10/01/21 07:35 BP 103/70 10/01/21 07:25 Pulse Ox 93 L 10/01/21 07:33 Intake & Output 09/30/21 10/01/21 10/01/21 18:59 06:59 18:59 Intake Total 236 Output Total 900 Balance 236 -900 Weight 78 kg Intake: Oral 236 Output: Urine 900 Other: Voiding Method Diaper Diaper Indwelling Catheter # Voids 1 # Bowel Movements 4 - Labs CBC & Chem 7: 10/01/21 06:40 10/01/21 06:40 Labs: Abnormal Lab Results - Last 24 Hours (Table) 10/01/21 10/01/21 Range/Units 06:40 06:40 Hgb 10.5 L (11.4-16.0) gm/dL MCHC 29.1 L (31.0-37.0) g/dL RDW 18.9 H (11.5-15.5) % Lymphocytes # 0.6 L (1.0-4.8) k/uL Sodium 135 L (137-145) mmol/L BUN 31 H (7-17) mg/dL Creatinine 1.93 H (0.52-1.04) mg/dL
--- NOTE | 2021-10-01 12:02 | P.PN ---
Subjective Patient is seen in follow-up for acute kidney injury on chronic kidney disease. Renal function is improving. She is on 15 L high flow cannula. On IV Lasix. Has a Dennison catheter. Urine output bloody. Vital signs are stable. General: On high flow cannula. HEENT: Head exam is unremarkable. LUNGS: Breath sounds decreased. HEART: Rate and Rhythm are regular. ABDOMEN: Soft, no distention. EXTREMITITES: Trace edema. Objective - Vital Signs Vital signs: Vital Signs Temp 97.8 F 10/01/21 11:30 Pulse 91 10/01/21 11:30 Resp 25 H 10/01/21 11:30 BP 100/60 10/01/21 11:30 Pulse Ox 90 L 10/01/21 11:30 Intake & Output 09/30/21 10/01/21 10/01/21 18:59 06:59 18:59 Intake Total 236 Output Total 900 Balance 236 -900 Weight 78 kg Intake: Oral 236 Output: Urine 900 Other: Voiding Method Diaper Diaper Indwelling Catheter # Voids 1 # Bowel Movements 4 - Labs CBC & Chem 7: 10/01/21 06:40 10/01/21 06:40 Labs: Abnormal Lab Results - Last 24 Hours (Table) 10/01/21 10/01/21 Range/Units 06:40 06:40 Hgb 10.5 L (11.4-16.0) gm/dL MCHC 29.1 L (31.0-37.0) g/dL RDW 18.9 H (11.5-15.5) % Lymphocytes # 0.6 L (1.0-4.8) k/uL Sodium 135 L (137-145) mmol/L BUN 31 H (7-17) mg/dL Creatinine 1.93 H (0.52-1.04) mg/dL Assessment and Plan Plan: Assessment: 1. Acute kidney injury mostly prerenal secondary to cardiorenal syndrome. Creatinine 1.93 today. UA benign. 2. Chronic kidney disease stage III with baseline creatinine in the range of 1.2-1.4 secondary to nephrosclerosis. 3. Acute on chronic diastolic CHF with severe tricuspid regurgitation, pulmonary hypertension and moderate mitral regurgitation. 4. Chronic A. fib on anticoagulation. 5. History of pulmonary fibrosis. 6. Acute hypoxic respiratory failure. 7. Metabolic acidosis secondary to acute kidney injury maintained on oral bicarb. Better. Plan: Maintain IV Lasix. Avoid nephrotoxins. Continue to monitor renal function and urine output. Gross hematuria likely traumatic from Dennison catheter. Consider urology consult if not better.
--- NOTE | 2021-10-01 13:37 | P.PN ---
Subjective Progress Note Date: 10/01/21 Principal diagnosis: Bradycardia. This is an 86-year-old female with history of multiple medical problems including interstitial lung disease/pulmonary fibrosis, sees Dr. Umanzor on outpatient basis for her pulmonary fibrosis. Known history of chronic atrial fibrillation/flutter asthma, GERD, history of cardiac ablation, and underlying dementia. Patient was admitted back on 09/27/21, mostly with symptoms of diarrhea for several days. Patient was quite confused apparently on presentation, she was also hypotensive, bradycardic, she even required atropine for her bradycardia, and she went into a normal sinus rhythm. Patient has been seen by many consultants since admission including cardiology, nephrology, and I was asked to see her because of her abnormal chest x-ray. I actually reviewed her chest x-ray and CT of the chest, patient has interstitial lung disease, congestive heart failure with right-sided pleural effusion, she may or may not have pneumonia, her pro calcitonin is slightly elevated, however her BNP level is over 11,000. Patient did receive Lasix given to her by the windows infrastructure engineer, and follow-up chest x-ray showed definite improvement compared to the initial chest x-ray on admission. Hence I am recommending more diuretics on this patient, and we'll recommend repeat chest x-ray in the next 24-48 hours. Patient is presently in bed, requiring 15 L high flow cannula, O2 saturations 90%, but she does not seem to be in distress. After evaluating the patient, I recommended diuretics. And I was able to discussed and reviewed with the patient and her family the chest x-ray finding since admission and a follow-up chest x-ray as well as the CT of the chest. Progress note dated 10/01/2021. 86-year-old female, with multiple medical problems including pulmonary fibrosis for which she sees my partner. She also has a history of dementia, gas troesophageal reflux disease, atrial fibrillation status post ablation, among other things. Currently, the patient is doing poorly. She is on BiPAP, with settings of 15/6 and 80%. She's not receiving any IV fluids. She is a DO NOT RESUSCITATE. Her daughters in the room with her. She resides normally at the [facility]. The patient is very poorly responsive. She seemed to be tolerating the BiPAP though, reasonably well. White count 7.8, hemoglobin 10.5, hematocrit 36.1, and platelet count 200,000. Sodium 135, potassium 4.1, chlorides 106, CO2 23, anion gap 6, BUN 31, creatinine 1.93. UA was negative. Chest x-ray and CAT scans are reviewed. They're consistent with underlying interstitial lung disease, heart failure, and right-sided pleural effusion. Objective - Vital Signs Vital signs: Vital Signs Temp 97.8 F 10/01/21 11:30 Pulse 91 10/01/21 11:30 Resp 25 H 10/01/21 11:30 BP 100/60 10/01/21 11:30 Pulse Ox 90 L 10/01/21 11:30 Intake & Output 09/30/21 10/01/21 10/01/21 18:59 06:59 18:59 Intake Total 236 Output Total 900 Balance 236 -900 Weight 78 kg Intake: Oral 236 Output: Urine 900 Other: Voiding Method Diaper Diaper Indwelling Catheter # Voids 1 # Bowel Movements 4 - Exam No acute distress, poorly responsive, with BiPAP mask in place. HEENT examination is grossly unremarkable. Neck supple. Full range of motion. No adenopathy thyromegaly or neck vein dis tention. Cardiovascular examination reveals regular rhythm rate. S1-S2 normal. No S3 or S4. No discernible murmur noted. Heart sounds are distant. Heart rate is 91 bpm. Lungs reveal coarse bilateral rhonchi, and crackles. Breath sounds equal. No wheezes. She does not take deep breaths. Abdomen soft bowel sounds are heard. No masses or tenderness. Extremities are intact. No cyanosis clubbing or edema. Skin is without rash or lesion. Multiple areas of ecchymoses are noted. Neurologic examination is difficult to assess as the patient's quite lethargic and somnolent. - Labs CBC & Chem 7: 10/01/21 06:40 10/01/21 06:40 Labs: Abnormal Lab Results - Last 24 Hours (Table) 10/01/21 10/01/21 Range/Units 06:40 06:40 Hgb 10.5 L (11.4-16.0) gm/dL MCHC 29.1 L (31.0-37.0) g/dL RDW 18.9 H (11.5-15.5) % Lymphocytes # 0.6 L (1.0-4.8) k/uL Sodium 135 L (137-145) mmol/L BUN 31 H (7-17) mg/dL Creatinine 1.93 H (0.52-1.04) mg/dL Assessment and Plan Assessment: Acute on chronic hypoxemic respiratory failure, secondary to acute diastolic heart failure, and chronic pulmonary fibrosis/interstitial lung disease. Chronic interstitial lung disease. Paroxysmal atrial fibrillation. Chronic hypoxemic respiratory failure, on home O2 at 3 L. Severe pulmonary hypertension. Stage III chronic kidney disease. Type 2 diabetes mellitus. History of hyperlipidemia. Hypothyroidism by history. Spinal stenosis. Breast cancer, status post lumpectomy followed by radiation. History of colonic polyps. History of ulcerative colitis. Osteoporosis. Impaired hearing. Plan: Plan dated 10/01/2021. I confirmed with the daughter, the patient would not want to be intubated or mechanically ventilated. I believe they're leaning towards comfort measures or palliative care. Currently, she remains on BiPAP with settings of IPAP 15, EPAP 6, and 80% FiO2. The patient is not receiving any IV fluids. She is very lethargic and somnolent. Additional recommendations and suggestions are forthcoming. I will continue to follow along with other doctors, and make recommendations were appropriate. Time with Patient: Less than 30
[2021-10-01] MEDS ORDERED: IPRATROPIUM-ALBUTEROL 3 ML NEB INHALATION PRN (15:18)
--- NOTE | 2021-10-01 16:51 | PN ---
PROGRESS NOTE DATE OF SERVICE: 10/01/2021 HISTORY OF PRESENT ILLNESS: This 86-year-old woman who was admitted with shortness of breath with acute hypoxic respiratory which is multifactorial was severely sick on the day of admission, but subsequently with intensive treatment patient made some improvement. Patient is confused. Last night the patient has taken a turn for the worse. Patient is severely hypoxic despite BiPAP and the family is also at the bedside. I had a detailed discussion with the family regarding the code status and the patient being closely monitored at this time. The patient had severe underlying pulmonary fibrosis as well. PAST MEDICAL HISTORY: Reviewed. REVIEW OF SYMPTOMS: Could not be taken because of above mentioned reasons. CURRENT MEDICATIONS: Reviewed and include: Xanax, Eliquis, Tessalon Perles, Aricept, Lasix, Levaquin, Flagyl. PHYSICAL EXAMINATION: Patient is alert, oriented x3. Pulse 91, blood pressure 100/60, respiration 24, temperature 97.8, pulse ox 98% on 15 L. HEENT: Conjunctivae normal. Neck: No JVD. Cardiovascular: S1, S2 muffled. Respiratory: Breath sounds diminished in the bases. A few scattered rhonchi. Expiratory wheezing. Abdomen: Soft. Nontender. Legs: No edema. No swelling. Nervous system: No focal deficits. LAB: Hemoglobin 10.4, sodium 130, potassium 4.1. Creatinine is 1.93. ASSESSMENT: 1. Acute hypoxic respiratory failure with congestive heart failure acute exacerbation with acute on chronic diastolic dysfunction with acute hypoxic respiratory failure. 2. Severe hypotension, bradycardia secondary to dehydration, acute renal failure secondary to acute diarrheal illness, present on admission. 3. Severe hypoxia and acute hypoxic respiratory failure, multifactorial, as mentioned above. 4. Chronic interstitial lung disease and pulmonary fibrosis on admission. 5. Elevated plasma lactic acid secondary to dehydration, renal failure, sepsis, present on admission. 6. Severe dementia. 7. Hypomagnesemia. 8. Increased AST. 9. Troponin 0.543 possibly secondary to renal failure. Rule out acute [id number]- elevation myocardial infarction, which is unlikely. 10.Elevated D-dimer. 11.Increased WBC. 12.History of atrial fibrillation paroxysmal. 13.History of asthma. 14.Hypertension. 15.Hyperlipidemia. 16.History of degenerative joint disease. 17.History of pneumonia. 18.History of vascular disorder. 19.History of pulmonary fibrosis. 20.History of mitral valve prolapse. 21.History of chronic kidney stage 3. 22.Carpal tunnel syndrome. 23.History of spinal stenosis. 24.History of varicose veins. 25.History of right breast cancer. 26.History of hiatal hernia. 27.History of irritable bowel syndrome. 28.History of ulcerative colitis. 29.History of cholecystectomy. 30.History of cardiac catheterization. 31.History of breast lumpectomy. 32.NO CODE, NO CPR. RECOMMENDATIONS AND DISCUSSION: I recommend to continue current medications, symptomatic treatment. We will add bronchodilators and empiric steroids also. Prognosis is extremely guarded. I had a detailed discussion with the family at this time. The patient is NO CODE. The family also expressed wishes to consider hospice care at this time because of the rapid worsening of the patient and further recommendations to follow. The creatinine is improving at this time. TARA / CANDY: [id number] / MTDD
[2021-10-01] MEDS: methylPREDNISolone SOD SUCCI 125 MG/2 ML VIAL IV SCH ×3 (18:48→23:43)
[2021-10-01] MEDS: DONEPEZIL 10 MG TAB PO SCH (20:32)
[2021-10-01] MEDS: IPRATROPIUM-ALBUTEROL 3 ML NEB INHALATION SCH (21:16)
[2021-10-02] MEDS: LEVOTHYROXINE 50 MCG TAB PO SCH (06:43)
[2021-10-02] MEDS: methylPREDNISolone SOD SUCCI 125 MG/2 ML VIAL IV SCH ×4 (06:43→23:10)
[2021-10-02] MEDS: IPRATROPIUM-ALBUTEROL 3 ML NEB INHALATION SCH ×3 (07:19→19:30)
[2021-10-02 08:05] LABS: Anisocytosis Slight; HCT 36.1 % (34.0-46.0); HGB 10.9 gm/dL (11.4-16.0); Hypochromasia Marked; MCH 25.4 pg (25.0-35.0); MCHC 30.1 g/dL (31.0-37.0); MCV 84.5 fL (80.0-100.0); Mean Platelet Volume 7.5; Platelet Count 202 k/uL (150-450); Poikilocytosis Slight; RBC 4.27 m/uL (3.80-5.40); RDW 19.3 % (11.5-15.5); WBC 4.8 k/uL (3.8-10.6)
[2021-10-02 08:19] LABS: Calcium 8.9 mg/dL (8.4-10.2); Magnesium 2.1 mg/dL (1.6-2.3); Potassium 4.4 mmol/L (3.5-5.1)
[2021-10-02] MEDS: SODIUM BICARBONATE TAB 650 MG TAB PO SCH ×2 (08:45→20:34)
[2021-10-02] MEDS: metroNIDAZOLE-NS PMX 500 MG in SALINE 1 100ML.BAG IVPB SCH (08:45)
[2021-10-02] MEDS: METOPROLOL TARTRATE 25 MG TAB PO SCH ×3 (08:45→20:35)
[2021-10-02] MEDS: APIXABAN 2.5 MG TABLET PO SCH ×2 (08:45→20:34)
[2021-10-02] MEDS: MAGNESIUM OXIDE 400 MG TAB PO SCH ×2 (08:45→20:34)
[2021-10-02] MEDS: FUROSEMIDE 10 MG/ML 2 ML VIAL IV SCH (08:45)
[2021-10-02] MEDS: ESCITALOPRAM 5 MG TAB PO SCH (08:45)
[2021-10-02] MEDS: CYANOCOBALAMIN 500 MCG TAB PO SCH (08:45)
[2021-10-02] MEDS: LEVOFLOXACIN 250MG-D5W PMX 250 MG in DEXTROSE/WATER 1 50ML.BAG IVPB SCH (08:46)
--- NOTE | 2021-10-02 09:39 | P.PN ---
Subjective Patient is seen in follow-up for acute kidney injury on chronic kidney disease. Renal function is improving. Remains on high flow oxygen. On IV Lasix. Has a Dennison catheter. Urine output documented is 900 mL in the last 24 hours. Vital signs are stable. General: On high flow cannula. HEENT: Head exam is unremarkable. LUNGS: Breath sounds decreased. HEART: Rate and Rhythm are regular. ABDOMEN: Soft, no distention. EXTREMITITES: Trace edema. Objective - Vital Signs Vital signs: Vital Signs Temp 98 F 10/02/21 04:00 Pulse 91 10/02/21 07:29 Resp 23 10/02/21 04:00 BP 104/61 10/02/21 04:00 Pulse Ox 96 10/02/21 04:00 Intake & Output 10/01/21 10/02/21 10/02/21 18:59 06:59 18:59 Output Total 500 Balance -500 Weight 79.5 kg Output: Urine 500 Other: Voiding Method Indwelling Catheter Indwelling Catheter - Labs CBC & Chem 7: 10/02/21 07:03 10/02/21 07:03 Labs: Abnormal Lab Results - Last 24 Hours (Table) 10/02/21 10/02/21 Range/Units 07:03 07:03 Hgb 10.9 L (11.4-16.0) gm/dL MCHC 30.1 L (31.0-37.0) g/dL RDW 19.3 H (11.5-15.5) % Sodium 134 L (137-145) mmol/L BUN 32 H (7-17) mg/dL Creatinine 1.66 H (0.52-1.04) mg/dL Glucose 148 H (74-99) mg/dL Assessment and Plan Plan: Assessment: 1. Acute kidney injury mostly prerenal secondary to cardiorenal syndrome. Creatinine 1.66 today. UA benign. 2. Chronic kidney disease stage III with baseline creatinine in the range of 1.2-1.4 secondary to nephrosclerosis. 3. Acute on chronic diastolic CHF with severe tricuspid regurgitation, pulmonary hypertension and moderate mitral regurgitation. 4. Chronic A. fib on anticoagulation. 5. History of pulmonary fibrosis. 6. Acute hypoxic respiratory failure. 7. Metabolic acidosis secondary to acute kidney injury maintained on oral bicarb. Plan: Increase Lasix to 40 mg IV twice daily. Repeat chest x-ray. Avoid nephrotoxins. Continue to monitor renal function and urine output.
--- NOTE | 2021-10-02 10:04 | XR ---
EXAMINATION TYPE: XR chest 1V DATE OF EXAM: 10/02/2021 HISTORY: Shortness of breath. COMPARISON: 09/30/2021 TECHNIQUE: Single view of the chest is submitted. FINDINGS: Demonstrated are scattered senescent parenchymal change. Reticulonodular infiltrates throughout both lung rich compatible with Covid 19 pneumonia. No signif icant change appreciated. The heart is stable. Hilar and mediastinal structures are within normal limits. Degenerative changes are seen of the dorsal spine. IMPRESSION: 1. Stable chest
[2021-10-02 11:15] LABS: Lymphocytes # (M) 0.05 k/uL (1.0-4.8); Neutrophils # (M) 4.66 k/uL (1.3-7.7); Neutrophils % (M) 97 %; Nucleated Red Blood Cells 0 /100 WBC (0-0); Total Cells Counted 100
--- NOTE | 2021-10-02 13:42 | P.PN ---
Subjective This is a 86-year-old female with a past medical history of chronic atrial fibrillation (on Eliquis), chronic kidney disease, hypothyroidism, hypertension, pulmonary fibrosis, pulmonary hypertension, dyslipidemia, type 2 diabetes. She follows in the office with Dr. Caldwell. We are consultation for bradycardia, hypotension, pulmonary edema. Patient presents emergency department with complaints of feeling weak and tired and found to be hypotensive. She was also having episodes of diarrhea, decreased by mouth intake and found to have acute kidney injury and hyperkalemia. She had troponin 0.54, 0.51, 0.54. Echocardiogram 12/2020 revealed EF of 5055% Mild to moderate aortic regurgitation, moderate mitral regurgitation, severe tricuspid regurgitation, severe pulmonary hypertension. 10/02/21 Patient seen and examined at bedside, she is short of breath, still requiring Bipap. Denies any chest pain. Labs reviewed, sodium 134, potassium 4.4, BUN 32, serum creatinine 1.6, magnesium 2.1.. She is currently maintained on Eliquis 2.5 mg twice a day, IV Lasix 20 mg twice a day, metoprolol tartrate 25 mg 3 times a day. Telemetry reviewed patient atrial fibrillation with controlled ventricular rates. No bradycardia noted. 500mL output over the past 24 hours. Blood pressure 116/70, heart rate 88, afebrile Requiring BiPAP GENERAL: Short of breath NECK: Supple , mild JVD LUNGS: Breath sounds bilateral rhonci to auscultation bilaterally. Respiration equal and unlabored. No wheezes, rales or rhonchi. HEART: Irregular rate and rhythm. Systolic ejection murmur. S1 and S2 heard. EXTREMITIES: Normal range of motion, no edema. No clubbing or cyanosis. Peripheral pulses intact. ASSESSMENT Chronic atrial fibrillation, on Eliquis Acute on chronic hypoxic respiratory failure secondary to acute on chronic diastolic congestive heart failure Elevated troponin, likely due to supply and demand mismatch and acute renal failure Pulmonary fibrosis Chronic interstitial lung disease Acute on chronic kidney disease, sCr is improving Type 2 diabetes Hypothyroidism Dyslipidemia History of hypertension History of breast cancer and lumpectomy followed by radiation Hyperkalemia, resolved PLAN Nephrology increased IV Lasix 40mg BID Monitor I/Os, daily weights Monitor renal function and electrolytes Continue Eliquis Continue metoprolol tartrate Further recommendations based on clinical course Objective - Vital Signs Vital signs: Vital Signs Temp 97.6 F 10/02/21 11:48 Pulse 92 10/02/21 13:08 Resp 25 H 10/02/21 11:48 BP 116/70 10/02/21 11:48 Pulse Ox 91 L 10/02/21 11:48 Intake & Output 10/01/21 10/02/21 10/02/21 18:59 06:59 18:59 Output Total 500 Balance -500 Weight 79.5 kg Output: Urine 500 Other: Voiding Method Indwelling Catheter Indwelling Catheter Indwelling Catheter - Labs CBC & Chem 7: 10/02/21 07:03 10/02/21 07:03 Labs: Abnormal Lab Results - Last 24 Hours (Table) 10/02/21 10/02/21 Range/Units 07:03 07:03 Hgb 10.9 L (11.4-16.0) gm/dL MCHC 30.1 L (31.0-37.0) g/dL RDW 19.3 H (11.5-15.5) % Lymphocytes # (Manual) 0.05 L (1.0-4.8) k/uL Sodium 134 L (137-145) mmol/L BUN 32 H (7-17) mg/dL Creatinine 1.66 H (0.52-1.04) mg/dL Glucose 148 H (74-99) mg/dL
--- NOTE | 2021-10-02 14:14 | P.PN ---
Subjective Progress Note Date: 10/02/21 Principal diagnosis: Bradycardia. This is an 86-year-old female with history of multiple medical problems including interstitial lung disease/pulmonary fibrosis, sees Dr. Umanzor on outpatient basis for her pulmonary fibrosis. Known history of chronic atrial fibrillation/flutter asthma, GERD, history of cardiac ablation, and underlying dementia. Patient was admitted back on 09/27/21, mostly with symptoms of diarrhea for several days. Patient was quite confused apparently on presentation, she was also hypotensive, bradycardic, she even required atropine for her bradycardia, and she went into a normal sinus rhythm. Patient has been seen by many consultants since admission including cardiology, nephrology, and I was asked to see her because of her abnormal chest x-ray. I actually reviewed her chest x-ray and CT of the chest, patient has interstitial lung disease, congestive heart failure with right-sided pleural effusion, she may or may not have pneumonia, her pro calcitonin is slightly elevated, however her BNP level is over 11,000. Patient did receive Lasix given to her by the treasury agent, and follow-up chest x-ray showed definite improvement compared to the initial chest x-ray on admission. Hence I am recommending more diuretics on this patient, and we'll recommend repeat chest x-ray in the next 24-48 hours. Patient is presently in bed, requiring 15 L high flow cannula, O2 saturations 90%, but she does not seem to be in distress. After evaluating the patient, I recommended diuretics. And I was able to discussed and reviewed with the patient and her family the chest x-ray finding since admission and a follow-up chest x-ray as well as the CT of the chest. Progress note dated 10/01/2021. 86-year-old female, with multiple medical problems including pulmonary fibrosis for which she sees my partner. She also has a history of dementia, gas troesophageal reflux disease, atrial fibrillation status post ablation, among other things. Currently, the patient is doing poorly. She is on BiPAP, with settings of 15/6 and 80%. She's not receiving any IV fluids. She is a DO NOT RESUSCITATE. Her daughters in the room with her. She resides normally at the [facility]. The patient is very poorly responsive. She seemed to be tolerating the BiPAP though, reasonably well. White count 7.8, hemoglobin 10.5, hematocrit 36.1, and platelet count 200,000. Sodium 135, potassium 4.1, chlorides 106, CO2 23, anion gap 6, BUN 31, creatinine 1.93. UA was negative. Chest x-ray and CAT scans are reviewed. They're consistent with underlying interstitial lung disease, heart failure, and right-sided pleural effusion. Progress note dated 10/02/2021. 86-year-old female with a history of multiple medical problems including pulmonary fibrosis. She also has a history of dementia, GERD, and atrial fibrillation. The patient remains on BiPAP, with settings of 15/6 and 80%. She's been seen by cardiology and nephrology today. The Lasix was increased by nephrology. The patient appears to be relatively comfortable. She is a DO NOT RESUSCITATE patient. I confirmed that yesterday with the daughter. Saturations are 91-92%. Blood pressure 116/70. White count 4.8, hemoglobin 10.9, hematocrit 36.1, and platelet count 202,000. Sodium 134, potassium 4.4, chlorides 104, CO2 23, anion gap 7, BUN 32, and creatinine 1.66. Chest x-ray from today is essentially unchanged. Objective - Vital Signs Vital signs: Vital Signs Temp 97.6 F 10/02/21 11:48 Pulse 92 10/02/21 13:08 Resp 25 H 10/02/21 11:48 BP 116/70 10/02/21 11:48 Pulse Ox 91 L 10/02/21 11:48 Intake & Output 10/01/21 10/02/21 10/02/21 18:59 06:59 18:59 Output Total 500 Balance -500 Weight 79.5 kg Output: Urine 500 Other: Voiding Method Indwelling Catheter Indwelling Catheter Indwelling Catheter - Exam No acute distress, poorly responsive, with BiPAP mask in place. Patient is a bit lethargic. HEENT examination is grossly unremarkable. Neck supple. Full range of motion. No adenopathy thyromegaly or neck vein distention. Cardiovascular examination reveals regular rhythm rate. S1-S2 normal. No S3 or S4. No discernible murmur noted. Heart sounds are distant. Heart rate is 93 bpm. Lungs reveal coarse bilateral rhonchi, and crackles. Breath sounds equal. No wheezes. She does not take deep breaths. Abdomen soft bowel sounds are heard. No masses or tenderness. Extremities are intact. No cyanosis clubbing or edema. Skin is without rash or lesion. Multiple areas of ecchymoses are noted. Neurologic examination is difficult to assess as the patient's quite lethargic and somnolent. - Labs CBC & Chem 7: 10/02/21 07:03 10/02/21 07:03 Labs: Abnormal Lab Results - Last 24 Hours (Table) 10/02/21 10/02/21 Range/Units 07:03 07:03 Hgb 10.9 L (11.4-16.0) gm/dL MCHC 30.1 L (31.0-37.0) g/dL RDW 19.3 H (11.5-15.5) % Lymphocytes # (Manual) 0.05 L (1.0-4.8) k/uL Sodium 134 L (137-145) mmol/L BUN 32 H (7-17) mg/dL Creatinine 1.66 H (0.52-1.04) mg/dL Glucose 148 H (74-99) mg/dL Assessment and Plan Assessment: Acute on chronic hypoxemic respiratory failure, secondary to acute diastolic heart failure, and chronic pulmonary fibrosis/interstitial lung disease. Chronic interstitial lung disease. Paroxysmal atrial fibrillation. Chronic hypoxemic respiratory failure, on home O2 at 3 L. Severe pulmonary hypertension. Stage III chronic kidney disease. Type 2 diabetes mellitus. History of hyperlipidemia. Hypothyroidism by history. Spinal stenosis. Breast cancer, status post lumpectomy followed by radiation. History of colonic polyps. History of ulcerative colitis. Osteoporosis. Impaired hearing. Plan: Plan dated 10/01/2021. I confirmed with the daughter, the patient would not want to be intubated or mechanically ventilated. I believe they're leaning towards comfort measures or palliative care. Currently, she remains on BiPAP with settings of IPAP 15, EPAP 6, and 80% FiO2. The patient is not receiving any IV fluids. She is very lethargic and somnolent. Additional recommendations and suggestions are forthcoming. I will continue to follow along with other doctors, and make recommendations were appropriate. Plan dated 10/02/2021. The patient is doing about the same today she was yesterday. She remains on BiPAP. Her saturations are in the low 90s. Nephrology increase the patient's Lasix. The patient is not receiving any IV fluids. She has been seen by both nephrology and cardiology. Overall prognosis remains poor. We will continue to follow and make recommendations where appropriate. Labs and medications are reviewed. Time with Patient: Less than 30
--- NOTE | 2021-10-02 19:07 | PN ---
PROGRESS NOTE DATE OF SERVICE: 10/02/2021 This 86-year-old woman who was admitted with acute hypoxic respiratory failure with CHF, acute exacerbation, acute on chronic diastolic dysfunction, and acute hypoxic respiratory failure also had severe hypotension. The patient also had bradycardia. The patient is on BiPAP at this time. With the BiPAP, pulse ox improved, but once the BiPAP was removed, the pulse ox dropped to 70. We had a detailed discussion with the family on multiple occasions and the family would like to explore palliative care versus hospice. The patient is being closely monitored. Multiple consultants are following the patient closely. The most recent chest x-ray which was reviewed personally by me showed significant bilateral lesions also. Past medical reviewed. Review of systems could not be taken because the patient is on BiPAP. CURRENT MEDICATIONS: Reviewed. They include Ventolin, DuoNeb, Tessalon, vitamin B12, Aricept, Lexapro, Lasix, Levaquin, Synthroid. Other medications noted. PHYSICAL EXAMINATION: Patient is conscious but confused. Patient is on BiPAP. Pulse 79, blood pressure 127/70, respiration 27, temperature 97.4, pulse ox 85% on BiPAP. HEENT: Conjunctivae normal. NECK: No jugular venous distention. CARDIOVASCULAR: S1, S2 muffled. RESPIRATION: Breath sounds diminished at the bases. Bilateral scattered rhonchi and crackles. ABDOMEN: Soft, nontender. NERVOUS SYSTEM: No focal deficit. LABS: WBC 4.8, hemoglobin is 10.9. Sodium 134, potassium 4.4. Creatinine is 1.66. ASSESSMENT: 1. Acute hypoxic respiratory failure with CHF, acute exacerbation, with acute on chronic diastolic dysfunction with acute hypoxic respiratory failure. 2. Severe hypotension and bradycardia, possibly secondary to dehydration, acute renal failure secondary to acute diarrheal illness, present on admission. 3. Severe hypoxia and acute hypoxic respiratory failure, multifactorial, as mentioned above. 4. Chronic interstitial lung disease and idiopathic pulmonary fibrosis on admission. 5. Elevated plasma lactic acid secondary to dehydration, renal failure, sepsis, present on admission. 6. Severe dementia. 7. Hypomagnesemia. 8. Increased AST. 9. Troponin 0.543, possibly secondary to renal failure. 10.Rule out acute mtp-CP-fmnizwf-elevation myocardial infarction, which is unlikely. 11.Elevated D-dimer. 12.Increased white count. 13.History of atrial fibrillation, paroxysmal. 14.History of asthma. 15.Hypertension. 16.Hyperlipidemia. 17.History of degenerative joint disease. 18.History of pneumonia. 19.History of vascular disorder. 20.History of pulmonary fibrosis. 21.History of mitral valve prolapse. 22.History of chronic kidney disease, stage 3. 23.Carpal tunnel syndrome. 24.History of spinal stenosis. 25.History of varicose veins. 26.Right breast cancer. 27.History of hiatal hernia. 28.History of irritable bowel syndrome. 29.History of ulcerative colitis. 30.History of cholecystectomy. 31.History of cardiac catheterization. 32.History of breast lumpectomy. 33.NO CODE, NO CPR, NO VENT. RECOMMENDATIONS AND DISCUSSION: I recommend to continue current medications, continue with monitoring, symptomatic treatment. Otherwise at this time I recommend continue the BiPAP. Once again, I had a detailed discussion with the family and the extremely guarded prognosis was conveyed to them. So they will discuss among themselves and will let us know their decision about evaluation by Hospice and possibly informational visit. Once again, the prognosis is extremely guarded because of multiple complex medical issues. Further recommendations to follow. MMODL / IJN: [id number] / NISHANT
[2021-10-02] MEDS: DONEPEZIL 10 MG TAB PO SCH (20:34)
[2021-10-02] MEDS: FUROSEMIDE 10 MG/ML 4 ML VIAL IV SCH (20:35)
[2021-10-02] MEDS: metroNIDAZOLE 500 MG TAB PO SCH (20:35)
[2021-10-03] MEDS: methylPREDNISolone SOD SUCCI 125 MG/2 ML VIAL IV SCH ×2 (06:43→10:27)
[2021-10-03] MEDS: LEVOTHYROXINE 50 MCG TAB PO SCH (06:44)
[2021-10-03 06:46] LABS: Calcium 9.2 mg/dL (8.4-10.2); Magnesium 2.3 mg/dL (1.6-2.3); Potassium 4.6 mmol/L (3.5-5.1)
[2021-10-03] MEDS: IPRATROPIUM-ALBUTEROL 3 ML NEB INHALATION SCH ×2 (08:04→12:14)
[2021-10-03] MEDS: metroNIDAZOLE 500 MG TAB PO SCH (08:39)
[2021-10-03] MEDS: ESCITALOPRAM 5 MG TAB PO SCH (08:39)
[2021-10-03] MEDS: APIXABAN 2.5 MG TABLET PO SCH (08:39)
[2021-10-03] MEDS: MAGNESIUM OXIDE 400 MG TAB PO SCH (08:39)
[2021-10-03] MEDS: CYANOCOBALAMIN 500 MCG TAB PO SCH (08:39)
[2021-10-03] MEDS: SODIUM BICARBONATE TAB 650 MG TAB PO SCH (08:39)
[2021-10-03] MEDS ORDERED: LEVOFLOXACIN 250 MG TAB PO SCH (09:00)
--- NOTE | 2021-10-03 10:06 | P.PN ---
Subjective Patient is seen in follow-up for acute kidney injury on chronic kidney disease. Renal function is a little worse today from diuresis. On BiPAP. Becomes hypoxic if removed. On IV Lasix. Has a Dennison catheter. Vital signs are stable. General: On high flow cannula. HEENT: Head exam is unremarkable. LUNGS: Breath sounds decreased. HEART: Rate and Rhythm are regular. ABDOMEN: Soft, no distention. EXTREMITITES: Trace edema. Objective - Vital Signs Vital signs: Vital Signs Temp 97.8 F 10/03/21 08:34 Pulse 90 10/03/21 08:34 Resp 18 10/03/21 08:34 BP 97/63 10/03/21 08:34 Pulse Ox 93 L 10/03/21 08:34 Intake & Output 10/02/21 10/03/21 10/03/21 18:59 06:59 18:59 Output Total 400 Balance -400 Weight 80.5 kg Output: Urine 400 Other: Voiding Method Indwelling Catheter Indwelling Catheter Indwelling Catheter # Bowel Movements 1 - Labs CBC & Chem 7: 10/02/21 07:03 10/03/21 05:58 Labs: Abnormal Lab Results - Last 24 Hours (Table) 10/02/21 10/03/21 Range/Units 07:03 05:58 Lymphocytes # (Manual) 0.05 L (1.0-4.8) k/uL Sodium 136 L (137-145) mmol/L BUN 46 H (7-17) mg/dL Creatinine 1.91 H (0.52-1.04) mg/dL Glucose 119 H (74-99) mg/dL Assessment and Plan Plan: Assessment: 1. Acute kidney injury mostly prerenal secondary to cardiorenal syndrome. R enal function worse from diuresis. Creatinine 1.91 today. UA benign. 2. Chronic kidney disease stage III with baseline creatinine in the range of 1.2-1.4 secondary to nephrosclerosis. 3. Acute on chronic diastolic CHF with severe tricuspid regurgitation, pulmonary hypertension and moderate mitral regurgitation. 4. Chronic A. fib on anticoagulation. 5. History of pulmonary fibrosis. 6. Acute hypoxic respiratory failure. 7. Metabolic acidosis secondary to acute kidney injury maintained on oral bicarb. Better. Plan: Decrease Lasix to 20 mg IV twice daily. Avoid nephrotoxins. Continue to monitor renal function and urine output.
[2021-10-03] MEDS: METOPROLOL TARTRATE 25 MG TAB PO SCH (10:28)
--- NOTE | 2021-10-03 11:08 | CDI ---
Documentation Clarification Form Date: 10/03/2021 CDS/Spice [employer]ender Name: Linda Correa RN CCDS Visit Number: [id number] Admit Date: 09/28/2021 Discharge Date: Patient Name: Farnaz Ziegler Dr. Bray Coccyx, Bilateral Upper Posterior Back, Left Heel ,Medial Nose and Left Face pressure ulcers is documented by Nursing 09/28 Pressure Injury Assessment . Based on this information and the findings below, is there additional diagnoses that is clinically appropriate for this patient? History/Risk Factors: 86-year-old female presents to the ED for Diarrhea for the last several days. The patient was hypoxic on presentation. Medical History: Atrial Fibrillation, Atrial Flutter, Asthma and dementia. 09/28,H&P. Clinical Indicators: Location: Coccyx Stage 1 Wound description: Photo taken. Location: Left Heel Stage 1 Wound description: Length 4cm ; Width 4cm. Photo taken Location: Bilateral Upper Posterior Back Stage 1 Wound description: Stage 1, pressure ulcer on bilateral scapula. Photo taken Location: Medial Nose Stage 1 Wound description: Device related, removable: Photo taken Location: Left Face Stage 1 Wound description: Device related, removable, Photo taken. Treatment: Turn two Q hours; Skin Interventions Check hourly, Absorbent Under pad and barrier cream . Is there an additional diagnosis that is clinically appropriate for this patient? [ ] Coccyx, Bilateral Upper Posterior Back, Left Heel ,Medial Nose and Left Face Pressure Ulcers Stage 1 POA [ ] Other condition, please specify [ ] Unable to determine Clinical Definitions: Stage 1 Pressure Ulcer: intact skin, non-blanching redness of local area Stage 2 Pressure Ulcer: Partial thickness, loss of dermis, pink wound bed Stage 3 Pressure Ulcer: Full thickness tissue loss Stage 4 Pressure Ulcer: Full thickness tissue loss with exposed bone, tendon, or muscle. Unstageable pressure ulcer: Full thickness tissue loss in which the base of the ulcer is covered by slough (yellow, al, ho, green or brown) and/or eschar (al, brown or black) in the wound bed. In responding to this query, please exercise your independent professional judgment. The [facility] Coding Staff and Clinical Documentation Specialists appreciate your assistance in clarifying documentation, maintaining compliance with coding guidelines, accurately documenting patients condition and capturing severity of illness. The fact that a question is asked does not imply that any particular answer is desired or expected. Communication forms are a method of clarifying documentation and are made part of the Legal Health Record. Thank you in advance for your clarification. Last Revision January 2021 Coccyx, Bilateral Upper Posterior Back, Left Heel ,Medial Nose and Left Face Pressure Ulcers Stage 1 POA MTDD
[2021-10-03 12:00] VITALS: BP 98/67; RESP 20; TEMP 97.6
[2021-10-03] MEDS: FUROSEMIDE 10 MG/ML 4 ML VIAL IV SCH (12:16)
--- NOTE | 2021-10-03 12:29 | P.PN ---
Subjective This is a 86-year-old female with a past medical history of chronic atrial fibrillation (on Eliquis), chronic kidney disease, hypothyroidism, hypertension, pulmonary fibrosis, pulmonary hypertension, dyslipidemia, type 2 diabetes. She follows in the office with Dr. Caldwell. We are consultation for bradycardia, hypotension, pulmonary edema. Patient presents emergency department with complaints of feeling weak and tired and found to be hypotensive. She was also having episodes of diarrhea, decreased by mouth intake and found to have acute kidney injury and hyperkalemia. She had troponin 0.54, 0.51, 0.54. Echocardiogram 12/2020 revealed EF of 5055% Mild to moderate aortic regurgitation, moderate mitral regurgitation, severe tricuspid regurgitation, severe pulmonary hypertension. 10/03/21 Patient seen and examined at bedside, she is short of breath, still requiring BiPAP. Denies any chest pain. Labs reviewed, sodium 136, potassium 4.6, P1 46, serum creatinine 1.9(increased from 1.6 yesterday), magnesium 2.3 She is currently maintained on Eliquis 2.5 mg twice a day, IV Lasix 40 mg twice a day, metoprolol tartrate 25 mg 3 times a day. Telemetry reviewed patient atrial fibrillation with controlled ventricular rates. No bradycardia noted. Blood pressure on the lower end today, BP 98/67 HR 79, afebrile. GENERAL: Short of breath , on BIPAP NECK: Supple , mild JVD LUNGS: Breath sounds bilateral rhonci to auscultation bilaterally. Respiration equal and unlabored. No wheezes, rales or rhonchi. HEART: Irregular rate and rhythm. Systolic ejection murmur. S1 and S2 heard. EXTREMITIES: Normal range of motion, no edema. No clubbing or cyanosis. Peripheral pulses intact. ASSESSMENT Chronic atrial fibrillation, on Eliquis Acute on chronic hypoxic respiratory failure secondary to acute on chronic diastolic congestive heart failure Elevated troponin, likely due to supply and demand mismatch and acute renal failure Pulmonary fibrosis Chronic interstitial lung disease Acute on chronic kidney disease, sCr is improving Type 2 diabetes Hypothyroidism Dyslipidemia History of hypertension History of breast cancer and lumpectomy followed by radiation Hyperkalemia, resolved PLAN Nephrology decreased IV Lasix 20mg daily Continue Eliquis Continue metoprolol tartrate BP may improve with decrease in lasix dose Monitor I/Os, daily weights Monitor renal function and electrolytes Prognosis guarded Further recommendations based on clinical course Objective - Vital Signs Vital signs: Vital Signs Temp 97.6 F 10/03/21 11:58 Pulse 79 10/03/21 11:58 Resp 20 10/03/21 11:58 BP 98/67 10/03/21 11:58 Pulse Ox 88 L 10/03/21 11:58 Intake & Output 10/02/21 10/03/21 10/03/21 18:59 06:59 18:59 Output Total 400 200 Balance -400 -200 Weight 80.5 kg Output: Urine 400 200 Other: Voiding Method Indwelling Catheter Indwelling Catheter Indwelling Catheter # Bowel Movements 1 1 - Labs CBC & Chem 7: 10/02/21 07:03 10/03/21 05:58 Labs: Abnormal Lab Results - Last 24 Hours (Table) 10/03/21 Range/Units 05:58 Sodium 136 L (137-145) mmol/L BUN 46 H (7-17) mg/dL Creatinine 1.91 H (0.52-1.04) mg/dL Glucose 119 H (74-99) mg/dL
[2021-10-03 12:30] VITALS: PULSE 86
[2021-10-03] MEDS ORDERED: FUROSEMIDE 10 MG/ML 2 ML VIAL IV SCH (21:00)
--- NOTE | 2021-10-04 20:57 | DS ---
DISCHARGE SUMMARY PRIMARY CAUSE OF : Coronary atherpsclerosis leading to acute hypoxic respiratory failure and congestive heart failure, acute exacerbation, with acute on chronic diastolic dysfunction with acute hypoxic respiratory failure. OTHER DIAGNOSES: 1. Severe hypotension and bradycardia, possibly secondary to dehydration, acute renal failure and secondary to acute diarrheal illness, present on admission. 2. Severe hypoxia and acute hypoxic respiratory failure, multifactorial, as mentioned above. 3. Chronic interstitial lung disease and idiopathic pulmonary fibrosis on admission. 4. Elevated plasma lactic acid secondary to dehydration, renal failure, sepsis, present on admission. 5. Severe dementia. 6. Hypomagnesemia. 7. Increased AST. 8. Troponin 0.543, possibly secondary to renal failure. 9. Acute dyp-VJ-jfatveocm myocardial infarction unlikely. 10.Elevated D-dimer. 11.Increased white count. 12.History of atrial fibrillation, paroxysmal. 13.History of asthma, chronic intermittent. 14.Hypertension. 15.Hyperlipidemia. 16.History of degenerative joint disease. 17.History of pneumonia. 18.History of vascular disorder. 19.History of pulmonary fibrosis. 20.History of mitral valve prolapse. 21.History of chronic kidney disease, stage 3. 22.Carpal tunnel syndrome. 23.History of spinal stenosis. 24.History of varicose veins. 25.Right breast cancer. 26.History of hiatal hernia. 27.History of irritable bowel syndrome. 28.History of ulcerative colitis. 29.History of cholecystectomy. 30.History of cardiac catheterization. 31.History of breast lumpectomy. 32.NO CODE, NO CPR, NO VENT. HISTORY OF PRESENT ILLNESS: This 86-year-old woman with a past medical history of multiple medical problems was admitted with shortness of breath and acute hypoxic respiratory failure, hypotension with multiple complex medical issues, as mentioned earlier. The patient was found to have CHF, acute exacerbation, causing acute hypoxic respiratory failure. Treated symptomatically. The patient also had renal failure. The patient had severe hypoxia. Patient also had baseline interstitial lung disease. Patient was treated in conjunction with multiple consultants. Patient was monitored closely. Prognosis was extremely guarded because of above-mentioned multiple complex medical issues, which was discussed with family on multiple occasions. As mentioned earlier, the patient's renal function slightly improved, but the patient continued to be on BiPAP. The case was discussed at length with multiple members of the family, the daughter, the son and other family members. The family and the patient decided to proceed with hospice and comfort measures. The patient succumbed to her above-mentioned multiple major illnesses. As mentioned earlier, the prognosis remained extremely guarded throughout the hospital stay. Please refer to the multiple consultations and progress notes and staff notes for further information. TARA / CANDY: [id number] / NIKKID
== END 2021-10-03 14:49 | disposition hospice, inpatient (51) | DRG 871 ==
LOC: EC 14:13 → 3SCARD 17:59
PROVIDERS: ADMIT Hospitalist; ATTEND Hospitalist
DX: A41.9 Sepsis, unspecified organism (principal); I50.33 Acute on chronic diastolic (congestive) heart failure; J18.9 Pneumonia, unspecified organism; J96.21 Acute and chronic respiratory failure with hypoxia; N17.0 Acute kidney failure with tubular necrosis; I48.20 Chronic atrial fibrillation, unspecified; E87.2 Acidosis; I13.0 Hypertensive heart and chronic kidney disease with heart failure and stage 1 through stage 4 chronic kidney disease, or unspecified chronic kidney disease; K51.90 Ulcerative colitis, unspecified, without complications; Z51.5 Encounter for palliative care; Z66 Do not resuscitate; Z20.822 Contact with and (suspected) exposure to COVID-19; E03.9 Hypothyroidism, unspecified; E11.22 Type 2 diabetes mellitus with diabetic chronic kidney disease; E78.5 Hyperlipidemia, unspecified; E83.42 Hypomagnesemia; E86.0 Dehydration; E87.5 Hyperkalemia; F03.90 Unspecified dementia, unspecified severity, without behavioral disturbance, psychotic disturbance, mood disturbance, and anxiety; G56.00 Carpal tunnel syndrome, unspecified upper limb; H91.90 Unspecified hearing loss, unspecified ear; I44.1 Atrioventricular block, second degree; I27.20 Pulmonary hypertension, unspecified; I45.10 Unspecified right bundle-branch block; I08.3 Combined rheumatic disorders of mitral, aortic and tricuspid valves; J45.909 Unspecified asthma, uncomplicated; J84.112 Idiopathic pulmonary fibrosis; M41.9 Scoliosis, unspecified; M48.00 Spinal stenosis, site unspecified; N18.30 Chronic kidney disease, stage 3 unspecified; W19.XXXA Unspecified fall, initial encounter; M81.0 Age-related osteoporosis without current pathological fracture; M54.50 Low back pain, unspecified; G89.29 Other chronic pain; Z98.890 Other specified postprocedural states; M10.9 Gout, unspecified; Z96.1 Presence of intraocular lens; Z79.01 Long term (current) use of anticoagulants; Z79.890 Hormone replacement therapy; Z79.899 Other long term (current) drug therapy; Z99.81 Dependence on supplemental oxygen; Z85.828 Personal history of other malignant neoplasm of skin; Z85.3 Personal history of malignant neoplasm of breast; Z85.038 Personal history of other malignant neoplasm of large intestine; Z87.01 Personal history of pneumonia (recurrent); Z87.19 Personal history of other diseases of the digestive system; Z86.010 Personal history of colon polyps; Z90.710 Acquired absence of both cervix and uterus; Z98.42 Cataract extraction status, left eye; Z98.41 Cataract extraction status, right eye; Z80.3 Family history of malignant neoplasm of breast; Z81.1 Family history of alcohol abuse and dependence
CPT/HCPCS: 36415; 71045; 71046; 71250; 73502; 80048; 80053; 80061; 81003; 83605; 83735; 83880; 84132; 84145; 84484; 85025; 85379; 85610; 85730; 87324; 87635; 93005; 94640; 94660; 94760; 96361; 96374; 96375; 99291

== ENCOUNTER 2021-10-03 14:35 | Inpatient (IN) | payer MEDICAID, MEDICARE ==
[2021-10-03] MEDS ORDERED: ONDANSETRON 4 MG/2 ML VIAL IVP PRN (14:42)
[2021-10-03] MEDS ORDERED: GLYCOPYRROLATE 0.2 MG/ML 2 ML VIAL IVP PRN (14:42)
[2021-10-03] MEDS ORDERED: ACETAMINOPHEN SUPPOSITORY 650 MG SUPP RECTAL PRN (14:42)
[2021-10-03] MEDS ORDERED: HALOPERIDOL LACTATE 5 MG/ML 1 ML VIAL IM PRN (14:42)
[2021-10-03] MEDS ORDERED: MORPHINE SULFATE 2 MG/ML SYRINGE IV PRN (14:42)
[2021-10-03] MEDS ORDERED: ATROPINE OPHTH SOLN 1% 5ML BTL SUBLINGUAL PRN (14:42)
[2021-10-03] MEDS ORDERED: HYOSCYAMINE ORAL DROPS 1.875 MG/15 ML BOTTLE PO PRN (14:44)
[2021-10-03] MEDS ORDERED: SCOPOLAMINE 1.5MG/72HR PATCH TRANSDERM SCH (14:45)
[2021-10-03] MEDS: MORPHINE SULFATE (100 MG/2 ML) 100 MG in SODIUM CHLORIDE 0.9% 100 ML IV SCH ×2 (15:27→20:08)
[2021-10-03 16:44] VITALS: PULSE 100; RESP 35
--- NOTE | 2021-10-03 18:28 | PN ---
PROGRESS NOTE DATE OF SERVICE: 10/03/2021 This 86-year-old woman who was admitted with acute hypoxic respiratory failure with CHF, acute exacerbation, as well as with acute on chronic diastolic dysfunction as well as baseline pulmonary fibrosis and multiple other medical problems, is being closely monitored. The patient was apparently BiPAP-dependent and the pulse ox was dropping into 70s on stopping it. The patient is confused also. We had multiple discussions with the family, and they were also considering comfort measures and hospice. Past medical history reviewed. Review of systems otherwise could not be taken. CURRENT MEDICATIONS: Isopto, Robinul, Haldol. Doses are reviewed. PHYSICAL EXAMINATION: Patient is alert, oriented x3. Pulse is 100, blood pressure noted, on BiPAP. HEENT: Conjunctivae normal. NECK: No jugular venous distention. CARDIOVASCULAR: S1, S2 muffled. RESPIRATION: Breath sounds diminished at the bases. Scattered rhonchi and crackles. ABDOMEN: Soft, nontender. LEGS: No edema. No swelling. NERVOUS SYSTEM: No focal deficit. LABS: Reviewed. ASSESSMENT: 1. Acute hypoxic respiratory failure with congestive heart failure, acute exacerbation, with acute on chronic diastolic dysfunction with acute hypoxic respiratory failure. 2. Severe hypotension, bradycardia, possibly secondary to dehydration, acute renal failure secondary to acute diarrheal illness, present on admission. 3. Severe hypoxia and acute hypoxic respiratory failure, multifactorial, as mentioned above. 4. Chronic interstitial lung disease and idiopathic pulmonary fibrosis on admission. 5. Elevated plasma lactic acid secondary to dehydration and renal failure, sepsis, present on admission. 6. Severe dementia. 7. Hypomagnesemia. 8. Increased AST. 9. Troponin 0.543, possibly secondary to renal failure. 10.Rule out acute dzw-CV-irmppzp-elevation myocardial infarction, which is unlikely per Cardiology. 11.Elevated D-dimer. 12.Increased white count. 13.History of atrial fibrillation, paroxysmal. 14.History of asthma. 15.Hypertension. 16.Hyperlipidemia. 17.History of degenerative joint disease. 18.History of pneumonia. 19.History of vascular disorder. 20.History of pulmonary fibrosis. 21.History of mitral valve prolapse. 22.History of chronic kidney disease, stage 3. 23.Carpal tunnel syndrome. 24.History of spinal stenosis. 25.History of varicose veins. 26.History of right breast cancer. 27.History of hiatal hernia. 28.History of irritable bowel syndrome. 29.History of Clostridium difficile colitis. 30.History of cholecystectomy. 31.History of cardiac catheterization. History of breast lumpectomy. 32.NO CODE, NO CPR, NO VENT. RECOMMENDATIONS AND DISCUSSION: I recommend to continue current medications, continue with symptomatic treatment. I had a detailed discussion with the family and also the staff and the hospice nurse, and at this time it will be appropriate for the patient to be transitioned to comfort measures and hospice. The prognosis is extremely guarded and patient has not responded to the treatment, even though the creatinine got slightly better. Overall prognosis is guarded. The family understands and agrees. Further recommendations to follow. MMERINL / CINTHIAN: [id number] /
== END 2021-10-03 23:45 | disposition expired | DRG 951 ==
LOC: 3SCARD 15:07
PROVIDERS: ADMIT Hospitalist; ATTEND Hospitalist
DX: Z51.5 Encounter for palliative care (principal); A41.9 Sepsis, unspecified organism; I50.33 Acute on chronic diastolic (congestive) heart failure; J96.01 Acute respiratory failure with hypoxia; I13.0 Hypertensive heart and chronic kidney disease with heart failure and stage 1 through stage 4 chronic kidney disease, or unspecified chronic kidney disease; E87.2 Acidosis; Z66 Do not resuscitate; E78.5 Hyperlipidemia, unspecified; E83.42 Hypomagnesemia; E86.0 Dehydration; F03.90 Unspecified dementia, unspecified severity, without behavioral disturbance, psychotic disturbance, mood disturbance, and anxiety; G56.00 Carpal tunnel syndrome, unspecified upper limb; I34.1 Nonrheumatic mitral (valve) prolapse; I48.0 Paroxysmal atrial fibrillation; R79.1 Abnormal coagulation profile; K58.9 Irritable bowel syndrome, unspecified; J45.909 Unspecified asthma, uncomplicated; I95.9 Hypotension, unspecified; J84.112 Idiopathic pulmonary fibrosis; N18.30 Chronic kidney disease, stage 3 unspecified; Z85.3 Personal history of malignant neoplasm of breast; Z86.19 Personal history of other infectious and parasitic diseases; Z87.01 Personal history of pneumonia (recurrent); Z90.49 Acquired absence of other specified parts of digestive tract; Z98.890 Other specified postprocedural states; Z88.8 Allergy status to other drugs, medicaments and biological substances; Z88.1 Allergy status to other antibiotic agents; Z91.041 Radiographic dye allergy status